=== PATIENT | male | born 1950 | race Caucasian/White ===

== ENCOUNTER 2018-01-19 22:07 | Emergency (ER) | payer MEDICARE, OTHER ==
[~2018-01-19] VITALS: Ht 185.4 cm; Wt 106.6 kg
[~2018-01-19 22:07] MED LIST: ADULT LOW DOSE81 MG PO; AMARYL4 MG PO; COQ-10100 MG PO; CREATINE 50005000 MG PO; D-RIBOSE1 GM MC; DEPO-TESTO200 MG/1 M IM; EPIPEN1 EA INJ; FISH OIL 1,2001 EAC1 PO; GLYBURIDE5 MG PO; LISINOPRIL5 MG; METFORMIN HCL1000 M1 PO; NORCO 5-325 TA1 EACH PO; NORCO 7.5-3251 EACH PO; SUPER B COMPLE150 MG PO; TRADJENTA5 MG PO; ULTRAM50 MG PO
[2018-01-19] MEDS ORDERED: VICTOZA 2-0.6 MG/0.1 SUB-Q (22:21)
[2018-01-19] MEDS ORDERED: JARDIANCE10 MG (22:22)
[2018-01-19] MEDS ORDERED: COZAAR25 MG (22:23)
[2018-01-19] MEDS ORDERED: TESTOSTERO200 MG/1 M (22:24)
[2018-01-19] MEDS ORDERED: MAGNESIUM250 MG (22:24)
[2018-01-19] MEDS ORDERED: DHEA50 M1 (22:25)
[2018-01-19] MEDS ORDERED: SILDENAFIL CIT100 MG (22:27)
[2018-01-19] MEDS ORDERED: BACTRIM DS TAB1 EACH PO (22:50)
== END 2018-01-19 23:02 | disposition home or self-care (01) ==
LOC: ED 22:07
PROC: 0X943ZZ Drainage of Right Axilla, Percutaneous Approach (ICD-10-PCS; principal; 2018-01-19)
DX: L02.411 Cutaneous abscess of right axilla (principal); E11.42 Type 2 diabetes mellitus with diabetic polyneuropathy; E78.5 Hyperlipidemia, unspecified; Z91.030 Bee allergy status; Z88.8 Allergy status to other drugs, medicaments and biological substances; Z79.899 Other long term (current) drug therapy; Z79.82 Long term (current) use of aspirin; Z79.84 Long term (current) use of oral hypoglycemic drugs
CPT/HCPCS: 10060; 87070; 87205; 99283

== ENCOUNTER 2019-06-24 19:40 | Emergency (ER) | payer MEDICARE, OTHER ==
[~2019-06-24] VITALS: Ht 185.4 cm; Wt 85.3 kg
--- OUTSIDE RECORDS SUMMARY | ~2019-06-24 | XMS | Encounter Summary ---
Demographics + + + | Address | [address] | | | [place] [address] | + + + | Home Phone | | + + + | Preferred Language | Unknown | + + + | Marital Status | | + + + | Congregation Affiliation | Unknown | + + + | Race | White | + + + | Ethnic Group | Other Race | + + + Author + + + | Author | [facility] | + + + | Organization | [facility] | + + + | Address | Unknown | + + + | Phone | Unavailable | + + + Support + + + + + | Name | Relationship | Address | Phone | + + + + + | Esthela Kumar | ECON | [address] | | | | | [place] | | | | | [address] | | + + + + + Care Team Providers + +------+ + | Care Bale Coverer Name | Role | Phone | + +------+ + | Alan Sainz MD | PCP | | + +------+ + Reason for Visit Diagnostic Testing (Routine) +--------+--------+ + + + + | Status | Reason | Specialty | Diagnoses / | Referred By | Referred To | | | | | Procedures | Contact | Contact | +--------+--------+ + + + + | Closed | | Clinical | Diagnoses | Julissa Lazcano [facility] | | | | Neurophysiolo | Peripheral | MD Sherlyn | [address] | | | | gy | neuropathy | [address] | | | | | Procedures | Ave | Mailcode: | | | | | EMG/NERVE | [place], [place] | [facility] | | | | | CONDUCTION | [address] | for Health | | | | | STUDIES,ADUL | Phone: | and Healing, | | | | | T - | [phone] | Building 1, | | | | | NEUROLOGY | Fax: | 8th Floor | | | | | | [phone] | [place], [place] | | | | | | | [address] | | | | | | | Phone: | | | | | | | [phone] | | | | | | | Fax: | | | | | | | [phone] | +--------+--------+ + + + + Encounter Details +--------+ + + + + | Date | Type | Department | Care Team | Description | +--------+ + + + + | 08/08/ | Hospital | Neurophysiology | Sherlyn Lazcano MD | | | 2011 | Encounter | EMG at [facility] 8th Floor | [address] | | | | | [address] | [place] [address] | | | | | Mailcode: 8E | [phone] | | | | | [facility] | | | | | | and Healing, | Argenis Krishna | | | | | [facility] | [address] | | | | | Floor [place], [place] | Candice Gonzalez [place], | | | | | [address] | [place] [address] | | | | | [phone] | KatherineYin lynch | | | | | | [place], [place] | | | | | | [address] | | | | | | [phone] | | +--------+ + + + + Social History + +-------+ +--------+------+ | Tobacco Use | Types | Packs/Day | Years | Date | | | | | Used | | + +-------+ +--------+------+ | Never Smoker | | | | | + +-------+ +--------+------+ + + +---------+ + | Alcohol Use | Drinks/Week | oz/Week | Comments | + + +---------+ + | No | | | | + + +---------+ + + + + | Sex Assigned at | Date Recorded | | | | + + + | Not on file | | + + + + + + + | Job Start Date | Occupation | Industry | + + + + | Not on file | Not on file | Not on file | + + + + + + + + | Travel History | Travel Start | Travel End | + + + + + + | No recent travel history available. | + + documented as of this encounter Medications at Time of Discharge + + + +---------+--------+ + | Medication | Sig | Dispensed | Refills | Start | End Date | | | | | | Date | | + + + +---------+--------+ + | ASPIRIN (ASPIR-81 | Take 81 mg by mouth | | 0 | | | | ORAL) | once daily. | | | | | + + + +---------+--------+ + | COQ10 SG 100 100 | 400mg daily | | 0 | | | | MG-100 UNIT CAP | | | | | | + + + +---------+--------+ + | CREATINE | 5g daily | | 0 | | | | MONOHYDRATE ORAL | | | | | | | POWDER | | | | | | + + + +---------+--------+ + | FISH OIL 1,000 mg | 1200 MG -- 2 CAPS | | 0 | | | | Oral Capsule | DAILY | | | | | + + + +---------+--------+ + | metFORMIN 1,000 mg | Take 1,000 mg by | | 0 | | | | Oral tablet | mouth two times | | | | | | | daily. | | | | | + + + +---------+--------+ + | RIBOSE, BULK, MISC | 5 g four times daily | | 0 | | | | | as needed. | | | | | + + + +---------+--------+ + | VITAMIN B COMPLEX | 1 tab daily | | 0 | | | | [place] | | | | | | + + + +---------+--------+ + documented as of this encounter Plan of Treatment Not on filedocumented as of this encounter Procedures + +--------+ + + + | Procedure Name | Priori | Date/Time | Associated Diagnosis | Comments | | | ty | | | | + +--------+ + + + | EMG/NERVE CONDUCTION | | 08/08/2012 | | Results for this | | STUDIES,ADULT - | | 12:00 AM | | procedure are in the | | NEUROLOGY | | PST | | results section. | + +--------+ + + + documented in this encounter Results EMG/NERVE CONDUCTION STUDIES,ADULT - NEUROLOGY (08/08/2012 12:00 AM PST) + + + | Narrative | Performed At | + + + | | | | | | + + + + + | Procedure Note | + + | Joseu Giles - 08/13/2012 2:01 PM PST | + + documented in this encounter Visit Diagnoses Not on filedocumented in this encounter"
--- OUTSIDE RECORDS SUMMARY | ~2019-06-24 | XMS | Encounter Summary ---
Demographics + + + | Address | [address] | | | [place] [address] | + + + | Home Phone | | + + + | Preferred Language | Unknown | + + + | Marital Status | | + + + | Jain Affiliation | Unknown | + + + | Race | White | + + + | Ethnic Group | Other Race | + + + Author + + + | Author | [facility] | + + + | Organization | [facility] | + + + | Address | Unknown | + + + | Phone | Unavailable | + + + Support + + + + + | Name | Relationship | Address | Phone | + + + + + | Esthela Kumar | ECON | [address] | | | | | [place] | | | | | [address] | | + + + + + Care Team Providers + +------+ + | Care Regional Intermodal Truck Driver Name | Role | Phone | + +------+ + | Alan Sainz MD | PCP | | + +------+ + Encounter Details +--------+ + + + + | Date | Type | Department | Care Team | Description | +--------+ + + + + | 06/22/ | Abstract | Neurology at | Brian, | | | 2017 | | [facility] & | Sussy Manuel MD [address] | | | | [address] | | | | | [address] Mailcode: | [place], [place] | | | | | [facility] | [address] | | | | | Health and Healing, | [phone] | | | | | | | | | | | Floor [place], [place] | | | | | | [address] | | | | | | [phone] | | | +--------+ + + + + [...] + + documented as of this encounter Plan of Treatment Not on filedocumented as of this encounter Visit Diagnoses Not on filedocumented in this encounter"
--- OUTSIDE RECORDS SUMMARY | ~2019-06-24 | XMS | Encounter Summary ---
Demographics + + + | Address | [address] | | | [place] [address] | + + + | Home Phone | | + + + | Preferred Language | Unknown | + + + | Marital Status | | + + + | Shinto Affiliation | Unknown | + + + | Race | White | + + + | Ethnic Group | Other Race | + + + Author + + + | Author | [facility] | + + + | Organization | [facility] | + + + | Address | Unknown | + + + | Phone | Unavailable | + + + Support + + + + + | Name | Relationship | Address | Phone | + + + + + | Esthela Kumar | ECON | [address] | | | | | [place] | | | | | [address] | | + + + + + Care Team Providers + +------+ + | Care Access Database Developer Name | Role | Phone | + +------+ + | Alan Sainz MD | PCP | | + +------+ + Encounter Details +--------+------+ + + + | Date | Type | Department | Care Team | Description | +--------+------+ + + + | 07/03/ | Lab | Laboratory at [facility] | | Peripheral | | 2011 | | [address] | | neuropathy | | | | [place], [place] | | | | | | [address] | | | | | | [phone] | | | +--------+------+ + + + Social History + +-------+ [...] | + +--------+ + + + | CBC AND AUTO DIFF | Routin | 07/03/2012 | Peripheral | Results for this | | | e | 5:21 PM | neuropathy | procedure are in the | | | | PST | | results section. | + +--------+ + + + | IMMUNOFIXATION, | Routin | 07/03/2012 | Peripheral | Results for this | | SERUM | e | 5:21 PM | neuropathy | procedure are in the | | | | PST | | results section. | + +--------+ + + + | CBC, WITH | Routin | 07/03/2012 | Peripheral | Results for this | | DIFFERENTIAL | e | 5:21 PM | neuropathy | procedure are in the | | | | PST | | results section. | + +--------+ + + + | COMPLETE METABOLIC | Routin | 07/03/2012 | Peripheral | Results for this | | SET | e | 5:21 PM | neuropathy | procedure are in the | | (NA,K,CL,CO2,BUN,CRE | | PST | | results section. | | AT,GLUC,CA,AST,ALT,B | | | | | | REGINO TOTAL,ALK | | | | | | PHOS,ALB,PROT TOTAL) | | | | | + +--------+ + + + | METHYLMALONIC ACID, | Routin | 07/03/2012 | Peripheral | Results for this | | SERUM | e | 5:21 PM | neuropathy | procedure are in the | | | | PST | | results section. | + +--------+ + + + | SEDIMENTATION RATE | Routin | 07/03/2012 | Peripheral | Results for this | | | e | 5:21 PM | neuropathy | procedure are in the | | | | PST | | results section. | + +--------+ + + + | VITAMIN B-12 | Routin | 07/03/2012 | Peripheral | Results for this | | | e | 5:21 PM | neuropathy | procedure are in the | | | | PST | | results section. | + +--------+ + + + | PROTEIN | Routin | 07/03/2012 | Peripheral | Results for this | | ELECTROPHORESIS, | e | 5:21 PM | neuropathy | procedure are in the | | SERUM, WITH REFLEX | | PST | | results section. | | TO IMMUNOFIXATION | | | | | + +--------+ + + + | COPPER, SERUM | Routin | 07/03/2012 | Peripheral | Results for this | | | e | 5:21 PM | neuropathy | procedure are in the | | | | PST | | results section. | + +--------+ + + + documented in this encounter Results CBC AND AUTO DIFF (07/03/2012 5:21 PM PST) + +-------+ + + + | Component | Value | Ref Range | Performed | Pathologist | | | | | At | Signature | + +-------+ + + + | WHITE CELL | 7.1 | 4.4 - 11.0 K/cu | [facility] | | | COUNT | | mm | LABORATORY | | | | | | SERVICES, | | | | | | CORE | | + +-------+ + + + | RED CELL | 4.75 | 4.50 - 5.90 | [facility] | | | COUNT | | M/cu mm | LABORATORY | | | | | | SERVICES, | | | | | | CORE | | + +-------+ + + + | HEMOGLOBIN | 14.9 | 13.5 - 17.5 | [facility] | | | | | g/dL | LABORATORY | | | | | | SERVICES, | | | | | | CORE | | + +-------+ + + + | HEMATOCRIT | 43.6 | 41.0 - 53.0 % | [facility] | | | | | | LABORATORY | | | | | | SERVICES, | | | | | | CORE | | + +-------+ + + + | MCV | 91.8 | 80.0 - 96.0 fL | [facility] | | | | | | LABORATORY | | | | | | SERVICES, | | | | | | CORE | | + +-------+ + + + | MCHC | 34.1 | 33.4 - 35.5 | [facility] | | | | | g/dL | LABORATORY | | | | | | SERVICES, | | | | | | CORE | | + +-------+ + + + | RDW | 13.4 | 11.5 - 15.0 % | [facility] | | | | | | LABORATORY | | | | | | SERVICES, | | | | | | CORE | | + +-------+ + + + | PLATELET | 222 | 150 - 400 K/cu | [facility] | | | COUNT | | mm | LABORATORY | | | | | | SERVICES, | | | | | | CORE | | + +-------+ + + + | NEUTROPHIL | 53 | 50 - 70 % | [facility] | | | % | | | LABORATORY | | | | | | SERVICES, | | | | | | CORE | | + +-------+ + + + | LYMPHOCYTE | 34 | 18 - 42 % | [facility] | | | % | | | LABORATORY | | | | | | SERVICES, | | | | | | CORE | | + +-------+ + + + | MONOCYTE % | 7 | 2 - 8 % | [facility] | | | | | | LABORATORY | | | | | | SERVICES, | | | | | | CORE | | + +-------+ + + + | EOS % | 5 (H) | 1 - 3 % | [facility] | | | | | | LABORATORY | | | | | | SERVICES, | | | | | | CORE | | + +-------+ + + + | BASO % | 1 | 0 - 2 % | [facility] | | | | | | LABORATORY | | | | | | SERVICES, | | | | | | CORE | | + +-------+ + + + | NEUTROPHIL | 3.7 | 1.8 - 7.7 K/cu | [facility] | | | # | | mm | LABORATORY | | | | | | SERVICES, | | | | | | CORE | | + +-------+ + + + | LYMPHOCYTE | 2.4 | 1.0 - 4.8 K/cu | [facility] | | | # | | mm | LABORATORY | | | | | | SERVICES, | | | | | | CORE | | + +-------+ + + + | MONOCYTE # | 0.5 | 0.0 - 0.8 K/cu | [facility] | | | | | mm | LABORATORY | | | | | | SERVICES, | | | | | | CORE | | + +-------+ + + + | EOS # | 0.4 | 0.0 - 0.5 K/cu | [facility] | | | | | mm | LABORATORY | | | | | | SERVICES, | | | | | | CORE | | + +-------+ + + + | BASO # | 0.0 | 0.0 - 0.1 K/cu | [facility] | | | | | mm | LABORATORY | | | | | | SERVICES, | | | | | | CORE | | + +-------+ + + + + + | Specimen | + + | Blood - Blood | + + + + + + + | Performing | Address | City/State/Zipcode | Phone Number | | Organization | | | | + + + + + | [facility] | [address] | [place] [address] | | | SERVICES, CORE | [address] | | | + + + + + IMMUNOFIXATION, SERUM (NEUROLOGY ONLY) (07/03/2012 5:21 PM PST) + + + + + + | Component | Value | Ref Range | Performed | Pathologist | | | | | At | Signature | + + + + + + | IMMUNOFIXAT | No monoclonal protein | | [facility] - | | | ION, SERUM | detected by | | [facility] - | | | | immunofixation | | [place] | | | | electrophoresis. | | | | + + + + + + + + | Specimen | + + | Blood - Blood | + + + + + + + | Performing | Address | City/State/Zipcode | Phone Number | | Organization | | | | + + + + + | [facility] | [address] | [place] [address] | | | [place] | | | | + + + + + PROTEIN ELECTROPHORESIS, SERUM (07/03/2012 5:21 PM PST) + + + + + + | Component | Value | Ref Range | Performed | Pathologist | | | | | At | Signature | + + + + + + | TOTAL | 6.8 | 6.4 - 8.3 gm/dL | [facility] - | | | PROTEIN, | | | [facility] - | | | SERUM - | | | [place] | | | SPEP | | | | | + + + + + + | GAMMA %, | 10.4 | % | [facility] - | | | SPEP | | | [facility] - | | | | | | [place] | | + + + + + + | GAMMA, | 0.71 | 0.50 - 1.50 | [facility] | | | SERUM - | | gm/dL | [facility] - | | | SPEP | | | [place] | | + + + + + + | BETA % SPEP | 11.8 | % | [facility] | | | | | | [facility] - | | | | | | [place] | | + + + + + + | BETA, SERUM | 0.80 | 0.60 - 1.20 | [facility] | | | - SPEP | | gm/dL | [facility] - | | | | | | [place] | | + + + + + + | ALPHA-2 %, | 9.3 | % | [facility] | | | SPEP | | | [facility] - | | | | | | [place] | | + + + + + + | ALPHA-2, | 0.63 | 0.50 - 0.90 | [facility] | | | SERUM - | | gm/dL | [facility] - | | | SPEP | | | [place] | | + + + + + + | ALPHA-1 %, | 1.8 | % | [facility] | | | SPEP | | | [facility] - | | | | | | [place] | | + + + + + + | ALPHA-1, | 0.12 | 0.10 - 0.40 | [facility] | | | SERUM - | | gm/dL | [facility] - | | | SPEP | | | [place] | | + + + + + + | ALBUMIN %, | 66.7 | % | [facility] | | | SPEP | | | [facility] - | | | | | | [place] | | + + + + + + | ALBUMIN,SER | 4.54 | 3.40 - 5.20 | [facility] | | | UM - SPEP | | gm/dL | [facility] - | | | | | | [place] | | + + + + + + | SPEP | Within usual | | [facility] - | | | COMMENTS | limits.Comment: | | [facility] - | | | | Interpretation By: Dajuan | | ERIC | | | | Brandi AGUILAR MS | | | | + + + + + + + + | Specimen | + + | Blood - Blood | + + + + + + + | Performing | Address | City/State/Zipcode | Phone Number | | Organization | | | | + + + + + | [facility] | [address] | [place] [address] | | | [place] | | | | + + + + + SEDIMENTATION RATE (07/03/2012 5:21 PM PST) + +-------+ + + + | Component | Value | Ref Range | Performed | Pathologist | | | | | At | Signature | + +-------+ + + + | SEDIMENTATI | 13 | 0 - 20 mm/hr | [facility] | | | ON RATE | | | LABORATORY | | | | | | SERVICES, | | | | | | CORE | | + +-------+ + + + + + | Specimen | + + | Blood - Blood | + + + + + + + | Performing | Address | City/State/Zipcode | Phone Number | | Organization | | | | + + + + + | [facility] | [address] | [place] [address] | | | SERVICES, CORE | [address] | | | + + + + + COPPER, SERUM (07/03/2012 5:21 PM PST) + + + + + + | Component | Value | Ref Range | Performed | Pathologist | | | | | At | Signature | + + + + + + | COPPER | 92Comment: REFERENCE | 70 - 140 ug/dL | [facility] | | | SERUM | INTERVAL: Copper, Serum | | REG UNIV | | | | Access complete set of | | PTH - INTFC | | | | age- and/or | | | | | | gender-specificreference | | | | | | intervals for this test | | | | | | in the [facility] | | | | | | LaboratoryTest Directory | | | | | | ([employer]). Serum | | | | | | copper may be elevated | | | | | | with infection, | | | | | | inflammation,stress, and | | | | | | copper supplementation. | | | | | | Serum copper may | | | | | | bereduced by use of | | | | | | corticosteroids and zinc | | | | | | and bymalnutrition or | | | | | | malabsorption.Performed | | | | | | by [address] | | | | | | [facility], [facility] | | | | | | [address] | | | | | | [phone].. | | | | | | [facility], Beverley Lyles, | | | | | | , Lab. Director | | | | + + + + + + + + | Specimen | + + | Blood - Blood | + + + + + + + | Performing | Address | City/State/Zipcode | Phone Number | | Organization | | | | + + + + + | [facility] | [address] | [place], [place] | | | UNIV PTH - INTFC | | [address] | | + + + + + METHYLMALONIC ACID, SERUM (07/03/2012 5:21 PM PST) + + + + + + | Component | Value | Ref Range | Performed | Pathologist | | | | | At | Signature | + + + + + + | METHYLMALON | 0.17Comment: Performed | 0.00 - 0.40 | [facility] | | | IC ACID | by [address] | umol/L | REG UNIV | | | | Ford Fernandez, [facility] | | PTH - INTFC | | | | [address] | | | | | | [phone].[email or web address] | | | | | | com, Beverley Lyles, | | | | | | Christine JIMENEZ. Director | | | | + + + + + + + + | Specimen | + + | Blood - Blood | + + + + + + + | Performing | Address | City/State/Zipcode | Phone Number | | Organization | | | | + + + + + | [facility] | [address] | [place], [place] | | | UNIV PTH - INTFC | | [address] | | + + + + + VITAMIN B-12, SERUM (07/03/2012 5:21 PM PST) + + + + + + | Component | Value | Ref Range | Performed | Pathologist | | | | | At | Signature | + + + + + + | VITAMIN | 280Comment: B12 <200: | 180 - 914 pg/mL | [facility] | | | B12, SERUM | Severe deficiency. If | | [facility] - | | | | supplementation does not | | [place] | | | | correct consider | | | | | | further testing | | | | | | B12 <300: Deficiency | | | | | | likely. If | | | | | | supplementation does not | | | | | | correct, consider | | | | | | further | | | | | | testing B12 <400: | | | | | | Supplementation may be | | | | | | considered if | | | | | | [id number] >400: | | | | | | Deficiency unlikely B12 | | | | | | Deficiency can be | | | | | | confirmed with findings | | | | | | of increased MMA (>320 | | | | | | nmol/L) and increased | | | | | | homocysteine (>15 | | | | | | umol/L). Folate | | | | | | deficiency manifests | | | | | | with normal MMA but | | | | | | increased homocysteine. | | | | + + + + + + + + | Specimen | + + | Blood - Blood | + + + + + + + | Performing | Address | City/State/Zipcode | Phone Number | | Organization | | | | + + + + + | [facility] | [address] | [place] [address] | | | [place] | | | | + + + + + COMPLETE METABOLIC SET (NA,K,CL,CO2,BUN,CREAT,GLUC,CA,AST,ALT,BILI TOTAL,ALK PHOS,ALB,PROT TOTAL) (07/03/2012 5:21 PM PST) + +---------+ + + + | Component | Value | Ref Range | Performed | Pathologist | | | | | At | Signature | + +---------+ + + + | GLUCOSE, | 125 (H) | 60 - 99 mg/dL | [facility] | | | PLASMA | | | LABORATORY | | | (LAB) | | | SERVICES, | | | | | | CORE | | + +---------+ + + + | BUN, PLASMA | 24 (H) | 6 - 20 mg/dL | [facility] | | | (LAB) | | | LABORATORY | | | | | | SERVICES, | | | | | | CORE | | + +---------+ + + + | CREATININE | 1.06 | 0.70 - 1.30 | [facility] | | | PLASMA | | mg/dL | LABORATORY | | | (LAB) | | | SERVICES, | | | | | | CORE | | + +---------+ + + + | EGFR | >60 | mL/min | [facility] | | | - | | | LABORATORY | | | EQUATORIAL GUINEAN | | | SERVICES, | | | | | | CORE | | + +---------+ + + + | EGFR NON | >60 | mL/min | [facility] | | | -SIMONE | | | LABORATORY | | | RICAN | | | SERVICES, | | | | | | CORE | | + +---------+ + + + | SODIUM, | 137 | 136 - 145 | [facility] | | | PLASMA | | mmol/L | LABORATORY | | | (LAB) | | | SERVICES, | | | | | | CORE | | + +---------+ + + + | POTASSIUM, | 4.1 | 3.4 - 5.0 | [facility] | | | PLASMA | | mmol/L | LABORATORY | | | (LAB) | | | SERVICES, | | | | | | CORE | | + +---------+ + + + | CHLORIDE, | 106 | 97 - 108 mmol/L | [facility] | | | PLASMA | | | LABORATORY | | | (LAB) | | | SERVICES, | | | | | | CORE | | + +---------+ + + + | TOTAL CO2, | 21 | 21 - 32 mmol/L | [facility] | | | PLASMA | | | LABORATORY | | | (LAB) | | | SERVICES, | | | | | | CORE | | + +---------+ + + + | CALCIUM, | 8.8 | 8.6 - 10.2 | [facility] | | | PLASMA | | mg/dL | LABORATORY | | | (LAB) | | | SERVICES, | | | | | | CORE | | + +---------+ + + + | BILIRUBIN | 0.8 | 0.3 - 1.2 mg/dL | [facility] | | | TOTAL | | | LABORATORY | | | | | | SERVICES, | | | | | | CORE | | + +---------+ + + + | TOTAL | 7.5 | 6.1 - 7.9 g/dL | [facility] | | | PROTEIN, | | | LABORATORY | | | PLASMA | | | SERVICES, | | | (LAB) | | | CORE | | + +---------+ + + + | ALBUMIN, | 4.1 | 3.5 - 4.7 g/dL | [facility] | | | PLASMA | | | LABORATORY | | | (LAB) | | | SERVICES, | | | | | | CORE | | + +---------+ + + + | ALK PHOS | 58 | 56 - 119 U/L | [facility] | | | | | | LABORATORY | | | | | | SERVICES, | | | | | | CORE | | + +---------+ + + + | AST(SGOT) | 42 (H) | 15 - 41 U/L | [facility] | | | | | | LABORATORY | | | | | | SERVICES, | | | | | | CORE | | + +---------+ + + + | ALT (SGPT) | 60 | 12 - 60 U/L | [facility] | | | | | | LABORATORY | | | | | | SERVICES, | | | | | | CORE | | + +---------+ + + + | ANION | 9 | 4 - 11 mmol/L | [facility] | | | GAP(ALB | | | LABORATORY | | | CORRECTED) | | | SERVICES, | | | | | | CORE | | + +---------+ + + + | POTASSIUM | No Hemo | | [facility] | | | CMNT | | | LABORATORY | | | | | | SERVICES, | | | | | | CORE | | + +---------+ + + + | BILI T CMNT | No Hemo | | [facility] | | | | | | LABORATORY | | | | | | SERVICES, | | | | | | CORE | | + +---------+ + + + | AST CMNT | No Hemo | | [facility] | | | | | | LABORATORY | | | | | | SERVICES, | | | | | | CORE | | + +---------+ + + + | ANION GAP | 10 | 4 - 11 mmol/L | [facility] | | | | | | LABORATORY | | | | | | SERVICES, | | | | | | CORE | | + +---------+ + + + + + | Specimen | + + | Blood - Blood | + + + + + + + | Performing | Address | City/State/Zipcode | Phone Number | | Organization | | | | + + + + + | [facility] | [address] | [place] [address] | | | SERVICES, CORE | [address] | | | + + + + + documented in this encounter Visit Diagnoses + + | Diagnosis | + + | Peripheral neuropathy Unspecified hereditary and idiopathic peripheral neuropathy | + + documented in this encounter"
--- OUTSIDE RECORDS SUMMARY | ~2019-06-24 | XMS | Encounter Summary ---
Demographics + + + | Address | [address] | | | [place] [address] | + + + | Home Phone | | + + + | Preferred Language | Unknown | + + + | Marital Status | | + + + | Adventism Affiliation | Unknown | + + + | Race | White | + + + | Ethnic Group | Other Race | + + + Author + + + | Author | [facility] | + + + | Organization | [facility] | + + + | Address | Unknown | + + + | Phone | Unavailable | + + + Support + + + + + | Name | Relationship | Address | Phone | + + + + + | Esthela Kumar | ECON | [address] | | | | | [place] | | | | | [address] | | + + + + + Care Team Providers + +------+ + | Care Civil Engineering Intern Name | Role | Phone | + +------+ + | Alan Sainz MD | PCP | | + +------+ + Encounter Details +--------+ + + + + | Date | Type | Department | Care Team | Description | +--------+ + + + + | 06/22/ | Results | Neurology at | Maximilian De La Garza, | | | 2005 | Only | [facility] & | | | | | | [address]aling [address] | | | | | | [address] Mailcode: | | | | | | [facility] | | | | | | Health and Healing, | | | | | | Building | | | | | | Floor [place], [place] | | | | | | [address] | | | | | | [phone] | | | +--------+ + + + [...] as of this encounter Plan of Treatment + +---------+--------+ + + | Name | Type | Priori | Associated Diagnoses | Date/Time | | | | ty | | | + +---------+--------+ + + | MRI OUTSIDE FILMS | Imaging | Routin | | 06/22/2006 12:00 AM | | | | e | | PST | + +---------+--------+ + + | GENERAL OUTSIDE | Imaging | Routin | | 07/02/2006 12:00 AM | | FILMS | | e | | PST | + +---------+--------+ + + documented as of this encounter Visit Diagnoses Not on filedocumented in this encounter"
--- OUTSIDE RECORDS SUMMARY | ~2019-06-24 | XMS | Encounter Summary ---
Demographics + + + | Address | [address] | | | [place] [address] | + + + | Home Phone | | + + + | Preferred Language | Unknown | + + + | Marital Status | | + + + | Scientologist Affiliation | Unknown | + + + | Race | White | + + + | Ethnic Group | Other Race | + + + Author + + + | Author | [facility] | + + + | Organization | [facility] | + + + | Address | Unknown | + + + | Phone | Unavailable | + + + Support + + + + + | Name | Relationship | Address | Phone | + + + + + | Esthela Kumar | ECON | [address] | | | | | [place] | | | | | [address] | | + + + + + Care Team Providers + +------+ + | Care Self Rising Flour Mixer Name | Role | Phone | + +------+ + | Alan Sainz MD | PCP | | + +------+ + Encounter Details +--------+ + + + + | Date | Type | Department | Care Team | Description | +--------+ + + + + | 08/02/ | Abstract | Neurology at | Brian, | | | 2017 | | [facility] & | Sussy Manuel MD [address] | | | | | [address] | [address] | | | | | [address] Mailcode: | [place], [place] | | | | | [facility] | [address] | | | | | Health and Healing, | [phone] | | | | | | | | | | | Floor [place], [place] | | | | | | [address] | | | | | | [phone] | | | +--------+ + + + [...]
--- OUTSIDE RECORDS SUMMARY | ~2019-06-24 | XMS | Encounter Summary ---
Demographics + + + | Address | [address] | | | [place] [address] | + + + | Home Phone | | + + + | Preferred Language | Unknown | + + + | Marital Status | | + + + | Sikhism Affiliation | Unknown | + + + [...] + | Esthela Kumar | ECON | [address] | | | | | [place] | | | | | [address] | | + + + + + Care Team Providers + +------+ + | Care Head Of Data Name | Role | Phone | + +------+ + | Alan Sainz MD | PCP | | + +------+ + Encounter Details +--------+------+ + + + | Date | Type | Department | Care Team | Description | +--------+------+ + + + | 08/08/ | Lab | Laboratory at [facility] | | Peripheral | | 2011 | | [address] | | neuropathy | | | | [place], [place] | | | | | | [address] | | | | | | [phone] | | | +--------+------+ + + + [...] | + +--------+ + + + | HEAVY METALS, URINE | Routin | 08/08/2012 | Peripheral | Results for this | | | e | 10:01 AM | neuropathy | procedure are in the | | | | PST | | results section. | + +--------+ + + + | PROTEIN | Routin | 08/08/2012 | Peripheral | Results for this | | ELECTROPHORESIS, | e | 10:01 AM | neuropathy | procedure are in the | | URINE, WITH REFLEX | | PST | | results section. | | TO IMMUNOFIXATION | | | | | + +--------+ + + + documented in this encounter Results HEAVY METALS, URINE (08/08/2012 10:01 AM PST) + + + + + + | Component | Value | Ref Range | Performed | Pathologist | | | | | At | Signature | + + + + + + | CREATININE, | 1913Comment: Performed | 800 - 2100 mg/d | [facility] | | | UR(REFERRAL | by [employer],[address] | | REG UNIV | | | ) | Ford Fernandez, [facility],[place] | | PTH - INTFC | | | | [address] | | | | | | [phone].[employer] | | | | | | suleiman, Beverley Lyles, | | | | | | Christine JIMENEZ. Director | | | | + + + + + + | CREATININE | 106 | mg/dL | [facility] | | | URINE | | | REG UNIV | | | CONCENTRATI | | | PTH - INTFC | | | ON | | | | | + + + + + + | LEAD, URINE | 0.0 | ug/gCR | [facility] | | | UG/G DOCK OPERATOR | | | REG UNIV | | | | | | PTH - INTFC | | + + + + + + | MERCURY, | 0.9 | <=35.0 ug/gCR | [facility] | | | URINE UG/G | | | REG UNIV | | | DOCK OPERATOR | | | PTH - INTFC | | + + + + + + | ARSENIC, | 19.3 | ug/gCR | [facility] | | | URINE UG/G | | | REG UNIV | | | DOCK OPERATOR | | | PTH - INTFC | | + + + + + + | ARSENIC, UR | 37.0 | 0.0 - 50.0 ug/d | [facility] | | | (UG/D) | | | REG UNIV | | | | | | PTH - INTFC | | + + + + + + | MERCURY, UR | 2 | 0 - 15 ug/d | [facility] | | | (UG/D) | | | REG UNIV | | | | | | PTH - INTFC | | + + + + + + | LEAD, UR | 0 | 0 - 31 ug/d | [facility] | | | (UG/D) | | | REG UNIV | | | | | | PTH - INTFC | | + + + + + + | ARSENIC, UR | 20.5Comment: | 0.0 - 35.0 ug/L | [facility] | | | (UG/L) | INTERPRETIVE | | REG UNIV | | | | INFORMATION: Arsenic, | | PTH - INTFC | | | | Urine w/ Reflex | | | | | | toFractionated Specific | | | | | | toxic thresholds for | | | | | | arsenic are not well | | | | | | defined.The [facility] | | | | | | Biological Exposure | | | | | | Index is 35 ug/L for the | | | | | | sumof the inorganic and | | | | | | methylated forms of | | | | | | arsenic. Forspecimens | | | | | | with a total arsenic | | | | | | concentration | | | | | | [id number] ug/L, | | | | | | fractionation is | | | | | | performed to determine | | | | | | theproportion of | | | | | | organic, inorganic and | | | | | | methylated forms. | | | | | | Iflow-level chronic | | | | | | poisoning is suspected, | | | | | | the ug/gCRT ratiomay be | | | | | | more sensitive than the | | | | | | total arsenic | | | | | | concentration.It may be | | | | | | appropriate to | | | | | | fractionate specimens | | | | | | with aug/gCRT ratio | | | | | | greater than 30 ug/gCRT | | | | | | despite a totalarsenic | | | | | | concentration less than | | | | | | 35 ug/L; the | | | | | | [facility] perform | | | | | | this on request. The | | | | | | organic forms of | | | | | | arsenic, most commonly | | | | | | arsenobetaine,are | | | | | | considered nontoxic and | | | | | | arise primarily from | | | | | | food.Inorganic forms of | | | | | | arsenic, As(III) and | | | | | | As(V), are mosttoxic. | | | | | | Methylated forms (MMA | | | | | | and DMA) arise primarily | | | | | | frommetabolism of | | | | | | inorganic forms but may | | | | | | also come fromdietary | | | | | | sources and are of | | | | | | moderate toxic | | | | | | potential. Asthis test | | | | | | does not detect all | | | | | | species of arsenic, it | | | | | | isexpected that the sum | | | | | | of the organic,inorganic | | | | | | andmethylated forms | | | | | | will not equal the total | | | | | | arsenicconcentration. | | | | + + + + + + | LEAD,URINE | 0 | 0 - 23 ug/L | [facility] | | | | | | REG UNIV | | | | | | PTH - INTFC | | + + + + + + | MERCURY | 1Comment: INTERPRETIVE | 0 - 10 ug/L | [facility] | | | URINE | INFORMATION: Mercury, | | REG UNIV | | | | Urine - ug/L Urine | | PTH - INTFC | | | | mercury concentration | | | | | | may correlate better | | | | | | withinorganic mercury | | | | | | exposure than blood | | | | | | concentrations | | | | | | sinceorganic mercury is | | | | | | eliminated primarily in | | | | | | the feces.Urine mercury | | | | | | levels may also be used | | | | | | to monitor | | | | | | chelationtherapy. | | | | + + + + + + | URINE | 24 | hr | [facility] | | | COLLECTION | | | REG UNIV | | | | | | PTH - INT[facility] | | + + + + + + | URINE | 1805 | mL | [facility] | | | VOLUME(REF) | | | REG UNIV | | | | | | PTH - INTFC | | + + + + + + + + | Specimen | + + | Urine - Urine | + + + + + + + | Performing | Address | City/State/Zipcode | Phone Number | | Organization | | | | + + + + + | [facility] | [address] | [place], [place] | | | UNIV PTH - INT[facility] | | [address] | | + + + + + PROTEIN ELECTROPHORESIS, URINE, WITH REFLEX TO IMMUNOFIXATION (08/08/2012 10:01 AM PST) + + + + + + | Component | Value | Ref Range | Performed | Pathologist | | | | | At | Signature | + + + + + + | PROTEIN, | 235 (H) | <=164 mg/24hr | [facility] | | | URINE | | | [facility] | | | | | | [place] | | + + + + + + | URINE | Urine Protein is less | | [facility] | | | ELECTOPHORE | than 30 mg/dL, | | [facility] | | | SIS CM[facility] | electrophoresis not | | [place] | | | | performed.Comment: | | | | | | Interpretation By: | | | | | | [facility] [place], [facility] | | | | | | Pamela | | | | + + + + + + | UR PROT | 13 | <=15 mg/dL | [facility] | | | CONC-UPEP | | | [facility] - | | | | | | [place] | | + + + + + + + + | Specimen | + + | Urine - Urine | + + + + + + + | Performing | Address | City/State/Zipcode | Phone Number | | Organization | | | | + + + + + | [facility] | [address] | [place] [address] | | | [place] | | | | + + + + + documented in this encounter Visit Diagnoses + + | Diagnosis | + + | Peripheral neuropathy Unspecified hereditary and idiopathic peripheral neuropathy | + + documented in this encounter"
--- OUTSIDE RECORDS SUMMARY | ~2019-06-24 | XMS | Clinical Summary ---
Demographics + + + | Address | [address] | | | [place] [address] | + + + | Home Phone | | + + + | Preferred Language | Unknown | + + + | Marital Status | | + + + | Presybeterian Affiliation | Unknown | + + + [...] + | Esthela Kumar | ECON | [address] | | | | | [place] | | | | | [address] | | + + + + + Care Team Providers + +------+ + | Care Asset Protection Manager Name | Role | Phone | + +------+ + | Lázaro Oviedo MD | PCP | | + +------+ + Source Comments FABRICIO is fully live on both [facility] and [facility] Allergies + + + + + [...] | | | | | | | [employer] | | | | | | | [...] [address] | | [address] | 0 | [address] | re | | | MEDICA | | sent | | [place], [place] | | | | RE | | | | [address] | | + +--------+ +--------+ + +--------+ | [employer] | TRANSA | xxxxxxxxx | Effect | [phone] | [address] | POS | | MEDICARE SUPPLEMENT | [place]ICA | | jaye | 2 | [address] | | | | | | for | | [place], [place] | | | | MEDICA | | all | | [id number] | | | | RE | | [...] | | | all | | [place] [address] | | | | | | dates [...] Person | Self | [birth year] | [address] | | | al/Fam | | 1950 | [phone] | [place] | | | anusha | | | 5 (Home) | [address] | + +--------+ +--------+ + + | Andrea Kumar | Specia | Self | [birth year] | | [address] | | | l | | 1950 | [phone] | [place] | | | [place] | | | [address] ([place]) | [address] | | | g | | | | | + +--------+ +--------+ + +"
--- OUTSIDE RECORDS SUMMARY | ~2019-06-24 | XMS | Clinical Summary ---
Demographics + + + | Address | [address] | | | [place] [address] | + + + | Home Phone | | + + + | Preferred Language | Unknown | + + + | Marital Status | | + + + | Yazidi Affiliation | 1073 | + + + | Race | Unknown | + + + | Ethnic Group | Unknown | + + + Author + + + | Author | [facility] | | | and [place] | + + + | Organization | [facility] | | | and [place] | + + + | Address | Unknown | + + + | Phone | Unavailable | + + + Support + + +---------+ + | Name | Relationship | Address | Phone | + + +---------+ + | JUS KUMAR ECON | Unknown | | + + +---------+ + Care Team Providers + +------+ + | Care Television Engineering Teacher Name | Role | Phone | + +------+ + PCP | Unavailable | + +------+ + Allergies + + + + + + | Active Allergy | Reactions | Severity | Noted | Comments | | | | | Date | | + + + + + + | Meperidine | Nausea And Vomiting | Low | 04/18/20 | | | | | | 16 | | + + + + + + | Statins | Other (See Comments) | Medium | 06/21/20 | Cramping | | | | | 17 | throughout body | + + + + + + Medications + + + +---------+------+------+-------+ | Medication | Sig | Dispensed | Refills | Star | End | Statu | | | | | | t | Date | s | | | | | | Date | | | + + + +---------+------+------+-------+ | B COMPLEX-C PO | Take by mouth | | 0 | 08/2 | | Activ | | | daily. | | | 05/10 | | e | | | | | | 16 | | | + + + +---------+------+------+-------+ | Vitamin Mixture | Take 1,000 mg by | | 0 | 08/2 | | Activ | | (SONIA-C PO) | mouth daily. | | | 9/20 | | e | | | | | | 16 | | | + + + +---------+------+------+-------+ | aspirin 81 MG EC | Take 81 mg by mouth | | 0 | 08/2 | | Activ | | tablet | daily with | | | 20 | | e | | | breakfast. | | | 16 | | | + + + +---------+------+------+-------+ | DHEA 50 MG TABS | Take 50 mg by mouth | | 0 | 08/2 | | Activ | | | daily. | | | 9/20 | | e | | | | | | 16 | | | + + + +---------+------+------+-------+ | Coenzyme Q10 | Take 200 mg by mouth | | 0 | 08/2 | | Activ | | (COQ10) 200 MG CAPS | daily. | | | 9/20 | | e | | | | | | 16 | | | + + + +---------+------+------+-------+ | Rogers-3 Fatty | Take 1,200 mg by | | 0 | 08/2 | | Activ | | Acids (FISH OIL) | mouth 2 (two) times | | | 9/20 | | e | | 1200 MG CAPS | daily. | | | 16 | | | + + + +---------+------+------+-------+ | magnesium, as | Take 250 mg by mouth | | 0 | 08/2 | | Activ | | oxide, 250 MG tablet | daily. | | | 20 | | e | | | | | | 16 | | | + + + +---------+------+------+-------+ | metFORMIN | Take 2,000 mg by | | 0 | 08/2 | | Activ | | (GLUCOPHAGE) 1000 MG | mouth daily. | | | 920 | | e | | tablet | | | | 16 | | | + + + +---------+------+------+-------+ | glimepiride | Take 4 mg by mouth 2 | | 0 | 08/2 | | Activ | | (AMARYL) 4 mg tablet | (two) times daily. | | | 920 | | e | | | | | | 16 | | | + + + +---------+------+------+-------+ | liraglutide | Inject 1.8 mg into | | 0 | 08/2 | | Activ | | (VICTOZA) 18 mg/3 mL | the skin daily. | | | 05/10 | | e | | injection | | | | 16 | | | + + + +---------+------+------+-------+ | testosterone | Inject 200 mg into | | 0 | 08/2 | | Activ | | cypionate | the muscle every 28 | | | 05/10 | | e | | (DEPO-TESTOSTERONE) | days. | | | 16 | | | | 200 mg/mL injection | | | | | | | + + + +---------+------+------+-------+ | losartan (COZAAR) | Take 12.5 mg by | | 0 | 09/2 | | Activ | | 25 mg tablet | mouth daily. | | | 05/10 | | e | | | | | | 16 | | | + + + +---------+------+------+-------+ | ascorbic acid | Take 1,000 mg by | | 0 | 11/0 | | Activ | | (VITAMIN C) 1000 MG | mouth daily. | | | 20 | | e | | tablet | | | | 17 | | | + + + +---------+------+------+-------+ | sildenafil | Take 25 mg by mouth | | 0 | 11/0 | | Activ | | (VIAGRA) 25 MG | as needed for | | | /20 | | e | | tablet | Erectile | | | 17 | | | | | Dysfunction. 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 | + + + Family History + + +------+ + | Medical History | Relation | Name | Comments | + + +------+ + | Heart disease | Father | | | + + +------+ + | High cholesterol | Father | | | + + +------+ + | Diabetes, NIDDM | Mother | | | + + +------+ + + +------+ + + | Relation | Name | Status | Comments | + +------+ + + | Father | | | [place],heart disease,hyperllipidemia, smoker | | | | (Age | | | | | 62) | | + +------+ + + | Father | | | | + +------+ + + | Mother | | | hepatitis C, Diabetes Mellitus,thyroid | | | | (Age | disease | | | | 68) | | + +------+ + + | Mother | | | | + +------+ + + Social History + +-------+ +--------+------+ [...] Filed Vital Signs + + + + | Vital Sign | Reading | Time Taken | + + + + | Blood Pressure | 151/89 | 08/31/2017 1017 PST | + + + + | Pulse | 82 | 08/31/2017 1017 PST | + + + + | Temperature | - | - | + + + + | Respiratory Rate | 16 | 06/29/2016 1147 PST | + + + + | Oxygen Saturation | - | - | + + + + | Inhaled Oxygen | - | - | | Concentration | | | + + + + | Weight | 98.4 kg (217 lb) | 08/31/20171016 PST | + + + + | Height | 185.4 cm (6' 1") | 08/31/20171016 PST | + + + + | Body Mass Index | 28.63 | 08/31/20171016 PST | + + + + Plan of Treatment + + + + + | Health Maintenance | Due Date | Last Done | Comments | + + + + + | Hepatitis C | | | | | Screening | 1 | | | + + + + + | Diabetic Eye Exam | | | | | | 9 | | | + + + + + | Diabetic Foot Exam | | | | | | 9 | | | + + + + + | Hemoglobin A1c | | | | | Screening | 9 | | | + + + + + | Vaccine: | | | | | Dtap/Tdap/Td (1 - | 0 | | | | Tdap) | | | | + + + + + | Colorectal Cancer | | | | | Screening | 1 | | | | (Colonoscopy) | | | | + + + + + | Vaccine: Zoster (1 | | | | | of 2) | 1 | | | + + + + + | Vaccine: | | | | | Pneumococcal 65+ | 6 | | | | Low/Medium Risk (1 | | | | | of 2 - PCV13) | | | | + + + + + | Adult Annual | | | | | Wellness Visit | 9 | | | + + + + + | Vaccine: Influenza | | | | | (#1) | 9 | | | + + + + + Results Not on filefrom Last 3 Months
--- OUTSIDE RECORDS SUMMARY | ~2019-06-24 | XMS | Encounter Summary ---
Demographics + + + | Address | [address] | | | [place] [address] | + + + | Home Phone | | + + + | Preferred Language | Unknown | + + + | Marital Status | | + + + | Hindu Affiliation | Unknown | + + + | Race | White | + + + | Ethnic Group | Other Race | + + + Author + + + | Author | [facility] | + + + | Organization | [facility] | + + + | Address | Unknown | + + + | Phone | Unavailable | + + + Support + + + + + | Name | Relationship | Address | Phone | + + + + + | Esthela Kumar | ECON | [address] | | | | | [place] | | | | | [address] | | + + + + + Care Team Providers + +------+ + | Care Imaging System Administrator Name | Role | Phone | + +------+ + | Lázaro Oviedo MD | PCP | | + +------+ + Encounter Details +--------+ + + + + | Date | Type | Department | Care Team | Description | +--------+ + + + + | 12/08/ | Ancillary | Registration [id number] | Maximilian De La Garza, | | | 2005 | Registratio | DUSTIN Costa MD | | | | n | Carlos Mailcode: [id number] | | | | | | [place], [place] | | | | | | [address] | | | | | | [phone] | | | +--------+ + + + [...] + +--------+ + + + | VITAMIN B1, WHOLE | Routin | 12/08/2005 | | Results for this | | BLOOD | e | 1:23 PM | | procedure are in the | | | | PDT | | results section. | + +--------+ + + + | AMINO ACID TOTAL | Routin | 12/08/2005 | | Results for this | | QUANT, PLASMA | e | 1:23 PM | | procedure are in the | | | | PDT | | results section. | + +--------+ + + + | ORGANIC ACIDS, URINE | Routin | 12/08/2005 | | Results for this | | | e | 12:36 PM | | procedure are in the | | | | PDT | | results section. | + +--------+ + + + | ACYLCARNITINE | Routin | 12/08/2005 | | Results for this | | PROFILE, PLASMA | e | 12:31 PM | | procedure are in the | | | | PDT | | results section. | + +--------+ + + + | LEAD, BLOOD | Routin | 12/08/2005 | | Results for this | | | e | 12:31 PM | | procedure are in the | | | | PDT | | results section. | + +--------+ + + + | PYRUVIC ACID, | Routin | 12/08/2005 | | Results for this | | EXTRACT | e | 12:31 PM | | procedure are in the | | | | PDT | | results section. | + +--------+ + + + | CRYOGLOBULIN SCREEN, | Routin | 12/08/2005 | | Results for this | | SERUM | e | 12:31 PM | | procedure are in the | | | | PDT | | results section. | + +--------+ + + + | APT-ROCÍO AB ON HEP 2, | Routin | 12/08/2005 | | Results for this | | SER | e | 12:30 PM | | procedure are in the | | | | PDT | | results section. | + +--------+ + + + | TNH-[id number]-THED,SER | Routin | 12/08/2005 | | Results for this | | UM | e | 12:30 PM | | procedure are in the | | | | PDT | | results section. | + +--------+ + + + | INR | Routin | 12/08/2005 | | Results for this | | | e | 12:30 PM | | procedure are in the | | | | PDT | | results section. | + +--------+ + + + | VITAMIN B6, PLASMA | Routin | 12/08/2005 | | Results for this | | | e | 12:30 PM | | procedure are in the | | | | PDT | | results section. | + +--------+ + + + | VITAMIN E, SERUM | Routin | 12/08/2005 | | Results for this | | | e | 12:30 PM | | procedure are in the | | | | PDT | | results section. | + +--------+ + + + | HOMOCYSTEINE TOTAL, | Routin | 12/08/2005 | | Results for this | | PLASMA | e | 12:30 PM | | procedure are in the | | | | PDT | | results section. | + +--------+ + + + | LYME ABS TOTAL | Routin | 12/08/2005 | | Results for this | | KEY, SERUM | e | 12:30 PM | | procedure are in the | | | | PDT | | results section. | + +--------+ + + + | METHYLMALONIC ACID, | Routin | 12/08/2005 | | Results for this | | SERUM | e | 12:30 PM | | procedure are in the | | | | PDT | | results section. | + +--------+ + + + | ANTI NUCLEAR AB | Routin | 12/08/2005 | | Results for this | | SCREEN, SERUM | e | 12:30 PM | | procedure are in the | | | | PDT | | results section. | + +--------+ + + + | RHEUMATOID FACTOR, | Routin | 12/08/2005 | | Results for this | | SERUM | e | 12:30 PM | | procedure are in the | | | | PDT | | results section. | + +--------+ + + + | SATISH ANTIBODIES | Routin | 12/08/2005 | | Results for this | | IDENTIFICATION, | e | 12:30 PM | | procedure are in the | | SERUM | | PDT | | results section. | + +--------+ + + + | HIV-1,2 AB/HIV-1 P24 | Routin | 12/08/2005 | | Results for this | | AG SCRN | e | 12:30 PM | | procedure are in the | | | | PDT | | results section. | + +--------+ + + + | RPR SERUM | Routin | 12/08/2005 | | Results for this | | | e | 12:30 PM | | procedure are in the | | | | PDT | | results section. | + +--------+ + + + | CBC ONLY | Routin | 12/08/2005 | | Results for this | | | e | 12:30 PM | | procedure are in the | | | | PDT | | results section. | + +--------+ + + + | APTT (ACT. PART. | Routin | 12/08/2005 | | Results for this | | THROMBO TIME) | e | 12:30 PM | | procedure are in the | | | | PDT | | results section. | + +--------+ + + + | TSH | Routin | 12/08/2005 | | Results for this | | | e | 12:30 PM | | procedure are in the | | | | PDT | | results section. | + +--------+ + + + | HEPATITIS C VIRUS | Routin | 12/08/2005 | | Results for this | | W/CONFIRMATION | e | 12:30 PM | | procedure are in the | | | | PDT | | results section. | + +--------+ + + + | PROTEIN | Routin | 12/08/2005 | | Results for this | | ELECTROPHORESIS, | e | 12:30 PM | | procedure are in the | | SERUM, WITH REFLEX | | PDT | | results section. | | TO IMMUNOFIXATION | | | | | + +--------+ + + + | COPPER, SERUM | Routin | 12/08/2005 | | Results for this | | | e | 12:30 PM | | procedure are in the | | | | PDT | | results section. | + +--------+ + + + documented in this encounter Results VITAMIN B1, WHOLE BLOOD (12/08/2005 1:23 PM PDT) + + + + + + | Component | Value | Ref Range | Performed | Pathologist | | | | | At | Signature | + + + + + + | VITAMIN B1, | 7.1 (H)Comment: Testing | 1.6 - 4.0 ug/dL | | | | WHOLE | performed by [facility] | | | | | BLOOD | Laboratory. | | | | + + + + + + + + | Specimen | + + | | + + + + + + + | Performing | Address | City/State/Zipcode | Phone Number | | Organization | | | | + + + + + | [facility] | [address] | [place], [place] | | | [facility] | | [address] | | + + + + + AMINO ACID TOT QT, PL (12/08/2005 1:23 PM PDT) + + + + + + | Component | Value | Ref Range | Performed | Pathologist | | | | | At | Signature | + + + + + + | PHOSPHOSERI | 9 | umol/L | | | | NE, PLASMA | | | | | + + + + + + | TAURINE | 59 | 27 - 282 umol/L | | | | PLASMA | | | | | + + + + + + | THREONINE | 82 | 64 - 236 umol/L | | | | PLASMA | | | | | + + + + + + | SERINE | 111 | 61 - 185 umol/L | | | | PLASMA | | | | | + + + + + + | ASPARAGINE | 56 | 17 - 121 umol/L | | | | PLASMA | | | | | + + + + + + | GLUTAMIC | 91 | 0 - 92 umol/L | | | | ACID, | | | | | | PLASMA | | | | | + + + + + + | GLUTAMINE | 627 (L) | 670 - 990 | | | | PLASMA | | umol/L | | | + + + + + + | PROLINE | 157 | 51 - 390 umol/L | | | | PLASMA | | | | | + + + + + + | GLYCINE | 301 | 72 - 528 umol/L | | | | PLASMA | | | | | + + + + + + | ALANINE | 506 | 191 - 597 | | | | PLASMA | | umol/L | | | + + + + + + | CITRULLINE, | 31 | 15 - 55 umol/L | | | | PLASMA | | | | | + + + + + + | A-AMINOBUTY | 31 | 6 - 46 umol/L | | | | ANDREEA ACID, | | | | | | PLASMA | | | | | + + + + + + | VALINE | 301 | 145 - 326 | | | | PLASMA | | umol/L | | | + + + + + + | CYSTINE | 62 | 14 - 79 umol/L | | | | PLASMA | | | | | + + + + + + | METHIONINE | 24 | 13 - 44 umol/L | | | | PLASMA | | | | | + + + + + + | ISOLEUCINE, | 80 | 36 - 120 umol/L | | | | PLASMA | | | | | + + + + + + | LEUCINE, | 152 | 69 - 214 umol/L | | | | PLASMA | | | | | + + + + + + | TYROSINE | 71 | 32 - 102 umol/L | | | | PLASMA | | | | | + + + + + + | PHENYLALANI | 87 (H) | 40 - 83 umol/L | | | | NE PLASMA | | | | | + + + + + + | ORNITHINE | 99 | 18 - 135 umol/L | | | | PLASMA | | | | | + + + + + + | LYSINE | 205 | 20 - 298 umol/L | | | | PLASMA | | | | | + + + + + + | 1-METHYLHIS | 13 | umol/L | | | | TIDINE | | | | | | PLASMA | | | | | + + + + + + | HISTIDINE | 76 | 36 - 258 umol/L | | | | PLASMA | | | | | + + + + + + | 3-METHYLHIS | 4 (L) | 26 - 120 umol/L | | | | TIDINE | | | | | | PLASMA | | | | | + + + + + + | ARGININE | 43 | 27 - 141 umol/L | | | | PLASMA | | | | | + + + + + + | CYS-HCYS | < 2 | umol/L | | | | DISULFIDE | | | | | | PLASMA | | | | | + + + + + + | INTERPRETAT | No diagnostic findings. | | | | | ION, AMINO | | | | | | ACID PLASMA | | | | | + + + + + + + + | Specimen | + + | | + + + + + + + | Performing | Address | City/State/Zipcode | Phone Number | | Organization | | | | + + + + + | [facility] | [address] | [place] [address] | | | GENETICS LABS | [address] | | | | | [address] | | | + + + + + ORGANIC ACIDS, URINE (12/08/2005 12:36 PM PDT) + + + + + + | Component | Value | Ref Range | Performed | Pathologist | | | | | At | Signature | + + + + + + | ORGANIC | The organic acid profile | | | | | ACIDS,UR | shows no abnormalities. | | | | + + + + + + | INTERPRETAT | No diagnostic findings. | | | | | ION - | However, it should be | | | | | ORGANIC | noted that normal | | | | | ACID UR | resultsdo not | | | | | | necessarily rule out a | | | | | | disorder of fatty acid | | | | | | or organic | | | | | | acidmetabolism, | | | | | | especially if symptoms | | | | | | are intermittent and | | | | | | patient was | | | | | | notsymptomatic when the | | | | | | sample was collected. | | | | + + + + + + + + | Specimen | + + | | + + + + + + + | Performing | Address | City/State/Zipcode | Phone Number | | Organization | | | | + + + + + | [facility] | [facility] | [place] [address] | | | GENETICS LABS | [address] | | | | | [address] | | | + + + + + LEAD, BLOOD (12/08/2005 12:31 PM PDT) + + + + + + | Component | Value | Ref Range | Performed | Pathologist | | | | | At | Signature | + + + + + + | LEAD, BLOOD | 2.1Comment: No | <25.0 ug/dL | | | | | additional action unless | | | | | | exposure sources | | | | | | change.TEST INFORMATION: | | | | | | Lead, Whole Blood | | | | | | VenousBlood lead in | | | | | | children: Refer to CDC | | | | | | Screening YoungChildren | | | | | | for Lead Poisoning | | | | | | program, 1996. Blood | | | | | | leadin adults, | | | | | | occupationally exposed: | | | | | | Refer to OSHA | | | | | | and/orindustrial | | | | | | standards. Test | | | | | | performed by [facility] | | | | | | Laboratories. | | | | + + + + + + + + | Specimen | + + | | + + + + + + + | Performing | Address | City/State/Zipcode | Phone Number | | Organization | | | | + + + + + | [facility] | [address] | [place], [place] | | | [facility] | | [address] | | + + + + + ACYLCARNITINE PROFILE, PLASMA (12/08/2005 12:31 PM PDT) + + + + + + | Component | Value | Ref Range | Performed | Pathologist | | | | | At | Signature | + + + + + + | ACYLCARNITI | See scanned report in | | | | | NE | LCRWeb.Comment: | | | | | PROFILE,DIAMOND | Testing performed at | | | | | S - ACY | [facility] | | | | | | [facility] | | | | + + + + + + | INTERPRETAT | Plasma acylcarnitine | | | | | ION - | profile normal | | | | | REFERRAL | | | | | | TEST | | | | | + + + + + + + + | Specimen | + + | | + + + + + + + | Performing | Address | City/State/Zipcode | Phone Number | | Organization | | | | + + + + + | [facility] | [address] | [place] | | | [place], [place] | | [place] [address] | | + + + + + CRYOGLOBULIN SCREEN (12/08/2005 12:31 PM PDT) + + + + + + | Component | Value | Ref Range | Performed | Pathologist | | | | | At | Signature | + + + + + + | CRYOGLOBULI | Not Detected at 7 | Negative | | | | N SCREEN, | daysComment: Test | | | | | SERUM | performed by [facility] | | | | | | Laboratories. | | | | + + + + + + | CRYOGLOBULI | Not Detected at 72 hours | | | | | N PRELIM | | | | | + + + + + + + + | Specimen | + + | | + + + + + + + | Performing | Address | City/State/Zipcode | Phone Number | | Organization | | | | + + + + + | [facility] | [address] | [place] | | | LABORATORY | | [address] | | + + + + + PYRUVIC ACID, EXTRACT (12/08/2005 12:31 PM PDT) + + + + + + | Component | Value | Ref Range | Performed | Pathologist | | | | | At | Signature | + + + + + + | PYRUVIC | See cmnt | mmol/L | | | | ACID, | | | | | | EXTRACT | | | | | + + + + + + + + | Specimen | + + | | + + + + + | Narrative | Performed At | + + + | Specimen held too long in LCRP, test exceeded shelf life. | | + + + + + + + + | Performing | Address | City/State/Zipcode | Phone Number | | Organization | | | | + + + + + | [facility] | [address] | [place], [place] | | | [facility] | | [address] | | + + + + + APT-ROCÍO AB ON HEP 2, SER (12/08/2005 12:30 PM PDT) + + + + + + | Component | Value | Ref Range | Performed | Pathologist | | | | | At | Signature | + + + + + + | ROCÍO PATTERN | Pattern: | | | | | | homogeneousTiter: | | | | | | 1:80Comment: Test | | | | | | performed by [facility] | | | | | | [facility] | | | | | | Anne. | | | | + + + + + + + + | Specimen | + + | | + + + + + + + | Performing | Address | City/State/Zipcode | Phone Number | | Organization | | | | + + + + + | [facility] | [address] | [place] [address] | | | LABORATORY | | | | + + + + + XIN-XDKRCWH-RFAZ,SERUM (12/08/2005 12:30 PM PDT) + +-------+ + + + | Component | Value | Ref Range | Performed | Pathologist | | | | | At | Signature | + +-------+ + + + | TOTAL | 7.0 | 6.4 - 8.0 g/dL | | | | PROTEIN, | | | | | | SERUM - | | | | | | SPEP | | | | | + +-------+ + + + + + | Specimen | + + | | + + + + + | Narrative | Performed At | + + + | Protein Electrophoresis, Serum Test performed by [place] | | | [facility]. | | + + + + + + + + | Performing | Address | City/State/Zipcode | Phone Number | | Organization | | | | + + + + + | [facility] | [address] | [place] [address] | | | LABORATORY | | | | + + + + + VITAMIN B6, SERUM, REF (12/08/2005 12:30 PM PDT) + + + + + + | Component | Value | Ref Range | Performed | Pathologist | | | | | At | Signature | + + + + + + | VITAMIN B6 | 20.5Comment: Test | 5.0 - 30.0 | | | | (LAB) | performed by [facility] | ng/mL | | | | | Laboratories. | | | | + + + + + + + + | Specimen | + + | | + + + + + + + | Performing | Address | City/State/Zipcode | Phone Number | | Organization | | | | + + + + + | [facility] | [address] | [place], [place] | | | [facility] | | [address] | | + + + + + VITAMIN E, SERUM, REF (12/08/2005 12:30 PM PDT) + + + + + + | Component | Value | Ref Range | Performed | Pathologist | | | | | At | Signature | + + + + + + | VITAMIN E | 32.4 (H)Comment: Test | 5.5 - 18.0 mg/L | | | | (ALPHA | performed by [facility] | | | | | KELSEY), SERUM | Laboratories. | | | | + + + + + + | VITAMIN E | 2.2 | <6.1 mg/L | | | | (ANTHONY KELSEY) | | | | | | SERUM | | | | | + + + + + + + + | Specimen | + + | | + + + + + + + | Performing | Address | City/State/Zipcode | Phone Number | | Organization | | | | + + + + + | [facility] | [address] | [place], [place] | | | [facility] | | [address] | | + + + + + COPPER, SERUM, REF (12/08/2005 12:30 PM PDT) + + + + + + | Component | Value | Ref Range | Performed | Pathologist | | | | | At | Signature | + + + + + + | COPPER | 70Comment: TEST | 70 - 140 ug/dL | | | | SERUM | INFORMATION: Copper, | | | | | | SerumSerum copper may be | | | | | | elevated with | | | | | | infection, | | | | | | inflammation,stress, | | | | | | copper supplementation, | | | | | | oral contraceptives, | | | | | | andpregnancy. | | | | | | Concentrations are 2-3 | | | | | | times normal in thethird | | | | | | trimester of . | | | | | | Copper may be lowered | | | | | | withcorticosteroids, | | | | | | zinc, malnutrition and | | | | | | malabsorption. Test | | | | | | performed be [facility] | | | | | | [facility]roatories. | | | | + + + + + + + + | Specimen | + + | | + + + + + + + | Performing | Address | City/State/Zipcode | Phone Number | | Organization | | | | + + + + + | [facility] | [address] | [place], [place] | | | [facility] | | [address] | | + + + + + PROTHROMBIN TIME (12/08/2005 12:30 PM PDT) + + + + + + | Component | Value | Ref Range | Performed | Pathologist | | | | | At | Signature | + + + + + + | INR | 1.00Comment: | 0.90 - 1.20 INR | [facility] | | | | PT INR Therapeutic | | DEPARTMENT | | | | ranges for full | | OF | | | | anticoagulation: | | PATHOLOGY | | | | INR for | | | | | | Venous Thromboembolism | | | | | | | | | | | | (2.0-3.0)INR | | | | | | INR for most | | | | | | patients with mech. | | | | | | valves (2.5-3.5)INR | | | | + + + + + + + + | Specimen | + + | | + + + + + + + | Performing | Address | City/State/Zipcode | Phone Number | | Organization | | | | + + + + + | [facility] | [address] | [place] [address] | | | PATHOLOGY | [address] | | | + + + + + | [facility] OF | [address] | [place] [address] | | | PATHOLOGY | [address] | | | + + + + + APTT (ACT. PART. THROMBO TIME) (12/08/2005 12:30 PM PDT) + + + + + + | Component | Value | Ref Range | Performed | Pathologist | | | | | At | Signature | + + + + + + | APTT | 31.7Comment: | 26.0 - 36.0 | [facility] | | | | APTT Therapeutic Range | seconds | DEPARTMENT | | | | | | OF | | | | | | PATHOLOGY | | | | (75-120)sec | | | | | | Heparin levels | | | | | | of 0.35-0.7 U/mL | | | | + + + + + + + + | Specimen | + + | | + + + + + + + | Performing | Address | City/State/Zipcode | Phone Number | | Organization | | | | + + + + + | [facility] | [address] [place] [address] | [place] [address] | | | PATHOLOGY | [address] | | | + + + + + | [facility] | [address] [place] [address] | [place] [address] | | | PATHOLOGY | [address] | | | + + + + + CBC ONLY WITH PLATELET (12/08/2005 12:30 PM PDT) + + + + + + | Component | Value | Ref Range | Performed | Pathologist | | | | | At | Signature | + + + + + + | WHITE CELL | 6.7 | 4.4 - 11.0 K/cu | [facility] | | | COUNT | | mm | DEPARTMENT | | | | | | OF | | | | | | PATHOLOGY | | + + + + + + | RED CELL | 4.56 | 4.50 - 5.90 | [facility] | | | COUNT | | M/cu mm | DEPARTMENT | | | | | | OF | | | | | | PATHOLOGY | | + + + + + + | HEMOGLOBIN | 13.7 | 13.5 - 17.5 | [facility] | | | | | g/dL | DEPARTMENT | | | | | | OF | | | | | | PATHOLOGY | | + + + + + + | HEMATOCRIT | 38.8 (L) | 41.0 - 53.0 % | [facility] | | | | | | DEPARTMENT | | | | | | OF | | | | | | PATHOLOGY | | + + + + + + | MCV | 85.2 | 80.0 - 96.0 fL | [facility] | | | | | | DEPARTMENT | | | | | | OF | | | | | | PATHOLOGY | | + + + + + + | MCHC | 35.2 | 33.4 - 35.5 | [facility] | | | | | g/dL | DEPARTMENT | | | | | | OF | | | | | | PATHOLOGY | | + + + + + + | RDW | 12.7 | 11.5 - 15.0 % | [facility] | | | | | | DEPARTMENT | | | | | | OF | | | | | | PATHOLOGY | | + + + + + + | PLATELET | 224 | 150 - 400 K/cu | [facility] | | | COUNT | | mm | DEPARTMENT | | | | | | OF | | | | | | PATHOLOGY | | + + + + + + + + | Specimen | + + | | + + + + + + + | Performing | Address | City/State/Zipcode | Phone Number | | Organization | | | | + + + + + | [facility] | [facility] | [place] [address] | | | PATHOLOGY | [address] | | | + + + + + | [facility] DEPARTMENT OF | [facility] | [place] [address] | | | PATHOLOGY | [address] | | | + + + + + HEPATITIS C AB (12/08/2005 12:30 PM PDT) + + + + + + | Component | Value | Ref Range | Performed | Pathologist | | | | | At | Signature | + + + + + + | HEPATITIS C | NegativeComment: | Negative | | | | AB | Test performed by [facility] | | | | | | [facility] | | | | | | Laboratories. | | | | + + + + + + + + | Specimen | + + | | + + + + + + + | Performing | Address | City/State/Zipcode | Phone Number | | Organization | | | | + + + + + | [facility] | [address] | [place] [address] | | | LABORATORY | | | | + + + + + RPR SERUM (12/08/2005 12:30 PM PDT) + + + + + + | Component | Value | Ref Range | Performed | Pathologist | | | | | At | Signature | + + + + + + | RPR SRM | Non-ReactiveComment: | | | | | QUAL | Test performed by | | | | | | [facility] | | | | | | [facility]. | | | | + + + + + + + + | Specimen | + + | | + + + + + + + | Performing | Address | City/State/Zipcode | Phone Number | | Organization | | | | + + + + + | [facility] | [address] | [place] [address] | | | LABORATORY | | | | + + + + + TSH-THYROID STIM HORMONE (12/08/2005 12:30 PM PDT) + + + + + + | Component | Value | Ref Range | Performed | Pathologist | | | | | At | Signature | + + + + + + | TSH | 1.40Comment: Test | 0.28 - 5.00 | | | | | performed by [facility] | uIU/ml | | | | | [facility] | | | | | | Laboratories. | | | | + + + + + + + + | Specimen | + + | | + + + + + + + | Performing | Address | City/State/Zipcode | Phone Number | | Organization | | | | + + + + + | [facility] | [address] | [place] [address] | | | LABORATORY | | | | + + + + + SERUM PROTEIN ELEC (12/08/2005 12:30 PM PDT) + + + + + + | Component | Value | Ref Range | Performed | Pathologist | | | | | At | Signature | + + + + + + | ALBUMIN,SER | 4.47 | 3.40 - 5.20 | | | | UM - SPEP | | g/dL | | | + + + + + + | ALPHA-1, | 0.13 | 0.10 - 0.40 | | | | SERUM - | | g/dL | | | | SPEP | | | | | + + + + + + | ALPHA-2, | 0.64 | 0.50 - 0.90 | | | | SERUM - | | g/dL | | | | SPEP | | | | | + + + + + + | BETA, SERUM | 0.88 | 0.60 - 1.20 | | | | - SPEP | | g/dL | | | + + + + + + | GAMMA, | 0.88 | 0.50 - 1.50 | | | | SERUM - | | g/dL | | | | SPEP | | | | | + + + + + + | ALBUMIN %, | 63.8 | % | | | | SPEP | | | | | + + + + + + | ALPHA-1 %, | 1.8 | % | | | | SPEP | | | | | + + + + + + | ALPHA-2 %, | 9.2 | % | | | | SPEP | | | | | + + + + + + | BETA % SPEP | 12.6 | % | | | + + + + + + | GAMMA %, | 12.6 | % | | | | SPEP | | | | | + + + + + + | SPEP | Within usual limits. | | | | | COMMENTS | | | | | + + + + + + | SPE | Zhane Garcia | | | | | REVIEWED | | | | | | BY: | | | | | + + + + + + + + | Specimen | + + | | + + + + + | Narrative | Performed At | + + + | Protein Electrophoresis, Serum Test performed by [place] | | | [facility]. | | + + + + + + + + | Performing | Address | City/State/Zipcode | Phone Number | | Organization | | | | + + + + + | [facility] | [address] | [place] [address] | | | LABORATORY | | | | + + + + + HIV AB, SCREEN (12/08/2005 12:30 PM PDT) + + + + + + | Component | Value | Ref Range | Performed | Pathologist | | | | | At | Signature | + + + + + + | HIV-1/HIV2 | Non-ReactiveComment: | Negative | [facility] | | | AB SCREEN | Reference Range: | | DEPARTMENT | | | | Non-reactive | | OF | | | | | | PATHOLOGY | | + + + + + + | FORM SIGNED | [place] | | [facility] | | | BY: | | | DEPARTMENT | | | | | | OF | | | | | | PATHOLOGY | | + + + + + + + + | Specimen | + + | | + + + + + + + | Performing | Address | City/State/Zipcode | Phone Number | | Organization | | | | + + + + + | [facility] | [address] [place] [address] | [place] [address] | | | PATHOLOGY | [address] | | | + + + + + | [facility] | [address] [place] [address] | [place] [address] | | | PATHOLOGY | [address] | | | + + + + + METHYLMALONIC ACID, SERUM (12/08/2005 12:30 PM PDT) + + + + + + | Component | Value | Ref Range | Performed | Pathologist | | | | | At | Signature | + + + + + + | METHYLMALON | < 0.1Comment: Test | umol/L | | | | IC ACID | performed by [facility] | | | | | | [facility]. | | | | + + + + + + + + | Specimen | + + | | + + + + + + + | Performing | Address | City/State/Zipcode | Phone Number | | Organization | | | | + + + + + | [facility] | [address] | [place], [place] | | | [facility] | | [id number] | | + + + + + RHEUMATOID FACTOR (12/08/2005 12:30 PM PDT) + + + + + + | Component | Value | Ref Range | Performed | Pathologist | | | | | At | Signature | + + + + + + | RHEUMATOID | < 20Comment: Test | <20 IU/mL | | | | FACTOR | performed by [facility] | | | | | | [facility] | | | | | | [facility]mi. | | | | + + + + + + + + | Specimen | + + | | + + + + + + + | Performing | Address | City/State/Zipcode | Phone Number | | Organization | | | | + + + + + | [facility] | [address] | [place] [address] | | | LABORATORY | | | | + + + + + ANTI NUCLEAR AB SCREEN (12/08/2005 12:30 PM PDT) + + + + + + | Component | Value | Ref Range | Performed | Pathologist | | | | | At | Signature | + + + + + + | ROCÍO SCREEN | PositiveComment: | Negative | | | | ON HEP | Test performed by [facility] | | | | | 2,SERUM | [facility] | | | | | | Laboratories. | | | | + + + + + + + + | Specimen | + + | | + + + + + + + | Performing | Address | City/State/Zipcode | Phone Number | | Organization | | | | + + + + + | [facility] | [address] | [place] [address] | | | LABORATORY | | | | + + + + + LYME AB DETECTION-EIA, SERUM (12/08/2005 12:30 PM PDT) + + + + + + | Component | Value | Ref Range | Performed | Pathologist | | | | | At | Signature | + + + + + + | LYME AB | 0.34Comment: REFERENCE | <1.21 GEO | | | | KEY, | INTERVAL: Borrelia | | | | | SERUM | Burgdorferi Abs,Total by | | | | | | KEY 0.99 GEO or | | | | | | Less: ...... Negative: | | | | | | Antibody to Borrelia | | | | | | | | | | | | burgdorferi | | | | | | not detected. 1.00 - | | | | | | 1.20 GEO......... | | | | | | Equivocal: Repeat | | | | | | testing in | | | | | | | | | | | | 10-14 days may be | | | | | | helpful. 1.21 GEO or | | | | | | Greater: ... Positive: | | | | | | Probable presence of | | | | | | | | | | | | antibody to | | | | | | Borrelia | | | | | | | | | | | | burgdorferi detected. | | | | | | Test performed by [facility] | | | | | | Laboratories. | | | | + + + + + + + + | Specimen | + + | | + + + + + + + | Performing | Address | City/State/Zipcode | Phone Number | | Organization | | | | + + + + + | [facility] | [address] | [place], [place] | | | [facility] | | [address] | | + + + + + SATISH-ANTIBODIES IDENTIFICATION (12/08/2005 12:30 PM PDT) + + + + + + | Component | Value | Ref Range | Performed | Pathologist | | | | | At | Signature | + + + + + + | FRONT DESK RECEPTIONIST AB | Negative | | [facility] | | | | | | DEPARTMENT | | | | | | OF | | | | | | PATHOLOGY | | + + + + + + | SM AB | Negative | Negative | [facility] | | | | | | DEPARTMENT | | | | | | OF | | | | | | PATHOLOGY | | + + + + + + | SSA AB | Negative | Negative | [facility] | | | | | | DEPARTMENT | | | | | | OF | | | | | | PATHOLOGY | | + + + + + + | SSB AB | Negative | Negative | [facility] | | | | | | DEPARTMENT | | | | | | OF | | | | | | PATHOLOGY | | + + + + + + | SCL-70 AB | Negative | Negative | [facility] | | | | | | DEPARTMENT | | | | | | OF | | | | | | PATHOLOGY | | + + + + + + | CENTROMERE | Negative | Negative | [facility] | | | AB | | | DEPARTMENT | | | | | | OF | | | | | | PATHOLOGY | | + + + + + + | CONSUELO-1 AB | Negative | Negative | [facility] | | | | | | DEPARTMENT | | | | | | OF | | | | | | PATHOLOGY | | + + + + + + + + | Specimen | + + | | + + + + + | Narrative | Performed At | + + + | SATISH Antibody Identification | [facility] | | | DEPARTMENT OF | | | PATHOLOGY | + + + + + + + + | Performing | Address | City/State/Zipcode | Phone Number | | Organization | | | | + + + + + | [facility] | [address] | [place] [address] | | | PATHOLOGY | [address] | | | + + + + + | [facility] | [address] | [place] [address] | | | PATHOLOGY | [address] | | | + + + + + HOMOCYSTEINE, PLASMA, TOTAL (12/08/2005 12:30 PM PDT) + +-------+ + + + | Component | Value | Ref Range | Performed | Pathologist | | | | | At | Signature | + +-------+ + + + | HOMOCYSTEIN | 8.7 | 4.0 - 12.0 | [facility] | | | E,PLASMA,TO | | umol/L | DEPARTMENT | | | ILA | | | OF | | | | | | PATHOLOGY | | + +-------+ + + + + + | Specimen | + + | | + + + + + + + | Performing | Address | City/State/Zipcode | Phone Number | | Organization | | | | + + + + + | [facility] DEPARTMENT OF | [address] | [place], [place] [address] | | | PATHOLOGY | [address] | | | + + + + + | [facility] | [address] | [place] [address] | | | PATHOLOGY | [address] | | | + + + + + documented in this encounter Visit Diagnoses Not on filedocumented in this encounter"
--- OUTSIDE RECORDS SUMMARY | ~2019-06-24 | XMS | Encounter Summary ---
Demographics + + + | Address | [address] | | | [place] [address] | + + + | Home Phone | | + + + | Preferred Language | Unknown | + + + | Marital Status | | + + + | Church Affiliation | Unknown | + + + | Race | White | + + + | Ethnic Group | Other Race | + + + Author + + + | Author | [facility] | + + + | Organization | [facility] | + + + | Address | Unknown | + + + | Phone | Unavailable | + + + Support + + + + + | Name | Relationship | Address | Phone | + + + + + | Esthela Kumar | ECON | [address] | | | | | [place] | | | | | [address] | | + + + + + Care Team Providers + +------+ + | Care Fire Department Battalion Chief Name | Role | Phone | + +------+ + | Alan Sainz MD | PCP | | + +------+ + Reason for Referral Diagnostic Testing (Routine) +--------+--------+ + + + + | Status | Reason | Specialty | Diagnoses / | Referred By | Referred To | | | | | Procedures | Contact | Contact | +--------+--------+ + + + + | Closed | | Clinical | Diagnoses | Brian, | Cnl Emg | | | | Neurophysiolo | Weakness of | Sussy Manuel, | [address] | | | | gy | both lower | MD [address] | | | | | extremities | [address] | Mailcode: | | | | | Procedures | [place], [place] | [address] | | | | | EMG/NERVE | [address] | for Health | | | | | CONDUCTION | Phone: | and Healing, | | | | | STUDIES,ADUL | [phone] | Building [address], | | | | | T - | Fax: | 8th Floor | | | | | NEUROLOGY | [phone] | [place], [place] | | | | | | | [address] | | | | | | | Phone: | | | | | | | [phone] | | | | | | | Fax: | | | | | | | [phone] | +--------+--------+ + + + + Encounter Details +--------+ + + + + | Date | Type | Department | Care Team | Description | +--------+ + + + + | 04/27/ | Telephone | Neurology at | Brian, | | | 2017 | | [facility] & | Sussy Manuel MD [address] | | | | | [address] | [address] | | | | | [address] Mailcode: | [place], [place] | | | | | [address] | [address] | | | | | Health and Healing, | [phone] | | | | | Building , 8th | | | | | | Floor [place], [place] | | | | | | [address] | | | | | | [phone] | | | +--------+ + + + [...] of this encounter Plan of Treatment + + +--------+ + + | Name | Type | Priori | Associated Diagnoses | Order Schedule | | | | ty | | | + + +--------+ + + | EMG/NERVE CONDUCTION | Procedures | Routin | Weakness of both | Ordered: 04/27/2017 | | STUDIES,ADULT - | | e | lower extremities | | | NEUROLOGY | | | | | + + +--------+ + + documented as of this encounter Visit Diagnoses + + | Diagnosis | + + | Weakness of both lower extremities - Primary | + + documented in this encounter"
--- OUTSIDE RECORDS SUMMARY | ~2019-06-24 | XMS | Encounter Summary ---
Demographics + + + | Address | [address] | | | [place] [address] | + + + | Home Phone | | + + + | Preferred Language | Unknown | + + + | Marital Status | | + + + | Restorationism Affiliation | Unknown | + + + | Race | White | + + + | Ethnic Group | Other Race | + + + Author + + + | Author | [facility] | + + + | Organization | [facility] | + + + | Address | Unknown | + + + | Phone | Unavailable | + + + Support + + + + + | Name | Relationship | Address | Phone | + + + + + | Esthela Kumar | ECON | [address] | | | | | [place] | | | | | [address] | | + + + + + Care Team Providers + +------+ + | Care Low Voltage Electrician Name | Role | Phone | + +------+ + | Alan Sainz MD | PCP | | + +------+ + Encounter Details +--------+ + + + + | Date | Type | Department | Care Team | Description | +--------+ + + + + | 03/31/ | Documentati | Neurology at | Brian, | | | 2017 | on | [facility] & | Sussy Manuel MD [address] | | | | | [address] | [address] | | | | | [address] Mailcode: | [place], [place] | | | | | [address] | [address] | | | | | Health and Healing, | [phone] | | | | | [facility] | | | | | | Floor [place], [place] | | | | | | [address] | | | | | | [phone] | | | +--------+ + + + [...]
--- OUTSIDE RECORDS SUMMARY | ~2019-06-24 | XMS | Encounter Summary ---
Demographics + + + | Address | [address] | | | [place] [address] | + + + | Home Phone | | + + + | Preferred Language | Unknown | + + + | Marital Status | | + + + | Episcopalian Affiliation | Unknown | + + + | Race | White | + + + | Ethnic Group | Other Race | + + + Author + + + | Author | [facility] | + + + | Organization | [facility] | + + + | Address | Unknown | + + + | Phone | Unavailable | + + + Support + + + + + | Name | Relationship | Address | Phone | + + + + + | Esthela Kumar | ECON | [address] | | | | | [place] | | | | | [address] | | + + + + + Care Team Providers + +------+ + | Care Pathology Laboratory Director Name | Role | Phone | + +------+ + | Alan Sainz MD | PCP | | + +------+ + Reason for Visit + + + | Reason | Comments | + + + | Medication Education | | + + + Encounter Details +--------+ + + + + | Date | Type | Department | Care Team | Description | +--------+ + + + + | 05/13/ | Telephone | Neurology at | Zonia Plascencia LPN | Medication Education | | 2007 | | [facility] & | [address] | | | | | [address] | [address] | | | | | [address] Mailcode: | [place] [address] | | | | | [facility] | [phone] | | | | | Health and Healing, | | | | | | [facility] | | | | | | [place], [place] | | | | | | [address] | | | | | | [phone] | | | +--------+ + + + [...]
--- OUTSIDE RECORDS SUMMARY | ~2019-06-24 | XMS | Encounter Summary ---
Demographics + + + | Address | [address] | | | [place] [address] | + + + | Home Phone | | + + + | Preferred Language | Unknown | + + + | Marital Status | | + + + | Zoroastrian Affiliation | Unknown | + + + | Race | White | + + + | Ethnic Group | Other Race | + + + Author + + + | Author | [facility] | + + + | Organization | [facility] | + + + | Address | Unknown | + + + | Phone | Unavailable | + + + Support + + + + + | Name | Relationship | Address | Phone | + + + + + | Esthela Kumar | ECON | [address] | | | | | [place] | | | | | [address] | | + + + + + Care Team Providers + +------+ + | Care Bilingual Recruiter Name | Role | Phone | + +------+ + | Alan Sainz MD | PCP | | + +------+ + Encounter Details +--------+ + + + + | Date | Type | Department | Care Team | Description | +--------+ + + + + | 02/06/ | Transcribed | Allergy Clinic at | Dictation, Other | Transcribed | | 1994 | | [facility] [address] | | | | | | [address] | | | | | | Mailcode: [address] | | | | | | [place] | | | | | | [facility] | | | | | | [place] [address] | | | | | | [phone] | | | +--------+ + + + [...] as of this encounter Progress Notes Interface, Fire Sprinkler Designer In - 12/05/2006 5:06 AM PDT [address] [address] [facility] February 06, 1995 OPHELIA CAMPOS LIBRARIAN SPECIAL LIBRARY Silistix/Bloominous [facility] [place] [address] RE:Andrea Kumar MR#:[id number] Dear Mr. Campos: Your employee, Mr. Andrea Kumar, was seen for a follow-up visit on February 06, 1995, at the [facility] at the [facility]. He was seen by Dr. Sondra Barton and myself. 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 We believe Mr. Kumar suffers from an [...] necessitate exposure to the agents Colophony, Glutaraldehyde, MCI/PR, Gold and Neomycin/Bacitracin. He was given a list of possible exposure to these agents and shown how to read the material safety data sheets. Of note, coolants may contain as a preservative Glutaraldehyde or MCI/PR (Kathon 886). Colophony likewise, is found in [...] to the [facility] at [facility]. Please feel free to contact us if there are any further questions or concerns. Sincerely yours, Audelia Rod M.D. Resident, Dermatology Sondra Barton M.D. Professor, Dermatology NETTA /ced 02/08/95 cc: C:02/10/95/ced documented in this encounter Plan of Treatment Not on filedocumented as of this encounter Visit Diagnoses Not on filedocumented in this encounter"
--- OUTSIDE RECORDS SUMMARY | ~2019-06-24 | XMS | Encounter Summary ---
Demographics + + + | Address | [address] | | | [place] [address] | + + + | Home Phone | | + + + | Preferred Language | Unknown | + + + | Marital Status | | + + + | Pentecostal Affiliation | Unknown | + + + | Race | White | + + + | Ethnic Group | Other Race | + + + Author + + + | Author | [facility] | + + + | Organization | [facility] | + + + | Address | Unknown | + + + | Phone | Unavailable | + + + Support + + + + + | Name | Relationship | Address | Phone | + + + + + | Esthela Kumar | ECON | [address] | | | | | [place] | | | | | [address] | | + + + + + Care Team Providers + +------+ + | Care Community Program Assistant Name | Role | Phone | + +------+ + | Alan Sainz MD | PCP | | + +------+ + Reason for Referral +--------+--------+ + + + + | Status | Reason | Specialty | Diagnoses / | Referred By | Referred To | | | | | Procedures | Contact | Contact | +--------+--------+ + + + + | | | | | Neno | | | | | | | MD Sherlyn | | | | | | | [address] | | | | | | | [place] | | | | | | | [place], [place] | | | | | | | [address] | | | | | | | Phone: | | | | | | | [phone] | | | | | | | Fax: | | | | | | | [phone] | | +--------+--------+ + + + + Encounter Details +--------+ + + + + | Date | Type | Department | Care Team | Description | +--------+ + + + + | 08/27/ | Orders Only | Neurology at | Sherlyn Lazcano MD | Peripheral | | 2012 | | [facility] & | [address] | neuropathy (Primary | | | | Healing [address] | [place] [address] | Dx) | | | | [address] Mailcode: | [phone] | | | | | [address] | | | | | | Health and Healing, | | | | | | | | | | | | [place], [place] | | | | | | [address] | | | | | | [phone] | | | +--------+ + + + [...] | | + +---------+--------+ + + | ORTHOTIC REFERRAL | Consult | Routin | Peripheral | Ordered: 08/27/2012 | | | | e | neuropathy | | + +---------+--------+ + + documented as of this encounter Visit Diagnoses + + | Diagnosis | + + | Peripheral neuropathy - Primary Unspecified hereditary and idiopathic peripheral | | neuropathy | + + documented in this encounter"
--- OUTSIDE RECORDS SUMMARY | ~2019-06-24 | XMS | Encounter Summary ---
Demographics + + + | Address | [address] | | | [place] [address] | + + + | Home Phone | | + + + | Preferred Language | Unknown | + + + | Marital Status | | + + + | Episcopal Affiliation | Unknown | + + + | Race | White | + + + | Ethnic Group | Other Race | + + + Author + + + | Author | [facility] | + + + | Organization | [facility] | + + + | Address | Unknown | + + + | Phone | Unavailable | + + + Support + + + + + | Name | Relationship | Address | Phone | + + + + + | Esthela Kumar | ECON | [address] | | | | | [place] | | | | | [address] | | + + + + + Care Team Providers + +------+ + | Care Web Marketing Assistant Name | Role | Phone | [...] [id number] | | | | | | [place], [place] | | | | | | [address] | | | | | | [phone] | | | +--------+ + + + [...]
--- OUTSIDE RECORDS SUMMARY | ~2019-06-24 | XMS | Encounter Summary ---
Demographics + + + | Address | [address] | | | [place] [address] | + + + | Home Phone | | + + + | Preferred Language | Unknown | + + + | Marital Status | | + + + | Congregational Affiliation | Unknown | + + + | Race | White | + + + | Ethnic Group | Other Race | + + + Author + + + | Author | [facility] | + + + | Organization | [facility] | + + + | Address | Unknown | + + + | Phone | Unavailable | + + + Support + + + + + | Name | Relationship | Address | Phone | + + + + + | Esthela Kumar | ECON | [address] | | | | | [place] | | | | | [address] | | + + + + + Care Team Providers + +------+ + | Care Routing Machine Operator Name | Role | Phone | + +------+ + | Alan Sainz MD | PCP | | + +------+ + Encounter Details +--------+ + + + + | Date | Type | Department | Care Team | Description | +--------+ + + + + | 06/08/ | Results | Neurology at | Maximilian De La Garza, | | | 2000 | Only | [facility] & | | | | | | [address] | | | | | | [address] Mailcode: | | | | | | [facility] | | | | | | Health and Healing, | | | | | | Building | | | | | | Floor [place], [place] | | | | | | [address] | | | | | | [phone] | | | +--------+ + + + [...] FILMS | Imaging | Routin | | 06/08/2001 12:00 AM | | | | e | | PDT | + +---------+--------+ + + | MRI OUTSIDE FILMS | Imaging | Routin | | 08/24/2001 12:00 AM | | | | e | | PST | + +---------+--------+ + + documented as of this encounter Visit Diagnoses Not on filedocumented in this encounter"
--- OUTSIDE RECORDS SUMMARY | ~2019-06-24 | XMS | Encounter Summary ---
Demographics + + + | Address | [address] | | | [place] [address] | + + + | Home Phone | | + + + | Preferred Language | Unknown | + + + | Marital Status | | + + + | Holiness Affiliation | Unknown | + + + | Race | White | + + + | Ethnic Group | Other Race | + + + Author + + + | Author | [facility] | + + + | Organization | [facility] | + + + | Address | Unknown | + + + | Phone | Unavailable | + + + Support + + + + + | Name | Relationship | Address | Phone | + + + + + | Esthela Kumar | ECON | [address] | | | | | [place] | | | | | [address] | | + + + + + Care Team Providers + +------+ + | Care [employer] Name | Role | Phone | + +------+ + | Alan Sainz MD | PCP | | + +------+ + Encounter Details +--------+ + + + + | Date | Type | Department | Care Team | Description | +--------+ + + + + | 02/02/ | Abstract | Neurology | Maximilian De La Garza, | | | 2005 | [facility] | [facility] | | | | | [address] | | | | | | [address] | | | | | | Mailcode: CR120 | | | | | | Outpatient Clinic | | | | | | [facility], | | | | | | [place] [address] | | | | | | [phone] | | | +--------+ + + + [...]
--- OUTSIDE RECORDS SUMMARY | ~2019-06-24 | XMS | Encounter Summary ---
Demographics + + + | Address | [address] | | | [place] [address] | + + + | Home Phone | | + + + | Preferred Language | Unknown | + + + | Marital Status | | + + + | Hinduism Affiliation | Unknown | + + + | Race | White | + + + | Ethnic Group | Other Race | + + + Author + + + | Author | [facility] | + + + | Organization | [facility] | + + + | Address | Unknown | + + + | Phone | Unavailable | + + + Support + + + + + | Name | Relationship | Address | Phone | + + + + + | Esthela Kumar | ECON | [address] | | | | | [place] | | | | | [address] | | + + + + + Care Team Providers + +------+ + | Care Envelope Sealer Operator Name | Role | Phone | + +------+ + | Alan Sainz MD | PCP | | + +------+ + Encounter Details +--------+ + + + + | Date | Type | Department | Care Team | Description | +--------+ + + + + | 08/28/ | Documentati | Neurology at | Sherlyn Lazcano MD | | | 2012 | on | [facility] & | [address] | | | | | [address] | [place] [address] | | | | | [address] Mailcode: | [phone] | | | | | [address] | | | | | | Health and Healing, | | | | | | Building | | | | | | Floor [place], [place] | | | | | | [address] | | | | | | [phone] | | | +--------+ + + + [...]
--- OUTSIDE RECORDS SUMMARY | ~2019-06-24 | XMS | Encounter Summary ---
Demographics + + + | Address | [address] | | | [place] [address] | + + + | Home Phone | | + + + | Preferred Language | Unknown | + + + | Marital Status | | + + + | Mormonism Affiliation | Unknown | + + + [...] + | Esthela Kumar | ECON | [address] | | | | | [place] | | | | | [address] | | + + + + + Care Team Providers + +------+ + | Care Mutuel Cashier Name | Role | Phone | + [...] | | | | | Procedures | [place], [place] | [address] | | | | | EMG/NERVE | [address] | for Health | | | | | CONDUCTION | Phone: | and Healing, | | | | | STUDIES,ADUL | [phone] | [address], | | | | | T - | Fax: | 8th Floor | | | | | NEUROLOGY | [phone] | [place], [place] | | | | | | | [address] | | | | | | | Phone: | | | | | | | [phone] | | | | | | | Fax: | | | | | | | [phone] | +--------+--------+ + + + + Encounter Details +--------+ + + + + | Date | Type | Department | Care Team | Description | +--------+ + + + + | 04/27/ | Telephone | Neurology at | Brian, | | | 2017 | | [facility] & | Sussy Manuel MD [address] | | | | | [address] | [address] | | | | | [address] Mailcode: | [place], [place] | | | | | [address] | [address] | | | | | Health and Healing, | [phone] | | | | | Building , 8th | | | | | | Floor [place], [place] | | | | | | [address] | | | | | | [phone] | | | +--------+ + + + [...]
--- OUTSIDE RECORDS SUMMARY | ~2019-06-24 | XMS | Encounter Summary ---
Demographics + + + | Address | [address] | | | [place] [address] | + + + | Home Phone | | + + + | Preferred Language | Unknown | + + + | Marital Status | | + + + | Rastafari Affiliation | Unknown | + + + | Race | White | + + + | Ethnic Group | Other Race | + + + Author + + + | Author | [facility] | + + + | Organization | [facility] | + + + | Address | Unknown | + + + | Phone | Unavailable | + + + Support + + + + + | Name | Relationship | Address | Phone | + + + + + | Esthela Kumar | ECON | [address] | | | | | [place] | | | | | [address] | | + + + + + Care Team Providers + +------+ + | Care Pipe Out Worker Name | Role | Phone | + +------+ + | Alan Sainz MD | PCP | | + +------+ + Encounter Details +--------+---------+ + + + | Date | Type | Department | Care Team | Description | +--------+---------+ + + + | 07/18/ | Office | Neurology at | [facility], | Myoadenylate | | 2006 | Visit | [facility] & | | Deaminase Deficiency | | | | [address] | | Myopathy (HCC) | | | | Denise Reina Mailcode: | | (Primary Dx) | | | | [facility] | | | | | | Health and Healing, | | | | | | Building | | | | | | Floor [place], [place] | | | | | | [address] | | | | | | [phone] | | | +--------+---------+ + + + [...] + + + | Blood Pressure | 123/81 | 07/18/2007 2:21 PM | | | | | PST | | + + + + + | Pulse | 72 | 07/18/2007 2:21 PM | | | | | PST | | + + + + + | Temperature | - | - | | + + + + + | Respiratory Rate | 18 | 07/18/2007 2:21 PM | | | | | PST | | + + + + + | Oxygen Saturation | - | - | | + + + + + | Inhaled Oxygen | - | - | | | Concentration | | | | + + + + + | Weight | 114.3 kg (252 lb) | 07/18/2007 2:21 PM | | | | | PST | | + + + + + | Height | 185.4 cm (6' 1") | 07/18/2007 2:21 PM | | | | | PST | | + + + + + | Body Mass Index | 33.25 | 07/18/2007 2:21 PM | | | | | PST | | + + + + + documented in this encounter Progress Notes Maximilian De La Garza - 07/18/2007 2:51 PM PSTFormatting of this note might be different from t he original. [facility] [address] [place], [place] [address] or [email or web address] REFERRED FROM AND FAXED TO: No referring provider defined for this encounter. PRIMARY CARE PHYSICIAN: Alan Sainz MD [facility] [address] [place] [address] 2 / DEL[place]* [phone] REFERRED TO: [facility] Ne[facility] PATIENT:Andrea Kumar INFORMANT: The patient is accompanied by his . DATE OF VISIT:07/18/2007 REASON FOR VISIT: No chief complaint on file. HISTORY OF PRESENT ILLNESS: Andrea Kumar is a 56 y.o. 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 he was last seen in this clinic 8 months ago. Mr. Kumar is doing well. He is taking D-ribose and doing well. When he is out of d-ribose h e is having more difficulty. When he has it he feel normal. He had a recent CK that was sandra n to 700, He also has lost 25 lbs due to dietary changes. He is also exercising. He is using a treadmill and some weights twice weekly. He has some problem with his ankle when he went hunting. I have read the patient's medical record and updated it in the [employer] system. 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 [employer] Social History Main Topics Tobacco Use: Never Alcohol Use: No Drug Use: No Sexually Active: Yes -- Female partners Other Topics Concern No Blood Transfusions No Caffeine No Occupational Exposure No Hobby Hazard Yes Welding Sleep Concern Yes occasional Stress Concern Yes work related Weight Concern Yes Diet No Back Care Yes Exercise Yes Bike Helmet Yes Seat Belt Yes Self Exams No Social History Narrative No narrative on file General EXAM: VITAL SIGNS: BP 123/81 | Pulse 72 | Resp 18 | Ht 1.854 m (6' 1") | Wt 114.306 kg (252 lbs) GENERAL: The patient is pleasant, in no acute distress. HEENT: Normocephalic and atraumatic Sclerae are clear. Conjunctiva are not injected. Mucou s membranes are moist. Oropharynx is clear. NECK: Supple CARDIOVASCULAR: Regular rate and rhythm without murmurs, clicks or rubs. SKIN: No Rashes LUNGS: Clear to auscultation. EXTREMITIES: Warm without clubbing, cyanosis, or edema; 2+ peripheral pulses. NEUROLOGIC: Mental status, the patient is alert and oriented to person, place and date. R ecent and remote memory appear intact. Concentration appears intact. Language is fluent an d speech is articulate PSYCHOLOGICAL: Mood is good Cranial nerve examination I - Smell (Not tested) II -PERRLA, Fundi: discs sharp, no papilledema III,IV, - EOMI, no nystagmus, or diplopia V - Intact to sensation in all 3 divisions, masseter strength is normal VII - There is no facial asymmetry or ptosis, muscle strength is normal VIII - Hearing is grossly intact, bilaterally IX,X - Uvula is midline, palette elevates symmetrically XI - Sternocleidomastoid and trapezius is normal XII - Tongue is midline, there are no fasciculations or atrophy. Motor Exam: Musc Supra Delt Bicep BR Tri Wrist Flex Wrist Ext Finger Ext Finger Flex Intr Hand Move Left 5 5 4+ 5 5 5 5 5- 5 5 Right 5 5 5 5 5 5 5 5 5 5 Musc Ilio Glut Quad Hams TibAnt Charis EHL Per Long Left 5 5 5 5 4 5 4 4 Right 5 5 5 5 5- 5 4 5- Neck extensor Neck flexor 5 5 Reflexes: Right side Left side Brachioradialis 0 0 Biceps tendon 0 0 Triceps 1 1 Patellar 0 0 Achilles 0 0 Babinski: absent absent Jaw Jerk Normal Serrano's Absent SENSORY EXAMINATION: Upper Extremity Light Touch: Intact and symmetric Pin Prick: Intact and symmetric Temperature: Intact and symmetric Vibration: Intact and symmetric Lower Extremity Light Touch: decreased distally Pin Prick: decreased distally Temperature:decreased distally Vibration: absent in the toes TONE: normal CEREBELLAR FUNCTION: Dysdiadochokinesia: Absent Scanning Speech: Absent Djjpoz-bi-Dfyred: Intact Olse-px-Nlxy: Intact Tremor: absent GAIT: Casual: Intact IMPRESSION: Andrea Kumar is a 56 y.o. male here for follow-up. He does well when he is taking D-ribo se. He has lost weight and I encourage him to lose another 10 lbs. I also encouraged him to increase the frequency and duration of his exercise. I also suggested that he work with Dr Fabiola martini to control blood sugar to a better degree. We discussed issues surrounding myoadenylate deaminase deficiency. I gave Mr. Kumar the opportunity to ask questions and answered to the best of my ability. I spent 40 minutes with Mr. Kumar, half of which were in counseling and coordination of care. 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
--- OUTSIDE RECORDS SUMMARY | ~2019-06-24 | XMS | Encounter Summary ---
Demographics + + + | Address | [address] | | | [place] [address] | + + + | Home Phone | | + + + | Preferred Language | Unknown | + + + | Marital Status | | + + + | Methodist Affiliation | Unknown | + + + [...] + | Esthela Kumar | ECON | [address] | | | | | [place] | | | | | [address] | | + + + + + Care Team Providers + +------+ + | Care Trimmer Meat Name | Role | Phone | + +------+ + | Alan Sainz MD | PCP | | + +------+ + Encounter Details +--------+ + + + + | Date | Type | Department | Care Team | Description | +--------+ + + + + | 03/24/ | Results | Neurology at | [facility], | | | 2002 | Only | [facility] & | | | | | | [address] | | | | | | [address]ie [address] Mailcode: | | | | | | [facility] | | | | | | Health and Healing, | | | | | | Building | | | | | | Floor [place], [place] | | | | | | [address] | | | | | | [phone] | | | +--------+ + + + [...] FILMS | Imaging | Routin | | 03/24/2003 12:00 AM | | | | e | | PDT | + +---------+--------+ + + documented as of this encounter Visit Diagnoses Not on filedocumented in this encounter"
--- OUTSIDE RECORDS SUMMARY | ~2019-06-24 | XMS | Clinical Summary ---
Demographics + + + | Address | [address] | | | [place] [address] | + + + | Home Phone | | + + + | Preferred Language | Unknown | + + + | Marital Status | | + + + | Catholic Affiliation | 1073 | + + + | Race | Unknown | + + + | Ethnic Group | Unknown | + + + Author + + + | Author | [facility] | | | and Faheemana | + + + | Organization | [facility] | | | and Faheemana [...] Team Providers + +------+ + | Care Front End Developer Javascript Html Css Name | Role | Phone | + [...] | | + + + +---------+------+------+-------+ | [place]-3 Fatty | Take 1,200 mg by | [...] + + | Father | | | MS,heart disease,hyperllipidemia, smoker | | | | (Age [...]
--- OUTSIDE RECORDS SUMMARY | ~2019-06-24 | XMS | Encounter Summary ---
Demographics + + + | Address | [address] | | | [place] [address] | + + + | Home Phone | | + + + | Preferred Language | Unknown | + + + | Marital Status | | + + + | Buddhist Affiliation | Unknown | + + + | Race | White | + + + | Ethnic Group | Other Race | + + + Author + + + | Author | [facility] | + + + | Organization | [facility] | + + + | Address | Unknown | + + + | Phone | Unavailable | + + + Support + + + + + | Name | Relationship | Address | Phone | + + + + + | Esthela Kumar | ECON | [address] | | | | | [place] | | | | | [address] | | + + + + + Care Team Providers + +------+ + | Care Linen Manager Name | Role | Phone | + +------+ + | Lázaro Oviedo MD | PCP | | + +------+ + Encounter Details +--------+ + + + + | Date | Type | Department | Care Team | Description | +--------+ + + + + | 01/17/ | Documentati | UNKNOWN DEPARTMENT | Unknown . | | | 2018 | on | [address] | | | | | | [address] | | | | | | [place], [place] | | | | | | [address] | | | +--------+ + + + [...]
--- OUTSIDE RECORDS SUMMARY | ~2019-06-24 | XMS | Encounter Summary ---
Demographics + + + | Address | [address] | | | [place] [address] | + + + | Home Phone | | + + + | Preferred Language | Unknown | + + + | Marital Status | | + + + | Yarsanism Affiliation | Unknown | + + + | Race | White | + + + | Ethnic Group | Other Race | + + + Author + + + | Author | [facility] | + + + | Organization | [facility] | + + + | Address | Unknown | + + + | Phone | Unavailable | + + + Support + + + + + | Name | Relationship | Address | Phone | + + + + + | Esthela Kumar | ECON | [address] | | | | | [place] | | | | | [address] | | + + + + + Care Team Providers + +------+ + | Care Compress Machine Operator Name | Role | Phone | + +------+ + | Alan Sainz MD | PCP | | + +------+ + Reason for Referral Consultation (Routine) +--------+--------+ + + + + | Status | Reason | Specialty | Diagnoses / | Referred By | Referred To | | | | | Procedures | Contact | Contact | +--------+--------+ + + + + | Closed | | | Diagnoses | rBian, | | | | | | Spinal | Sussy Manuel, | | | | | | stenosis of | [address] | | | | | | lumbar | [address] | | | | | | region | [place], [place] | | | | | | without | [address] | | | | | | neurogenic | Phone: | | | | | | claudication | [phone] | | | | | | Procedures | Fax: | | | | | | CONSULT TO | [phone] | | | | | | | | | | | | | NEUROSURGERY | | | +--------+--------+ + + + + Reason for Visit + + + | Reason | Comments | + + + | Referral To | External to [facility] | | Neurosurgery | | + + + Encounter Details +--------+ + + + + | Date | Type | Department | Care Team | Description | +--------+ + + + + | 07/19/ | Telephone | Neurology at | [place] | Referral To | | 2016 | | [facility] & | Sussy Manuel MD [address] | Neurosurgery | | | | [address] | [address] | (External to [facility]) | | | | Howie Huang Mailcode: | [place], [place] | | | | | [address] | [address] | | | | | Health and Healing, | [phone] | | | | | [facility] | | | | | | Floor [place], [place] | | | | | | [address] | | | | | | [phone] | | | +--------+ + + + [...] + | Diagnosis | + + | Spinal stenosis of lumbar region without neurogenic claudication - Primary Spinal | | stenosis, lumbar region, without neurogenic claudication | + + documented in this encounter"
--- OUTSIDE RECORDS SUMMARY | ~2019-06-24 | XMS | Encounter Summary ---
Demographics + + + | Address | [address] | | | [place] [address] | + + + | Home Phone | | + + + | Preferred Language | Unknown | + + + | Marital Status | | + + + | Anglican Affiliation | Unknown | + + + [...] + | Esthela Kumar | ECON | [address] | | | | | [place] | | | | | [address] | | + + + + + Care Team Providers + +------+ + | Care Clinical Program Consultant Name | Role | Phone | [...] both lower | MD [address] | [address] | | | | | extremities | [address] | Mailcode: | | | | | Procedures | [place], [place] | [address] [place] [address] | | | | | EMG/NERVE | [address] | for Health | | | | | CONDUCTION | Phone: | and Healing, | | | | | STUDIES,ADUL | [phone] | [address], | | | | | T - | Fax: | 8th Floor | | | | | NEUROLOGY | [phone] | [place], [place] | | | | | ME NEEDLE | | [address] | | | | | ELECTROMYOGR | | Phone: | | | | | APHY, EA | | [phone] | | | | | EXTREM, LTD | | Fax: | | | | | ME NEEDLE | | [phone] | | | | | ELECTROMYOGR | | | | | | | APHY, EA | | | | | | | EXTREM, | | | | | | | COMPLETE ME | | | | | | | MOTOR&/SENS | | | | | | | 1-2 NRV | | | | | | | CNDJ TST ME | | | | | | | MOTOR&/SENS | | | | | | | 3-4 NRV | | | | | | | CNDJ TST ME | | | | | | | MOTOR&/SENS | | | | | | | 5-6 NRV | | | | | | | CNDJ TST ME | | | | | | | MOTOR&/SENS | | | | | | | 7-8 NRV | | | | | | | CNDJ TST | | | +--------+--------+ + + + + Encounter Details +--------+ + + + + | Date | Type | Department | Care Team | Description | +--------+ + + + + | 05/24/ | Telephone | Neurology at | Brian, | | | 2017 | | Health & | Sussy Manuel MD [address] | | | | | [address] | [address] | | | | | [address] Mailcode: | [place], [place] | | | | | [address] | [address] | | | | | Health and Healing, | [phone] | | | | | [facility] | | | | | | [place], [place] | | | | | | [address] | | | | | | [phone] | | | +--------+ + + + [...] Kumar Date of : 1950 Medical | [facility], | | Record Number: [id number] Date of Test: 06/27/2017 Place of | POINT OF CARE | | Service: [facility] (25) - [id number] Department: [id number] [facility] Nerve | TESTS | | Conduction Studies/Electromyography [...] | | Suggested Modifier: None Suggested CPT: 84801 9-10 Nerve Conduction | | | studies 68915 EMG -Each Extremity, Limited (<4 Muscles) w/NCS, qty 2, | | | modifier: XS 92141 EMG -Each Extremity, Completed (>5 Muscles) | [...] | + + + + + | [facility] | [address] | [place] [address] | | | OF CARE TESTS | | | | + + + + + documented in this encounter Visit Diagnoses + + | Diagnosis | + + | Weakness of both lower extremities - Primary | + + documented in this encounter"
--- OUTSIDE RECORDS SUMMARY | ~2019-06-24 | XMS | Encounter Summary ---
Demographics + + + | Address | [address] | | | [place] [address] | + + + | Home Phone | | + + + | Preferred Language | Unknown | + + + | Marital Status | | + + + | Moravian Affiliation | Unknown | + + + [...] + | Esthela Kumar | ECON | [address] | | | | | [place] | | | | | [address] | | + + + + + Care Team Providers + +------+ + | Care Latin Dance Instructor Name | Role | Phone | + +------+ + PCP | Unavailable | + +------+ + Encounter Details +--------+ + + + + | Date | Type | Department | Care Team | Description | +--------+ + + + + | 02/20/ | Results | | Other, Faculty | | | 2001 | Only | | [phone] | | +--------+ + + + + [...] | + +--------+ + + + | SURGICAL PATHOLOGY | Routin | 02/20/2002 | | Results for this | | | e | | | procedure are in the | | | | | | results section. | + +--------+ + + + documented in this encounter Results SURGICAL PATHOLOGY (02/20/2002) + + + + + + | Component | Value | Ref Range | Performed | Pathologist | | | | | At | Signature | + + + + + + | SURGICAL | THIS IS AN AMENDED | | [facility] | | | PATHOLOGY | REPORT SOURCE OF | | DEPARTMENT | | | | SPECIMEN:A Muscle, | | OF | | | | Biopsy for Neuropath | | PATHOLOGY | | | | Final Pathologic | | | | | | Diagnosis:This case is | | | | | | amended to report the | | | | | | electron microscopy | | | | | | results. Thediagnosis is | | | | | | amended as follows: | | | | | | Skeletal muscle, | | | | | | quadriceps, | | | | | | biopsy:Ultrastructural | | | | | | analysis (EM# [id number]): | | | | | | - No specific | | | | | | ultrastructural | | | | | | abnormalities (see | | | | | | comment)Histologic | | | | | | analysis: - | | | | | | Skeletal muscle with | | | | | | peripherally dispersed | | | | | | mitochondria | | | | | | (seecomment) Comment: | | | | | | The vast majority of | | | | | | mitochondria appear | | | | | | swollen consistent | | | | | | withthe artifactual | | | | | | changes identified by | | | | | | light microscopy. No | | | | | | diagnosticultrastructura | | | | | | l abnormalities are | | | | | | identified. Case | | | | | | reviewed by:Bernabe Marcial | | | | | | Sergio, Ph.D., | | | | | | M.D./NeuropathologistT:0 | | | | | | 02/26/02:re / Revised | | | | | | 04/01/02/ I have | | | | | | reviewed all diagnostic | | | | | | slides and have edited | | | | | | the gross | | | | | | and/ormicroscopic | | | | | | portion of this report | | | | | | as part of my pathologic | | | | | | assessment andfinal | | | | | | diagnosis. Clinical | | | | | | History:The patient is a | | | | | | 51 year old male with | | | | | | elevated CPK's (greater | | | | | | than 2,000),cramping and | | | | | | fatigue, but no | | | | | | weakness . These are | | | | | | principally localized | | | | | | tothe lower extremities. 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 | | | | | | Gross | | | | | | Description:Received is | | | | | | a 1.5 x 1.0 x 0.4 cm | | | | | | fragment of beefy-red | | | | | | tissue on moistgauze. | | | | | | Microscopic | | | | | | Description:Frozen | | | | | | sections are stained | | | | | | with hematoxylin and | | | | | | eosin, a | | | | | | modifiedtrichrome | | | | | | method, and for | | | | | | cytochrome oxidase, | | | | | | NADH, SDH, | | | | | | succinicdehydrogenase | | | | | | and ATPase (pH 4.5 and | | | | | | 9.4), PAS with and | | | | | | without | | | | | | diastase,nonspecific | | | | | | esterase, and alkaline | | | | | | phosphatase. The | | | | | | hematoxylin and eosin | | | | | | stained sections show | | | | | | ample sized fragments | | | | | | ofskeletal muscle with | | | | | | mild to moderate | | | | | | disruption and | | | | | | separation artifact.A | | | | | | solitary degenerating | | | | | | fiber is identified; it | | | | | | does not have | | | | | | associatedinflammatory | | | | | | cells. A separate small | | | | | | collection of endomysial | | | | | | lymphocytesis | | | | | | identified, however, it | | | | | | is not associated with | | | | | | any degenerative | | | | | | changesin the adjacent | | | | | | tissue. No | | | | | | abnormalities of the | | | | | | vasculature are | | | | | | noted.There is no | | | | | | fibrosis seen. There is | | | | | | a slight increase in | | | | | | central nuclei.Muscle | | | | | | fibers appear to be of | | | | | | roughly normal (60-100 | | | | | | microns). No evidenceof | | | | | | grouped atrophy or | | | | | | perivesicular atrophy is | | | | | | identified. | | | | | | Nosubsarcolemmal nuclear | | | | | | collections are | | | | | | present. The trichrome | | | | | | stain showssimilar | | | | | | findings, in addition, a | | | | | | significant number of | | | | | | fibers show | | | | | | slightlyenhanced | | | | | | subsarcolemmal rimming | | | | | | and one fiber shows | | | | | | features suggestive ofa | | | | | | ragged red fiber. The | | | | | | latter is somewhat | | | | | | questionable due to | | | | | | thedisrupted state of | | | | | | the biopsy. No rimmed | | | | | | vacuoles or nemaline | | | | | | rods areidentified. The | | | | | | SDH stain shows features | | | | | | similar to the | | | | | | trichrome,specifically, | | | | | | there are an increased | | | | | | number of fibers with | | | | | | increasedsubsarcolemmal | | | | | | staining and the | | | | | | solitary ragged red type | | | | | | fiber is | | | | | | againidentified. The | | | | | | NADH stain shows | | | | | | features similar to the | | | | | | SDH, as well asthe | | | | | | presence of fibers with | | | | | | moth-eaten disruption of | | | | | | the myofibrillarmatrix | | | | | | and core formation; no | | | | | | targets are identified. | | | | | | The cytochromeoxidase | | | | | | stain does not reveal | | | | | | increased numbers of | | | | | | deficient fibers. | | | | | | TheATPase stain show a | | | | | | type 1 to type 2 fiber | | | | | | ratio of approximately | | | | | | 1:2without evidence of | | | | | | neurogenic | | | | | | rearrangement. The | | | | | | nonspecific | | | | | | esterasestain shows | | | | | | scattered non-atrophic | | | | | | fibers with increased | | | | | | staining, Isuspect these | | | | | | represent artifact. The | | | | | | alkaline phosphatase | | | | | | shows noabnormal | | | | | | staining. PAS stains | | | | | | with and without | | | | | | diastase digestion fail | | | | | | toreveal abnormal | | | | | | collections of glycogen. | | | | | | An immunoperoxidase | | | | | | stain for CD3 is | | | | | | performed on frozen | | | | | | sections. Thisfails to | | | | | | identify evidence of an | | | | | | inflammatory process. | | | | | | Note that thesolitary | | | | | | degenerating fiber is | | | | | | identified and does not | | | | | | show T celllymphocytic | | | | | | infiltration. (Analyte | | | | | | specific reagents are | | | | | | used in many laboratory | | | | | | tests necessary | | | | | | [facility] | | | | | | and generally do not | | | | | | require FDA approval. | | | | | | This testwas developed | | | | | | and its performance | | | | | | characteristics | | | | | | determined by | | | | | | [facility]. It | | | | | | has not been cleared or | | | | | | approved by the U.S. | | | | | | Food andDrug | | | | | | Administration). | | | | | | Electron Microscopy (EM | | | | | | # [id number]):Evaluation of | | | | | | Thick Sections: | | | | | | Toluidine blue stained | | | | | | plastic | | | | | | embeddedsections are | | | | | | examined. These show | | | | | | portions of disrupted | | | | | | and mildlydegenerating | | | | | | skeletal muscle. In | | | | | | regions mitochondria | | | | | | appear somewhatenlarged, | | | | | | although clearly | | | | | | abnormal accumulations | | | | | | are not | | | | | | appreciated.Subsarcolemm | | | | | | al clearings are also | | | | | | present, however, these | | | | | | appear torepresent | | | | | | artifact. Portions with | | | | | | the questionable | | | | | | mitochondria areselected | | | | | | for ultrastructural | | | | | | analysis. Evaluation of | | | | | | Thin Sections: | | | | | | Ultrastructural | | | | | | analysis shows | | | | | | thatessentially all the | | | | | | mitochondria appear | | | | | | enlarged with a watery | | | | | | internalcomponent. | | | | | | This feature is not | | | | | | diagnostic of a specific | | | | | | etiology and ismost | | | | | | commonly associated with | | | | | | artifact. Some | | | | | | accumulations of the | | | | | | swollenmitochondria are | | | | | | present, both within the | | | | | | central portions of the | | | | | | fiber andin a | | | | | | subsarcolemmal | | | | | | distribution. Again, | | | | | | this is of unclear | | | | | | significancedue to the | | | | | | disrupted state of the | | | | | | specimen. No | | | | | | abnormalities of | | | | | | themyofibrils are | | | | | | identified. Also, I | | | | | | fail to see clear | | | | | | increases in | | | | | | eitherintracytoplasmic | | | | | | glycogen or lipid. No | | | | | | abnormalities of the | | | | | | basal laminaare | | | | | | appreciated. | | | | | | Pre-Amendment Final | | | | | | Pathologic | | | | | | Diagnosis:Skeletal | | | | | | muscle, quadriceps, | | | | | | biopsy: - Skeletal | | | | | | muscle with | | | | | | peripherally dispersed | | | | | | mitochondria | | | | | | (seecomment) Comment: | | | | | | Peripheral dispersion | | | | | | of mitochondria is not | | | | | | in and of | | | | | | itselfsufficient for | | | | | | diagnosis as a | | | | | | mitochondrial cytopathy. | | | | | | Nonetheless | | | | | | anelectron microscopy | | | | | | will be performed and an | | | | | | amended report will | | | | | | follow. Case reviewed | | | | | | by:Bernabe Hill, | | | | | | Ph.D., | | | | | | M.D./NeuropathologistT:0 | | | | | | 02/26/02:reOriginal date | | | | | | signed out on 02/26/02 | | | | | | by Bernabe Hill, | | | | | | M.D./NeuropathologistRen | | | | | | dering Diagnostician: | | | | | | Bernabe Hill | | | | | | M.D.,Ph.D.PathologistEle | | | | | | ctronically Signed | | | | | | 04/03/2002Comment: | | | | | | SOURCE OF SPECIMEN: | | | | | | Muscle, Biopsy for | | | | | | Neuropath | | | | + + + + + + + + | Specimen | + + | | + + + + + | Narrative | Performed At | + + + | Ordered by Blaire Mendenhall MD | [facility] | | | DEPARTMENT OF | | | PATHOLOGY | + + + + + + + + | Performing | Address | City/State/Zipcode | Phone Number | | Organization | | | | + + + + + | [facility] DE[facility]MENT [facility] | [address] | [place] [address] | | | PATHOLOGY | [address] | | | + + + + + | [facility] | [address] | [place] [address] | | | PATHOLOGY | [address] | | | + + + + + documented in this encounter Visit Diagnoses Not on filedocumented in this encounter"
--- OUTSIDE RECORDS SUMMARY | ~2019-06-24 | XMS | Encounter Summary ---
Demographics + + + | Address | [address] | | | [place] [address] | + + + | Home Phone | | + + + | Preferred Language | Unknown | + + + | Marital Status | | + + + | Hoahaoism Affiliation | Unknown | + + + | Race | White | + + + | Ethnic Group | Other Race | + + + Author + + + | Author | [facility] | + + + | Organization | [facility] | + + + | Address | Unknown | + + + | Phone | Unavailable | + + + Support + + + + + | Name | Relationship | Address | Phone | + + + + + | Esthela Kumar | ECON | [address] | | | | | [place] | | | | | [address] | | + + + + + Care Team Providers + +------+ + | Care Disbursing Agent Name | Role | Phone | + +------+ + | Alan Sainz MD | PCP | | + +------+ + Encounter Details +--------+---------+ + + + | Date | Type | Department | Care Team | Description | +--------+---------+ + + + | 07/18/ | Office | Neurology at | [facility], | 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 [facility] Neu[facility] [address] [place], [place] [address] or [email or web address] REFERRED FROM AND FAXED TO: No referring provider defined for this encounter. PRIMARY CARE PHYSICIAN: Alan Sainz MD [facility] [address] [place] [address] 2 / [place]* [phone] REFERRED TO: [facility] Neuropathy Clinic PATIENT:Andrea Kumar INFORMANT: The [...] medical record and updated it in the [employer] system. 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
--- OUTSIDE RECORDS SUMMARY | ~2019-06-24 | XMS | Encounter Summary ---
Demographics + + + | Address | [address] | | | [place] [address] | + + + | Home Phone | | + + + | Preferred Language | Unknown | + + + | Marital Status | | + + + | Yazidi Affiliation | Unknown | + + + [...] + | Esthela Kumar | ECON | [address] | | | | | [place] | | | | | [address] | | + + + + + Care Team Providers + +------+ + | Care Business Development Analyst Name | Role | Phone | + [...] [id number] | | | | | | [place], [place] | | | | | | [address] | | | | | | [phone] | | | +--------+ + + + [...]
--- OUTSIDE RECORDS SUMMARY | ~2019-06-24 | XMS | Encounter Summary ---
Demographics + + + | Address | [address] | | | [place] [address] | + + + | Home Phone [...] Author | [facility] | + + + | Organization | [facility] | + + + | Address | Unknown | + + + | Phone | Unavailable | + + + Support + + + + + | Name | Relationship | Address | Phone | + + + + + | Esthela Kumar | ECON | [address] | | | | | [place] | | | | | [address] | | + + + + + Care Team Providers + +------+ + | Care Video Specialist Name | Role | Phone | + +------+ + | Jovanny Sainz MD | PCP | | + +------+ + Reason for Visit + + + | Reason | Comments | + + + | Follow-up visit | | + + + Encounter Details +--------+---------+ + + + | Date | Type | Department | Care Team | Description | +--------+---------+ + + + | 03/14/ | Office | Neurology | [facility], | Muscle Weakness; | | 2005 | Visit | [facility] | | Abnormality of Gait | | | | [address] | | | | | | Alex [place]ice [place] | | | | | | Mailcode: [address] | | | | | | Outpatient Clinic | | | | | | [facility], | | | | | | [place] [address] | | | | | | [phone] | | | +--------+---------+ + + + [...] + + + | Blood Pressure | 122/70 | 03/14/2006 1:08 PM | | | | | PDT | | + + + + + | Pulse | 76 | 03/14/2006 1:08 PM | | | | | PDT [...] + + + + | Weight | 123.4 kg (272 lb) | 03/14/2006 1:08 PM | | | | | PDT | | + + + + + | Height | - | - | | + + + + + | Body Mass Index | - | - | | + + + + + documented in this encounter Patient Instructions Patient Instructions 03/14/2006 1:00 PM PDT 1. Repeat 24 hour urine for heavy metals 2. If positive for arsenic treat 3. Creatine monohydrate 5 grams daily dissolved in a clear juice (if powder) 4. Coenzyme Q10 300 mg daily 5. General multivitamin 1 daily Avoid excessive alcohol use. Avoid medications known to be toxic to muscles if possible. A void exposures to chemicals and heavy metals like lead, arsenic, aluminum and mercury. documented in this encounter Progress Notes [facility] Gar[facility] Heber - 03/14/2006 1:31 PM PDTFormatting of this note might be different from t oscar powell. [facility] Neuromuscular Diseases Center [address] [place] [address] or [email or web address] REFERRED FROM AND FAXED TO: JOVANNY SAINZ MD [facility] [address] [address] PRIMARY CARE PHYSICIAN: JOVANNY SAINZ MD, MD [facility] [address] [place] [address] / [place]* [phone] REFERRED TO: [facility] Myopathy Clinic PATIENT:Andrea Kumar INFORMANT: The patient is accompanied by his . DATE OF VISIT:03/14/2006 REASON FOR VISIT: Follow-up visit HISTORY OF PRESENT ILLNESS: Andrea Kumar is a 55 y.o. Right handed male here for follow-up of 5-year history of we akness which began in the distal lower extremities and now seems to be progressing to also i nvolve the left upper extremity and is worse. He was seen in this clinic 2 months ago. Mr. Kumar does seem to be weaker proximally rather than distally. He has no element of exe rtional fatigue. He has no trouble with chewing, swallowing or speaking. He has no eye move ments and double vision. He has not experienced bowel or bladder incontinence or retention. He has muscle cramps. He has weakness in the upper extremities. He has weakness in the lower extremities. He has not noticed changes in muscle mass. He has trouble walking. He has not fallen since the visit. Mr. Kumar has numbness and tingling. Additionally since the last visit More cautious at work. Worried about falling at work. Has a high risk occupation. I have read the patient's medical record and updated it in the [facility] system. PAST MEDICAL HISTORY: CONDITIONS: Past Medical History: FEMUR FRACTURE BACK PAIN HYPERCHOLESTEROLEMIA SURGERIES/ HOSPITALIZATIONS: Past Surgical History: HX LUMBAR LAMINECTOMY 1985, 2000 carpal tunnel left 2005 orif femur 1972 left knee surgery MEDICATIONS: Current outpatient prescriptions: ZETIA 10 MG TAB, take 1 tablet [...] , Rfl: ALLERGIES: Allergies: Demerol (meperidine* Nausea/Vomiting IMMUNIZATIONS: Immunization status: up to date FAMILY HISTORY: Past Medical History: FEMUR FRACTURE BACK PAIN HYPERCHOLESTEROLEMIA SOCIAL HISTORY: Social History Marital Status: Spouse Name: Esthela Years of Education: 14 Number of Children: 3 Occupational History [employer] Social History Main Topics Tobacco Use: Never Alcohol Use: No Drug Use: No Sexually Active: Not on file Other Topics Concern No BLOOD TRANSFUSIONS No [...] results were normal with the following exception: leg weakness, loss of muscle mass, in termittent muscle pain, glucose intolerance. EXAM: VITAL SIGNS: BP 122/70 | Pulse 76 | Wt 272 lbs (123.4kg) GENERAL: The patient is pleasant, in no [...] is fluent and articulate PSYCHOLOGICAL: Mood is happy go dwayne Cranial Nerve Examination I - Smell (Not tested) II -PERRL, visual broderick intact to confrontation. Fundi: normal, discs sharp, no papilledem a and no hemorrhages or exudates III,IV, - [...] Flex Intr Hand Move Left 5 5 4 5 5 5 5 5 5 5 Right 5 5 5 5 5 5 5 5 5 5 Musc Ilio Glut Quad Hams TibAnt Charis EHL Per Long Left 4+ 5 5 5 5 5 4 4+ Right $+ 5 5 5 5 5 4 4+ Neck extensor Neck flexor 5 5 Reflexes: Right side Left side Brachioradialis 0 0 Biceps tendon 0 0 Triceps 0 0 Patellar 0 0 Achilles 0 0 Babinski: absent absent Jaw Jerk Normal Serrano's Absent SENSORY EXAMINATION: Upper extremities Light touch: Intact and symmetric Pin prick: Intact and symmetric Temperature: Intact and symmetric Vibration: Intact and symmetric Lower extremities Light touch: distal sensory loss Pin prick: distal sensory loss Temperature: distal sensory loss Vibration: distal sensory loss TONE: normal CEREBELLAR FUNCTION: Dysdiadochokinesia: Absent Scanning Speech: Absent Tytchy-ct-Knbuln: Intact GAIT: Casual: Intact BALANCE: Romberg: negative Investigations Preformed over the last 6 months include: Labs: Appointment on 02/03/2006 SURGICAL PATHOLOGY Value: Date: 02/13/2006 Value: THIS IS AN AMENDED REPORT SOURCE OF SPECIMEN:A Muscle Biopsy, Myopathy Final Pathologic Diagnosis: This amendment is to report the results of additional histochemical studies. The diagnosis remains unchanged. Muscle, left biceps, biopsy: -Skeletal muscle with no pathologic changes Case reviewed by: Cindi Avina M.D./Neuropathologist :sadaf I have reviewed all diagnostic slides and [...] is negative on individual mu scle fibers. (Analyte specific reagents are used in many laboratory tests necessa ry for standard medical care and generally do not require FDA approval. Thi s test was developed and its performance characteristics determined by [facility]. It has not been cleared or approved by the U.S. Food a nd Drug Administration.) Electron Microscopy: Examination of the plastic-embedded sections wi light microscopy reveals no inflammation, subsarcolemmal deposits, inclusions, vacuoles or myofibrillary changes. Thin sectioning is no t pursued. Rendering Diagnostician: Cindi Avina M.D. Pathologist PYRUVIC ACID, EXTRACT Value: See cmnt(mmol/L) Date: 12/09/2005 CRYOGLOBULIN SCREEN Date: 12/19/2005 Value: Not Detected at 7 days CRYOGLOBULIN PRELIM Date: 12/19/2005 Value: Not Detected at 72 hours HOMOCYSTEINE,PLASMA,TOTAL Value: 8.7(umol/L) Date: 12/13/2005 NAIL KEGGER AB Value: Negative Date: 12/09/2005 SM AB [...] 12/16/2005 Value: Non-Reactive FORM SIGNED BY: Value: Shelialer Date: 12/16/2005 ALBUMIN,SERUM Value: 4.47(g/dL) Date: 12/09/2005 [...] usual limits. SPE REVIEWED BY: Value: Zhane HanleySBrielle Date: 12/09/2005 TSH Value: 1.40(uIU/ml) Date: 12/08/2005 [...] However, it should be noted that normal results do not necessarily rule out a disorder of fatty acid or orga jorge acid metabolism, especially if symptoms are intermittent and patient was not symptomatic when the sample was collected. ACYLCARNITINE PROFILE,PL* [...] 55 y.o. Right handed male here for follow-up. I review the results of the muscle biopsy with him and the 24 hour urine that showed slightly elevated arsenic leve ls. Also I review the Human performance lab evaluation that was abnormal as well. I explaine d that we have not yet determined the etiology of his symptoms and would do additional work on the muscle biopsy if he agreed. he did. Also we would repeat the 24 hour urine for guy ic and treat him if it was indeed elevated. Also I suggested that he use some supplements to try to stabilizes his strength at this time. I gave him and his the opportunity to ask questions and answered to the best of my ability. I spent 45 minutes with Mr. Kumar, half of which were in counseling. RECOMMENDATIONS: 1. Repeat 24 hour urine for arsenic 2. If positive for arsenic treat 3. Creatine monohydrate 5 grams daily dissolved in a clear juice (if powder) 4. Coenzyme Q10 300 mg daily 5. General multivitamin 1 daily 6. Dystrophin panel on the muscle biopsy. 7. If panel negative then consider send out muscle for enzymatic analysis. Avoid excessive alcohol use. Avoid medications known to be toxic to muscles if possible. Av oid exposures to chemicals and heavy metals like lead, arsenic, aluminum and mercury. documented in this encou nter Plan of Treatment Not on filedocumented as of this encounter Visit Diagnoses + + | Diagnosis | + + | Muscle weakness Muscle weakness (generalized) | + + | Abnormality of gait | + + documented in this encounter
--- OUTSIDE RECORDS SUMMARY | ~2019-06-24 | XMS | Encounter Summary ---
Demographics + + + | Address | [address] | | | [place] [address] | + + + | Home Phone [...] + | Esthela Kumar | ECON | [address] | | | | | [place] | | | | | [address] | | + + + + + Care Team Providers + +------+ + | Care Office Bookkeeper Name | Role | Phone | + +------+ + | Alan Sainz MD | PCP | | + +------+ + Encounter Details +--------+ + + + + | Date | Type | Department | Care Team | Description | +--------+ + + + + | 06/08/ | Abstract | Neurology at | Brian, | | | 2017 | | [facility] & | Sussy Manuel MD [address] | | | | | Healing [address] | [address] | | | | | Howie Huang Mailcode: | [place], [place] | | | | | [facility] [facility] | [address] | | | | | Health and Healing, | [phone] | | | | | | | | | | | Floor [place], [place] | | | | | | [address] | | | | | | [phone] | | | +--------+ + + + [...]
--- OUTSIDE RECORDS SUMMARY | ~2019-06-24 | XMS | Encounter Summary ---
Demographics + + + | Address | [address] | | | [place] [address] | + + + | Home Phone | | + + + | Preferred Language | Unknown | + + + | Marital Status | | + + + | Mandaeism Affiliation | Unknown | + + + [...] + | Esthela Kumar | ECON | [address] | | | | | [place] | | | | | [address] | | + + + + + Care Team Providers + +------+ + | Care Yard Hostler Name | Role | Phone | + +------+ + | Alan Sainz MD | PCP | | + +------+ + Encounter Details +--------+ + + + + | Date | Type | Department | Care Team | Description | +--------+ + + + + | 06/08/ | Abstract | Neurology at | Brian, | | | 2017 | | [facility] & | Sussy Manuel MD [address] | | | | | Healing [address] | [address] | | | | | Howie Huang Mailcode: | [place], [place] | | | | | [facility] | [address] | | | | | Health and Healing, | [phone] | | | | | | | | | | | Floor [place], [place] | | | | | | [address] | | | | | | [phone] | | | +--------+ + + + [...]
--- OUTSIDE RECORDS SUMMARY | ~2019-06-24 | XMS | Encounter Summary ---
Demographics + + + | Address | [address] | | | [place] [address] | + + + | Home Phone [...] + + + | Author | [facility] | + + + | Organization | [facility] | + + + | Address | Unknown | + + + | Phone | Unavailable | + + + Support + + + + + | Name | Relationship | Address | Phone | + + + + + | Esthela Kumar | ECON | [address] | | | | | [place] | | | | | [address] | | + + + + + Care Team Providers + +------+ + | Care Magnetic Resonance Technologist Name | Role | Phone | [...] | | neuropathy | | | | [place], [place] | | | | | | [address] | | | | | | [phone] | | | +--------+------+ + + + [...] | + + + + + | [facility] | [address] | [place] [address] | | | SERVICES, CORE | PARK [...] | + + + + + | [facility] - | [address] | [place] [address] | | | [place] | | | [...] + | [facility] - | [address] | [place] [address] | | | [place] | | | | + + + [...] | + + + + + | [facility] | [address] | [place] [address] | | | SERVICES, CORE | DUONG [...] | | | | | in the [facility] | | | | | | LaboratoryTest Directory | | | | | | ([employer] Software). Serum | | | | | | [...] | | | | | | by F[address]ah,[address] | | | | | | [facility], [facility],[place] | | | | | | [address] | | | | | | [phone].[employer]. | | | | | | [facility], Beverley Lyles, | | | | | [...] [facility] | [address] | [place], [place] | | | UNIV PTH - INTFC | | [address] | | + + + + + [...] | | | IC ACID | by Fiestah,[address] | umol/L | REG UNIV | | | | oFrd Fernandez, [facility],[place] | | PTH - INTFC | | | | [address] | | | | | | [phone].[employer]. | | | | | | com, [...] [facility] | [address] | [place], [place] | | | UNIV PTH - INTFC | | [address] | | + + + + + [...] if | | | | | | [id number] >400: | | | | | | [...] + | [facility] - | [address] | [place] [address] | | | [place] | | | | + + + [...] | | | LABORATORY | | | AUSTRIAN | | | SERVICES, | | | [...] [facility] | [address] | [place] [address] | | | SERVICES, CORE | [address] | | | + + + + + documented in this encounter Visit Diagnoses + + | Diagnosis | + + | Peripheral neuropathy Unspecified hereditary and idiopathic peripheral neuropathy | + + documented in this encounter"
--- OUTSIDE RECORDS SUMMARY | ~2019-06-24 | XMS | Encounter Summary ---
Demographics + + + | Address | [address] | | | [place] [address] | + + + | Home Phone | | + + + | Preferred Language | Unknown | + + + | Marital Status | | + + + | Mandaen Affiliation | Unknown | + + + | Race | White | + + + | Ethnic Group | Other Race | + + + Author + + + | Author | [facility] | + + + | Organization | [facility] | + + + | Address | Unknown | + + + | Phone | Unavailable | + + + Support + + + + + | Name | Relationship | Address | Phone | + + + + + | Esthela Kumar | ECON | [address] | | | | | [place] | | | | | [address] | | + + + + + Care Team Providers + +------+ + | Care Shade Hanger Name | Role | Phone | + [...] | | | | | [place], | | | | | | [place] [address] | | | +--------+ + + + [...]
--- OUTSIDE RECORDS SUMMARY | ~2019-06-24 | XMS | Encounter Summary ---
Demographics + + + | Address | [address] | | | [place] [address] | + + + | Home Phone | | + + + | Preferred Language | Unknown | + + + | Marital Status | | + + + | Alevism Affiliation | Unknown | + + + [...] + | Esthela Kumar | ECON | [address] | | | | | [place] | | | | | [address] | | + + + + + Care Team Providers + +------+ + | Care Strategy Intern Name | Role | Phone | + +------+ + | Lázaro Oviedo MD | PCP | | + +------+ + Encounter Details +--------+ + + + + | Date | Type | Department | Care Team | Description | +--------+ + + + + | 12/08/ | Ancillary | Registration [address] | Lianne Bosch MD | | | 2005 | Registratio | [address] | [address] | | | | n | Carlos Mailcode: [id number] | [place], | | | | | [place], [place] | [place] [address] | | | | | [address] | [phone] | | | | | [phone] | | | +--------+ + + + [...] | + +--------+ + + + | LACTATE | Routin | 12/08/2005 | | Results for this | | | e | 10:00 AM | | procedure are in the | | | | PDT | | results section. | + +--------+ + + + | AMMONIA, PLASMA | Routin | 12/08/2005 | | Results for this | | | e | 10:00 AM | | procedure are in the | | | | PDT | | results section. | + +--------+ + + + | CK, PLASMA | Routin | 12/08/2005 | | Results for this | | | e | 10:00 AM | | procedure are in the | | | | PDT | | results section. | + +--------+ + + + | LACTATE | Routin | 12/08/2005 | | Results for this | | | e | 9:40 AM | | procedure are in the | | | | PDT | | results section. | + +--------+ + + + | AMMONIA, PLASMA | Routin | 12/08/2005 | | Results for this | | | e | 9:40 AM | | procedure are in the | | | | PDT | | results section. | + +--------+ + + + | CK, PLASMA | Routin | 12/08/2005 | | Results for this | | | e | 9:40 AM | | procedure are in the | | | | PDT | | results section. | + +--------+ + + + documented in this encounter Results AMMONIA (12/08/2005 10:00 AM PDT) + +-------+ + + + | Component | Value | Ref Range | Performed | Pathologist | | | | | At | Signature | + +-------+ + + + | AMMONIA | 31 | 11 - 35 umol/L | [facility] | | | (LAB) | | | DEPARTMENT | | | | | | OF | | | | | | PATHOLOGY | | + +-------+ + + + + + | Specimen | + + | | + + + + + | Narrative | Performed At | + + + | Post-filter | [facility] | | | DEPARTMENT OF | | | PATHOLOGY | + + + + + + + + | Performing | Address | City/State/Zipcode | Phone Number | | Organization | | | | + + + + + | [facility] DEPARTMENT OF | [address] | [place] [address] | | | PATHOLOGY | [address] | | | + + + + + | [facility] DEPARTMENT | [address] | [place] [address] | | | PATHOLOGY | [address] | | | + + + + + LACTIC ACID, PLASMA (12/08/2005 10:00 AM PDT) + + + + + + | Component | Value | Ref Range | Performed | Pathologist | | | | | At | Signature | + + + + + + | LACTIC ACID | 7.2Comment: Reference | mmol/L | [facility] | | | | Ranges: Venous blood: | | DEPARTMENT | | | | 0.5-2.2 mmol/L Arterial | | OF | | | | blood: 0.5-1.6 mmol/L | | PATHOLOGY | | | | Arterial blood: 0.5-1.6 mmol/L | | | | + + + + + + + + | Specimen | + + | | + + + + + | Narrative | Performed At | + + + | Post-filter | [facility] | | | DEPARTMENT OF | | | PATHOLOGY | + + + + + + + + | Performing | Address | City/State/Zipcode | Phone Number | | Organization | | | | + + + + + | [facility] DEPARTMENT OF | [address] | [place] [address] | | | PATHOLOGY | [address] | | | + + + + + | [facility] DEPARTMENT OF | [address] | [place] [address] | | | PATHOLOGY | [address] | | | + + + + + CK (12/08/2005 10:00 AM PDT) + + + + + + | Component | Value | Ref Range | Performed | Pathologist | | | | | At | Signature | + + + + + + | CK | 1067 (H) | 49 - 397 U/L | [facility] | | | | | | DEPARTMENT | | | | | | OF | | | | | | PATHOLOGY | | + + + + + + + + | Specimen | + + | | + + + + + | Narrative | Performed At | + + + | POST EXERCISE | [facility] | | | DEPARTMENT OF | | | PATHOLOGY | + + + + + + + + | Performing | Address | City/State/Zipcode | Phone Number | | Organization | | | | + + + + + | [facility]MENT [facility] | [address] | [place] [address] | | | PATHOLOGY | [address] | | | + + + + + | [facility] DEPARTMENT OF | [address] | [place] [address] | | | PATHOLOGY | [address] | | | + + + + + LACTIC ACID, PLASMA (12/08/2005 9:40 AM PDT) + + + + + + | Component | Value | Ref Range | Performed | Pathologist | | | | | At | Signature | + + + + + + | LACTIC ACID | 4.1Comment: Reference | mmol/L | [facility] | | | | Ranges: Venous blood: | | DEPARTMENT | | | | 0.5-2.2 mmol/L Arterial | | OF | | | | blood: 0.5-1.6 mmol/L | | PATHOLOGY | | | | Arterial blood: 0.5-1.6 mmol/L | | | | + + + + + + + + | Specimen | + + | | + + + + + | Narrative | Performed At | + + + | Pre-filter | [facility] | | | DEPARTMENT OF | | | PATHOLOGY | + + + + + + + + | Performing | Address | City/State/Zipcode | Phone Number | | Organization | | | | + + + + + | [facility] DEPARTMENT OF | [address] | [place] [address] | | | PATHOLOGY | [address] | | | + + + + + | [facility]MENT OF | [facility] | [place] [address] | | | PATHOLOGY | [address] | | | + + + + + AMMONIA (12/08/2005 9:40 AM PDT) + +-------+ + + + | Component | Value | Ref Range | Performed | Pathologist | | | | | At | Signature | + +-------+ + + + | AMMONIA | 32 | 11 - 35 umol/L | [facility] | | | (LAB) | | | DEPARTMENT | | | | | | OF | | | | | | PATHOLOGY | | + +-------+ + + + + + | Specimen | + + | | + + + + + | Narrative | Performed At | + + + | Pre-filter | [facility] | | | DEPARTMENT OF | | | PATHOLOGY | + + + + + + + + | Performing | Address | City/State/Zipcode | Phone Number | | Organization | | | | + + + + + | [facility] | [address] | [place] [address] | | | PATHOLOGY | [address] | | | + + + + + | [facility] | [address] | [place] [address] | | | PATHOLOGY | [address] | | | + + + + + CK (12/08/2005 9:40 AM PDT) + + + + + + | Component | Value | Ref Range | Performed | Pathologist | | | | | At | Signature | + + + + + + | CK | 1025 (H) | 49 - 397 U/L | [facility] | | | | | | DEPARTMENT | | | | | | OF | | | | | | PATHOLOGY | | + + + + + + + + | Specimen | + + | | + + + + + | Narrative | Performed At | + + + | PRE EXERCISE | [facility] | | | DEPARTMENT OF | | | PATHOLOGY | + + + + + + + + | Performing | Address | City/State/Zipcode | Phone Number | | Organization | | | | + + + + + | [facility] DEPARTMENT OF | [address] | [place] [address] | | | PATHOLOGY | [address] | | | + + + + + | [facility] | [address] | [place] [address] | | | PATHOLOGY | [address] | | | + + + + + documented in this encounter Visit Diagnoses Not on filedocumented in this encounter"
--- OUTSIDE RECORDS SUMMARY | ~2019-06-24 | XMS | Encounter Summary ---
Demographics + + + | Address | [address] | | | [place] [address] | + + + | Home Phone [...] + | Esthela Kumar | ECON | [address] | | | | | [place] | | | | | [address] | | + + + + + Care Team Providers + +------+ + | Care Propulsion Generator Repairer Name | Role | Phone | + +------+ + | Alan Sainz MD | PCP | | + +------+ + Reason for Visit + + + | Reason | Comments | + + + | Letter Encounter | | + + + Encounter Details +--------+ + + + + | Date | Type | Department | Care Team | Description | +--------+ + + + + | 09/11/ | Documentati | Neurology at | Sherlyn Lazcano MD | Letter Encounter | | 2012 | on | [facility] & | [address] | | | | | Healing [address] | [place] [address] | | | | | Howie Huang Mailcode: | [phone] | | | | | [facility] | | | | | | Health and Healing, | | | | | | [facility] | | | | | | [place], [place] | | | | | | [address] | | | | | | [phone] | | | +--------+ + + + [...]
--- OUTSIDE RECORDS SUMMARY | ~2019-06-24 | XMS | Encounter Summary ---
Demographics + + + | Address | [address] | | | [place] [address] | + + + | Home Phone | | + + + | Preferred Language | Unknown | + + + | Marital Status | | + + + | Bahai Affiliation | Unknown | + + + | Race | White | + + + | Ethnic Group | Other Race | + + + Author + + + | Author | [facility] | + + + | Organization | [facility] | + + + | Address | Unknown | + + + | Phone | Unavailable | + + + Support + + + + + | Name | Relationship | Address | Phone | + + + + + | Esthela Kumar | ECON | [address] | | | | | [place] | | | | | [address] | | + + + + + Care Team Providers + +------+ + | Care Carbon Plant Grinder Name | Role | Phone | + +------+ + | Alan Sainz MD | PCP | | + +------+ + Encounter Details +--------+ + + + + | Date | Type | Department | Care Team | Description | +--------+ + + + + | 12/27/ | Hospital | Dermatopathology | | | | 2017 | Encounter | [address] | | | | | | Mailcode: [id number] | | | | | | [facility] | | | | | | and Healing, | | | | | | Building , | | | | | | Floor [place], [place] | | | | | | [address] | | | | | | [phone] | | | +--------+ + + + [...] tip; | | | | | | [id number]. GROSS | | | | | | DESCRIPTION:Received in | | | | | | formalin is a specimen | | | | | | labeled Andrea Kumar:A: | | | | | | Specimen consists of an | | | | | | ellipse of barraza-castano | | | | | | skin, [id number]. The | | | | | | [...] + + + + | [facility] | [address] | [place] [address] | | | DERMATOPATHOLOGY | [address] [...]
--- OUTSIDE RECORDS SUMMARY | ~2019-06-24 | XMS | Encounter Summary ---
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[address] | | | | | | lumbar | [address] | | | | | | region | [place], [place] | | | | | | without | [address] | | | | | | neurogenic | Phone: | | | | | | claudication | [phone] | | | | | | Procedures | Fax: | | | | | | CONSULT TO | [phone] | | | | | | | | | | | | | NEUROSURGERY | | | +--------+--------+ + + + + Reason for Visit + + + | Reason | Comments | + + + | Referral To | External to [facility] | | Neurosurgery | | + + + Encounter Details +--------+ + + + + | Date | Type | Department | Care Team | Description | +--------+ + + + + | 07/19/ | Telephone | Neurology at | [place], | Referral To | | 2016 | | [facility] & | Sussy Manuel MD [address] | Neurosurgery | | | | [address] | [address] | (External to [facility]) | | | | [address] Mailcode: | [place], [place] | | | | | [address] | [address] | | | | | Health and Healing, | [phone] | | | | | [facility] | | | | | | Floor [place], [place] | | | | | | [address] | | | | | | [phone] | | | +--------+ + + + [...]
--- OUTSIDE RECORDS SUMMARY | ~2019-06-24 | XMS | Encounter Summary ---
Demographics + + + | Address | [address] | | | [place] [address] | + + + | Home Phone | | + + + | Preferred Language | Unknown | + + + | Marital Status | | + + + | Bahai Affiliation | Unknown | + + + | Race | White | + + + | Ethnic Group | Other Race | + + + Author + + + | Author | [facility] | + + + | Organization | [facility] | + + + | Address | Unknown | + + + | Phone | Unavailable | + + + Support + + + + + | Name | Relationship | Address | Phone | + + + + + | Esthela Kumar | ECON | [address] | | | | | [place] | | | | | [address] | | + + + + + Care Team Providers + +------+ + | Care Bus Driver Name | Role | Phone | [...] Clinic | | | | | | [facility], | | | | | | [place] [address] | | | | | | [phone] | | | +--------+---------+ + + + [...] might be different from t oscar powell. [facility] [address] [place] [address] or [email or web address] REFERRED FROM AND FAXED TO: JOVANNY SAINZ MD [facility] [address] [address] PRIMARY CARE PHYSICIAN: JOVANNY SAINZ MD, MD [facility] [address] [place] [address] / [place]* [phone] REFERRED TO: [facility] Myopathy [...] medical record and updated it in the [employer] system. 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 It has not been cleared or approved [...] 72 hours HOMOCYSTEINE,PLASMA,TOTAL Value: 8.7(umol/L) Date: 12/13/2005 DRAPERY AND UPHOLSTERY MEASURER AB Value: Negative Date: 12/09/2005 SM AB [...]
--- OUTSIDE RECORDS SUMMARY | ~2019-06-24 | XMS | Encounter Summary ---
Demographics + + + | Address | [address] | | | [place] [address] | + + + | Home Phone [...] + | Esthela Kumar | ECON | [address] | | | | | [place] | | | | | [address] | | + + + + + Care Team Providers + +------+ + | Care Bone Char Operator Name | Role | Phone | [...] | | | | | Procedures | [place], [place] | [address] [place] [address] | | | | | EMG/NERVE | [address] | for Health | | | | | CONDUCTION | Phone: | and Healing, | | | | | STUDIES,ADUL | [phone] | [address], | | | | | T - | Fax: | 8th Floor | | | | | NEUROLOGY | [phone] | [place], [place] | | | | | CT NEEDLE | | [address] | | | | | ELECTROMYOGR | | Phone: | | | | | APHY, EA | | [phone] | | | | | EXTREM, LTD | | Fax: | | | | | CT NEEDLE | | [phone] | | | | | ELECTROMYOGR | | | | | | | APHY, EA | | | | | | | EXTREM, | | | | | | | COMPLETE CT | | | | | | | MOTOR&/SENS | | | | | | | 1-2 NRV | | | | | | | CNDJ TST CT | | | | | | | MOTOR&/SENS | | | | | | | 3-4 NRV | | | | | | | CNDJ TST CT | | | | | | | MOTOR&/SENS | | | | | | | 5-6 NRV | | | | | | | CNDJ TST CT | | | | | | | [...] | 2017 | Encounter | EMG at [facility] 8th Floor | [address] | | | | | [address] | [place], [place] | | | | | Mailcode: [facility] | [address] | | | | | [facility] | [phone] | | | | | and Ko, | | | | | | Building [address]th | [address] | | | | | Floor [place], [place] | [place], [place] | | | | | [address] | [address] | | | | | [phone] | [phone] Aubrey, | | | | | | Jana [address] | | | | | | [address] | | | | | | [place], [place] | | | | | | [address] | | +--------+ + + + + [...] | | | | | | | memory lane syndications [employer] | | | | | | | [...] Kumar Date of : 1950 Medical | [facility], | | Record Number: [id number] Date of Test: 06/27/2017 Place of | POINT OF CARE | | Service: [facility] (98) - [address] Department: [id number] EMG [facility] Nerve | TESTS | | Conduction [...] | | Suggested Modifier: None Suggested CPT: 50317 9-10 Nerve Conduction | | | studies 74314 EMG -Each Extremity, Limited (<4 Muscles) w/NCS, qty 2, | | | modifier: XS 46198 EMG -Each Extremity, Completed (>5 Muscles) | [...] + + + | [facility] | [address] [facility] | [place] [address] | | | OF CARE TESTS | [...]
--- OUTSIDE RECORDS SUMMARY | ~2019-06-24 | XMS | Encounter Summary ---
Demographics + + + | Address | [address] | | | [place] [address] | + + + | Home Phone | | + + + | Preferred Language | Unknown | + + + | Marital Status | | + + + | Presybeterian Affiliation | Unknown | + + + | Race | White | + + + | Ethnic Group | Other Race | + + + Author + + + | Author | [facility] | + + + | Organization | [facility] | + + + | Address | Unknown | + + + | Phone | Unavailable | + + + Support + + + + + | Name | Relationship | Address | Phone | + + + + + | Esthela Kumar | ECON | [address] | | | | | [place] | | | | | [address] | | + + + + + Care Team Providers + +------+ + | Care Vegetable Preparer Name | Role | Phone | + [...] + + + | Closed | | Radiology | Diagnoses | Neno | [facility] | | | | | Peripheral | MD Nino | [address] | | | | | neuropathy | [address] | [place] | | | | | Procedures | Ave | Rd | | | | | MRI SPINE | [place], [place] | Mailcode: | | | | | LUMBAR WO | [address] | [address] | | | | | [place] [address] | Phone: | Gill | | | | | | [phone] | Research | | | | | | Fax: | Center | | | | | | [phone] | [place], [place] | | | | | | | [address] | | | | | | | Phone: | | | | | | | [phone] | | | | | | | Fax: | | | | | | | [phone] | +--------+--------+ + + + + Reason for Visit Diagnostic Testing (Routine) +--------+--------+ + + + + | Status | Reason | Specialty | Diagnoses / | Referred By | Referred To | | | | | Procedures | Contact | Contact | +--------+--------+ + + + + | Closed | | Radiology | Diagnoses | Neno, | [facility] | | | | | Peripheral | MD Nino | [address] | | | | | neuropathy | [address] | [facility] [place] | | | | | Procedures | Ave | Rd | | | | | MRI SPINE | [place], [place] | Mailcode: | | | | | LUMBAR WO | [address] | [address] | | | | | [place] [address] | Phone: | Gill | | | | | | [phone] | Research | | | | | | Fax: | Center | | | | | | [phone] | [place], [place] | | | | | | | [address] | | | | | | | Phone: | | | | | | | [phone] | | | | | | | Fax: | | | | | | | [phone] | +--------+--------+ + + + + Encounter Details +--------+ + + + + | Date | Type | Department | Care Team | Description | +--------+ + + + + | 08/08/ | Hospital | Radiology/Imaging | | | | 2011 | Encounter | Lab at [facility] [address] | | | | | [address] Mailcode: | | | | | | [facility] | | | | | | [facility], | | | | | | [place] [address], [facility] | | | | | | [place], [place] | | | | | | [address] | | | | | | [phone] | | | +--------+ + + + [...] + +--------+ + + + | MRI SPINE LUMBAR WO | Routin | 08/08/2012 | Peripheral | Results for this | | CONT | e | 1:55 PM | neuropathy | procedure are in the | | | | PST | | results section. | + +--------+ + + + documented in this encounter Results MRI SPINE LUMBAR WO CONT (08/08/2012 1:55 PM PST) + + + + + + | Component | Value | Ref Range | Performed | Pathologist | | | | | At | Signature | + + + + + + | MR LUMBAR | Med Rec No: | | | | | SPINE WO | [id number] Name: | | | | | CONT | KIERSTEN KUMAR | | | | | | Birthdate: 1950 | | | | | | Sex: M Alias: | | | | | | Patient Location: | | | | | | [id number]: Outpatient | | | | | | Active Ordering | | | | | | Physician: NENO, | | | | | | MD NINOOrdering | | | | | | Physician 2: MSPL- MRI | | | | | | L-SPINE WO CONTRAST | | | | | | completed on 08/08/2012 | | | | | | 13:55Accession # | | | | | | [id number] EXAM: MRI | | | | | | lumbar spine without | | | | | | contrast. TECHNIQUE: | | | | | | Multiplanar, | | | | | | multi-sequence MRI of | | | | | | the lumbar spine | | | | | | wasobtained without | | | | | | contrast. COMPARISON: | | | | | | Outside MRI 03/24/03. | | | | | | Findings: Soft tissues: | | | | | | No masses. Bones: There | | | | | | is an unchanged T12 | | | | | | anterior compression | | | | | | fracture with20% | | | | | | anterior vertebral body | | | | | | height loss. There is | | | | | | L4-L5 and L5-M9hlhlldoe | | | | | | fatty marrow changes, | | | | | | consistent with | | | | | | degenerative diseasewith | | | | | | new moderate loss of | | | | | | height of disc space at | | | | | | these levels. | | | | | | Newlaminectomy defects | | | | | | are seen at L3-L5. | | | | | | Alignment: There is new | | | | | | grade 1 anterolisthesis | | | | | | of L3 on L4 andstable 4 | | | | | | mm retrolisthesis of L5 | | | | | | on S1. T11-12: There is | | | | | | a diffusely bulging | | | | | | annulus which partially | | | | | | effacesthe ventral | | | | | | thecal sac. T12-L1: | | | | | | Normal L1-2: The neural | | | | | | foramina and central | | | | | | canal are normal. L2-3: | | | | | | There is diffuse disk | | | | | | bulge, facet | | | | | | hypertrophy, and | | | | | | ligamentumflavum | | | | | | thickening causing mild | | | | | | canal stenosis. The | | | | | | canal measures upto 9 mm | | | | | | in AP diameter. There | | | | | | is minimal right neural | | | | | | foraminanarrowing. | | | | | | L3-4: There is a diffuse | | | | | | disk bulge and facet | | | | | | arthropathy. Mildright | | | | | | and moderate to severe | | | | | | left neural foraminal | | | | | | narrowing isobserved. | | | | | | The central canal is | | | | | | normal. L4-5: Facet | | | | | | hypertrophy and | | | | | | disk-osteophyte complex | | | | | | is present.Moderate to | | | | | | severe right and mild to | | | | | | moderate left neural | | | | | | foraminalnarrowing is | | | | | | seen. No central canal | | | | | | stenosis. L5-S1: There | | | | | | is facet arthropathy and | | | | | | disk osteophyte | | | | | | complex.Right | | | | | | paracentral disk | | | | | | protrusion causing right | | | | | | lateral | | | | | | recessnarrowing. | | | | | | Moderate right and | | | | | | moderate to severe left | | | | | | neuralforaminal | | | | | | narrowing is present. | | | | | | The central canal is | | | | | | unremarkable. Spinal | | | | | | cord: The conus | | | | | | terminates at the L1-2 | | | | | | intervertebral | | | | | | diskspace. | | | | | | IMPRESSION:Since the | | | | | | prior exam from 8/ | | | | | | 4/03:Moderate to severe | | | | | | multilevel degenerative | | | | | | disk disease with | | | | | | moderateprogression at | | | | | | the L3-4 and L4-5 | | | | | | levels. See above for | | | | | | details.Status post | | | | | | laminectomy at L3 | | | | | | through L5.Degenerative | | | | | | grade 1 antral listhesis | | | | | | of L3 and L4 is new. | | | | | | Attending Radiologists: | | | | | | Neris Valera, | | | | | | M.D.Author: NAEEM TAYLOR, | | | | | | MD I have personally | | | | | | viewed this | | | | | | procedure/exam, reviewed | | | | | | this report,and made | | | | | | changes to it where | | | | | | appropriate. | | | | | | Pending final approval | | | | | | / Nerisnargis Valera | | | | | | Pending final approval | | | | | | / Neris UBrielle Valera | | | | | | Pending final | | | | | | approval / NAEEM TAYLOR | | | | | | 08/08/2012 18:01 PM | | | | | | Attending Radiologists: | | | | | | Neris Valera, | | | | | | M.D.Author: NAEEM TAYLOR, | | | | | | MD I have personally | | | | | | viewed this | | | | | | procedure/exam, reviewed | | | | | | this report,and made | | | | | | changes to it where | | | | | | appropriate. | | | | | | Final/Electronically | | | | | | signed / Neris U. | | | | | | Jenners 08/10/2012 | | | | | | 14:41PM | | | | | | Final/Electronically | | | | | | signed / Neris U. | | | | | | Jenners 08/09/2012 | | | | | | 11:21AM Result | | | | | | modified / Neris | | | | | | U. Jenners 08/09/2012 | | | | | | 11:21 AM Pending final | | | | | | approval / NAEEM TAYLOR | | | | | | 08/09/2012 11:21 AM | | | | | | Result modified / | | | | | | NAEEM TAYLOR 08/09/2012 | | | | | | 11:21 AM Pending final | | | | | | approval / Neris | | | | | | U. Jenners 08/08/2012 | | | | | | 22:23 PM Result | | | | | | modified / Neris | | | | | | U. Jenners 08/08/2012 | | | | | | 22:23 PM Pending final | | | | | | approval / Neris | | | | | | U. Jenners 08/08/2012 | | | | | | 19:38 PM Result | | | | | | modified / Neris | | | | | | U. Jenners 08/08/2012 | | | | | | 19:38 PM Pending final | | | | | | approval / NAEEM TAYLOR | | | | | | 08/08/2012 18:01 PM | | | | | | Preliminary / NAEEM | | | | | | BRANDON 08/08/2012 15:51 PM | | | | | | | | | | + + + + + + + + | Specimen | + + | | + + + +---------+ + + | Performing | Address | City/State/Zipcode | Phone Number | | Organization | | | | + +---------+ + + | [facility] DEPARTMENT OF | | | | | RADIOLOGY | | | | + +---------+ + + documented in this encounter Visit Diagnoses + + | Diagnosis | + + | Peripheral neuropathy Unspecified hereditary and idiopathic peripheral neuropathy | + + documented in this encounter"
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
--- OUTSIDE RECORDS SUMMARY | ~2019-06-24 | XMS | Encounter Summary ---
Demographics + + + | Address | [address] | | | [place] [address] | + + + | Home Phone [...] + | Esthela Kumar | ECON | [address] [address] [address] | | | | | [place] | | | | | [address] | | + + + + + Care Team Providers + +------+ + | Care Drag Down Name | Role | Phone | + +------+ + | Alan Sainz MD | PCP | | + +------+ + Encounter Details +--------+ + + + + | Date | Type | Department | Care Team | Description | +--------+ + + + + | 05/24/ | Office | | Rehab Therapist, P | | | 2005 | Visit - | | T | | | | Rehab | | | | +--------+ + + [...] | + +--------+ + + + | PHYSICAL THERAPY | Routin | 05/24/2006 | | Results for this | | EVAL | e | 4:50 PM | | procedure are in the | | | | PDT | | results section. | + +--------+ + + + documented in this encounter Results PHYSICAL THERAPY EVAL (05/24/2006 4:50 PM PDT) + + + + + + | Component | Value | Ref Range | Performed | Pathologist | | | | | At | Signature | + + + + + + | PHYSICAL | [facility] | | [facility] | | | THERAPY | EVALUATION KIERSTEN Cabrera | | [facility]HAB[facility]AT | | | EVAL | KUMAR MR# [id number] | | [facility] | | | | Start of Care: | | | | | | 05/24/2006 | | | | | | Referring/Attending | | | | | | Practitioner: Dr Christopher | | | | | | Primary | | | | | | Diagnosis/ICD-9: 729.1 | | | | | | Referral | | | | | | Diagnosis/ICD-9: 729.1 | | | | | | Date of onset: | | | | | | 05/24/2006 Insurance: | | | | | | Commercial. Number | | | | | | visits used/authorized: | | | | | | eval and treat | | | | | | Precautions: | | | | | | n/a PMH: | | | | | | Fx femur, carple tunnel | | | | | | surgery, back pain, | | | | | | lumbar laminectomy x 2, | | | | | | spinal stenosis, | | | | | | hypercholestrolemia | | | | | | Medications: | | | | | | alieve, aspirin, | | | | | | multiple vitamin, | | | | | | Vitamin E, B | | | | | | complex,fish oil, | | | | | | creatine monohydrate, | | | | | | zetia COQ10 | | | | | | SUBJECTIVE: This is a | | | | | | 55 year old M who | | | | | | presents with the | | | | | | following complaints: | | | | | | poorbalance, falls, | | | | | | cramps in legs . | | | | | | Pain located: legs, | | | | | | . Pain, on a scale | | | | | | of 0-10 is: 5 Pain | | | | | | limits: Pt doesn't | | | | | | let the cramps stop him | | | | | | Does pain ever wake | | | | | | patient at night ? | | | | | | yes, Total number of | | | | | | hours of sleep a night: | | | | | | 6 Pt wakes rested | | | | | | ? yes, Activities | | | | | | limited by fatigue or | | | | | | stamina: lifting | | | | | | Other significant | | | | | | History: Pt started | | | | | | having problems with | | | | | | weakness in his legs | | | | | | about 5 years ago. He | | | | | | has problems with his | | | | | | balance andoccasionally | | | | | | falls. His last fall | | | | | | was 1 week ago while | | | | | | hunting. He turnshis | | | | | | ankles easily. Pt gets | | | | | | muscle cramps in his | | | | | | legs about twice a day | | | | | | andthey can last from a | | | | | | minute to 4 minutes. | | | | | | Pt has torn ligaments | | | | | | in hisright knee and he | | | | | | wears a brace sometimes. 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 | | | | | | Patient works: full | | | | | | time, Patient lives: | | | | | | with spouse/partner, | | | | | | Patient's home has: | | | | | | no stairs, Current | | | | | | exercise program: | | | | | | remodeling his kitchen | | | | | | and working on his | | | | | | [address] of land | | | | | | Patient goals: learn | | | | | | self care concepts, | | | | | | decrease pain, | | | | | | OBJECTIVE: ROM: Trunk | | | | | | flex 50%, ext 40%, | | | | | | Cervical spine 70% all | | | | | | planes, extremities WFL | | | | | | with tight hamstrings | | | | | | and gastrocs MMT: 5/5 | | | | | | except ankles- 4/5 | | | | | | Balance/Coordination: | | | | | | 360 turn continuous, | | | | | | unilateral balance | | | | | | right(seconds) 5 | | | | | | unilateral balance | | | | | | left (seconds) 3 | | | | | | Patient able to walk | | | | | | on toes/heels: no | | | | | | Muscle tone: WNL | | | | | | Other | | | | | | balance/coordination | | | | | | test results: + rhomberg | | | | | | eyes closed Gait: pt | | | | | | demonstrates mild foot | | | | | | drop on the left during | | | | | | gait, pt will alsotend | | | | | | to drift to the left | | | | | | Other tests: Increased | | | | | | sympathetic outflow | | | | | | T1-L2 bilat, + squat | | | | | | Charges for today: | | | | | | Eval, therapuetic | | | | | | exercise 25 minutes | | | | | | instructed pt on Deep | | | | | | Meditation into | | | | | | Thoughtlessness: written | | | | | | instructions given | | | | | | Instructed pt on | | | | | | stretching program: | | | | | | gastrocs, soleius, | | | | | | hamstrings andchilds | | | | | | pose: pictures with | | | | | | written instructions | | | | | | given ASSESSMENT: | | | | | | Patient needs the | | | | | | following adaptive | | | | | | equipment: AFO, | | | | | | Patient would benefit | | | | | | from physical therapy | | | | | | for the following | | | | | | reasons:therapeutic | | | | | | exercises, 1. | | | | | | Pt demonstrated ex | | | | | | with good form 2. Pt | | | | | | would benefit from an | | | | | | AFO for his left ankle | | | | | | to provide stabilityand | | | | | | foot clearance during | | | | | | gait. Rehabilitation | | | | | | potential: good | | | | | | SHORT-TERM GOALS, | | | | | | 1 weeks to | | | | | | completion and discussed | | | | | | withpatient: | | | | | | Instruct in home Ex | | | | | | program and stress | | | | | | management LONG-TERM | | | | | | GOALS, 1 | | | | | | weeks to completion | | | | | | and discussed | | | | | | withpatient: same as | | | | | | short term goals | | | | | | PLAN: Pt to see | | | | | | administrator of home health in [place] | | | | | | Frequency/Duration: | | | | | | once Treatment | | | | | | began: 1:45 pm | | | | | | Treatment ended: 2:45 | | | | | | pm Email: Dr Christopher | | | | | | This note is to serve as | | | | | | the discharge summary | | | | | | if the patient fails | | | | | | toattend further | | | | | | Physical Therapy | | | | | | appointments or contact | | | | | | the therapistregarding | | | | | | any change in their | | | | | | status. The below | | | | | | signatures are only for | | | | | | completing Medicare | | | | | | charting. Non-Medicare | | | | | | patients do not need | | | | | | this section completed. | | | | | | Therapist Initials: | | | | | | | | | | | | I agree | | | | | | with the above proposed | | | | | | treatment plan. MD | | | | | | signature: | | | | | | | | | | | | | | | | | | Date: | | | | | | Print MD name: | | | | | | | | | | | | | | | | | | Yin Leger, | | | | | | LIZZETTE, P.T. | | | | | | License Number [id number] | | | | + + + + + + + + | Specimen | + + | | + + + + + + + | Performing | Address | City/State/Zipcode | Phone Number | | Organization | | | | + + + + + | [facility] | [address] | [place], [place] | | | REHABILITATION | [address] | [address] | | | THERAPY | | | | + + + + + | [facility] | [address] | [place], [place] | | | REHABILITATION | [address] | [address] | | | THERAPY | | | | + + + + + documented in this encounter Visit Diagnoses Not on filedocumented in this encounter"
--- OUTSIDE RECORDS SUMMARY | ~2019-06-24 | XMS | Encounter Summary ---
Demographics + + + | Address | [address] | | | [place] [address] | + + + | Home Phone | | + + + | Preferred Language | Unknown | + + + | Marital Status | | + + + | Yarsani Affiliation | Unknown | + + + [...] + | Esthela Kumar | ECON | [address] | | | | | [place] | | | | | [address] | | + + + + + Care Team Providers + +------+ + | Care Mud Logger Name | Role | Phone | + +------+ + | Lázaro Oviedo MD | PCP | | + +------+ + Encounter Details +--------+ + + + + | Date | Type | Department | Care Team | Description | +--------+ + + + + | 03/20/ | Abstract | Neurology at | Natan Herrera | | | 2017 | | Center [facility] Health & | MD Heber [address] | | | | | Healing [address] | [place], [place] | | | | | [address]ie [place] Mailcode: | [address] | | | | | [facility] | [phone] | | | | | Health and Healing, | | | | | | | | | | | | Floor [place], [place] | | | | | | [address] | | | | | | [phone] | | | +--------+ + + + [...]
--- OUTSIDE RECORDS SUMMARY | ~2019-06-24 | XMS | Encounter Summary ---
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 [address] [place] [address] or December 10, 2005 Clayton Diaz M.D. [address] [facility] [address] [place] [address] RE: KIERSTEN KUMAR MR #: [id number] Dear Dr. Diaz: I had the pleasure [...] well as the muscle pathology reports from [facility]. Per Mr. Kumar, he has had longstanding [...] neurogenic changes. A muscle biopsy performed at [facility] in January [address] Stone with [facility] Pathology showed mitochondrial changes. Specifically, on the [...] consultations have included an evaluation by a pay agent, Dr. 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 He is very active. He has a [...] were also decreased. Romberg was negative. Coordination: Zyokao-ee-wtvo testing did not reveal any dysmetria. Rapid [...] have him see our physical therapist and staffing rn. Recommendations: 1. Obtain prior muscle biopsy slides. 2. Possible repeat muscle biopsy of the tibialis anterior or left biceps. 3. Myopathy and neuropathy laboratory studies as mentioned above. 4. Add physical therapy and staffing rn evaluations to next visit. 5. Mr. Kumar [...] M.D. Maximilian De La Garza M.D. / [id number] / [id number] / [id number] / [id number] / [id number] / [id number] / A: 12/11/2005 [facility] C: 12/22/2005 cc: Alan Sainz M.D. [address] [place] [address] documented i n this encounter Plan of Treatment Not on filedocumented as of this encounter Visit Diagnoses Not on filedocumented in this encounter"
--- OUTSIDE RECORDS SUMMARY | ~2019-06-24 | XMS | Encounter Summary ---
Demographics + + + | Address | [address] | | | [place] [address] | + + + | Home Phone [...] + | Esthela Kumar | ECON | [address] | | | | | [place] | | | | | [address] | | + + + + + Care Team Providers + +------+ + | Care Child And Adolescent Psychologist Name | Role | Phone | + [...] Hospital Health & | Sussy Manuel MD [address] | | | | | Healing [address] | [address] | | | | | Howie Huang Mailcode: | [place], [place] | | | | | [facility] | [address] | | | | | Health and Healing, | [phone] | | | | | | | | | | | Floor [place], [place] | | | | | | [address] | | | | | | [phone] | | | +--------+ + + + [...]
--- OUTSIDE RECORDS SUMMARY | ~2019-06-24 | XMS | Encounter Summary ---
Demographics + + + | Address | [address] | | | [place] [address] | + + + | Home Phone [...] + + | Author | [facility] | + + + | Organization | [facility] | + + + | Address | Unknown | + + + | Phone | Unavailable | + + + Support + + + + + | Name | Relationship | Address | Phone | + + + + + | Esthela Kumar | ECON | [address] | | | | | [place] | | | | | [address] | | + + + + + Care Team Providers + +------+ + | Care Brand Ambassador Promotional Model Name | Role | Phone | + +------+ + | Alan Sainz MD | PCP | | + +------+ + Encounter Details +--------+ + + + + | Date | Type | Department | Care Team | Description | +--------+ + + + + | 08/02/ | Abstract | Neurology at | Brian, | | | 2017 | | [facility] & | Sussy Manuel MD [address] | | | | | Healing [address] | [address] | | | | | [place] Mailcode: | [place], [place] | | | | | [facility] | [address] | | | | | Health and Healing, | [phone] | | | | | | | | | | | Floor [place], [place] | | | | | | [address] | | | | | | [phone] | | | +--------+ + + + [...]
--- OUTSIDE RECORDS SUMMARY | ~2019-06-24 | XMS | Encounter Summary ---
Demographics + + + | Address | [address] | | | [place] [address] | + + + | Home Phone [...] + | Esthela Kumar | ECON | [address] | | | | | [place] | | | | | [address] | | + + + + + Care Team Providers + +------+ + | Care Prep Manager Name | Role | Phone | [...] [address] | | | | | | [place], [place] | | | | | | [address] | | | +--------+ + + + [...]
--- OUTSIDE RECORDS SUMMARY | ~2019-06-24 | XMS | Encounter Summary ---
Demographics + + + | Address | [address] | | | [place] [address] | + + + | Home Phone [...] + | Esthela Kumar | ECON | [address] | | | | | [place] | | | | | [address] | | + + + + + Care Team Providers + +------+ + | Care Lead Security Officer Name | Role | Phone | + +------+ + | Alan Sainz MD | PCP | | + +------+ + Encounter Details +--------+ + + + + | Date | Type | Department | Care Team | Description | +--------+ + + + + | 08/28/ | Documentati | Neurology at | Sherlyn Lazcano MD | | | 2012 | on | [facility] & | [address] | | | | | Healing [address] | [place] [address] | | | | | [place]ie [place] Mailcode: | [phone] | | | | | [address] | | | | | | Health and Healing, | | | | | | Building | | | | | | Floor [place], [place] | | | | | | [address] | | | | | | [phone] | | | +--------+ + + + [...]
--- OUTSIDE RECORDS SUMMARY | ~2019-06-24 | XMS | Clinical Summary ---
Demographics + + + | Address | [address] | | | [place] [address] | + + + | Home Phone [...] + | Esthela Kumar | ECON | [address] | | | | | [place] | | | | | [address] | | + + + + + Care Team Providers + +------+ + | Care Acupressure Therapist Name | Role | Phone | + +------+ + | Lázaro Oviedo MD | PCP | | + +------+ + Source Comments FABRICIO is fully live on both [facility] and [facility] Allergies + + + + + [...] | | | | | | | A Green Night's Sleep [employer] | | | | | | | [...] [address] | | [address] | 0 | [address] | re | | | MEDICA | | sent | | [place], [place] | | | | RE | | | | [address] | | + +--------+ +--------+ + +--------+ | [employer] | TRANSA | xxxxxxxxx | Effect | [phone] | [address] | POS | | MEDICARE SUPPLEMENT | MERICA | | jaye | 2 | [address] | | | | | | for | | [place], [place] | | | | MEDICA | | all | | [id number] | | | | RE | | [...] | | | all | | [place] [address] | | | | | | dates [...] Person | Self | [birth year] | [address] | | | al/Fam | | 1950 | [id number] | [place] | | | anusha | | | 5 (Home) | [address] | + +--------+ +--------+ + + | Andrea Kumar | Specia | Self | [birth year] | | [address] [employer] | | | l | | 1950 | [phone] | [place] | | | [address] | | | 5 ([place]) | [address] | | | g | | | | | + +--------+ +--------+ + +"
--- OUTSIDE RECORDS SUMMARY | ~2019-06-24 | XMS | Encounter Summary ---
Demographics + + + | Address | [address] | | | [place] [address] | + + + | Home Phone [...] + + + | Author | [facility] | + + + | Organization | [facility] | + + + | Address | Unknown | + + + | Phone | Unavailable | + + + Support + + + + + | Name | Relationship | Address | Phone | + + + + + | Esthela Kumar | ECON | [address] | | | | | [place] | | | | | [address] | | + + + + + Care Team Providers + +------+ + | Care Hydraulic And Plumbing Installer Name | Role | Phone | + +------+ + | Alan Sainz MD | PCP | | + +------+ + Encounter Details +--------+ + + + + | Date | Type | Department | Care Team | Description | +--------+ + + + + | 03/01/ | Abstract | Neurology at | Clinic, Neurology | | | 2017 | | [facility] & | | | | | | Healing [address] | | | | | | [address] Mailcode: | | | | | | [facility] | | | | | | Health and Healing, | | | | | | Building | | | | | | Floor [place], [place] | | | | | | [address] | | | | | | [phone] | | | +--------+ + + + [...]
--- OUTSIDE RECORDS SUMMARY | ~2019-06-24 | XMS | Encounter Summary ---
Demographics + + + | Address | [address] | | | [place] [address] | + + + | Home Phone [...] + + + | Author | [facility] | + + + | Organization | [facility] | + + + | Address | Unknown | + + + | Phone | Unavailable | + + + Support + + + + + | Name | Relationship | Address | Phone | + + + + + | Esthela Kumar | ECON | [address] | | | | | [place] | | | | | [address] | | + + + + + Care Team Providers + +------+ + | Care Veneer Taper Name | Role | Phone | + +------+ + | Alan Sainz MD | PCP | | + +------+ + Encounter Details +--------+ + + + + | Date | Type | Department | Care Team | Description | +--------+ + + + + | 06/22/ | Results | Neurology at | Maximilian De La Garza, | | | 2005 | Only | [facility] & | | | | | | [address] | | | | | | [address] Mailcode: | | | | | | [facility] | | | | | | Health and Healing, | | | | | | Building | | | | | | Floor [place], [place] | | | | | | [address] | | | | | | [phone] | | | +--------+ + + + [...]
--- OUTSIDE RECORDS SUMMARY | ~2019-06-24 | XMS | Encounter Summary ---
Demographics + + + | Address | [address] | | | [place] [address] | + + + | Home Phone [...] + | Esthela Kumar | ECON | [address] | | | | | [place] | | | | | [address] | | + + + + + Care Team Providers + +------+ + | Care Spinner Hand Name | Role | Phone | + +------+ + | Alan Sainz MD | PCP | | + +------+ + Encounter Details +--------+ + + + + | Date | Type | Department | Care Team | Description | +--------+ + + + + | 02/06/ | Transcribed | Allergy Clinic at | Dictation, Other | Transcribed | | 1994 | | [facility] [address] | | | | | | [address] | | | | | | Mailcode: [address] | | | | | | [place] | | | | | | [place] | | | | | | [place] [address] | | | | | | [phone] | | | +--------+ + + + [...] as of this encounter Progress Notes Interface, Projector Booth Operator In - 12/05/2006 5:06 AM PDT [address] [address] [facility] February 06, 1995 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 Campos: Your employee, Mr. Andrea Kumar, was seen for a follow-up visit on February 06, 1995, at the [facility] at the [facility]. He was seen by Dr. Sondra Barton and myself. Mr. 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 We believe Mr. Kumar suffers from an [...] necessitate exposure to the agents Colophony, Glutaraldehyde, MCI/AR, Gold and Neomycin/Bacitracin. He was given a list of possible exposure to these agents and shown how to read the material safety data sheets. Of note, coolants may contain as a preservative Glutaraldehyde or MCI/AR (Kathon 886). Colophony likewise, is found in [...] to the [facility] at the [facility]. Please feel free to contact us if there are any further questions or concerns. Sincerely yours, Audelia Rod M.D. Resident, Dermatology Sondra Barton M.D. Professor, Dermatology NETTA /ced 02/08/95 cc: C:02/10/95/ced documented in this encounter Plan of Treatment Not on filedocumented as of this encounter Visit Diagnoses Not on filedocumented in this encounter"
--- OUTSIDE RECORDS SUMMARY | ~2019-06-24 | XMS | Encounter Summary ---
Demographics + + + | Address | [address] | | | [place] [address] | + + + | Home Phone | | + + + | Preferred Language | Unknown | + + + | Marital Status | | + + + | Gnosticism Affiliation | Unknown | + + + [...] + | Esthela Kumar | ECON | [address] | | | | | [place] | | | | | [address] | | + + + + + Care Team Providers + +------+ + | Care Sonographer Name | Role | Phone | + [...] [id number] | | | | | | [place], [place] | | | | | | [address] | | | | | | [phone] | | | +--------+ + + + [...]
--- OUTSIDE RECORDS SUMMARY | ~2019-06-24 | XMS | Encounter Summary ---
Demographics + + + | Address | [address] | | | [place] [address] | + + + | Home Phone [...] + | Esthela Kumar | ECON | [address] | | | | | [place] | | | | | [address] | | + + + + + Care Team Providers + +------+ + | Care Model And Mold Maker Plaster Name | Role | Phone | + [...] [id number] | | | | | | [place], [place] | | | | | | [address] | | | | | | [phone] | | | +--------+ + + + [...]
--- OUTSIDE RECORDS SUMMARY | ~2019-06-24 | XMS | Encounter Summary ---
Demographics + + + | Address | [address] | | | [place] [address] | + + + | Home Phone | | + + + | Preferred Language | Unknown | + + + | Marital Status | | + + + | Sikh Affiliation | Unknown | + + + | Race | White | + + + | Ethnic Group | Other Race | + + + Author + + + | Author | [facility] | + + + | Organization | [facility] | + + + | Address | Unknown | + + + | Phone | Unavailable | + + + Support + + + + + | Name | Relationship | Address | Phone | + + + + + | Esthela Kumar | ECON | [address] | | | | | [place] | | | | | [address] | | + + + + + Care Team Providers + +------+ + | Care Pharmacy Sales Assistant Name | Role | Phone | [...] [id number] | | | | | | [place], [place] | | | | | | [address] | | | | | | [phone] | | | +--------+ + + + [...]
--- OUTSIDE RECORDS SUMMARY | ~2019-06-24 | XMS | Encounter Summary ---
Demographics + + + | Address | [address] | | | [place] [address] | + + + | Home Phone [...] + | Esthela Kumar | ECON | [address] | | | | | [place] | | | | | [address] | | + + + + + Care Team Providers + +------+ + | Care Food Cashier Name | Role | Phone | [...] Closed | | Radiology | Diagnoses | Brian, | | | | | | | Sussy Manuel, | | | | | | Polyneuropat | [address] | | | | | | hy due to | [address] | | | | | | secondary | [place], [place] | | | | | | diabetes | [address] | | | | | | ([facility]) | Phone: | | | | | | Imbalance | [phone] | | | | | | Foot drop, | Fax: | | | | | | bilateral | [phone] | | | | | | Procedures | | | | | | | MRI SPINE | | | | | | | LUMBAR WO | | | | | | | CONTRAST TN | | | | | | | MRI, LUMBAR | | | | | | | SPINE | | | +--------+--------+ + + + + Physical Therapy (Routine) +--------+--------+ + + + + | Status | Reason | Specialty | Diagnoses / | Referred By | Referred To | | | | | Procedures | Contact | Contact | +--------+--------+ + + + + | Closed | | Physical | Diagnoses | Brian, | | | | | Therapy | | Sussy Manuel, | | | | | | Polyneuropat | MD [address] | | | | | | hy due to | [address] | | | | | | secondary | [place], [place] | | | | | | diabetes | [address] | | | | | | ([facility]) | Phone: | | | | | | Imbalance | [phone] | | | | | | Procedures | Fax: | | | | | | PHYSICAL | [phone] | | | | | | THERAPY | | | | | | | REFERRAL | | | +--------+--------+ + + + + Reason for Visit + + + | Reason | Comments | + + + | New patient | | | consultation | | + + + Intake Referral (Routine) +--------+--------+ + + + + | Status | Reason | Specialty | Diagnoses / | Referred By | Referred To | | | | | Procedures | Contact | Contact | +--------+--------+ + + + + | Closed | | Neurology | Diagnoses | Sitz, | [facility] | | | | | Worsening | Alan | [facility] [address] | | | | | myopathy | MD Darrick | [address] | | | | | peripheral | SUSHMA | Mailcode: | | | | | neuropathy | INTERNAL | [facility] | | | | | | MEDICINE | for [facility] | | | | | | [address] | [facility] Healing, | | | | | | [address] | [address], | | | | | | [address] | [address]th Floor | | | | | | [place], | [place], [place] | | | | | | [place] [address] | [address] | | | | | | Phone: | Phone: | | | | | | [phone] | [phone] | | | | | | Fax: | Fax: | | | | | | [phone] | [phone] | +--------+--------+ + + + + Encounter Details +--------+---------+ + + + | Date | Type | Department | Care Team | Description | +--------+---------+ + + + | 03/16/ | Office | Neurology at | [place], | Myoadenylate | | 2017 | Visit | [facility] & | Sussy Manuel MD [address] | deaminase deficiency | | | | Healing [address] | myopathy (HCC) | | | | [address] Mailcode: | [place], [place] | (Primary Dx); | | | | [address] | [address] | Polyneuropathy due | | | | Health and Healing, | [phone] | to secondary | | | | [address] | | diabetes (HCC); | | | | Floor [place], [place] | | Imbalance; Foot | | | | [address] | | drop, bilateral | | | | [phone] | | | +--------+---------+ + + + [...] + + + | Blood Pressure | 100/62 | 03/16/2017 11:59 AM | | | | | PDT | | + + + + + | Pulse | 86 | 03/16/2017 11:59 AM | | | [...] + + + + | Weight | 103.9 kg (229 lb) | 03/16/2017 11:59 AM | | | | | PDT | | + + + + + | Height | 182.9 cm (6') | 03/16/2017 11:59 AM | | | | | PDT | | + + + + + | Body Mass Index | 31.06 | 03/16/2017 11:59 AM | | | | | PDT | | + + + + + documented in this encounter Patient Instructions Patient Instructions Sussy Torres MD - 03/16/2017 1:00 PM PDTThese papers kathleen oglesby an order to go see a physical therapist in your area. I'd also like their opinion about wh at ankle braces would be best. They can tell me what to order for you. The problem causing the imbalance and weakness is the diabetic peripheral neuropathy. The m yopathy isn't causing the weakness or balance problems. I recommend that you avoid statin medications because of your history with these medication s. I'd like to get an MRI of your lumbar spine to check in and make sure that doesn't look wor se. Please call me if you haven't heard from me within 1-2 weeks of getting the MRI because cristian t may mean they haven't sent me the results. Plan to follow up in 2 years. Call [phone] to schedule a follow up appointment with Dr Brielle Torres (or Dr. Dominique Munson) in the comprehensive neurology clinicElectronical ly signed by Sussy Torres MD at 03/16/2017 1:40 PM PDT documented in this encounter Progress Notes Sussy Torres MD - 03/16/2017 1:00 PM PDTFormatting of this note might be differe nt from the original. Neurology New Consult Note Author: Sussy Torres MD Consult Date/Time: 03/16/2017 12:48 PM Requesting Attending: Alan Sainz MD Reason for Consultation: worsening balance HPI: Andrea Kumar is a 66 y.o. male with a history of Myoadenylate Deaminase Deficiency M yopathy, diabetic peripheral neuropathy, chronic left L5 radiculopathy, prior L3-L5 laminect echo and decompression, chronic left foot drop, left median neuropathy s/p surgical release kenrick harp is referred to [facility] comprehensive neurology clinic for worsening balance. He and his noticed last year while camping that his balance seemed worse. He was able to stand up and shoot without wobbling and bending his knees to try to balance. This is getting worse over t he last year. He has to lean up against the kitchen counter to support himself. He previousl y had problems with balance and saw Dr. Lazcano (see below). AFOs were immensely helpful at t hat point. They have also noticed that his arms and legs seem smaller. He also needs need AF O braces. He thinks the numbness is stable over the past few years. Hasn't had any functiona l problems with hands. He says he also has a pinched nerve in the lower right side of his back. He will be in a re cliner, then get a shot of pain down into the buttocks on the left side. He had a steroid in jection in the past. It has been years since he's seen a spine doctor. He has been previously seen at [facility] in the neuromuscular clinic. Most recent was with Dr. Keron manzanares 07/03/2012 when he was complaining of foot drop. She got an EMG which showed sensory m otor axonal polyneuropathy as well as a chronic L5 radiculopathy on the left. She felt that the majority of his lower extremity symptoms were related to his diabetic polyneuropathy. Siddharth lynch also repeated an MRI of his lumbar spine and did not see any indication for surgery. He has a history of severe myalgias and rhabdomyolysis on statins, which lead to the lindy al diagnosis of his myopathy. He is on ribose and creatine, as recommended by Dr. Jitendra De La Garza who diagnosed his myopathy. Neurologic ROS: 14 point ROS was negative except for the following: as described above -no headaches -no diplopia -no dysarthria/ dysphagia -No bowel or bladder incontinence -no spasticity +occasional low back pain -no cognitive impairment -no depression or anxiety -no fatigue PMH: No date: Back pain No date: Femur fracture (HCC) No date: Hypercholesterolemia No date: Myoadenylate deaminase deficiency myopathy (HC* No date: Type II or unspecified type diabetes mellitus * Home Meds: Current Medication List Name Sig VITAMIN C ORAL Take by mouth. ASPIR-81 ORAL Take by mouth. COQ10 SG 100 100 MG-100 UNIT CAPSULE 400mg daily CREATINE MONOHYDRATE ORAL POWDER 5g daily FISH OIL 1,000 MG CAPSULE 2 caps once daily GLIMEPIRIDE 4 MG TABLET Take 4 mg by mouth two times daily. LIRAGLUTIDE 0.6 MG/0.1 ML (18 MG/3 ML) SUBCUTANEOUS PEN INJECTOR Inject 1.8 mg under the sk in (SUBC). LOSARTAN 25 MG TABLET Take by mouth. MAGNESIUM ORAL Take by mouth. METFORMIN 1,000 MG TABLET Take 1,000 mg by mouth two times daily. THERAPEUTIC ORAL Take by mouth. DiRibose powder DHEA ORAL Take by mouth. RIBOSE (BULK) MISC 5 g four times daily as needed. TESTOSTERONE CYPIONATE 200 MG/ML INTRAMUSCULAR OIL Inject into the muscle (IM). 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 [employer] Social History Main Topics Smoking status: Never Smoker Smokeless tobacco: Not on file Alcohol use No Drug use: No Sexual activity: Yes Partners: Female Other Topics Concern Service No Blood Transfusions No Caffeine Concern No Occupational Exposure No Hobby Hazards Yes Welding Sleep Concern Yes occassional Stress Concern Yes work related Weight Concern Yes Cant lose weight Special Diet No Back Care Yes Exercise Yes Bike Helmet Yes Seat Belt Yes Self-Exams No Social History Narrative Family History: Family History Problem Relation Diabetes Paternal Aunt Other Mother liver failure Heart Failure Father Arthritis Sister Review of Systems: A complete system review was done with patient, reviewed by me, and documented in the accom panying scanned clinic intake notes. This was negative with the exception of: none PE: BP 100/62 | Pulse 86 | Ht 1.829 m (6') | Wt 103.9 kg (229 lb) | BMI 31.06 kg/(m^2) Constitutional: WD/WN, NAD Admission Weight: Weight: 103.9 kg (229 lb) (03/16/17 1159) Neurologic: Mental status: awake and alert, answers questions appropriately, no aphasia or neglect, jorge e sense of humor Cranial Nerves: Gaze is conjugate. Pupils equal round and reactive to light. Extraocular mo vements are intact. Visual broderick full by confrontation. Facial strength and sensation is no rmal. Palate elevation is symmetric. Tongue strength is normal with no atrophy or fasciculat ions noted. Sternocleidomastoid and trapezius muscle strength is normal . Motor Examination: Muscle Tone: N ormal Muscle Bulk: Distal atrophy in the lower extremities, left greater than right Motor Strength Testing: MUSCLE RIGHT / LEFT Upper Extremities: Shoulder external rotatio n 5 / 5 Shoulder internal rotatio n 5 / 5 Deltoid 5 / 5 Triceps 5 / 5 Biceps 5 / 5 Wrist Extension 5 / 5 Wrist Flexion 5 / 5 Finger Extension 5 / 5 Finger Flexion 5 / 5 Interosseoi 5 / 5- Abductor pollicis brevis 5- / 5- Lower Extremities: Hip Flexion 5 / 5 Hip Extension 5 / 5 Hip Abduction 5 / 5 Hip Adduction 5 / 5 Knee Extension 5 / 5 Knee Flexion 5 / 5 Ankle eversion 3 / 3 Ankle inversion 3 / 3 Ankle Dorsiflexion 2 / 2 Ankle Plantarflexion 2 / 4- Toe Extension 2 / 0 Toe Flexion 2 / 2 Sensory Examination: Temperature: Intact and symmetric in the bilateral upper & lower extremities. Superficial pain (pinprick): reduced to the level of the knee bilaterally. Kary in the niki ateral upper extremities. Vibration: absent at the big toe bilaterally. Absent at the left ankle, present in the left knee and present but reduced in the right ankle. Normal in the bilateral upper extremities. Proprioception: Intact and symmetric in the bilateral upper & lower extremities. Reflexes: Biceps Triceps Brachioradialis Knee Ankle Left 1 1 2 0 0 Right 1 1 2 0 0 Plantar response is non-reactive bilaterally. Coordination: Finger to nose and heel to velasquez was normal bilaterally. No rest, postural or intention trem or was seen. Gait: bilateral steppage gait (more prominent on the left compared to right), mildly unstea dy despite AFOs for foot drop, Unable to stand on toes and heels. Unable to walk in tandem. Head: NCAT Eyes: No scleral icterus, conjunctiva pink. Mouth: Moist mucus membranes Cardiovascular: Warm and well perfused Respiratory: Breathing comfortably Skin: No rashes or significant breakdown Studies: EMG 08/08/2012 sensorimotor axonal polyneuropathy. Chronic left L5 radiculopathy. Left me jamar neuropathy at the wrist IMAGING: Images and reports personally reviewed. MRI lumbar spine 08/08/2012 - There is an unchanged T12 anterior compression fracture with 20% anterior vertebral body height loss. There is L4-L5 and L5-S1 endplate fatty marrow changes, consistent with degenerative disease with new moderate loss of height of disc space at these levels. New laminectomy defects are seen at L3-L5. Alignment: There is new grade 1 anterolisthesis of L3 on L4 and stable 4 mm retrolisthesis of L5 on S1. T11-12: There is a diffusely bulging annulus which partially effaces the ventral thecal sac. T12-L1: Normal L1-2: The neural foramina and central canal are normal. L2-3: There is diffuse disk bulge, facet hypertrophy, and ligamentum flavum thickening causing mild canal stenosis. The canal measures up to 9 mm in AP diameter. There is minimal right neural foramina narrowing. L3-4: There is a diffuse disk bulge and facet arthropathy. Mild right and moderate to severe left neural foraminal narrowing is observed. The central canal is normal. L4-5: Facet hypertrophy and disk-osteophyte complex is present. Moderate to severe right and mild to moderate left neural foraminal narrowing is seen. No central canal stenosis. L5-S1: There is facet arthropathy and disk osteophyte complex. Right paracentral disk protrusion causing right lateral recess narrowing. Moderate right and moderate to severe left neural foraminal narrowing is present. The central canal is unremarkable. Spinal cord: The conus terminates at the L1-2 intervertebral disk space. IMPRESSION: Since the prior exam from 03/24/03: Moderate to severe multilevel degenerative disk disease with moderate progression at the L3-4 and L4-5 levels. See above for details. Status post laminectomy at L3 through L5. Degenerative grade 1 antral listhesis of L3 and L4 is new. Diagnosis: # Diabetic polyneuropathy # Myoadenylate Deaminase Deficiency Myopathy # Imbalance secondary to diabetic polyneuropathy # bilateral foot drop Assessment: Andrea Kumar is a 66 y.o. male with a history of Myoadenylate Deaminase Defic iency Myopathy, diabetic peripheral neuropathy, chronic left L5 radiculopathy, chronic left foot drop who is referred to [facility] comprehensive neurology clinic for worsening balance. I ag ree with Dr. Lazcano, who last saw him in [facility], that his imbalance and distal weakness is sec ondary to his polyneuropathy. There is also likely contribution from his prior chronic L5 le ft radiculopathy. He does have significantly more distal weakness today than he did back in 2012. He also has atrophy distally in his legs, left leg more the right leg. I do think it i s appropriate to repeat the MRI of his lumbar spine because if he has worsening stenosis cristian t might be contributing to this weakness and atrophy. We will send this order to [facility] in [place] to be done locally. Unfortunately for the diabetic polyneuropathy, which is the cause of his imbalance and weak ness, the crux of treatment is tight glucose control and lifestyle changes, which he is alre shante doing. There is nothing additional to help prevent progression. He is overdue for new AF O braces. I will send him to physical therapy locally to help with the balance and determine the best AFO. I've asked them to let me know what to order to make sure he gets the correct AFO braces. Regarding management of his Myoadenylate Deaminase Deficiency Myopathy, unfortunately ther e is still no directed therapy for this. I do not think this is the primary cause of his dif ficulties with balance and weakness, again his disability is secondary to his diabetic polyn europathy. Statins are contraindicated in him because of his history of severe myalgias and rhabdomyol ysis when he took these in the past. Recommendations: - MRI lumbar spine without (order will be sent to [facility] in [place]) - referral to physical therapy - will prescribe bilateral AFO braces, pending PT eval - Tight glucose control, continue lifestyle modifications - Return to clinic in 2 years, or sooner if needed (I will call them with the results of MRI) I spent >45 minutes [id number] with the patient, > 50% of the time was spent on counselin g/education related to the issues addressed in the assessment/plan. This note was dictated with [employer] voice recognition software and may contain inadvertent g rammatical and spelling errors. Every attempt is made to ensure the dictation is correct. If there are questions or major concerns, please contact our office. Sussy Torres MD Weaving Teacher Department of Neurology Division of Neuroimmunology Pager [phone] documented in t his encounter Plan of Treatment + +---------+--------+ + + | Name | Type | Priori | Associated Diagnoses | Order Schedule | | | | ty | | | + +---------+--------+ + + | MRI SPINE LUMBAR WO | Imaging | Routin | Polyneuropathy due | Expected: | | CONTRAST | | e | to secondary | 03/16/2017, Expires: | | | | | diabetes (HCC) | 04/16/2018 | | | | | Imbalance Foot | | | | | | drop, bilateral | | + +---------+--------+ + + documented as of this encounter Visit Diagnoses + + | Diagnosis | + + | Myoadenylate deaminase deficiency myopathy (HCC) - Primary Other disorders of purine | | and pyrimidine metabolism | + + | 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
--- OUTSIDE RECORDS SUMMARY | ~2019-06-24 | XMS | Encounter Summary ---
Demographics + + + | Address | [address] | | | [place] [address] | + + + | Home Phone [...] + | Esthela Kumar | ECON | [address] [facility] | | | | | [place] | | | | | [address] | | + + + + + Care Team Providers + +------+ + | Care Senior Technical Business Analyst Name | Role | Phone | [...] as of this encounter Progress Notes Interface, Statistical Reporting Analyst In - 03/02/2006 2:03 AM PDT [id number] MAGNUS Cabrera [id number] Clinic Date: 02/03/2006 Clinic: Procedure Note Procedure: Left biceps brachii muscle biopsy. Preoperative Diagnosis: Myopathy. Postoperative Diagnosis: Myopathy. Surgeon: Dr. Maximilian De La Garza. Embroidery Worker : None. Anesthesia: Lidocaine 1% without epinephrine [...] appointment scheduled. Maximilian De La Garza M.D. [facility] / [id number] / [id number] / [id number] / [id number] Electronically signed by Maximilian De La Garza 03-01-2006 10:28:09 AM documented i n this encounter Plan of Treatment Not on filedocumented as of this encounter Visit Diagnoses Not on filedocumented in this encounter"
--- OUTSIDE RECORDS SUMMARY | ~2019-06-24 | XMS | Encounter Summary ---
Demographics + + + | Address | [address] | | | [place] [address] | + + + | Home Phone [...] + | Esthela Kumar | ECON | [address] | | | | | [place] | | | | | [address] | | + + + + + Care Team Providers + +------+ + | Care Milieu Manager Name | Role | Phone | [...] [id number] | | | | | | [place], [place] | | | | | | [address] | | | | | | [phone] | | | +--------+ + + + [...] | + +--------+ + + + | XJA-[id number]-DSPT,SER | Routin | 12/08/2005 | | Results [...] [facility] | [address] | [place], [place] | | | UNIV PTH - INTFC | | [address] | | + + + + + [...] + + + + | [facility] | [address] | [place] [address] | | | GENETICS LABS | [address] | | | | | AVE. [...] + + + + | [facility] | [facility] | [place] [address] | | | GENETICS LABS | [address] | | | | | AVE. [...] | | | | | performed by [facility] | | | | | [...] [facility] | [address] | [place], [place] | | | UN[facility] P[facility] INT[facility] | | [address] | | + + + + + [...] | | | S - ACY | [facility] | | | | | | [facility] | | | | + + + [...] | TEENA, PH.D | | [place]TER[place] [address] | | + + + + + [...] + + + | SPECIALTY | [address] [facility] | [place] | | | LABORATORY | | [address] | | + + + + + [...] [facility] | [address] | [place], [place] | | | UN[facility] P[facility] INT[facility] | | [address] | | + + + + + [...] + + + | [facility] | [address] | [place] [address] | | | LABORATORY | | | | + + + + + WPR-[id number]-DXUQ,SERUM (12/08/2005 12:30 PM PDT) + +-------+ + [...] | Protein Electrophoresis, Serum Test performed by [place] | | | [facility]. | | + + + + + + + + | Performing | Address | City/State/Zipcode | Phone Number | | Organization | | | | + + + + + | [facility] | [address] | [place] [address] | | | LABORATORY | | | [...] [facility] | [address] | [place], [place] | | | UN[facility] P[facility] INT[facility] | | [address] | | + + + + + [...] [facility] | [address] | [place], [place] | | | UN[facility] P[facility] INT[facility] | | [address] | | + + + + + [...] [facility] | [address] | [place], [place] | | | UN[facility] PTH - INTFC | | [address] | | + + + + + [...] | + + + + + | [facility] | [address] | [place] [address] | | | PATHOLOGY | [address] | | | + + + + + | [facility] DEPARTMENT OF | [address] | [place] [address] | | | PATHOLOGY | [address] [...] | 31.7Comment: | 26.0 - 36.0 | [facility] | | | | APTT Therapeutic Range [...] | + + + + + | [facility] | [address] [place] [address] | [place] [address] | | | PATHOLOGY | [address] | | | + + + + + | [facility] | [address] [place] [address] | [place] [address] | | | PATHOLOGY | [address] [...] | + + + + + | [facility] | [facility] | [place] [address] | | | PATHOLOGY | [address] | | | + + + + + | [facility] DEPARTMENT OF | [facility] | [place] [address] | | | PATHOLOGY | [address] [...] | + + + + + | [facility] | [address] | [place] [address] | | | LABORATORY | | | [...] by | | | | | | [facility] | | | | | | [facility]. | | | | + + + + + + + + | Specimen | + + | | + + + + + + + | Performing | Address | City/State/Zipcode | Phone Number | | Organization | | | | + + + + + | [facility] | [address] | [place] [address] | | | LABORATORY | | | [...] | uIU/ml | | | | | [facility] | | | | | | Laboratories. | | | | + + + + + + + + | Specimen | + + | | + + + + + + + | Performing | Address | City/State/Zipcode | Phone Number | | Organization | | | | + + + + + | [facility] | [address] | [place] [address] | | | LABORATORY | | | [...] | Protein Electrophoresis, Serum Test performed by [place] | | | [facility]. | | + + + + + + + + | Performing | Address | City/State/Zipcode | Phone Number | | Organization | | | | + + + + + | [facility] | [address] | [place] [address] | | | LABORATORY | | | [...] | + + + + + | [facility] | [address] [place] [address] | [place] [address] | | | PATHOLOGY | [address] | | | + + + + + | [facility] DEPART[facility] | [address] [place] [address] | [place] [address] | | | PATHOLOGY | [address] [...] [facility] | [address] | [place], [place] | | | UN[facility] | | [address] | | + + + + + [...] Teddy | | | | | | [facility] | | | | | | [employer]. | | | | + + + + + + + + | Specimen | + + | | + + + + + + + | Performing | Address | City/State/Zipcode | Phone Number | | Organization | | | | + + + + + | [facility] | [address] | [place] [address] | | | LABORATORY | | | [...] | | | | | 2,SERUM | [facility] | | | | | | Laboratories. | | | | + + + + + + + + | Specimen | + + | | + + + + + + + | Performing | Address | City/State/Zipcode | Phone Number | | Organization | | | | + + + + + | [facility] | [address] | [place] [address] | | | LABORATORY | | | [...] [facility] | [address] | [place], [place] | | | UN[facility] INT[facility] | | [address] | | + + + + + SATISH-ANTIBODIES IDENTIFICATION (12/08/2005 12:30 PM PDT) + + + + + + | Component | Value | Ref Range | Performed | Pathologist | | | | | At | Signature | + + + + + + | SALES SPECIAL AGENT AB | Negative | | [facility] | [...] | + + + + + | [facility] DEPARTMENT OF | [address] | [place] [address] | | | PATHOLOGY | [address] | | | + + + + + | [facility] | [address] | [place] [address] | | | PATHOLOGY | [address] [...] DEPARTMENT OF | [address] | [place] [address] | | | PATHOLOGY | [address] | | | + + + + + | [facility] | [address] | [place] [address] | | | PATHOLOGY | [address] | | | + + + + + documented in this encounter Visit Diagnoses Not on filedocumented in this encounter"
--- OUTSIDE RECORDS SUMMARY | ~2019-06-24 | XMS | Encounter Summary ---
Demographics + + + | Address | [address] | | | [place] [address] | + + + | Home Phone [...] + | Esthela Kumar | ECON | [address] | | | | | [place] | | | | | [address] | | + + + + + Care Team Providers + +------+ + | Care Cleaning Laborer Name | Role | Phone | + [...] Description | +--------+---------+ + + + | 07/14/ | Office | Neurology at | Maximilian De La Garza, | Myoadenylate | | 2007 | Visit | [facility] & | MD | Deaminase Deficiency | | | | Healing [address] | | ([facility]) (Primary Dx) | | | | [address] Mailcode: | | | | | | [facility] | | | | | | Health and Healing, | | | | | | Building | | | | | | Floor [place], [place] | | | | | | [address] | | | | | | [phone] | | | +--------+---------+ + + + [...] + + + | Blood Pressure | 135/86 | 07/14/2008 12:49 PM | | | | | PST | | + + + + + | Pulse | 80 | 07/14/2008 12:49 PM | | | [...] + + + + | Weight | 121.6 kg (268 lb) | 07/14/2008 12:49 PM | | | | | PST | | + + + + + | Height | 185.4 cm (6' 1") | 07/14/2008 12:49 PM | | | | | PST | | + + + + + | Body Mass Index | 35.36 | 07/14/2008 12:49 PM | | | | | PST | | + + + + + documented in this encounter Progress Notes Maximilian De La Garza - 07/17/2008 12:39 PM PSTFormatting of this note might be different from t oscar original. 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 He was last seen in the clinic on July 18, 2007. Since that time, Mr. Kumar states that he has done well. His muscle symptoms are stable on his current regimen of D-ribose, Coenzyme Q-10, and creatine. However, when he misses the ribose, he will develop muscle weakness. He also notices that if he has to do physical exertion, he will take an extra dosage of the ribose, and that will help him through this. He is able to maintain employment and is able to do all of the physical aspects of his job. Recent CK was 477 and a hemoglobin A1c is 6.8%. Mr. Kumar also recently underwent a left rotator cuff repair in March 2008 and is doing well. Past Medical History Diagnosis Date Femur Fracture Back Pain Myoadenylate Deaminase Deficiency Myopathy DM w/o Complication Type II Hypercholesterolemia Past Surgical History Procedure Date Hx lumbar laminectomy 1985, 2000 Pr deep muscle biopsy Hx rotator cuff repair l Carpal tunnel left 2004 Orif femur 1972 Left knee surgery Hx rotator cuff repair Current outpatient prescriptions : aspirin 325 mg Oral Tablet, 1 tab daily, Disp: , Rfl: COQ10 SG 100 100 MG-100 UNIT CAP, 300mg daily, Disp: , Rfl: CREATINE MONOHYDRATE ORAL POWDER, 5g daily, Disp: , Rfl: FISH OIL 1,000 mg Oral Capsule, 2 caps once daily, Disp: , Rfl: metformin SR 500 mg Oral Tablet Sustained Release 24 hr, 1 tab twice daily, Disp: , Rfl: VITAMIN B COMPLEX OR, 1 tab daily, Disp: , Rfl: VOLTAREN 75 mg Oral Tablet, Delayed Release (E.C.), take 1 tablet (75 mg) by oral route 2 t imes per day, Disp: , Rfl: WELCHOL 625 mg Oral Tablet, 2 tabs twice daily, Disp: , Rfl: Allergies Allergen Reactions Demerol (Meperidine (Pf)) Nausea/Vomiting Family History Problem Relation Diabetes Paternal Aunt Other Mother liver failure Heart Failure Father Arthritis Sister History Social History Marital Status: Spouse Name: Esthela Number of Children: 3 Years of Education: 14 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 Kumar is a pleasant, well-developed, and well-nourished white male in no apparent distress. Mental Status: Mr. Kumar is alert and oriented. His speech is articulate. His language is fluent. His mood is good. Cranial nerve examination: Cranial nerves 2 through 12 are intact. Motor Examination: Deltoid 5; biceps left 4+, right 5; triceps 5; wrist extensors 5; finger extensors, left 4+, right 5; finger flexors 5; iliopsoas 5; hamstrings 5; quadriceps 5; tibialis anterior, left 4+, right 5-; and gastrocnemius 5. Deep tendon reflexes are as follows: Biceps 1, triceps 1, brachioradialis 0, patella trace, and Achilles 0. Sensory examination reveals decreased pin prick in the left toes and decreased vibration sense in the left toes. Cerebellar examination: Slznvv-kmly-vlsdvb is intact. Gait: There is a slight foot drop on the left. Impression: Mr. 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 He is doing well on his current regimen. I suggested that he continue this therapy. Also, I recommended that for his cholesterol issue, that a trial of Niaspan be considered by doctors since Niaspan tends to not have side effects of muscle weakness. I gave Mr. Kumar and his the opportunity to ask questions and answered to the best of my ability. I spent 30 minutes with Mr. Kumar, about half of this time was in counseling, education, and coordination of care. Maximilian De La Garza M.D. [facility] / [id number] / [id number] / [id number] / [id number] documented in this encou nter Plan of Treatment Not on filedocumented as of this encounter Procedures + +--------+ + + + | Procedure Name | Priori | Date/Time | Associated Diagnosis | Comments | | | ty | | | | + +--------+ + + + | LAB REPORTS | | 08/29/2008 | | Results for this | | | | 3:03 PM | | procedure are in the | | | | PST | | results section. | + +--------+ + + + documented in this encounter Results LAB REPORTS (08/29/2008 3:03 PM PST) + + + | Narrative | Performed At | + + + | | | + + + + + | Procedure Note | + + | Josue Giles - 08/29/2008 3:03 PM PST | + + documented in this encounter Visit Diagnoses + + | Diagnosis | + + | Myoadenylate deaminase deficiency (HCC) - Primary Other disorders of purine and | | pyrimidine metabolism | + + documented in this encounter
--- OUTSIDE RECORDS SUMMARY | ~2019-06-24 | XMS | Encounter Summary ---
Demographics + + + | Address | [address] | | | [place] [address] | + + + | Home Phone [...] + + | Author | [facility] | + + + | Organization | [facility] | + + + | Address | Unknown | + + + | Phone | Unavailable | + + + Support + + + + + | Name | Relationship | Address | Phone | + + + + + | Esthela Kumar | ECON | [address] | | | | | [place] | | | | | [address] | | + + + + + Care Team Providers + +------+ + | Care Tassel Maker Name | Role | Phone | + +------+ + | Alan Sainz MD | PCP | | + +------+ + Encounter Details +--------+ + + + + | Date | Type | Department | Care Team | Description | +--------+ + + + + | 07/20/ | Abstract | Neurology at | Brian, | | | 2017 | | [facility] Health & | Sussy Manuel MD [address] | | | | | [address] | [address] | | | | | [address] Mailcode: | [place], [place] | | | | | [facility] | [address] | | | | | Health and Healing, | [phone] | | | | | | | | | | | Floor [place], [place] | | | | | | [address] | | | | | | [phone] | | | +--------+ + + + [...]
--- OUTSIDE RECORDS SUMMARY | ~2019-06-24 | XMS | Encounter Summary ---
Demographics + + + | Address | [address] | | | [place] [address] | + + + | Home Phone [...] + | Esthela Kumar | ECON | [address] | | | | | [place] | | | | | [address] | | + + + + + Care Team Providers + +------+ + | Care Bale Piler Name | Role | Phone | + +------+ + | Alan Sainz MD | PCP | | + +------+ + Encounter Details +--------+ + + + + | Date | Type | Department | Care Team | Description | +--------+ + + + + | 04/19/ | Abstract | Neurology at | Brian, | | | 2017 | | [facility] Health & | Sussy Manuel MD [address] | | | | | [address] | [address] | | | | | [address] Mailcode: | [place], [place] | | | | | [facility] | [address] | | | | | Health and Healing, | [phone] | | | | | | | | | | | Floor [place], [place] | | | | | | [address] | | | | | | [phone] | | | +--------+ + + + [...] + + documented as of this encounter Real Montaño MA - 04/19/2017 10:13 AM PDTPt's called for results of MRI done at [facility]. Called to request records which have been uploaded to media tab and images have been pushed to [employer]. Please advise. Electronically signed by Real Reza MA at 017 5:30 AM PDTdocumented in this encounter Plan of Treatment Not on filedocumented as of this encounter Visit Diagnoses Not on filedocumented in this encounter"
--- OUTSIDE RECORDS SUMMARY | ~2019-06-24 | XMS | Encounter Summary ---
Demographics + + + | Address | [address] | | | [place] [address] | + + + | Home Phone [...] + | Esthela Kumar | ECON | [address] | | | | | [place] | | | | | [address] | | + + + + + Care Team Providers + +------+ + | Care Farm Implement Engine Mechanic Name | Role | Phone | + +------+ + | Lázaro Oviedo MD | PCP | | + +------+ + Encounter Details +--------+ + + + + | Date | Type | Department | Care Team | Description | +--------+ + + + + | 05/24/ | Ancillary | Registration [id number] | Maximilian De La Garza, | | | 2005 | Registratio | [address] Costa MD | | | | n | Carlos Mailcode: [id number] | | | | | | [place], [place] | | | | | | [address] | | | | | | [phone] | | | +--------+ + + + [...]
--- OUTSIDE RECORDS SUMMARY | ~2019-06-24 | XMS | Encounter Summary ---
Demographics + + + | Address | [address] | | | [place] [address] | + + + | Home Phone | | + + + | Preferred Language | Unknown | + + + | Marital Status | | + + + | Religion Affiliation | Unknown | + + + | Race | White | + + + | Ethnic Group | Other Race | + + + Author + + + | Author | [facility] | + + + | Organization | [facility] | + + + | Address | Unknown | + + + | Phone | Unavailable | + + + Support + + + + + | Name | Relationship | Address | Phone | + + + + + | Esthela Kumar | ECON | [address] | | | | | [place] | | | | | [address] | | + + + + + Care Team Providers + +------+ + | Care Content Production Specialist Name | Role | Phone | + +------+ + | Alan Sainz MD | PCP | | + +------+ + Encounter Details +--------+ + + + + | Date | Type | Department | Care Team | Description | +--------+ + + + + | 07/10/ | Telephone | Neurology at | Brian, | | | 2017 | | [facility] Health & | Sussy Manuel MD [address] | | | | | [address] | [address] | | | | | [address]ie [address] Mailcode: | [place], [place] | | | | | [facility] | [address] | | | | | Health and Healing, | [phone] | | | | | | | | | | | Floor [place], [place] | | | | | | [address] | | | | | | [phone] | | | +--------+ + + + [...]
--- OUTSIDE RECORDS SUMMARY | ~2019-06-24 | XMS | Encounter Summary ---
Demographics + + + | Address | [address] | | | [place] [address] | + + + | Home Phone [...] + | Esthela Kumar | ECON | [address] | | | | | [place] | | | | | [address] | | + + + + + Care Team Providers + +------+ + | Care Imposer Name | Role | Phone | + [...] [id number] | | | | | | [place], [place] | | | | | | [address] | | | | | | [phone] | | | +--------+ + + + [...]
--- OUTSIDE RECORDS SUMMARY | ~2019-06-24 | XMS | Encounter Summary ---
Demographics + + + | Address | [address] | | | [place] [address] | + + + | Home Phone [...] + | Esthela Kumar | ECON | [address] | | | | | [place] | | | | | [address] | | + + + + + Care Team Providers + +------+ + | Care Computerized Table Cutter Name | Role | Phone | + [...] | | | | | Candice Gonzalez [place], | | | | | | [place] [address] | | | +--------+ + + + [...]
--- OUTSIDE RECORDS SUMMARY | ~2019-06-24 | XMS | Encounter Summary ---
Demographics + + + | Address | [address] | | | [place] [address] | + + + | Home Phone | | + + + | Preferred Language | Unknown | + + + | Marital Status | | + + + | Orthodox Affiliation | Unknown | + + + | Race | White | + + + | Ethnic Group | Other Race | + + + Author + + + | Author | [facility] | + + + | Organization | [facility] | + + + | Address | Unknown | + + + | Phone | Unavailable | + + + Support + + + + + | Name | Relationship | Address | Phone | + + + + + | Esthela Kumar | ECON | [address] | | | | | [place] | | | | | [address] | | + + + + + Care Team Providers + +------+ + | Care Floor Service Worker [place] Name | Role | Phone | + [...] [id number] | | | | | | [place], [place] | | | | | | [address] | | | | | | [phone] | | | +--------+ + + + [...]
--- OUTSIDE RECORDS SUMMARY | ~2019-06-24 | XMS | Encounter Summary ---
Demographics + + + | Address | [address] | | | [place] [address] | + + + | Home Phone [...] + | Esthela Kumar | ECON | [address] | | | | | [place] | | | | | [address] | | + + + + + Care Team Providers + +------+ + | Care Circuit Breaker Assembler Name | Role | Phone | + [...] MRI Results | | 2017 | | [facility] Health & | Sussy Manuel MD [address] | (External Results) | | | | [address] | [address] | | | | | [address] Mailcode: | [place], [place] | | | | | [facility] | [address] | | | | | Health and Healing, | [phone] | | | | | [facility] | | | | | | Floor [place], [place] | | | | | | [address] | | | | | | [phone] | | | +--------+ + + + [...]
--- OUTSIDE RECORDS SUMMARY | ~2019-06-24 | XMS | Encounter Summary ---
Demographics + + + | Address | [address] | | | [place] [address] | + + + | Home Phone | | + + + | Preferred Language | Unknown | + + + | Marital Status | | + + + | Faith Affiliation | Unknown | + + + | Race | White | + + + | Ethnic Group | Other Race | + + + Author + + + | Author | [facility] | + + + | Organization | [facility] | + + + | Address | Unknown | + + + | Phone | Unavailable | + + + Support + + + + + | Name | Relationship | Address | Phone | + + + + + | Esthela Kumar | ECON | [address] | | | | | [place] | | | | | [address] | | + + + + + Care Team Providers + +------+ + | Care Front End Developer Name | Role | Phone | [...] [id number] | | | | | | [place], [place] | | | | | | [address] | | | | | | [phone] | | | +--------+ + + + [...]
--- OUTSIDE RECORDS SUMMARY | ~2019-06-24 | XMS | Encounter Summary ---
Demographics + + + | Address | [address] | | | [place] [address] | + + + | Home Phone | | + + + | Preferred Language | Unknown | + + + | Marital Status | | + + + | Temple Affiliation | Unknown | + + + | Race | White | + + + | Ethnic Group | Other Race | + + + Author + + + | Author | [facility] | + + + | Organization | [facility] | + + + | Address | Unknown | + + + | Phone | Unavailable | + + + Support + + + + + | Name | Relationship | Address | Phone | + + + + + | Esthela Kumar | ECON | [address] | | | | | [place] | | | | | [address] | | + + + + + Care Team Providers + +------+ + | Care Music Copyist Name | Role | Phone | + [...] | Deaminase Deficiency | | | | [facility] | [address] | Myopathy (HCC); | | | | [address] | [place] [address] | Abnormality of Gait | | | | Mailcode: CH3P | [phone] | | | | | [facility] | | | | | | and Healing, | | | | | | [address] | | | | | | Floor [place], [place] | | | | | | [address] | | | | | | [phone] | | | +--------+---------+ + + + [...] - 07/18/2007 2:56 PM PSTPHYSICAL THERAPY EVAL: [facility] PHYSICAL THERAPY EVALUATION KIERSTEN KUMAR MR# [id number] Start of Care: 07/18/2007 Referring/Attending Practitioner: Maximilian [...] 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 He did not pursue ankle b race after last visit. May be interested now and willing to talk with animal trainer. Pt has torn ligaments in his right knee and he wears a brace sometimes - expecting TKR eventually.. 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 Patient willing to meet with animal trainer to discuss. Manager Internship contacted and will make arr angements to [...] short term goals PLAN: Pt to see animal trainer in [place] or [place] Frequency/Duration: once Treatment began: 1:00 pm Treatment [...]
--- OUTSIDE RECORDS SUMMARY | ~2019-06-24 | XMS | Clinical Summary ---
Demographics + + + | Address | [address] | | | [place] [address] | + + + | Home Phone | | + + + | Preferred Language | Unknown | + + + | Marital Status | | + + + | Mormon Affiliation | Unknown | + + + | Race | Unknown | + + + | Ethnic Group | Unknown | + + + Author + + + | Author | [facility] (Historical as of | | | 04-06-19) | + + + | Organization | [facility] (Historical as of | | | 04-06-19) | + + + | Address | Unknown | + + + | Phone | Unavailable | + + + Support + + +---------+ + | Name | Relationship | Address | Phone | + + +---------+ + | Esthela Kumar | ECON | Unknown | | + + +---------+ + Care Team Providers + +------+ + | Care Principal Embedded Software Engineer Name | Role | Phone | + +------+ + | Alan Sainz MD | PP | | + +------+ + Allergies + + + + + + | Active Allergy | Reactions | Severity | Noted | Comments | | | | | Date | | + + + + + + | Meperidine | Nausea and Vomiting | Low | 04/18/20 | | | | | | 16 | | + + + + + + | Statins | Other (See Comments) | Medium | 06/21/20 | Cramping | | | | | 17 | throughout body | + + + + + + Current Medications + + +-------+---------+------+------+-------+ | Prescription | Sig. | Disp. | Refills | Star | End | Statu | | | | | | t | Date | s | | | | | | Date | | | + + +-------+---------+------+------+-------+ | aspirin 81 MG EC | Take 81 mg by mouth | | | | | Activ | | tablet | daily with | | | | | e | | | breakfast. | | | | | | + + +-------+---------+------+------+-------+ | B Complex-C (SUPER | Take by mouth | | | | | Activ | | B COMPLEX PO) | daily. | | | | | e | + + +-------+---------+------+------+-------+ | DHEA 50 MG TABS | Take 50 mg by mouth | | | | | Activ | | | daily. | | | | | e | + + +-------+---------+------+------+-------+ | Coenzyme Q10 | Take 200 mg by mouth | | | | | Activ | | (COQ10) 200 MG CAPS | daily. | | | | | e | + + +-------+---------+------+------+-------+ | Vitamin Mixture | Take 1,000 mg by | | | | | Activ | | (SONIA-C PO) | mouth daily. | | | | | e | + + +-------+---------+------+------+-------+ | [place]-3 Fatty | Take 1,200 mg by | | | | | Activ | | Acids (FISH OIL) | mouth 2 (two) times | | | | | e | | 1200 MG CAPS | daily. | | | | | | + + +-------+---------+------+------+-------+ | Magnesium 250 MG | Take 250 mg by mouth | | | | | Activ | | TABS tablet | daily. | | | | | e | + + +-------+---------+------+------+-------+ | metFORMIN | Take 2,000 mg by | | | | | Activ | | (GLUCOPHAGE) 1000 MG | mouth daily. | | | | | e | | tabletIndications: | | | | | | | | Type 2 Diabetes | | | | | | | | Mellitus | | | | | | | + + +-------+---------+------+------+-------+ | glimepiride | Take 4 mg by mouth 2 | | | | | Activ | | (AMARYL) 4 MG tablet | (two) times daily. | | | | | e | + + +-------+---------+------+------+-------+ | liraglutide | Inject 1.8 mg into | | | | | Activ | | (VICTOZA) 18 MG/3ML | the skin daily. | | | | | e | | injection | | | | | | | + + +-------+---------+------+------+-------+ | UNABLE TO FIND | Creatinine | | | | | Activ | | | Monohydate daily | | | | | e | + + +-------+---------+------+------+-------+ | UNABLE TO FIND | Ribose 100% powder | | | | | Activ | | | QID | | | | | e | + + +-------+---------+------+------+-------+ | testosterone | Inject 200 mg into | | | | | Activ | | cypionate | the muscle every 28 | | | | | e | | (DEPOTESTOTERONE | days. | | | | | | | CYPIONATE) 200 MG/ML | | | | | | | | injection | | | | | | | + + +-------+---------+------+------+-------+ | losartan (COZAAR) | Take 12.5 mg by | | | | | Activ | | 25 MG tablet | mouth daily. | | | | | e | + + +-------+---------+------+------+-------+ | ascorbic acid | Take 1,000 mg by | | | | | Activ | | (VITAMIN C) 1000 MG | mouth daily. | | | | | e | | tablet | | | | | | | + + +-------+---------+------+------+-------+ | sildenafil | Take 25 mg by mouth | | | | | Activ | | (VIAGRA) 25 MG | as needed for | | | | | e | | tablet | Erectile | | | | | | | | Dysfunction. | | | | | | + + +-------+---------+------+------+-------+ Active Problems + + + | Problem | Noted Date | + + + | Hyperlipidemia | 04/18/2016 | + + + + + | Last Assessment & Plan: Hyperlipidemia. 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 He has long-standing diabetes, peripheral | | neuropathy and some form of primary muscle disorder, he wears | | leg braces, but remains fairly active. Because of his myopathy, | | he has elevated CPK, and apparently there is a potential | | interaction with cardiac muscle, and 2001 he underwent coronary | | angiography and was told he had clean coronaries. Recent nuclear | | perfusion study, negative for ischemia, ejection fraction well | | preserved. Recent lipid panel reviewed. Tolerating medications. | | No changes in therapy. Will follow clinically.Last Cath: | | 10/10/2001 ([facility]): apparently, NML coronaries.Last Echo: | | naLast Stress Test, 06/02/2016: 7:32min Joseph, no chest pain, no | | arrhythmias, ECG equivocal for ischemia, Rivas Treadmill Score 5, | | images suggest diaphragmatic attenuation, no ischemia, LVEF | | 72%.ECG, 04/18/2016: NSR, 84bpm.Labs, 03/09/2016: T Chol: 258, | | LDL-Chol: na, HDL-Chol: 32, Tri | | CPK: 272, Liver enzymes NML, K: 4.8, BUN/Cr: 23/1.2 (GFR 63), | | glu: 231 HgbA1c: 8.0, WBC: 7.1, H/H: | | 14.4/42.8, plt: 264Labs, 05/23/2016: T Chol: 226, LDL-Chol: 127, | | HDL-Chol: 32, Tri | + + + + + | Diabetes mellitus, type 2 | 04/18/2016 | + + + + + | Last Assessment & Plan: DM2, with neuropathy, managed by | | CARMELLA Ibarra. 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 | + + Family History + + +------+ + | Medical History | Relation | Name | Comments | + + +------+ + | Heart disease | Father | | | + + +------+ + | High cholesterol | Father | | | + + +------+ + | Diabetes type II | Mother | | | + + +------+ + + +------+ + + | Relation | Name | Status | Comments | + +------+ + + | Father | | | [place],heart disease,hyperllipidemia, smoker | | | | (Age | | | | | 62) | | + +------+ + + | Mother | | | hepatitis C, Diabetes Mellitus,thyroid | | | | (Age | disease | | | | 68) | | + +------+ + + Social [...] + +---------+ + | Alcohol Use | Drinks/We | oz/Week | Comments | | | ek | | | + + +---------+ + | Yes | 1 Shots | 0.6 | rarely drink | | | of | | | | | liquor | | | + + +---------+ + + + + | Sex Assigned at | Date Recorded | | | | + + + | Not on file | | + + + Last Filed Vital Signs + + + + | Vital Sign | Reading | Time Taken | + + + + | Blood Pressure | 151/89 | 08/31/2017 10:12 AM PST | + + + + | Pulse | 82 | 08/31/2017 10:12 AM PST | + + + + | Temperature | - | - | + + + + | Respiratory Rate | 16 | 06/29/2016 11:47 AM PST | + + + + | Oxygen Saturation | 96% | 08/09/2017 8:54 AM PST | + + + + | Inhaled Oxygen | - | - | | Concentration | | | + + + + | Weight | 98.4 kg (217 lb) | 08/31/2017 10:12 AM PST | + + + + | Height | 185.4 cm (6' 1") | 08/31/2017 10:12 AM PST | + + + + | Body Mass Index | 28.63 | 08/31/2017 10:12 AM PST | + + + + Plan of Treatment + + + + + | Health Maintenance | Due Date | Last Done | Comments | + + + + + | Diabetic Eye Exam | | | | | | 1 | | | + + + + + | Diabetic Foot Exam | | | | | | 1 | | | + + + + + | Hemoglobin A1c | | | | | | 1 | | | + + + + + | Microalbumin | | | | | Screening | 1 | | | + + + + + | Vaccine: | | | | | Dtap/Tdap/Td (1 - | 0 | | | | Tdap) | | | | + + + + + | Colon Cancer | | | | | Screening | 1 | | | | (Colonoscopy) | | | | + + + + + | Vaccine: Zoster (1 | | | | | of 2) | 1 | | | + + + + + | Vaccine: | | 05/14/2017 | | | Pneumococcal 65+ | 8 | | | | Low/Medium Risk (2 | | | | | of 2 - PPSV23) | | | | + + + + + | Vaccine: Influenza | | | | | (#1) | 9 | | | + + + + + Results Not on filefrom Last 3 Months Insurance + +--------+ +------+-------+ + | Payer | Benefi | Subscriber | Type | Phone | Address | | | t Plan | ID | | | | | | / | | | | | | | Group | | | | | + +--------+ +------+-------+ + | MEDICARE | MEDICA | [id number] | | | [id number] | | | RE | | | | [place] [id number] | | | ANEESH | | | | | | | AD | | | | | + +--------+ +------+-------+ + | COMMERCIAL OTHER | TRANSA | [id number] | | | | | | [place] | | | | | | | LIFE | | | | | + +--------+ +------+-------+ + + +--------+ +--------+ + + | Guarantor Name | Accoun | Relation to | Date | Phone | Billing Address | | | t Type | Patient | of | | | | | | | | | | + +--------+ +--------+ + + | KIERSTEN KUMAR | Person | Self [birth year] Home: | [id number] | | | al/Fam | | [phone] [place] | | | [place] | | [phone] | + +--------+ +--------+ + +
--- OUTSIDE RECORDS SUMMARY | ~2019-06-24 | XMS | Encounter Summary ---
Demographics + + + | Address | [address] | | | [place] [address] | + + + | Home Phone [...] + | Esthela Kumar | ECON | [address] | | | | | [place] | | | | | [address] | | + + + + + Care Team Providers + +------+ + | Care Trash Collector Truck Driver Name | Role | Phone [...] [address] | | | | | | [place], [place] | | | | | | [address] | | | +--------+ + + + [...]
--- OUTSIDE RECORDS SUMMARY | ~2019-06-24 | XMS | Encounter Summary ---
Demographics + + + | Address | [address] | | | [place] [address] | + + + | Home Phone [...] + | Esthela Kumar | ECON | [address] | | | | | [place] | | | | | [address] | | + + + + + Care Team Providers + +------+ + | Care Home Health Specialist Name | Role | Phone | [...] | | | | | | MD Nino | | | | | | | [address] | | | | | | | [place] | | | | | | | [place], [place] | | | | | | | [address] | | | | | | | Phone: | | | | | | | [phone] | | | | | | | Fax: | | | | | | | [phone] | | +--------+--------+ + + + + Diagnostic Testing (Routine) +--------+--------+ + + + + | Status | Reason | Specialty | Diagnoses / | Referred By | Referred To | | | | | Procedures | Contact | Contact | +--------+--------+ + + + + | Closed | | Clinical | Diagnoses | Julissa Lazcano Emg | | | | Neurophysiolo | Peripheral | MD Nino | [address] | | | | gy | neuropathy | [address] | [address] | | | | | Procedures | Ave | Mailcode: | | | | | EMG/NERVE | [place], [place] | [address] | | | | | CONDUCTION | [address] | for Health | | | | | STUDIES,ADUL | Phone: | and Healing, | | | | | T - | [phone] | Building 1, | | | | | NEUROLOGY | Fax: | 8th Floor | | | | | | [phone] | [place], [place] | | | | | | | [address] | | | | | | | Phone: | | | | | | | [phone] | | | | | | | Fax: | | | | | | | [phone] | +--------+--------+ + + + + Diagnostic Testing (Routine) +--------+--------+ + + + + | Status | Reason | Specialty | Diagnoses / | Referred By | Referred To | | | | | Procedures | Contact | Contact | +--------+--------+ + + + + | Closed | | Radiology | Diagnoses | Neno, | [facility] | | | | | Peripheral | MD Nino | [address] | | | | | neuropathy | [address] | [address] | | | | | Procedures | Ave | Rd | | | | | MRI SPINE | [facility] [place] | Mailcode: | | | | | LUMBAR WO | [address] | [address] | | | | | CONT [address] | Phone: | Gill | | | | | | [phone] | Research | | | | | | Fax: | Burna | | | | | | [phone] | [place], [place] | | | | | | | [address] | | | | | | | Phone: | | | | | | | [phone] | | | | | | | Fax: | | | | | | | [phone] | +--------+--------+ + + + + Reason for Visit + + + | Reason | Comments | + + + | New patient | | | consultation | | + + + Consultation (Routine) +--------+--------+ + + + + | Status | Reason | Specialty | Diagnoses / | Referred By | Referred To | | | | | Procedures | Contact | Contact | +--------+--------+ + + + + | Closed | | Neurology | Diagnoses | Emeli, | Reynaldo | | | | | Myopathy | Alan | Marilu | | | | | | MD Darrick | [address] | | | | | | [address] | [address] | | | | | | INTERNAL | Mailcode: | | | | | | MEDICINE | [facility] | | | | | | [address] | for Health | | | | | | [address] | and Healing, | | | | | | [address] | [address], | | | | | | [place], | 8th Floor | | | | | | [place] [address] | [place], [place] | | | | | | Phone: | [address] | | | | | | [phone] | Phone: | | | | | | Fax: | [phone] | | | | | | [phone] | Fax: | | | | | | | [phone] | +--------+--------+ + + + + Encounter Details +--------+---------+ + + + | Date | Type | Department | Care Team | Description | +--------+---------+ + + + | 07/03/ | Office | Neurology at | Nino Lazcano MD | Peripheral | | 2011 | Visit | [facility] & | [address] | neuropathy (Primary | | | | Healing [address] | [place] [address] | Dx); Myoadenylate | | | | [address] Mailcode: | [phone] | deaminase deficiency | | | | [address] | | myopathy (HCC); | | | | Health and Healing, | | Lumbar disc disease | | | | | | | | | | Floor [place], [place] | | | | | | [address] | | | | | | [phone] | | | +--------+---------+ + + + [...] + + + | Blood Pressure | 102/68 | 07/03/2012 3:36 PM | | | | | PST | | + + + + + | Pulse | 77 | 07/03/2012 3:36 PM | | | | | PST [...] + + + + | Weight | 112.9 kg (249 lb) | 07/03/2012 3:36 PM | | | | | PST | | + + + + + | Height | - | - | | + + + + + | Body Mass Index | 32.85 | 07/14/2008 12:49 PM | | | | | PST | | + + + + + documented in this encounter Progress Notes Nino Lazcano MD - 07/03/2012 3:51 PM PST NEUROMUSCULAR CLINIC FOLLOW-UP NOTE Author: Nino Lazcano MD Patient Active Problem List: 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 male followed by the Neuromuscular division who returns for new onset foot drop. He carries a diagnosis of myoadenylate deaminase deficiency (since 2005), diagnosed by Dr. Maximilian De La Garza. His myalgias and cramps have responded well to D-Ribose and creatine. He also has been diagnosed with an idiopathic peripheral neuropathy. His last visi t was in 2007. He has noticed more difficulties with walking, primarily with tripping in the left leg in t he last year. He rigged a spring to the top of his shoes to help prevent him from tripping. He has tripped twice in the last 3 days. He has fixed numbness in his legs distal to his knees and has a history of idiopathic perip heral neuropathy and two lumbar spine surgeries (?laminectomy). He also had epidural steroid injections after his lumbar spine surgeries. He denies any sensory loss in his hands. He de nies bowel or bladder incontinence. He has noticed more difficulties with climbing stairs and uses his arms to help him pull hi mself up. He denies any weakness in his arms. His has noticed that he has lost muscle m ass in his arms and legs. He lost about 25 lbs intentionally. He denies dyspnea, palpitations or chest pain, dysphagi a or dysarthria. He denies exertional dyspnea or chest pain. Past Medical History Diagnosis Date Femur fracture Back pain Myoadenylate deaminase deficiency myopathy Type II or unspecified type diabetes mellitus without mention of complication, not stat ed as uncontrolled Hypercholesterolemia Past Surgical History Procedure Date Lumbar laminectomy 2000 Pr deep muscle biopsy Rotator cuff repair l Carpal tunnel release 2004 Orif femur decompression 1971 Knee surgery Tonsillectomy Hand surgery Current Medications: ASPIRIN (ASPIR-81 ORAL), Take by mouth. COQ10 SG 100 100 MG-100 UNIT CAP, 300mg daily CREATINE MONOHYDRATE ORAL POWDER, 5g daily FISH OIL 1,000 mg Oral Capsule, 2 caps once daily metformin SR 500 mg Oral Tablet Sustained Release 24 hr, 1 tab twice daily niacin ER (NIASPAN) 500 mg Oral tablet extended release 24 hr, Take 500 mg by mouth once da anusha at bedtime. 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 Family History Problem Relation Diabetes Paternal Aunt Other Mother liver failure Heart Failure Father Arthritis Sister Review of Systems: A twelve system review was positive for erectile dysfunction, knee and back pain. Other pertinent positive are in the HPI. The remainder was negative. Physical Examination: BP 102/68 | Pulse 77 | Wt 112.946 kg (249 lb) General: This is a well-groomed, alert individual who appears their stated age and who is s eated comfortably on the examination table. Mood is euthymic and affect is appropriate. O riented to person, place and time. Speech and language are normal. CV: Heart is regular rate and rhythm. No murmurs or extra sounds auscultated. Pulmonary: Lungs clear to auscultation bilaterally. Skin: No rashes noted on exposed skin Neurologic: Cranial Nerves: Gaze is conjugate. Pupils equal round and reactive to light. Extraocular movements are intact. Visual broderick full by confrontation. Facial strength and sensation is normal. Palate elevation is symmetric. Tongue strength is normal with no atrophy or fascicul ations noted. Sternocleidomastoid and trapezius muscle strength is normal. Motor Examination: Muscle Tone: Normal Muscle Bulk: Normal Motor Strength Testing: MUSCLE RIGHT / LEFT Neck flexion 5 Neck extension 5 Upper Extremities: Shoulder external rotation 5 / 5 Shoulder internal rotation 5 / 5 Deltoid 5 / 5 Triceps 5 / 5 Biceps 5 / 5 Wrist Extension 5 / 5 Wrist Flexion 5 / 5 Finger Extension 5 / 5 Finger Flexion 5 / 5 Interosseoi 5 / 5 Abductor pollicis brevis 5 / 5 Lower Extremities: Hip Flexion 5 / 5 Hip Extension 5 / 5 Hip Abduction 5 / 5 Hip Adduction 5 / 5 Knee Extension 5 / 5 Knee Flexion 5 / 5 Ankle eversion 4 / 4- Ankle inversion 4+ / 4+ Ankle Dorsiflexion 4 / 4- Ankle Plantarflexion 4 / 5- Toe Extension 3 / 3 Toe Flexion 3 / 3 Sensory Examination: Temperature (warm): Intact and symmetric in the bilateral upper & lower extremities. Superficial pain (pinprick): reduced to the level of the knee bilaterally. Kary in the b ilateral upper extremities. Vibration: absent at the big toe bilaterally. Absent at the left ankle, present in the le ft knee and present but reduced in the right ankle. Normal in the bilateral upper extremitie s. Proprioception: Intact and symmetric in the bilateral upper & lower extremities. Reflexes: Biceps Triceps Brachioradialis Knee Ankle Left 1 1 1 0 0 Right 1 1 1 0 0 Plantar response is non-reactive bilaterally. Coordination: Finger to nose with eyes opened and closed and heel to velasquez was normal bilaterally. No re st, postural or intention tremor was seen. Gait: Mild left foot drop, circumducts left leg and hyperextends the left knee. Unable to stand on toes and heels. Unable to walk in tandem. Assessment: Kiersten Kumar is a 61 y.o. male followed by the Neuromuscular service for idiopathic perip heral neuropathy, myoadenylate deaminase deficiency and new onset left foot drop. Since his last visit in Neurology, he has developed diabetes mellitus and reports that it is well cont rolled on oral agents with his most recent hemoglobin A1c <7. No new recommendations for his muscle disorder. In terms of his foot drop, this may be due to progression of his neuropathy which warrants a repeat evaluation or this could be due to a superimposed lumbosacral radiculopathy. I have requested an EMG and lumbar spine MRI to ev aluate this further. I could not find any of his original neuropathy evaluation and so I hav e requested screening neuropathy labs, including heavy metal screen as [facility] as uses well water at home. In addition, he would benefit from an AFO given his foot drop and the fact that he is on his feet for most of his day at work, a referral was placed for this but he would prefer to do that closer to his home in [place]. I will discuss his test results with him at the time of his EMG and any further recommendat ions at that time. Nino Lazcano MD Professor Of [place] Department of Neurology documented in this enco unter Plan of Treatment + + +--------+ + + | Name | Type | Priori | Associated Diagnoses | Order Schedule | | | | ty | | | + + +--------+ + + | EMG/NERVE CONDUCTION | Procedures | Routin | Peripheral | Ordered: 07/03/2012 | | STUDIES,ADULT - | | e | neuropathy | | | NEUROLOGY | | | | | + + +--------+ + + + +---------+--------+ + + | Name | Type | Priori | Associated Diagnoses | Order Schedule | | | | ty | | | + +---------+--------+ + + | ORTHOTIC REFERRAL | Consult | Routin | Peripheral | Ordered: 07/03/2012 | | | | e | neuropathy | | + +---------+--------+ + + documented as of this encounter Results MRI SPINE LUMBAR WO CONT (08/08/2012 1:55 PM PST) + + + + + + | Component | Value | Ref Range | Performed | Pathologist | | | | | At | Signature | + + + + + + | MR LUMBAR | Med Rec No: | | | | | SPINE WO | [id number] Name: | | | | | CONT | KIERSETN KUMAR | | | | | | Birthdate: 1950 | | | | | | Sex: M Alias: | | | | | | Patient Location: | | | | | | [id number]: Outpatient | | | | | | [...] # | | | | | | [id number] EXAM: MRI | | | | | [...] | | | | | L4-L5 and L5-J6iirzktju | | | | | | fatty [...] | | | | prior exam from / | | | | | | 11/21:Moderate to severe | | | | | [...] U. | | | | | | [facility] 08/10/2012 | | | | | | 14:41PM | | | | | | Final/Electronically | | | | | | signed / Neris U. | | | | | | [facility] 08/09/2012 | | | | | | 11:21AM Result | | | | | | modified / Neris | | | | | | U[facility] 08/09/2012 | | | | | | 11:21 AM Pending final | | | | | | approval / NAEEM TAYLOR | | | | | | 08/09/2012 11:21 AM | | | | | | Result modified / | | | | | | NAE[facility] BRANDON 08/09/2012 | | | | | | 11:21 AM Pending final | | | | | | approval / Neris | | | | | | [facility] 08/08/2012 | | | | | | 22:23 PM Result | | | | | | modified / Neris | | | | | | U[facility] 08/08/2012 | | | | | | 22:23 PM Pending final | | | | | | approval / Neris | | | | | | [facility] 08/08/2012 | | | | | | 19:38 PM Result | | | | | | modified / Neris | | | | | | U[facility] 08/08/2012 | | | | | | [...] | | + +---------+ + + | [facility] DEPARTMENT OF | | | | | RADIOLOGY | | | | + +---------+ + + HEAVY METALS, URINE (08/08/2012 10:01 AM PST) + + + + + + | Component | Value | Ref Range | Performed | Pathologist | | | | | At | Signature | + + + + + + | CREATININE, | 1913Comment: Performed | 800 - 2100 mg/d | [facility] | | | UR(REFERRAL | by [employer],[address] | | REG UNIV | | | ) | [address], [facility] | | PTH - INTFC | | | | [address] | | | | | | [phone].Gen9lab. | | | | | | Beverley bearden, | | | | | | , [...] ug/gCR | [facility] | | | UG/G DIRECTOR CARDIAC | | | REG UNIV | | | | | | PTH - INTFC | | + + + + + + | MERCURY, | 0.9 | <=35.0 ug/gCR | [facility] | | | URINE UG/G | | | REG UNIV | | | DIRECTOR CARDIAC | | | PTH - INTFC | | + + + + + + | ARSENIC, | 19.3 | ug/gCR | [facility] | | | URINE UG/G | | | REG UNIV | | | DIRECTOR CARDIAC | | | PTH - INTFC | [...] concentration | | | | | | [id number] ug/L, | | | | | | [...] the | | | | | | laboratorywill perform | | | | | | [...] [facility] | [address] | [place], [place] | | | UNIV PTH - INTFC | | [address] | | + + + + + [...] Med | | | | | | [place] | | | | + + + [...] + | [facility] - | [address] | [place] [address] | | | [place] | | | [...] + | [facility] | [address] | [place] [address] | | | [facility] | | | | + + + [...] | SPEP | Within usual | | [facility] - | | | COMMENTS | limits.Comment: [...] + | [facility] - | [address] | [place] [address] | | | [place] | | | | + + + [...] | + + + + + | [facility] | [address] | [place] [address] | | | YASIR, FLETCHER | [address] | | | + [...] | | | | | in the [facility] | | | | | | LaboratoryTest Directory | | | | | | (Shopo). Serum | | | | | | [...] | | | | | | by [facility],[address] | | | | | | [address], [facility] [place] | | | | | | [address] | | | | | | [phone].Gen9lab. | | | | | | Beverley bearden, | | | | | | , Lab. Director | | | | + + + + + + + + | Specimen | + + | Blood - Blood | + + + + + + + | Performing | Address | City/State/[facility] | Phone Number | | Organization | | | | + + + + + | [facility] | [address] | [place], [place] | | | UNIV PTH - INTFC | | [address] | | + + + + + [...] | | | IC ACID | [address] | umol/L | REG UNIV | | | | [address], [facility] [place] | | PTH - INT | | | | [address] | | | | | | [phone].Purple Harry. | | | | | | Beverley [...] [facility] | [address] | [place], [place] | | | UNIV PTH - INTFC | | [address] | | + + + + + [...] if | | | | | | [id number] >400: | | | | | | [...] + | [facility] | [address] | [place] [address] | | | [facility] | | | | + + + [...] | | | LABORATORY | | | BERMUDIAN | | | SERVICES, | | | [...] | + + + + + | [facility] | [address] | [place] [address] | | | SERVICES, CORE | [address] | | | + + + + + documented in this encounter Visit Diagnoses + + | Diagnosis | + + | Peripheral neuropathy - Primary Unspecified hereditary and idiopathic peripheral | | neuropathy | + + | Myoadenylate deaminase deficiency myopathy (HCC) Other disorders of purine and | | pyrimidine metabolism | + + | Lumbar disc disease Other and unspecified disc disorder of lumbar region | + + documented in this encounter"
--- OUTSIDE RECORDS SUMMARY | ~2019-06-24 | XMS | Encounter Summary ---
Demographics + + + | Address | [address] | | | [place] [address] | + + + | Home Phone [...] + | Esthela Kumar | ECON | [address] | | | | | [place] | | | | | [address] | | + + + + + Care Team Providers + +------+ + | Care Manufacturing Engineer Supervisor Name | Role | Phone | + +------+ + | Alan Sainz MD | PCP | | + +------+ + Encounter Details +--------+ + + + + | Date | Type | Department | Care Team | Description | +--------+ + + + + | 01/03/ | Transcribed | Allergy Clinic at | Dictation, Other | Transcribed | | 1994 | | [facility] [address] | | | | | | [address] | | | | | | Mailcode: [address] | | | | | | [address] | | | | | | [place], | | | | | | [place] [address] | | | | | | [phone] | | | +--------+ + + + [...] as of this encounter Progress Notes Interface, Sticker On In - 12/07/2006 5:01 AM PDT [address] [address] [facility] January 03, 1995 MR [facility] [place] [address] RE:Andrea Kumar MR#:[id number] Dear Mister Campos: Your employee, Mr. Andrea Kumar, was seen for a follow-up visit on January 02, 1995 at the [facility] at the [facility]. 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 Mr. Kumar changed his [...] Resident, Dermatology Sondra Barton M.D. Professor, Dermatology /[facility] January 05, 1995 E: 01/17/95 [facility] documented in this encounter Plan of Treatment Not on filedocumented as of this encounter Visit Diagnoses Not on filedocumented in this encounter"
--- OUTSIDE RECORDS SUMMARY | ~2019-06-24 | XMS | Encounter Summary ---
Demographics + + + | Address | [address] | | | [place] [address] | + + + | Home Phone [...] + | Esthela Kumar | ECON | [address] | | | | | [place] | | | | | [address] | | + + + + + Care Team Providers + +------+ + | Care Pipe Joints Supervisor Name | Role | Phone | + +------+ + | Alan Sainz MD | PCP | | + +------+ + Encounter Details +--------+ + + + + | Date | Type | Department | Care Team | Description | +--------+ + + + + | 04/19/ | Abstract | Neurology at | Brian, | | | 2017 | | [facility] & | Sussy Manuel MD [address] | | | | | [address] | [address] | | | | | [address] Mailcode: | [place], [place] | | | | | [facility] | [address] | | | | | Health and Healing, | [phone] | | | | | | | | | | | Floor [place], [place] | | | | | | [address] | | | | | | [phone] | | | +--------+ + + + [...] called for results of MRI done at [facility]. Called to request records which have been uploaded to media tab and images have been pushed to [employer]. Please advise. Electronically signed by Real Reza MA at 017 5:30 AM PDTdocumented in this encounter Plan of Treatment Not on filedocumented as of this encounter Visit Diagnoses Not on filedocumented in this encounter"
--- OUTSIDE RECORDS SUMMARY | ~2019-06-24 | XMS | Encounter Summary ---
Demographics + + + | Address | [address] | | | [place] [address] | + + + | Home Phone [...] + | Esthela Kumar | ECON | [address] | | | | | [place] | | | | | [address] | | + + + + + Care Team Providers + +------+ + | Care Cna Hha Name | Role | Phone | + +------+ + | Alan Sainz MD | PCP | | + +------+ + Encounter Details +--------+ + + + + | Date | Type | Department | Care Team | Description | +--------+ + + + + | 08/29/ | Abstract | Neurology at | Brian, | | | 2018 | | [facility] & | Sussy Manuel MD [address] | | | | [address] | [address] | | | | | [address] Mailcode: | [place], [place] | | | | | [facility] | [address] | | | | | Health and Healing, | [phone] | | | | | | | | | | | Floor [place], [place] | | | | | | [address] | | | | | | [phone] | | | +--------+ + + + [...]
--- OUTSIDE RECORDS SUMMARY | ~2019-06-24 | XMS | Encounter Summary ---
Demographics + + + | Address | [address] | | | [place] [address] | + + + | Home Phone [...] + | Esthela Kumar | ECON | [address] | | | | | [place] | | | | | [address] | | + + + + + Care Team Providers + +------+ + | Care Change Release Manager Name | Role | Phone | + +------+ + | Lázaro Oviedo MD | PCP | | + +------+ + Encounter Details +--------+ + + + + | Date | Type | Department | Care Team | Description | +--------+ + + + + | 04/18/ | Document-Sc | Health Information | Other, Faculty | | | 2017 | anned | Services [address] | [phone] | | | | | [address] | | | | | | Mailcode: OP17A | | | | | | [facility] | | | | | | [place], [place] | | | | | | [address] | | | | | | [phone] | | | +--------+ + + + [...]
--- OUTSIDE RECORDS SUMMARY | ~2019-06-24 | XMS | Encounter Summary ---
Demographics + + + | Address | [address] | | | [place] [address] | + + + | Home Phone [...] + | Esthela Kumar | ECON | [address] | | | | | [place] | | | | | [address] | | + + + + + Care Team Providers + +------+ + | Care Doctor Of Naprapathic Medicine Name | Role | Phone | + +------+ + | Alan Sainz MD | PCP | | + +------+ + Encounter Details +--------+ + + + + | Date | Type | Department | Care Team | Description | +--------+ + + + + | 11/23/ | Hospital | Dermatopathology | | | | 2017 | Encounter | [address] | | | | | | Mailcode: [id number] | | | | | | [facility] | | | | | | and Healing, | | | | | | Building , | | | | | | Floor [place], [place] | | | | | | [address] | | | | | | [phone] | | | +--------+ + + + [...] papular | | | | | | iylct-rxpk-dyw-brown | | | | | | skin, [id number]. The | | | | | | [...] skin, | | | | | | [id number]. The surgical | | | | | [...] | | | | | | patchy elhtv-wps-khppa | | | | | | skin, [id number]. The | | | | | | [...] + + + | [facility] | Mailcode CH5D, [address] | [place] [address] | | | DERMATOPATHOLOGY | [address] [...]
--- OUTSIDE RECORDS SUMMARY | ~2019-06-24 | XMS | Encounter Summary ---
Demographics + + + | Address | [address] | | | [place] [address] | + + + | Home Phone [...] + | Esthela Kumar | ECON | [address] | | | | | [place] | | | | | [address] | | + + + + + Care Team Providers + +------+ + | Care Day Care Supervisor Name | Role | Phone | + +------+ + | Lázaro Oviedo MD | PCP | | + +------+ + Encounter Details +--------+ + + + + | Date | Type | Department | Care Team | Description | +--------+ + + + + | 03/20/ | Abstract | Neurology at | Natan Herrera | | | 2017 | | [facility] & | MD Heber [address] | | | | | Healing [address] | [place], [place] | | | | | [address] Mailcode: | [address] | | | | | [facility] | [phone] | | | | | Health and Healing, | | | | | | | | | | | | Floor [place], [place] | | | | | | [address] | | | | | | [phone] | | | +--------+ + + + [...]
--- OUTSIDE RECORDS SUMMARY | ~2019-06-24 | XMS | Encounter Summary ---
Demographics + + + | Address | [address] | | | [place] [address] | + + + | Home Phone [...] + | Esthela Kumar | ECON | [address] | | | | | [place] | | | | | [address] | | + + + + + Care Team Providers + +------+ + | Care Chief Solution Architect Name | Role | Phone | + +------+ + | Alan Sainz MD | PCP | | + +------+ + Encounter Details +--------+ + + + + | Date | Type | Department | Care Team | Description | +--------+ + + + + | 12/27/ | Hospital | Dermatopathology | | | | 2017 | Encounter | [address] | | | | | | Mailcode: CH16D | | | | | | [facility] | | | | | | and Healing, | | | | | | Building , | | | | | | Floor [place], [place] | | | | | | [address] | | | | | | [phone] | | | +--------+ + + + [...] tip; | | | | | | [id number]. GROSS | | | | | | DESCRIPTION:Received in | | | | | | formalin is a specimen | | | | | | labeled Andrea Kumar:A: | | | | | | Specimen consists of an | | | | | | ellipse of barraza-castano | | | | | | skin, [id number]. The | | | | | | [...] [facility] | [address], [address] | [place] [address] | | | DERMATOPATHOLOGY | [address] [...]
--- OUTSIDE RECORDS SUMMARY | ~2019-06-24 | XMS | Encounter Summary ---
Demographics + + + | Address | [address] | | | [place] [address] | + + + | Home Phone [...] + | Esthela Kumar | ECON | [address] | | | | | [place] | | | | | [address] | | + + + + + Care Team Providers + +------+ + | Care Director Pharmaceutical Name | Role | Phone | + [...] Deaminase Deficiency | | | | [facility] | [address] | Myopathy (HCC); | | | | [address] | [place] [address] | Abnormality of Gait | | | | Mailcode: CH3P | [phone] | | | | | [facility] | | | | | | and Healing, | | | | | | [address] | | | | | | Floor [place], [place] | | | | | | [address] | | | | | | [phone] | | | +--------+---------+ + + + [...] - 07/18/2007 2:56 PM PSTPHYSICAL THERAPY EVAL: [facility] PHYSICAL THERAPY EVALUATION KIERSTEN KUMAR MR# [id number] Start of Care: 07/18/2007 Referring/Attending Practitioner: Maximilian [...] 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 He did not pursue ankle b race after last visit. May be interested now and willing to talk with thermodynamicist. Pt has torn ligaments in his right knee and he wears a brace sometimes - expecting TKR eventually.. 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 Patient willing to meet with thermodynamicist to discuss. Tongue Lining Stitcher contacted and will make arr angements to [...] short term goals PLAN: Pt to see thermodynamicist in [place] or [place] Frequency/Duration: once Treatment began: 1:00 pm Treatment [...]
--- OUTSIDE RECORDS SUMMARY | ~2019-06-24 | XMS | Encounter Summary ---
Demographics + + + | Address | [address] | | | [place] [address] | + + + | Home Phone [...] + | Esthela Kumar | ECON | [address] | | | | | [place] | | | | | [address] | | + + + + + Care Team Providers + +------+ + | Care Carpenters Helper Name | Role | Phone | + +------+ + | Alan Sainz MD | PCP | | + +------+ + Encounter Details +--------+ + + + + | Date | Type | Department | Care Team | Description | +--------+ + + + + | 01/03/ | Transcribed | Allergy Clinic at | Dictation, Other | Transcribed | | 1994 | | [facility] [address] | | | | | | [address] | | | | | | Mailcode: [address] | | | | | | [address] | | | | | | [facility], | | | | | | [place] [address] | | | | | | [phone] | | | +--------+ + + + [...] as of this encounter Progress Notes Interface, Digital Marketing Consultant In - 12/07/2006 5:01 AM PDT [address] [address] [facility] January 03, 1995 MR [facility] [address] RE:Andrea Kumar MR#:[id number] Dear Mister Campos: Your employee, Mr. Andrea Kumar, was seen for a follow-up visit on January 02, 1995 at the [facility] at the [facility]. 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 Mr. Kumar changed his [...] Resident, Dermatology Sondra Barton M.D. Professor, Dermat[facility] January 05, 1995 E: 01/17/95 [facility] documented in this encounter Plan of Treatment Not on filedocumented as of this encounter Visit Diagnoses Not on filedocumented in this encounter"
--- OUTSIDE RECORDS SUMMARY | ~2019-06-24 | XMS | Encounter Summary ---
Demographics + + + | Address | [address] | | | [place] [address] | + + + | Home Phone [...] + | Esthela Kumar | ECON | [address] | | | | | [place] | | | | | [address] | | + + + + + Care Team Providers + +------+ + | Care Water And Fire Technician Name | Role | Phone | [...] | | | | | | | [address] | | | | | | | [place] | | | | | | | [place], [place] | | | | | | | [address] | | | | | | | Phone: | | | | | | | [phone] | | | | | | | Fax: | | | | | | | [phone] | | +--------+--------+ + + + + Encounter Details +--------+ + + + + | Date | Type | Department | Care Team | Description | +--------+ + + + + | 08/27/ | Orders Only | Neurology at | Sherlyn Lazcano MD | Peripheral | | 2012 | | [facility] & | [address] | neuropathy (Primary | | | | Healing [address] | [place] [address] | Dx) | | | | [address]ie Huang Mailcode: | [phone] | | | | | [address] | | | | | | Health and Healing, | | | | | | | | | | | | [place], [place] | | | | | | [address] | | | | | | [phone] | | | +--------+ + + + [...]
--- OUTSIDE RECORDS SUMMARY | ~2019-06-24 | XMS | Encounter Summary ---
Demographics + + + | Address | [address] | | | [place] [address] | + + + | Home Phone [...] + | Esthela Kumar | ECON | [address] | | | | | [place] | | | | | [address] | | + + + + + Care Team Providers + +------+ + | Care Coil Tier Name | Role | Phone | + +------+ + | Alan Sainz MD | PCP | | + +------+ + Encounter Details +--------+ + + + + | Date | Type | Department | Care Team | Description | +--------+ + + + + | 03/01/ | Abstract | Neurology at | Clinic, Neurology | | | 2017 | | [facility] & | | | | | | Healing [address] | | | | | | [address] Huang Mailcode: | | | | | | [facility] | | | | | | Health and Healing, | | | | | | Building | | | | | | Floor [place], [place] | | | | | | [address] | | | | | | [phone] | | | +--------+ + + + [...]
--- OUTSIDE RECORDS SUMMARY | ~2019-06-24 | XMS | Encounter Summary ---
Demographics + + + | Address | [address] | | | [place] [address] | + + + | Home Phone [...] + | Esthela Kumar | ECON | [address] | | | | | [place] | | | | | [address] | | + + + + + Care Team Providers + +------+ + | Care Administrative Associate Name | Role | Phone | + [...] Clinic | | | | | | [facility], | | | | | | [place] [address] | | | | | | [phone] | | | +--------+ + + + [...]
--- OUTSIDE RECORDS SUMMARY | ~2019-06-24 | XMS | Encounter Summary ---
Demographics + + + | Address | [address] | | | [place] [address] | + + + | Home Phone [...] + | Esthela Kumar | ECON | [address] | | | | | [place] | | | | | [address] | | + + + + + Care Team Providers + +------+ + | Care Net Software Architect Name | Role | Phone | [...] Encounter | | 2012 | on | [facility] & | [address] | | | | | Healing [address] | [place] [address] | | | | | Howie Huang Mailcode: | [phone] | | | | | [facility] | | | | | | Health and Healing, | | | | | | [facility] | | | | | | [place], [place] | | | | | | [address] | | | | | | [phone] | | | +--------+ + + + [...]
--- OUTSIDE RECORDS SUMMARY | ~2019-06-24 | XMS | Encounter Summary ---
Demographics + + + | Address | [address] | | | [place] [address] | + + + | Home Phone | | + + + | Preferred Language | Unknown | + + + | Marital Status | | + + + | Mosque Affiliation | Unknown | + + + [...] + | Esthela Kumar | ECON | [address] | | | | | [place] | | | | | [address] | | + + + + + Care Team Providers + +------+ + | Care High Pressure Firer Name | Role | Phone | + [...] | | | | | Procedures | [place], [place] | [address] [place] [address] | | | | | EMG/NERVE | [address] | for Health | | | | | CONDUCTION | Phone: | and Healing, | | | | | STUDIES,ADUL | [phone] | Building 1, | | | | | T - | Fax: | 8th Floor | | | | | NEUROLOGY | [phone] | [place], [place] | | | | | [place] NEEDLE | | [address] | | | | | ELECTROMYOGR | | Phone: | | | | | APHY, EA | | [phone] | | | | | EXTREM[employer] LTD | | Fax: | | | | | [place] NEEDLE | | [phone] | | | | | ELECTROMYOGR | | | | | | | APHY, EA | | | | | | | EXTREM, | | | | | | | COMPLETE [place] | | | | | | | MOTOR&/SENS | | | | | | | 1-2 NRV | | | | | | | CNDJ TST [place] | | | | | | | MOTOR&/SENS | | | | | | | 3-4 NRV | | | | | | | CNDJ TST [place] | | | | | | | MOTOR&/SENS | | | | | | | 5-6 NRV | | | | | | | CNDJ TST [place] | | | | | | | [...] | 2017 | Encounter | EMG at [facility] 8th Floor | [address] | | | | | [address] | [place], [place] | | | | | Mailcode: [facility] | [address] | | | | | [facility] | [phone] | | | | | and Ko, | | | | | | Building 1, 8th | Yin Murphy | | | | | Floor [place], [place] | [place], [place] | | | | | [address] | [address] | | | | | [phone] | [phone] Aubrey, | | | | | | Jana [address] | | | | | | [address] | | | | | | [place], [place] | | | | | | [address] | | +--------+ + + + + [...] | | | | | | | [employer] | | | | | | | [...] Kumar Date of : 1950 Medical | [facility], | | Record Number: [id number] Date of Test: 06/27/2017 Place of | POINT OF CARE | | Service: [facility] (03) - [address] Department: [id number] EMG [facility] Nerve | TESTS | | Conduction [...] | | Suggested Modifier: None Suggested CPT: 54719 9-10 Nerve Conduction | | | studies 57013 EMG -Each Extremity, Limited (<4 Muscles) w/NCS, qty 2, | | | modifier: XS 28861 EMG -Each Extremity, Completed (>5 Muscles) | [...] + + | [facility] | [address] [facility] | [place] [address] | | | OF CARE TESTS | [...]
--- OUTSIDE RECORDS SUMMARY | ~2019-06-24 | XMS | Encounter Summary ---
Demographics + + + | Address | [address] | | | [place] [address] | + + + | Home Phone [...] + | Esthela Kumar | ECON | [address] | | | | | [place] | | | | | [address] | | + + + + + Care Team Providers + +------+ + | Care Interpretive Naturalist Name | Role | Phone | + [...] [id number] | | | | | | [place], [place] | | | | | | [address] | | | | | | [phone] | | | +--------+ + + + [...] + + + + + | [facility] | [address] | [place] [address] | | | PATHOLOGY | [address] | | | + + + + + | [facility] | [facility] | [place] [address] | | | PATHOLOGY | [address] | | | + + + + + documented in this encounter Visit Diagnoses Not on filedocumented in this encounter"
--- OUTSIDE RECORDS SUMMARY | ~2019-06-24 | XMS | Encounter Summary ---
Demographics + + + | Address | [address] | | | [place] [address] | + + + | Home Phone [...] + | Esthela Kumar | ECON | [address] | | | | | [place] | | | | | [address] | | + + + + + Care Team Providers + +------+ + | Care Risk Management Professional Name | Role | Phone | + +------+ + | Alan Sainz MD | PCP | | + +------+ + Encounter Details +--------+ + + + + | Date | Type | Department | Care Team | Description | +--------+ + + + + | 06/22/ | Results | Radiology X-Ray | Marco Harrison MD | | | 2005 | Only | [facility] [address] [facility] | | | | | | [address] | | | | | | Mailcode: L340 | | | | | | [place] | | | | | | [place], [place] | | | | | | [address] | | | | | | [phone] | | | +--------+ + + + [...]
--- OUTSIDE RECORDS SUMMARY | ~2019-06-24 | XMS | Encounter Summary ---
Demographics + + + | Address | [address] | | | [place] [address] | + + + | Home Phone [...] + | Esthela Kumar | ECON | [address] [facility] | | | | | [place] | | | | | [address] | | + + + + + Care Team Providers + +------+ + | Care Drug Enforcement Agent Name | Role | Phone | + +------+ + PCP | Unavailable | + +------+ + Encounter Details +--------+ + + + + | Date | Type | Department | Care Team | Description | +--------+ + + + + | 02/20/ | Results | | Other, Faculty | | | 2001 | Only | | [phone] | | +--------+ + + + + [...] | | | | | analysis (EM# [id number]): | | | | | | - [...] necessary | | | | | | [facility] | | | | | | [...] | | | | | | # [id number]):Evaluation of | | | | | | [...] DEPARTMENT OF | [address] | [place] [address] | | | PATHOLOGY | [address] | | | + + + + + | [facility] | [address] | [place] [address] | | | PATHOLOGY | [address] | | | + + + + + documented in this encounter Visit Diagnoses Not on filedocumented in this encounter"
--- OUTSIDE RECORDS SUMMARY | ~2019-06-24 | XMS | Encounter Summary ---
Demographics + + + | Address | [address] | | | [place] [address] | + + + | Home Phone [...] + | Esthela Kumar | ECON | [address] | | | | | [place] | | | | | [address] | | + + + + + Care Team Providers + +------+ + | Care Insole Tack Puller Hand Name | Role | Phone | + +------+ + | Alan Sainz MD | PCP | | + +------+ + Encounter Details +--------+ + + + + | Date | Type | Department | Care Team | Description | +--------+ + + + + | 07/20/ | Abstract | Neurology at | Brian, | | | 2017 | | [facility] Health & | Sussy Manuel MD [address] | | | | | Healing [address] | [address] | | | | | [address] Mailcode: | [place], [place] | | | | | [facility] | [address] | | | | | Health and Healing, | [phone] | | | | | | | | | | | Floor [place], [place] | | | | | | [address] | | | | | | [phone] | | | +--------+ + + + [...]
--- OUTSIDE RECORDS SUMMARY | ~2019-06-24 | XMS | Encounter Summary ---
Demographics + + + | Address | [address] | | | [place] [address] | + + + | Home Phone | | + + + | Preferred Language | Unknown | + + + | Marital Status | | + + + | Anabaptist Affiliation | Unknown | + + + [...] + | Esthela Kumar | ECON | [address] | | | | | [place] | | | | | [address] | | + + + + + Care Team Providers + +------+ + | Care Medical Associate Name | Role | Phone | + +------+ + | Alan Sainz MD | PCP | | + +------+ + Encounter Details +--------+ + + + + | Date | Type | Department | Care Team | Description | +--------+ + + + + | 07/10/ | Telephone | Neurology at | Brian, | | | 2017 | | [facility] Health & | Sussy Manuel MD [address] | | | | | He[address] | [address] | | | | | [address] Mailcode: | [place], [place] | | | | | [facility] | [address] | | | | | Health and Healing, | [phone] | | | | | | | | | | | Floor [place], [place] | | | | | | [address] | | | | | | [phone] | | | +--------+ + + + [...]
--- OUTSIDE RECORDS SUMMARY | ~2019-06-24 | XMS | Encounter Summary ---
Demographics + + + | Address | [address] | | | [place] [address] | + + + | Home Phone | | + + + | Preferred Language | Unknown | + + + | Marital Status | | + + + | Holiness Affiliation | Unknown | + + + | Race | White | + + + | Ethnic Group | Other Race | + + + Author + + + | Author | [facility] | + + + | Organization | [facility] | + + + | Address | Unknown | + + + | Phone | Unavailable | + + + Support + + + + + | Name | Relationship | Address | Phone | + + + + + | Esthela Kumar | ECON | [address] | | | | | [place] | | | | | [address] | | + + + + + Care Team Providers + +------+ + | Care Dental Appliance Fixer Name | Role | Phone | + [...] [id number] | | | | | | [place], [place] | | | | | | [address] | | | | | | [phone] | | | +--------+ + + + [...]
--- OUTSIDE RECORDS SUMMARY | ~2019-06-24 | XMS | Encounter Summary ---
Demographics + + + | Address | [address] | | | [place] [address] | + + + | Home Phone [...] + + + | Author | [facility] | + + + | Organization | [facility] | + + + | Address | Unknown | + + + | Phone | Unavailable | + + + Support + + + + + | Name | Relationship | Address | Phone | + + + + + | Esthela Kumar | ECON | [address] | | | | | [place] | | | | | [address] | | + + + + + Care Team Providers + +------+ + | Care Sewer And Inspector Name | Role | Phone | [...] | Worsening | Alan | [address] | | | | | myopathy | MD Darrick | [address] | | | | | peripheral | S[place]MA | Mailcode: | | | | | neuropathy | INTERNAL | [facility] | | | | | | MEDICINE | for Health | | | | | | [address] | and Healing, | | | | | | [address] | Building 1, | | | | | | [address] | 8th Floor | | | | | | [place], | [place], [place] | | | | | | [place] [address] | [address] | | | | | | Phone: | Phone: | | | | | | [phone] | [phone] | | | | | | Fax: | Fax: | | | | | | [phone] | [phone] | +--------+--------+ + + + + Encounter Details +--------+---------+ + + + | Date | Type | Department | Care Team | Description | +--------+---------+ + + + | 03/16/ | Office | Neurology at | Natan Herrera | 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 Health & | MD Heber [address] | to secondary | | | | Healing [address] | [address] [facility] [place] | diabetes (HCC) | | | | [address] [place] Mailcode: | [address] | (Primary Dx); Foot | | | | [facility] | [phone] | drop, bilateral | | | | Health and Healing, | | | | | | Building | | | | | | Floor [place], [place] | | | | | | [address] | | | | | | [phone] | | | +--------+---------+ + + + [...] into the muscle (IM). Received f rom: [employer] Received Sig: Inject 100 mg into the [...]
--- OUTSIDE RECORDS SUMMARY | ~2019-06-24 | XMS | Encounter Summary ---
Demographics + + + | Address | [address] | | | [place] [address] | + + + | Home Phone | | + + + | Preferred Language | Unknown | + + + | Marital Status | | + + + | Jehovah'S Witness Affiliation | Unknown | + + + [...] + | Esthela Kumar | ECON | [address] | | | | | [place] | | | | | [address] | | + + + + + Care Team Providers + +------+ + | Care Book Canvasser Name | Role | Phone | + [...] [id number] | | | | | | [place], [place] | | | | | | [address] | | | | | | [phone] | | | +--------+ + + + [...]
--- OUTSIDE RECORDS SUMMARY | ~2019-06-24 | XMS | Encounter Summary ---
Demographics + + + | Address | [address] | | | [place] [address] | + + + | Home Phone [...] + + + | Author | [facility] | + + + | Organization | [facility] | + + + | Address | Unknown | + + + | Phone | Unavailable | + + + Support + + + + + | Name | Relationship | Address | Phone | + + + + + | Esthela Kumar | ECON | [address] | | | | | [place] | | | | | [address] | | + + + + + Care Team Providers + +------+ + | Care Business Systems Technician Name | Role | Phone | [...] Myoadenylate | | 2007 | Visit | [facility] & | MD | Deaminase Deficiency | | | | Healing [address] | | ([facility]) (Primary Dx) | | | | [address] Mailcode: | | | | | | [facility] | | | | | | Health and Healing, | | | | | | Building | | | | | | Floor [place], [place] | | | | | | [address] | | | | | | [phone] | | | +--------+---------+ + + + [...] might be different from t oscar original. 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 Cerebellar examination: Glnxqa-jdox-cquzoe is intact. Gait: There is a slight [...] De La Garza M.D. [facility] / [id number] / [id number] / [id number] / [id number] documented in this encou nter Plan of [...]
--- OUTSIDE RECORDS SUMMARY | ~2019-06-24 | XMS | Encounter Summary ---
Demographics + + + | Address | [address] | | | [place] [address] | + + + | Home Phone | | + + + | Preferred Language | Unknown | + + + | Marital Status | | + + + | Cheondoism Affiliation | Unknown | + + + [...] + | Esthela Kumar | ECON | [address] | | | | | [place] | | | | | [address] | | + + + + + Care Team Providers + +------+ + | Care Access Director Name | Role | Phone | [...] | | | 2000 | Only | [facility] & | | | | | | Healing [address] | | | | | | [address] Mailcode: | | | | | | [facility] | | | | | | Health and Healing, | | | | | | Building | | | | | | Floor [place], [place] | | | | | | [address] | | | | | | [phone] | | | +--------+ + + + [...]
--- OUTSIDE RECORDS SUMMARY | ~2019-06-24 | XMS | Encounter Summary ---
Demographics + + + | Address | [address] | | | [place] [address] | + + + | Home Phone [...] + | Esthela Kumar | ECON | [address] | | | | | [place] | | | | | [address] | | + + + + + Care Team Providers + +------+ + | Care Robotic Welder Name | Role | Phone | + [...] | | | | | EMG/NERVE | [place], [place] | [facility] | | | | | CONDUCTION | [address] | for Health | | | | | STUDIES,ADUL | Phone: | and Healing, | | | | | T - | [phone] | Building 1, | | | | | NEUROLOGY | Fax: | 8th Floor | | | | | | [phone] | [place], [place] | | | | | | | [address] | | | | | | | Phone: | | | | | | | [phone] | | | | | | | Fax: | | | | | | | [phone] | +--------+--------+ + + + + Encounter Details +--------+ + + + + | Date | Type | Department | Care Team | Description | +--------+ + + + + | 08/08/ | Hospital | Neurophysiology | Sherlyn Lazcano MD | | | 2011 | Encounter | EMG at [facility] 8th Floor | [address] | | | | | [address] | [place] [address] | | | | | Mailcode: [address] | [phone] | | | | | [facility] | | | | | | and Healing, | [address] | | | | | [facility] | [address] | | | | | Floor [place], [place] | Candice Gonzalez [place], | | | | | [address] | [place] [address] | | | | | [phone] | [address] | | | | | | [place], [place] | | | | | | [address] | | | | | | [phone] | | +--------+ + + + + [...]
--- OUTSIDE RECORDS SUMMARY | ~2019-06-24 | XMS | Encounter Summary ---
Demographics + + + | Address | [address] | | | [place] [address] | + + + | Home Phone [...] + | Esthela Kumar | ECON | [address] | | | | | [place] | | | | | [address] | | + + + + + Care Team Providers + +------+ + | Care Rod Greaser Name | Role | Phone | + [...] Medication Education | | 2007 | | [facility] & | [address] | | | | | [address] | | | | | Howie Huang Mailcode: | [place] [address] | | | | | [facility] | [phone] | | | | | Health and Healing, | | | | | | [facility] | | | | | | [place], [place] | | | | | | [address] | | | | | | [phone] | | | +--------+ + + + [...]
--- OUTSIDE RECORDS SUMMARY | ~2019-06-24 | XMS | Encounter Summary ---
Demographics + + + | Address | [address] | | | [place] [address] | + + + | Home Phone [...] + | Esthela Kumar | ECON | [address] | | | | | [place] | | | | | [address] | | + + + + + Care Team Providers + +------+ + | Care Account Planner Name | Role | Phone | + +------+ + | Alan Sainz MD | PCP | | + +------+ + Encounter Details +--------+ + + + + | Date | Type | Department | Care Team | Description | +--------+ + + + + | 03/31/ | Documentati | Neurology at | Brian, | | | 2017 | on | [facility] & | Sussy Manuel MD [address] | | | | | [address] | [address] | | | | | [address] Mailcode: | [place], [place] | | | | | [address] | [address] | | | | | Health and Healing, | [phone] | | | | | [facility] | | | | | | Floor [place], [place] | | | | | | [address] | | | | | | [phone] | | | +--------+ + + + [...]
--- OUTSIDE RECORDS SUMMARY | ~2019-06-24 | XMS | Encounter Summary ---
Demographics + + + | Address | [address] | | | [place] [address] | + + + | Home Phone [...] + | Esthela Kumar | ECON | [address] | | | | | [place] | | | | | [address] | | + + + + + Care Team Providers + +------+ + | Care Block Splitter Operator Name | Role | Phone | [...] 2017 | | [facility] & | Sussy Manuel MD [address] | | | | | [address] | [address] | | | | | Howie Huang Mailcode: | [place], [place] | | | | | [facility] | [address] | | | | | Health and Healing, | [phone] | | | | | | | | | | | Floor [place], [place] | | | | | | [address] | | | | | | [phone] | | | +--------+ + + + [...] of this encounter Real Montaño MA - 06/07/2017 12:52 PM PDTFaxed signed Plan of Care to [facility] at [phone]. do cumented in this encounter Plan of Treatment Not on filedocumented as of this encounter Visit Diagnoses Not on filedocumented in this encounter"
--- OUTSIDE RECORDS SUMMARY | ~2019-06-24 | XMS | Encounter Summary ---
Demographics + + + | Address | [address] | | | [place] [address] | + + + | Home Phone | | + + + | Preferred Language | Unknown | + + + | Marital Status | | + + + | Islam Affiliation | Unknown | + + + [...] + | Esthela Kumar | ECON | [address] | | | | | [place] | | | | | [address] | | + + + + + Care Team Providers + +------+ + | Care Epoxy Fabrication Supervisor Name | Role | Phone | [...] | | | | | [place], | [place], [place] | | | | | | [place] [address] | [address] | | | | | | Phone: | Phone: | | | | | | [phone] | [phone] | | | | | | Fax: | Fax: | | | | | | [phone] | [phone] | +--------+--------+ + + + + Encounter Details +--------+---------+ + + + | Date | Type | Department | Care Team | Description | +--------+---------+ + + + | 03/16/ | Office | Neurology at | Natan Herrera | 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 & | MD Heber [address] | to secondary | | | | [address] | [address] [facility] [place] | diabetes (HCC) | | | | [address] Re[address] Mailcode: | [address] | (Primary Dx); Foot | | | | [facility] | [phone] | drop, bilateral | | | | Health and Healing, | | | | | | Building | | | | | | Floor [place], [place] | | | | | | [address] | | | | | | [phone] | | | +--------+---------+ + + + [...] into the muscle (IM). Received f rom: PetSitnStay Received Sig: Inject 100 mg into the [...]
--- OUTSIDE RECORDS SUMMARY | ~2019-06-24 | XMS | Encounter Summary ---
Demographics + + + | Address | [address] | | | [place] [address] | + + + | Home Phone [...] + + + | Author | [facility] | + + + | Organization | [facility] | + + + | Address | Unknown | + + + | Phone | Unavailable | + + + Support + + + + + | Name | Relationship | Address | Phone | + + + + + | Esthela Kumar | ECON | [address] | | | | | [place] | | | | | [address] | | + + + + + Care Team Providers + +------+ + | Care Metal Sash Setter Name | Role | Phone | [...] [id number] | | | | | | [place], [place] | | | | | | [address] | | | | | | [phone] | | | +--------+ + + + [...]
--- OUTSIDE RECORDS SUMMARY | ~2019-06-24 | XMS | Encounter Summary ---
Demographics + + + | Address | [address] | | | [place] [address] | + + + | Home Phone [...] + | Esthela Kumar | ECON | [address] | | | | | [place] | | | | | [address] | | + + + + + Care Team Providers + +------+ + | Care Weight Tester Name | Role | Phone | + +------+ + | Alan Sainz MD | PCP | | + +------+ + Encounter Details +--------+ + + + + | Date | Type | Department | Care Team | Description | +--------+ + + + + | 06/07/ | Abstract | Neurology at | Brian, | | | 2017 | | [facility] & | Sussy Manuel MD [address] | | | | | [address] | [address] | | | | | [address] Mailcode: | [place], [place] | | | | | [facility] | [address] | | | | | Health and Healing, | [phone] | | | | | | | | | | | Floor [place], [place] | | | | | | [address] | | | | | | [phone] | | | +--------+ + + + [...] Care to [facility] at [phone]. do cumented in this encounter Plan of Treatment Not on filedocumented as of this encounter Visit Diagnoses Not on filedocumented in this encounter"
--- OUTSIDE RECORDS SUMMARY | ~2019-06-24 | XMS | Encounter Summary ---
Demographics + + + | Address | [address] | | | [place] [address] | + + + | Home Phone | | + + + | Preferred Language | Unknown | + + + | Marital Status | | + + + | Restoration Affiliation | Unknown | + + + [...] + | Esthela Kumar | ECON | [address] | | | | | [place] | | | | | [address] | | + + + + + Care Team Providers + +------+ + | Care Analyst Business Analysis Name | Role | Phone | + [...] Rd | | | | | | [place], [place] | | | | | | [address] | | | +--------+ + + + [...]
--- OUTSIDE RECORDS SUMMARY | ~2019-06-24 | XMS | Encounter Summary ---
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
--- OUTSIDE RECORDS SUMMARY | ~2019-06-24 | XMS | Encounter Summary ---
Demographics + + + | Address | [address] | | | [place] [address] | + + + | Home Phone | | + + + | Preferred Language | Unknown | + + + | Marital Status | | + + + | Adventism Affiliation | Unknown | + + + | Race | White | + + + | Ethnic Group | Other Race | + + + Author + + + | Author | [facility] | + + + | Organization | [facility] | + + + | Address | Unknown | + + + | Phone | Unavailable | + + + Support + + + + + | Name | Relationship | Address | Phone | + + + + + | Esthela Kumar | ECON | [address] | | | | | [place] | | | | | [address] | | + + + + + Care Team Providers + +------+ + | Care Sweetbread Trimmer Name | Role | Phone | + [...] [id number] | | | | | | [place], [place] | | | | | | [address] | | | | | | [phone] | | | +--------+ + + + [...] | + + + + + | [facility] | [address] | [place] [address] | | | PATHOLOGY | [address] | | | + + + + + | [facility] | [facility] | [place] [address] | | | PATHOLOGY | [address] | | | + + + + + documented in this encounter Visit Diagnoses Not on filedocumented in this encounter"
--- OUTSIDE RECORDS SUMMARY | ~2019-06-24 | XMS | Encounter Summary ---
Demographics + + + | Address | [address] | | | [place] [address] | + + + | Home Phone [...] + | Esthela Kumar | ECON | [address] | | | | | [place] | | | | | [address] | | + + + + + Care Team Providers + +------+ + | Care Parts Sales Associate Name | Role | Phone | + +------+ + | Alan Sainz MD | PCP | | + +------+ + Encounter Details +--------+ + + + + | Date | Type | Department | Care Team | Description | +--------+ + + + + | 09/19/ | Document-Sc | UNKNOWN DEPARTMENT | Unknown . | | | 2012 | anned | [address] | | | | | | [address] | | | | | | [place], [place] | | | | | | [address] | | | +--------+ + + + [...]
--- OUTSIDE RECORDS SUMMARY | ~2019-06-24 | XMS | Encounter Summary ---
Demographics + + + | Address | [address] | | | [place] [address] | + + + | Home Phone [...] + | Esthela Kumar | ECON | [address] | | | | | [place] | | | | | [address] | | + + + + + Care Team Providers + +------+ + | Care Oil Rig Driller Name | Role | Phone | + [...] | | neuropathy | | | | [place], [place] | | | | | | [address] | | | | | | [phone] | | | +--------+------+ + + + [...] [facility] | | | UR(REFERRAL | by [address] | | REG UNIV | | | ) | [place], [place] [facility],[place] | | PTH - INTFC | | | | [address] | | | | | | [phone].Amlogicuplab. | | | | | | suleiman, [...] ug/gCR | [facility] | | | UG/G HELP AID | | | REG UNIV | | | | | | PTH - INTFC | | + + + + + + | MERCURY, | 0.9 | <=35.0 ug/gCR | [facility] | | | URINE UG/G | | | REG UNIV | | | HELP AID | | | PTH - INTFC | | + + + + + + | ARSENIC, | 19.3 | ug/gCR | [facility] | | | URINE UG/G | | | REG UNIV | | | HELP AID | | | PTH - INTFC | [...] | | | | | | defined.[facility] | | | | | | Biological [...] concentration | | | | | | [id number] ug/L, | | | | | | [...] the | | | | | | [facility] perform | | | | [...] [facility] REG | [address] | [place], [place] | | | UNIV PTH - INTFC | | [address] | | + + + + + [...] + | [facility] - | [address] | [place] [address] | | | [place] | | | | + + + + + documented in this encounter Visit Diagnoses + + | Diagnosis | + + | Peripheral neuropathy Unspecified hereditary and idiopathic peripheral neuropathy | + + documented in this encounter"
--- OUTSIDE RECORDS SUMMARY | ~2019-06-24 | XMS | Encounter Summary ---
Demographics + + + | Address | [address] | | | [place] [address] | + + + | Home Phone [...] + | Esthela Kumar | ECON | [address] | | | | | [place] | | | | | [address] | | + + + + + Care Team Providers + +------+ + | Care Building Maintenance Worker Name | Role | Phone | + +------+ + | Lázaro Oviedo MD | PCP | | + +------+ + Encounter Details +--------+ + + + + | Date | Type | Department | Care Team | Description | +--------+ + + + + | 04/18/ | Document-Sc | Health Information | Other, Faculty | | | 2017 | anned | Services [address] | [phone] | | | | | [address] | | | | | | Mailcode: OP17A | | | | | | [facility] | | | | | | [place], [place] | | | | | | [address] | | | | | | [phone] | | | +--------+ + + + [...]
--- OUTSIDE RECORDS SUMMARY | ~2019-06-24 | XMS | Encounter Summary ---
Demographics + + + | Address | [address] | | | [place] [address] | + + + | Home Phone [...] + | Esthela Kumar | ECON | [address] | | | | | [place] | | | | | [address] | | + + + + + Care Team Providers + +------+ + | Care Blueprint Duplicator Name | Role | Phone | + [...] [id number] | | | | | | [place], [place] | | | | | | [address] | | | | | | [phone] | | | +--------+ + + + [...]
--- OUTSIDE RECORDS SUMMARY | ~2019-06-24 | XMS | Encounter Summary ---
Demographics + + + | Address | [address] | | | [place] [address] | + + + | Home Phone [...] + | Esthela Kumar | ECON | [address] | | | | | [place] | | | | | [address] | | + + + + + Care Team Providers + +------+ + | Care Pawn Shop Keeper Name | Role | Phone | + [...] | | | | | Polyneuropat | [address] | | | | | | hy due to | [address] | | | | | | secondary | [place], [place] | | | | | | diabetes | [address] | | | | | | ([facility]) | Phone: | | | | | | Imbalance | [phone] | | | | | | Foot drop, | Fax: | | | | | | bilateral | [phone] | | | | | | Procedures | | | | | | | MRI SPINE | | | | | | | LUMBAR WO | | | | | | | CONTRAST ID | | | | | | | [...] | | | | Polyneuropat | MD [address] | | | | | | hy due to | [address] | | | | | | secondary | [place], [place] | | | | | | diabetes | [address] | | | | | | ([facility]) | Phone: | | | | | | Imbalance | [phone] | | | | | | Procedures | Fax: | | | | | | PHYSICAL | [phone] | | | | | | THERAPY [...] | | | Worsening | Alan | [facility] [address] | | | | | myopathy [...] | | | | | [place], | [place], [place] | | | | | | [place] [address] | [address] | | | | | | Phone: | Phone: | | | | | | [phone] | [phone] | | | | | | Fax: | Fax: | | | | | | [phone] | [phone] | +--------+--------+ + + + + Encounter Details +--------+---------+ + + + | Date | Type | Department | Care Team | Description | +--------+---------+ + + + | 03/16/ | Office | Neurology at | [place], | 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 Call [phone] to schedule a follow up appointment with [...] surgical release kenrick harp is referred to [facility] comprehensive neurology clinic for worsening balance. [...] doctor. He has been previously seen at [facility] in the neuromuscular clinic. 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 I ag ree with Dr. Lazcano, who last saw him in [facility], that his imbalance and distal weakness [...] this order to [facility] in [place] to be done locally. Unfortunately for the [...] will be sent to [facility] in [place]) - referral to physical therapy - will prescribe bilateral AFO braces, pending PT eval - Tight glucose control, continue lifestyle modifications - Return to clinic in 2 years, or sooner if needed (I will call them with the results of MRI) I spent >45 minutes xalw-md-kytg with the patient, > 50% of the time was spent on counselin g/education related to the issues addressed in the assessment/plan. This note was dictated with Iron[employer] voice recognition software and may contain inadvertent g rammatical and spelling errors. Every attempt is made to ensure the dictation is correct. If there are questions or major concerns, please contact our office. Sussy Torres MD Parish Worker Department of Neurology Division of Neuroimmunology Pager [phone] documented in t his encounter Plan of [...]
--- OUTSIDE RECORDS SUMMARY | ~2019-06-24 | XMS | Encounter Summary ---
Demographics + + + | Address | [address] | | | [place] [address] | + + + | Home Phone [...] + | Esthela Kumar | ECON | [address] | | | | | [place] | | | | | [address] | | + + + + + Care Team Providers + +------+ + | Care Warp Knitting Machine Operator Name | Role | Phone [...] + | 11/16/ | Office | Neurology at | Maximilian De La Garza, | Myoadenylate | | 2006 | Visit | [facility] & | MD | Deaminase Deficiency | | | | Healing [address] | | Myopathy (HCC) | | | | [address] Mailcode: | | (Primary Dx) | | | | [facility] | | | | | | Health and Healing, | | | | | | Building | | | | | | Floor [place], [place] | | | | | | [address] | | | | | | [phone] | | | +--------+---------+ + + + [...] note might be different from bj powell. [facility] [address] [place] [address] or [email or web address] REFERRED FROM AND FAXED TO: ALAN SAINZ MD [facility] [address] [place] [address] PRIMARY CARE PHYSICIAN: ALAN SAINZ MD [facility] [address] [place] [address] / [place]* [phone] REFERRED TO: [facility] Myopathy Clinic PATIENT:Kiersten Kumar INFORMANT: The [...] medical record and updated it in the [employer]bird system. 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 [employer] Social History Main Topics Tobacco Use: [...] TONE: normal CEREBELLAR FUNCTION: Scanning Speech: Absent Pmwytu-ec-Qffzzl: Intact Tremor: Absent GAIT: Casual: mild steppage gait Investigations Preformed over the last 6 months include: Labs: Ancillary Registration on 06/23/2006 Component Date Value [facility] REF TEST NAME 07/17/2006 Myoadenylate Deaminase, Muscle Biopsy Collected 02/03/06 [facility] REF TEST RESULT 07/17/2006 Value: Myoadenylate deaminase 0.3 EU/mg Protein Low Interpretation: A reproducible deficiency was found in myoadenylate deaminase activity, confirming histochemical findings. 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
--- OUTSIDE RECORDS SUMMARY | ~2019-06-24 | XMS | Encounter Summary ---
Demographics + + + | Address | [address] | | | [place] [address] | + + + | Home Phone | | + + + | Preferred Language | Unknown | + + + | Marital Status | | + + + | Worship Affiliation | Unknown | + + + [...] + | Esthela Kumar | ECON | [address] | | | | | [place] | | | | | [address] | | + + + + + Care Team Providers + +------+ + | Care Obstetrics Nurse Practitioner Name | Role | Phone | + [...] | | | | | | | [address] | | | | | | | Reina | | | | | | | [place], [place] | | | | | | | [address] | | | | | | | Phone: | | | | | | | [phone] | | | | | | | Fax: | | | | | | | [phone] | | +--------+--------+ + + + + [...] | | | | | EMG/NERVE | [place], [place] | [address] | | | | | CONDUCTION | [address] | for Health | | | | | STUDIES,ADUL | Phone: | and Healing, | | | | | T - | [phone] | Building 1, | | | | | NEUROLOGY | Fax: | 8th Floor | | | | | | [phone] | [place], [place] | | | | | | | [address] | | | | | | | Phone: | | | | | | | [phone] | | | | | | | Fax: | | | | | | | [phone] | +--------+--------+ + + + + Diagnostic [...] | | | | | neuropathy | [address] | [place] | | | | | Procedures | Ave | Rd | | | | | MRI SPINE | [facility] [place] | Mailcode: | | | | | LUMBAR WO | [address] | [address] | | | | | CONT [address] | Phone: | Gill | | | | | | [phone] | Research | | | | | | Fax: | [place] | | | | | | [phone] | [place], [place] | | | | | | | [address] | | | | | | | Phone: | | | | | | | [phone] | | | | | | | Fax: | | | | | | | [phone] | +--------+--------+ + + + + Reason [...] | | | MD Darrick | [address] | | | | | | [place] | [address] | | | | | | INTERNAL | Mailcode: | | | | | | MEDICINE | [facility] | | | | | | [address] | for Health | | | | | | [place] | and Healing, | | | | | | [address] | Building 1, | | | | | | [place], | 8th Floor | | | | | | [place] [address] | [place], [place] | | | | | | Phone: | [address] | | | | | | [phone] | Phone: | | | | | | Fax: | [phone] | | | | | | [phone] | Fax: | | | | | | | [phone] | +--------+--------+ + + + + Encounter Details +--------+---------+ + + + | Date | Type | Department | Care Team | Description | +--------+---------+ + + + | 07/03/ | Office | Neurology at | Nino Lazcano MD | Peripheral | | 2011 | Visit | [facility] & | [address] | neuropathy (Primary | | | | Healing [address] | [place] [address] | Dx); Myoadenylate | | | | [address] Mailcode: | [phone] | deaminase deficiency | | | | [address] | | myopathy (HCC); | | | | Health and Healing, | | Lumbar disc disease | | | | | | | | | | Floor [place], [place] | | | | | | [address] | | | | | | [phone] | | | +--------+---------+ + + + [...] 3 Years of Education: 14 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 Family History Problem Relation Diabetes Paternal [...] metal screen as he lives in the [facility] as uses well water at home. In addition, he would benefit from an AFO given his foot drop and the fact that he is on his feet for most of his day at work, a referral was placed for this but he would prefer to do that closer to his home in [place]. I will discuss his test results with him at the time of his EMG and any further recommendat ions at that time. Nino Lazcano MD Pay Clerk Department of Neurology documented in this enco [...] | | | | SPINE WO | [id number] Name: | | | | | CONT | KIERSTEN KUMAR | | | | | | Birthdate: 1950 | | | | | | Sex: M Alias: | | | | | | Patient Location: | | | | | | [id number]: Outpatient | | | | | | [...] # | | | | | | [id number] EXAM: MRI | | | | | [...] | | | | | L4-L5 and L5-Y9iynphbqk | | | | | | fatty [...] U. | | | | | | Fults 08/10/2012 | | | | | | 14:41PM | | | | | | Final/Electronically | | | | | | signed / Neris U. | | | | | | Fults 08/09/2012 | | | | | | 11:21AM Result | | | | | | modified / Neris | | | | | | U. Fults 08/09/2012 | | | | | | [...] | | | | | | U. Fults 08/08/2012 | | | | | | 22:23 PM Result | | | | | | modified / Neris | | | | | | U. Fults 08/08/2012 | | | | | | 22:23 PM Pending final | | | | | | approval / Neris | | | | | | U. Fults 08/08/2012 | | | | | | 19:38 PM Result | | | | | | modified / Neris | | | | | | U. Fults 08/08/2012 | | | | | | [...] | | + +---------+ + + | [facility] DEPARTMENT OF | | | | [...] [facility] | | | UR(REFERRAL | [address] | | REG UNIV | | | ) | Ford Fernandez, [facility],[place] | | PTH - INTFC | | | | [phone] | | | | | | [phone].[employer]. | | | | | | Beverley [...] ug/gCR | [facility] | | | UG/G CHIEF BANK EXAMINER | | | REG UNIV | | | | | | PTH - INTFC | | + + + + + + | MERCURY, | 0.9 | <=35.0 ug/gCR | [facility] | | | URINE UG/G | | | REG UNIV | | | CHIEF BANK EXAMINER | | | PTH - INTFC | | + + + + + + | ARSENIC, | 19.3 | ug/gCR | [facility] | | | URINE UG/G | | | REG UNIV | | | CHIEF BANK EXAMINER | | | PTH - INTFC | [...] concentration | | | | | | -6625 ug/L, | | | | | | [...] [facility] | [address] | [place], [place] | | | UNIV PTH - INTFC | | [address] | | + + + + + [...] + | [facility] - | [address] | [place] [address] | | | [place] | | | [...] + | [facility] - | [address] | [place] [address] | | | [facility] | | | | + + + [...] + | [facility] - | [address] | [place] [address] | | | [place] | | | [...] | + + + + + | [facility] | [address] | [place] [address] | | | YASIR, FLETCHER | DUONG [...] Directory | | | | | | (Fan[employer]). Serum | | | | | | [...] | | | | | | by [facility],[address] | | | | | | Ford Fernandez, [facility],[place] | | | | | | [address] | | | | | | [phone].[employer]. | | | | | | Beverley bearden, | | | | | | , Lab. Director | | | | + + + + + + + + | Specimen | + + | Blood - Blood | + + + + + + + | Performing | Address | City/State/[facility] Cent[facility]ode | Phone Number | | Organization | | | | + + + + + | [facility] | [address] | [place], [place] | | | UNIV PTH - INTFC | | [address] | | + + + + + [...] | | | IC ACID | [address] | umol/L | REG UNIV | | | | Ford Fernandez, [facility],[place] | | PTH - INT | | | | [address] | | | | | | [phone].[employer]. | | | | | | Beverley [...] [facility] | [address] | [place], [place] | | | UNIV PTH - INTFC | | [address] | | + + + + + [...] if | | | | | | [id number] >400: | | | | | | [...] + | [facility] - | [address] | [place] [address] | | | [facility] | | | | + + + [...] | | | LABORATORY | | | ARMENIAN | | | SERVICES, | | | [...] | + + + + + | [facility] | [address] | [place] [address] | | | SERVICES, CORE | PARK [...]
--- OUTSIDE RECORDS SUMMARY | ~2019-06-24 | XMS | Encounter Summary ---
Demographics + + + | Address | [address] | | | [place] [address] | + + + | Home Phone [...] + | Esthela Kumar | ECON | [address] | | | | | [place] | | | | | [address] | | + + + + + Care Team Providers + +------+ + | Care Mounter Flutes And Piccolos Name | Role | Phone | + +------+ + | Alan Sainz MD | PCP | | + +------+ + Encounter Details +--------+ + + + + | Date | Type | Department | Care Team | Description | +--------+ + + + + | 08/29/ | Abstract | Neurology at | Brian, | | | 2018 | | [facility] & | Sussy Manuel MD [address] | | | | | Healing [address] | [address] | | | | | [address] Mailcode: | [place], [place] | | | | | [facility] | [address] | | | | | Health and Healing, | [phone] | | | | | | | | | | | Floor [place], [place] | | | | | | [address] | | | | | | [phone] | | | +--------+ + + + [...]
--- OUTSIDE RECORDS SUMMARY | ~2019-06-24 | XMS | Clinical Summary ---
Demographics + + + | Address | [address] | | | [place] [address] | + + + | Home Phone | | + + + | Preferred Language | Unknown | + + + | Marital Status | | + + + | Mormonism Affiliation | Unknown | + + + | Race | Unknown | + + + | Ethnic Group | Unknown | + + + Author + + + | Author | [facility] [employer] (Historical as of | | | 04-06-19) | + + + | Organization | [facility] [employer] (Historical as of | | | 04-06-19) [...] Providers + +------+ + | Care Band Aid Machine Operator Name | Role | Phone [...] | e | + + +-------+---------+------+------+-------+ | [place]-3 Fatty | Take 1,200 mg by | [...] + + | Father | | | [place],heart disease,hyperllipidemia, smoker | | | | (Age [...] +------+-------+ + | MEDICARE | MEDICA | [id number] | | | [address] | | | RE | | | | [place] [address] | | | ANEESH | | | | | | | AD | | | | | + +--------+ +------+-------+ + | COMMERCIAL OTHER | TRANSA | [id number] | | | | | | GLORIA [...] | Self | [birth year] | Home: | [address] | | | al/Fam | | 1 [phone] | [place] | | | anusha | | | [phone] | [phone] | + +--------+ +--------+ + +
--- OUTSIDE RECORDS SUMMARY | ~2019-06-24 | XMS | Encounter Summary ---
Demographics + + + | Address | [address] | | | [place] [address] | + + + | Home Phone | | + + + | Preferred Language | Unknown | + + + | Marital Status | | + + + | Rastafari Affiliation | Unknown | + + + | Race | White | + + + | Ethnic Group | Other Race | + + + Author + + + | Author | [facility] | + + + | Organization | [facility] | + + + | Address | Unknown | + + + | Phone | Unavailable | + + + Support + + + + + | Name | Relationship | Address | Phone | + + + + + | Esthela Kumar | ECON | [address] | | | | | [place] | | | | | [address] | | + + + + + Care Team Providers + +------+ + | Care Youth Officer Name | Role | Phone | + +------+ + | Alan Sainz MD | PCP | | + +------+ + Encounter Details +--------+ + + + + | Date | Type | Department | Care Team | Description | +--------+ + + + + | 11/23/ | Hospital | Dermatopathology | | | | 2017 | Encounter | [address] | | | | | | Mailcode: CH16D | | | | | | [facility] | | | | | | and Healing, | | | | | | Building , | | | | | | Floor [place], [place] | | | | | | [address] | | | | | | [phone] | | | +--------+ + + + [...] papular | | | | | | dnxtz-ungl-zga-brown | | | | | | skin, [id number]. The | | | | | | [...] skin, | | | | | | [id number]. The surgical | | | | | [...] | | | | | | patchy tzssw-jdx-fyrsg | | | | | | skin, [id number]. The | | | | | | [...] [facility] | Mailcode CH5D, [address] | [place] [address] | | | DERMATOPATHOLOGY | [address] [...]
--- OUTSIDE RECORDS SUMMARY | ~2019-06-24 | XMS | Encounter Summary ---
Demographics + + + | Address | [address] | | | [place] [address] | + + + | Home Phone [...] + | Esthela Kumar | ECON | [address] | | | | | [place] | | | | | [address] | | + + + + + Care Team Providers + +------+ + | Care Body Man Name | Role | Phone | [...] Rd | | | | | | [place], [place] | | | | | | [address] | | | +--------+ + + + [...]
--- OUTSIDE RECORDS SUMMARY | ~2019-06-24 | XMS | Encounter Summary ---
Demographics + + + | Address | [address] | | | [place] [address] | + + + | Home Phone [...] + | Esthela Kumar | ECON | [address] | | | | | [place] | | | | | [address] | | + + + + + Care Team Providers + +------+ + | Care Infrastructure Analyst Name | Role | Phone | [...] MRI Results | | 2017 | | [facility] & | Sussy Manuel MD [address] | (External Results) | | | | Healing [address] | [address] | | | | | [address] Mailcode: | [place], [place] | | | | | [facility] | [address] | | | | | Health and Healing, | [phone] | | | | | [facility] | | | | | | Floor [place], [place] | | | | | | [address] | | | | | | [phone] | | | +--------+ + + + [...]
--- OUTSIDE RECORDS SUMMARY | ~2019-06-24 | XMS | Encounter Summary ---
Demographics + + + | Address | [address] | | | [place] [address] | + + + | Home Phone [...] + | Esthela Kumar | ECON | [address] | | | | | [place] | | | | | [address] | | + + + + + Care Team Providers + +------+ + | Care Woolen Suiting Shrinker Name | Role | Phone | + +------+ + | Alan Sainz MD | PCP | | + +------+ + Encounter Details +--------+ + + + + | Date | Type | Department | Care Team | Description | +--------+ + + + + | 03/24/ | Results | Neurology at | Maximilian De La Garza, | | | 2002 | Only | [facility] & | | | | | | Healing [address] | | | | | | [address] Mailcode: | | | | | | [facility] | | | | | | Health and Healing, | | | | | | Building | | | | | | Floor [place], [place] | | | | | | [address] | | | | | | [phone] | | | +--------+ + + + [...]
--- OUTSIDE RECORDS SUMMARY | ~2019-06-24 | XMS | Encounter Summary ---
Demographics + + + | Address | [address] | | | [place] [address] | + + + | Home Phone | | + + + | Preferred Language | Unknown | + + + | Marital Status | | + + + | Gnosticism Affiliation | Unknown | + + + | Race | White | + + + | Ethnic Group | Other Race | + + + Author + + + | Author | [facility] | + + + | Organization | [facility] | + + + | Address | Unknown | + + + | Phone | Unavailable | + + + Support + + + + + | Name | Relationship | Address | Phone | + + + + + | Esthela Kumar | ECON | [address] | | | | | [place] | | | | | [address] | | + + + + + Care Team Providers + +------+ + | Care Anode Rebuilder Name | Role | Phone | + [...] [id number] | | | | | | [place], [place] | | | | | | [address] | | | | | | [phone] | | | +--------+ + + + [...]
--- OUTSIDE RECORDS SUMMARY | ~2019-06-24 | XMS | Encounter Summary ---
Demographics + + + | Address | [address] | | | [place] [address] | + + + | Home Phone [...] + | Esthela Kumar | ECON | [address] | | | | | [place] | | | | | [address] | | + + + + + Care Team Providers + +------+ + | Care Doll Wig Maker Name | Role | Phone | [...] as of this encounter Progress Notes Interface, Health Education Director In - 03/02/2006 2:03 AM PDT [id number] MAGNUS Cabrera [id number] Clinic Date: 02/03/2006 Clinic: Procedure Note Procedure: Left biceps brachii muscle biopsy. Preoperative Diagnosis: Myopathy. Postoperative Diagnosis: Myopathy. Surgeon: Dr. Maximilian De La Garza. Lead Python Developer : None. Anesthesia: Lidocaine 1% without epinephrine [...] appointment scheduled. [facility] / [id number] / [id number] / [id number] / [id number] Electronically signed by Maximilian De La Garza 03-01-2006 10:28:09 AM documented i n this encounter Plan of Treatment Not on filedocumented as of this encounter Visit Diagnoses Not on filedocumented in this encounter"
--- OUTSIDE RECORDS SUMMARY | ~2019-06-24 | XMS | Encounter Summary ---
Demographics + + + | Address | [address] | | | [place] [address] | + + + | Home Phone [...] + | Esthela Kumar | ECON | [address] | | | | | [place] | | | | | [address] | | + + + + + Care Team Providers + +------+ + | Care Cable Spooler Name | Role | Phone | + [...] Myoadenylate | | 2006 | Visit | [facility] & | MD | Deaminase Deficiency | | | | Healing [address] | | Myopathy (HCC) | | | | [address] Mailcode: | | (Primary Dx) | | | | [facility] | | | | | | Health and Healing, | | | | | | Building | | | | | | Floor [place], [place] | | | | | | [address] | | | | | | [phone] | | | +--------+---------+ + + + [...] note might be different from bj powell. [facility] [address] [place] [address] or [email or web address] REFERRED FROM AND FAXED TO: ALAN SAINZ MD [facility] [address] [place] [address] PRIMARY CARE PHYSICIAN: ALAN SAINZ MD [facility] [address] [place] [address] / [place]* [phone] REFERRED TO: [facility] Myopathy Clinic PATIENT:Kiersten Kumar INFORMANT: The [...] medical record and updated it in the ROBLOX system. 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[employer] Social History Main Topics Tobacco Use: [...] TONE: normal CEREBELLAR FUNCTION: Scanning Speech: Absent Htqnmx-hy-Xozata: Intact Tremor: Absent GAIT: Casual: mild steppage gait Investigations Preformed over the last 6 months include: Labs: Ancillary Registration on 06/23/2006 Component Date Value [facility] [place] NAME 07/17/2006 Myoadenylate Deaminase, Muscle Biopsy Collected 02/03/06 [facility] [place] RESULT 07/17/2006 Value: Myoadenylate deaminase 0.3 EU/mg Protein Low Interpretation: A reproducible deficiency was found in myoadenylate deaminase activity, confirming histochemical findings. 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
--- OUTSIDE RECORDS SUMMARY | ~2019-06-24 | XMS | Encounter Summary ---
Demographics + + + | Address | [address] | | | [place] [address] | + + + | Home Phone [...] + | Esthela Kumar | ECON | [address] | | | | | [place] | | | | | [address] | | + + + + + Care Team Providers + +------+ + | Care Public Health Advisor Name | Role | Phone | [...] | | 2005 | Only | [facility] [address] [facility] | | | | | | [address] | | | | | | Mailcode: L340 | | | | | | [place] | | | | | | [place], [place] | | | | | | [address] | | | | | | [phone] | | | +--------+ + + + [...]
--- OUTSIDE RECORDS SUMMARY | ~2019-06-24 | XMS | Encounter Summary ---
Demographics + + + | Address | [address] | | | [place] [address] | + + + | Home Phone | | + + + | Preferred Language | Unknown | + + + | Marital Status | | + + + | Oriental Orthodox Affiliation | Unknown | + + [...] + | Esthela Kumar | ECON | [address] | | | | | [place] | | | | | [address] | | + + + + + Care Team Providers + +------+ + | Care Marketing Designer Name | Role | Phone | + [...] | | | | | Procedures | [place], [place] | [address] [place] [address] | | | | | EMG/NERVE | [address] | for Health | | | | | CONDUCTION | Phone: | and Healing, | | | | | STUDIES,ADUL | [phone] | Building 1, | | | | | T - | Fax: | 8th Floor | | | | | NEUROLOGY | [phone] | [place], [place] | | | | | MD NEEDLE | | [address] | | | | | ELECTROMYOGR | | Phone: | | | | | APHY, EA | | [phone] | | | | | EXTREM, LTD | | Fax: | | | | | MD NEEDLE | | [phone] | | | | | ELECTROMYOGR | | | | | | | APHY, EA | | | | | | | EXTREM, | | | | | | | COMPLETE MD | | | | | | | MOTOR&/SENS | | | | | | | 1-2 NRV | | | | | | | CNDJ TST MD | | | | | | | MOTOR&/SENS | | | | | | | 3-4 NRV | | | | | | | CNDJ TST MD | | | | | | | MOTOR&/SENS | | | | | | | 5-6 NRV | | | | | | | CNDJ TST MD | | | | | | | [...] | | | 2017 | | [facility] & | Sussy Manuel MD [address] | | | | | Healing [address] | [address] | | | | | [address] Mailcode: | [place], [place] | | | | | [address] | [address] | | | | | Health and Healing, | [phone] | | | | | [facility] | | | | | | [place], [place] | | | | | | [address] | | | | | | [phone] | | | +--------+ + + + [...] Kumar Date of : 1950 Medical | [facility], | | Record Number: [id number] Date of Test: 06/27/2017 Place of | POINT OF CARE | | Service: [facility] (49) - [address] Department: [id number] [facility] Nerve | TESTS | | Conduction [...] | | Suggested Modifier: None Suggested CPT: 09257 9-10 Nerve Conduction | | | studies 63944 EMG -Each Extremity, Limited (<4 Muscles) w/NCS, qty 2, | | | modifier: XS 39866 EMG -Each Extremity, Completed (>5 Muscles) | [...] + + + | [facility] | [address] | [place] [address] | | | OF CARE TESTS | | | | + + + + + documented in this encounter Visit Diagnoses + + | Diagnosis | + + | Weakness of both lower extremities - Primary | + + documented in this encounter"
--- OUTSIDE RECORDS SUMMARY | ~2019-06-24 | XMS | Encounter Summary ---
Demographics + + + | Address | [address] | | | [place] [address] | + + + | Home Phone [...] + | Esthela Kumar | ECON | [address] | | | | | [place] | | | | | [address] | | + + + + + Care Team Providers + +------+ + | Care Dial Printer Name | Role | Phone | + [...] | Deaminase Deficiency | | | | [address] [facility] | | Myopathy ([facility]); | | | | [address] | | Discoordination | | | | Mailcode: CR120 | | | | | | Outpatient Clinic | | | | | | Building [place], | | | | | | [place] [address] | | | | | | [phone] | | | +--------+---------+ + + + [...] 4 times d aily if tolerated. 4. Temple with [facility]. 5. Follow up in about 4-6 months documented in this encounter Progress Notes Maximilian De La Garza - 05/24/2006 1:18 PM PDTFormatting of this note might be different from t oscar powell. [facility] [address] [place] [address] or [email or web address] REFERRED FROM AND FAXED TO: JOVANNY SAINZ MD [facility] [address] [place] [address] PRIMARY CARE PHYSICIAN: JOVANNY SAINZ MD, MD [facility] [address] [place] [address] / [place]* [phone] REFERRED TO: [facility] Myopathy Clinic PATIENT:Andrea Kumar INFORMANT: The [...] medical record and updated it in the [employer] system. PAST MEDICAL HISTORY: CONDITIONS: Past Medical History: FEMUR FRACTURE BACK PAIN HYPERCHOLESTEROLEMIA SURGERIES/ HOSPITALIZATIONS: Past Surgical History: HX LUMBAR LAMINECTOMY 1985, 2000 carpal tunnel left 2005 orif femur 1972 left knee surgery [place] DEEP MUSCLE BIOPSY MEDICATIONS: Current outpatient prescriptions: [...] 14 Number of Children: 3 Occupational History [employer] Social History Main Topics Tobacco Use: [...] TONE: normal CEREBELLAR FUNCTION: Scanning Speech: Absent Emnktc-rx-Iwgwhn: Intact Tremor: Absent GAIT: Casual: Intact Heel: [...] :sadaf / Revised 03/27/06/f / Revised 05/09/06: [facility] I have reviewed all diagnostic slides and [...] developed and its performance characteristics determined by [employer]. It has not been cleared or approved [...] 72 hours HOMOCYSTEINE,PLASMA,TOTAL Value: 8.7(umol/L) Date: 12/13/2005 ICT HEL[employer] DESK [employer]IC[employer] AB Value: Negative Date: 12/09/2005 SM AB [...] 4 times da anusha if tolerated. 4. Temple with [facility]. 5. Follow up in about [...]
--- OUTSIDE RECORDS SUMMARY | ~2019-06-24 | XMS | Encounter Summary ---
Demographics + + + | Address | [address] | | | [place] [address] | + + + | Home Phone [...] + | Esthela Kumar | ECON | [address] | | | | | [place] | | | | | [address] | | + + + + + Care Team Providers + +------+ + | Care Engine Specialist Name | Role | Phone [...] | | Peripheral | MD Nino | [address] | | | | | neuropathy | [address] | [place] | | | | | Procedures | Ave | Rd | | | | | MRI SPINE | [place], [place] | Mailcode: | | | | | LUMBAR WO | [address] | [address] | | | | | CONT [address] | Phone: | Gill | | | | | | [phone] | Research | | | | | | Fax: | Center | | | | | | [phone] | [place], [place] | | | | | | | [address] | | | | | | | Phone: | | | | | | | [phone] | | | | | | | Fax: | | | | | | | [phone] | +--------+--------+ + + + + Reason [...] | | | | | neuropathy | [address] | [place] | | | | | Procedures | Ave | Rd | | | | | MRI SPINE | [place], [place] | Mailcode: | | | | | LUMBAR WO | [address] | [address] | | | | | CONT [address] | Phone: | Gill | | | | | | [phone] | Research | | | | | | Fax: | Center | | | | | | [phone] | [place], [place] | | | | | | | [address] | | | | | | | Phone: | | | | | | | [phone] | | | | | | | Fax: | | | | | | | [phone] | +--------+--------+ + + + + Encounter Details +--------+ + + + + | Date | Type | Department | Care Team | Description | +--------+ + + + + | 08/08/ | Hospital | Radiology/Imaging | | | | 2011 | Encounter | Lab at [facility] [address] | | | | | | [address] Mailcode: | | | | | | [facility] | | | | | | Health and Healing, | | | | | | [place] [address], [facility] | | | | | | [place], [place] | | | | | | [address] | | | | | | [phone] | | | +--------+ + + + [...] | | | | SPINE WO | [id number] Name: | | | | | CONT | KIERSTEN KUMAR | | | | | | Birthdate: 1950 | | | | | | Sex: M Alias: | | | | | | Patient Location: | | | | | | [id number]: Outpatient | | | | | | [...] # | | | | | | [id number] EXAM: MRI | | | | | [...] | | | | | L4-L5 and L5-O5serddjke | | | | | | fatty [...] U. | | | | | | Pollock 08/10/2012 | | | | | | 14:41PM | | | | | | Final/Electronically | | | | | | signed / Neris U. | | | | | | Pollock 08/09/2012 | | | | | | 11:21AM Result | | | | | | modified / Neris | | | | | | U. Pollock 08/09/2012 | | | | | | [...] | | | | | | U. Pollock 08/08/2012 | | | | | | 22:23 PM Result | | | | | | modified / Neris | | | | | | U. Pollock 08/08/2012 | | | | | | 22:23 PM Pending final | | | | | | approval / Neris | | | | | | U. Pollock 08/08/2012 | | | | | | 19:38 PM Result | | | | | | modified / Neris | | | | | | U. Pollock 08/08/2012 | | | | | | [...] | | + +---------+ + + | [facility] DEPARTMENT OF | | | | | RADIOLOGY | | | | + +---------+ + + documented in this encounter Visit Diagnoses + + | Diagnosis | + + | Peripheral neuropathy Unspecified hereditary and idiopathic peripheral neuropathy | + + documented in this encounter"
--- OUTSIDE RECORDS SUMMARY | ~2019-06-24 | XMS | Encounter Summary ---
Demographics + + + | Address | [address] | | | [place] [address] | + + + | Home Phone [...] + | Esthela Kumar | ECON | [address] | | | | | [place] | | | | | [address] | | + + + + + Care Team Providers + +------+ + | Care Director Epidemiology Name | Role | Phone | + [...] | Carlos Mailcode: [id number] | [address] [place], | | | | | [place], [place] | [place] [address] | | | | | [address] | [phone] | | | | | [phone] | | | +--------+ + + + [...] DEPARTMENT OF | [address] | [place] [address] | | | PATHOLOGY | [address] | | | + + + + + | [facility] DEPARTMENT | [address] | [place] [address] | | | PATHOLOGY | [address] [...] DEPARTMENT OF | [address] | [place] [address] | | | PATHOLOGY | [address] | | | + + + + + | [facility] DEPARTMENT OF | [address] | [place] [address] | | | PATHOLOGY | [address] | | | + + + + + CK (12/08/2005 10:00 AM PDT) + + + + + + | Component | Value | Ref Range | Performed | Pathologist | | | | | At | Signature | + + + + + + | CK | 1067 (H) | 49 - 397 U/L | [facility] | | | | | | [...] OF | [address] | [place] [address] | | | PATHOLOGY | [address] | | | + + + + + | [facility] DEPARTMENT OF | [address] | [place] [address] | | | PATHOLOGY | [address] [...] | + + + + + | [facility] DEPARTMENT OF | [address] [facility] | [place] [address] | | | PATHOLOGY | [address] | | | + + + + + | [facility] DEPARTMENT OF | [facility] | [place] [address] | | | PATHOLOGY | [address] [...] | + + + + + | [facility] | [address] [facility] | [place] [address] | | | PATHOLOGY | [address] | | | + + + + + | [facility] | [address] [facility] | [place] [address] | | | PATHOLOGY | [address] [...] DEPARTMENT OF | [address] | [place] [address] | | | PATHOLOGY | [address] | | | + + + + + | [facility] | [address] | [place] [address] | | | PATHOLOGY | [address] | | | + + + + + documented in this encounter Visit Diagnoses Not on filedocumented in this encounter"
--- OUTSIDE RECORDS SUMMARY | ~2019-06-24 | XMS | Encounter Summary ---
Demographics + + + | Address | [address] | | | [place] [address] | + + + | Home Phone [...] + | Esthela Kumar | ECON | [address] | | | | | [place] | | | | | [address] | | + + + + + Care Team Providers + +------+ + | Care Petroleum Inspector Supervisor Name | Role | Phone | [...] Deaminase Deficiency | | | | [address] [facility] | | Myopathy ([facility]); | | | | [place] | | Discoordination | | | | Mailcode: CR120 | | | | | | Outpatient Clinic | | | | | | Building [place], | | | | | | [place] [address] | | | | | | [phone] | | | +--------+---------+ + + + [...] 4 times d aily if tolerated. 4. [place] with [facility]. 5. Follow up in about 4-6 months documented in this encounter Progress Notes Maximilian De La Garza - 05/24/2006 1:18 PM PDTFormatting of this note might be different from t oscar powell. [facility] [address] [place] [phone] or [email or web address] REFERRED FROM AND FAXED TO: JOVANNY SAINZ MD [facility] [address] [place] [id number] PRIMARY CARE PHYSICIAN: JOVANNY SAINZ MD, MD [facility] [address] [place] [address] / PENDLETO* [phone] REFERRED TO: [facility] Myopathy Clinic PATIENT:Andrea Kumar INFORMANT: The [...] medical record and updated it in the [facility]. 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 It has not been cleared or approved [...] 72 hours HOMOCYSTEINE,PLASMA,TOTAL Value: 8.7(umol/L) Date: 12/13/2005 HEALTHCARE ADMINISTRATIVE ASSISTANT AB Value: Negative Date: 12/09/2005 SM AB [...] 4 times da anusha if tolerated. 4. [place] with [facility]. 5. Follow up in about [...]
[~2019-06-24 19:40] MED LIST changes: +BACTRIM DS TAB1 EACH PO; +COZAAR25 MG; +DHEA50 M1; +JARDIANCE10 MG; +MAGNESIUM250 MG; +SILDENAFIL CIT100 MG; +TESTOSTERO200 MG/1 M; +VICTOZA 2-0.6 MG/0.1 SUB-Q
--- OUTSIDE RECORDS SUMMARY | 2019-06-24 19:44 | XMS ---
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 E.D. VISIT COUNT (12 MO.) 1 [facility] [place] TOTAL 1 NOTE: Visits indicate total known visits. ED/UCC VISIT TRACKING (12 MO.) 06/24/2019 19:41 TRACEY Diaz [place] TYPE: Emergency COMPLAINT: - ABD PAIN INPATIENT VISIT TRACKING (12 MO.) No inpatient visits to display in this time frame [email or web address]
[2019-06-25] MEDS ORDERED: PERCOCET 5-3251 EACH PO (00:06)
[2019-06-25] MEDS ORDERED: FLOMAX0.4 MG PO (00:06)
== END 2019-06-25 00:30 | disposition home or self-care (01) ==
LOC: ED 19:40
DX: N13.2 Hydronephrosis with renal and ureteral calculous obstruction (principal); E11.42 Type 2 diabetes mellitus with diabetic polyneuropathy; E78.5 Hyperlipidemia, unspecified; Z91.030 Bee allergy status; Z88.8 Allergy status to other drugs, medicaments and biological substances; Z79.899 Other long term (current) drug therapy; Z79.82 Long term (current) use of aspirin; Z79.84 Long term (current) use of oral hypoglycemic drugs
CPT/HCPCS: 74177; 80053; 81001; 83690; 85025; 96361; 99284-25; J1170; J1885; J2405; J7030; Q9967

== ENCOUNTER 2020-03-15 14:58 | Emergency (ER) | payer MEDICARE, OTHER ==
[~2020-03-15] VITALS: Ht 185.4 cm; Wt 85.3 kg
--- OUTSIDE RECORDS SUMMARY | ~2020-03-15 | XMS | Encounter Summary ---
Demographics + + + | Address | [address] | | | [place] [address] | + + + | Home Phone | | + + + | Preferred Language | Unknown | + + + | Marital Status | | + + + | Yazidism Affiliation | Unknown | + + + | Race | White | + + + | Ethnic Group | Other Race | + + + Author + + + | Author | [facility] | + + + | Organization | [facility] | + + + | Address | Unknown | + + + | Phone | Unavailable | + + + Support + + + + + | Name | Relationship | Address | Phone | + + + + + | Esthela Kumar | ECON | [address] | | | | | [place] | | | | | [address] | | + + + + + Care Team Providers + +------+ + | Care Taper Printed Circuit Layout Name | Role | Phone | + +------+ + | Alan Sainz MD | PCP | | + +------+ + Encounter Details +--------+ + + + + | Date | Type | Department | Care Team | Description | +--------+ + + + + | 09/19/ | Document-Sc | UNKNOWN DEPARTMENT | Unknown . | | | 2012 | anned | [address] | | | | | | [address] | | | | | | [place], [place] | | | | | | [address] | | | +--------+ + + + [...]
--- OUTSIDE RECORDS SUMMARY | ~2020-03-15 | XMS | Encounter Summary ---
Demographics + + + | Address | [address] | | | [place] [address] | + + + | Home Phone | | + + + | Preferred Language | Unknown | + + + | Marital Status | | + + + | Gnosticist Affiliation | Unknown | + + + | Race | White | + + + | Ethnic Group | Other Race | + + + Author + + + | Author | [facility] | + + + | Organization | [facility] | + + + | Address | Unknown | + + + | Phone | Unavailable | + + + Support + + + + + | Name | Relationship | Address | Phone | + + + + + | Esthela Kumar | ECON | [address] | | | | | [place] | | | | | [address] | | + + + + + Care Team Providers + +------+ + | Care Second Cook And Baker Name | Role | Phone | + +------+ + | Alan Sainz MD | PCP | | + +------+ + Encounter Details +--------+ + + + + | Date | Type | Department | Care Team | Description | +--------+ + + + + | 02/06/ | Transcribed | Allergy Clinic at | Dictation, Other | Transcribed | | 1994 | | [facility] [address] | | | | | | [address] | | | | | | [address] | | | | | | [facility], [address] [place] [address] | | | | | | [place], [place] | | | | | | [address] | | | | | | [phone] | | | +--------+ + + + + Social History + +-------+ +--------+------+ | Tobacco Use | Types | Packs/Day | Years | Date | | | | | Used | | + +-------+ +--------+------+ | Never Assessed | | | | | + +-------+ +--------+------+ + + + | Sex Assigned at [...] + + documented as of this encounter Progress Notes Interface, Radio Reporter In - 12/05/2006 5:06 AM PDT [address] [address] [facility] February 06, 1995 OPHELIA CAMPOS BRANCH ASSOCIATE [employer]ocket [employer] [facility] [address] RE:Andrea Kumar MR#:[id number] Dear Mr. Campos: Your employee, Mr. Andrea Kumar, was seen for a follow-up visit on February 06, 1995, at the [facility]. He was seen by Dr. Sondra Barton and myself. 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 His hand dermatitis has persisted over the past year despite avoiding these specific allergens in his workplace. He continues to have pruritic vesicles and papules over the volar wrists and dorsal lateral distal phalanges with peeling and fissuring present. He did not use waterless hand cleansers or have exposure to coolants at his employment. He used Triamcinolone ointment b.i.d. and Vaseline without improvement. 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 On follow-up visit today his physical examination was remarkable for complete clearing of his wrists, hands and fingers. There were no lesions present and photographs were obtained today. Mr. 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 We believe Mr. 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 We did not find an agent which explains the allergy in his workplace. The only known allergen Mr. Kumar was exposed to at work was the Glutaraldehyde in his waterless hand cleansers. Despite avoiding the Glutaraldehyde over the previous year, he did not improve until he was removed from his work-site. Therefore, we believe that he has an allergy to an exposure in his work-site which has not yet been identified. 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 A position should be chosen that does not necessitate exposure to the agents Colophony, Glutaraldehyde, MCI/CA, Gold and Neomycin/Bacitracin. He was given a list of possible exposure to these agents and shown how to read the material safety data sheets. Of note, coolants may contain as a preservative Glutaraldehyde or MCI/CA (Kathon 886). Colophony likewise, is found in the flux of single core solder and in a number of gloves. In summary, we believe Mr. Kumar has an allergic contact dermatitis which is fully work-related. We feel that he should be retrained in a position which would decrease exposure to his known allergens. Thank you for referring your employee to the [facility]. Please feel free to contact us if there are any further questions or concerns. Sincerely yours, Audelia Rod M.D. Resident, Dermatology Sondra Barton M.D. Professor, Dermatology NETTA /ced 02/08/95 cc: C:02/10/95/ced documented in this encounter Plan of Treatment Not on filedocumented as of this encounter Visit Diagnoses Not on filedocumented in this encounter"
--- OUTSIDE RECORDS SUMMARY | ~2020-03-15 | XMS | Encounter Summary ---
Demographics + + + | Address | [address] | | | [place] [address] | + + + | Home Phone | | + + + | Preferred Language | Unknown | + + + | Marital Status | | + + + | Zoroastrian Affiliation | Unknown | + + + | Race | White | + + + | Ethnic Group | Other Race | + + + Author + + + | Author | [facility] | + + + | Organization | [facility] | + + + | Address | Unknown | + + + | Phone | Unavailable | + + + Support + + + + + | Name | Relationship | Address | Phone | + + + + + | Esthela Kumar | ECON | [address] | | | | | [place] | | | | | [address] | | + + + + + Care Team Providers + +------+ + | Care Entry Level Software Engineer Name | Role | Phone | + +------+ + | Lázaro Oviedo MD | PCP | | + +------+ + Encounter Details +--------+ + + + + | Date | Type | Department | Care Team | Description | +--------+ + + + + | 03/16/ | Ancillary | Registration [id number] | Maximilian De La Garza, | | | 2005 | Registratio | [address] MD | | | | n | Carlos Mailcode: [id number] | | | | | | [place], [place] | | | | | | [address] | | | | | | [phone] | | | +--------+ + + + [...]
--- OUTSIDE RECORDS SUMMARY | ~2020-03-15 | XMS | Clinical Summary ---
Demographics + + + | Address | [address] | | | [place] [address] | + + + | Home Phone | | + + + | Preferred Language | Unknown | + + + | Marital Status | | + + + | Samaritan Affiliation | Unknown | + + + | Race | White | + + + | Ethnic Group | Other Race | + + + Author + + + | Author | [facility] | + + + | Organization | [facility] | + + + | Address | Unknown | + + + | Phone | Unavailable | + + + Support + + + + + | Name | Relationship | Address | Phone | + + + + + | Esthela Kumar | ECON | [address] | | | | | [place] | | | | | [address] | | + + + + + Care Team Providers + +------+ + | Care Commissary Superintendent Name | Role | Phone | + +------+ + | Lázaro Oviedo MD | PCP | | + +------+ + Source Comments FABRICIO is fully live on both [facility] Ambulatory and [facility] InPatient.[facility] Allergies + + + + + + | Active Allergy | Reactions | Severity | Noted | Comments | | | | | Date | | + + + + + + | Meperidine (Pf) | Nausea/Vomiting | | 02/03/20 | | | | | | 06 | | + + + + + + Medications + + + +---------+------+------+-------+ | Medication | Sig | Dispensed | Refills | Star | End | Statu | | | | | | t | Date | s | | | | | | Date | | | + + + +---------+------+------+-------+ | VITAMIN B COMPLEX | 1 tab daily | | 0 | | | Activ | | OR | | | | | | e | + + + +---------+------+------+-------+ | COQ10 SG 100 100 | 400mg daily | | 0 | | | Activ | | MG-100 UNIT CAP | | | | | | e | + + + +---------+------+------+-------+ | CREATINE | 5g daily | | 0 | | | Activ | | MONOHYDRATE ORAL | | | | | | e | | POWDER | | | | | | | + + + +---------+------+------+-------+ | FISH OIL 1,000 mg | 1200 MG -- 2 CAPS | | 0 | | | Activ | | Oral Capsule | DAILY | | | | | e | + + + +---------+------+------+-------+ | ASPIRIN (ASPIR-81 | Take 81 mg by mouth | | 0 | | | Activ | | ORAL) | once daily. | | | | | e | + + + +---------+------+------+-------+ | metFORMIN 1,000 mg | Take 1,000 mg by | | 0 | | | Activ | | Oral tablet | mouth two times | | | | | e | | | daily. | | | | | | + + + +---------+------+------+-------+ | RIBOSE, BULK, MISC | 5 g four times daily | | 0 | | | Activ | | | as needed. | | | | | e | + + + +---------+------+------+-------+ | glimepiride 2 mg | Take 2 mg by mouth | | 0 | | | Activ | | oral tablet | once daily in the | | | | | e | | | evening. | | | | | | + + + +---------+------+------+-------+ | liraglutide | Inject 1.8 mg under | | 0 | | | Activ | | (VICTOZA 2-VANESSA) 0.6 | the skin (SUBC) once | | | | | e | | mg/0.1 mL (18 mg/3 | daily in the | | | | | | | mL) subcutaneous pen | evening. | | | | | | | injector | | | | | | | + + + +---------+------+------+-------+ | losartan potassium | Take 12.5 mg by | | 0 | | | Activ | | (LOSARTAN ORAL) | mouth once daily. | | | | | e | + + + +---------+------+------+-------+ | testosterone | Inject into the | | 0 | | | Activ | | cypionate 200 mg/mL | muscle (IM). | | | | | e | | intramuscular oil | Received from: | | | | | | | | [employer] | | | | | | | | Systems Received | | | | | | | | Sig: Inject 100 mg | | | | | | | | into the muscle | | | | | | | | every 28 days | | | | | | + + + +---------+------+------+-------+ | PRASTERONE (DHEA) | Take 50 mg by mouth | | 0 | | | Activ | | (DHEA ORAL) | once daily. | | | | | e | + + + +---------+------+------+-------+ | ASCORBIC ACID | Take 1,000 mg by | | 0 | | | Activ | | (VITAMIN C ORAL) | mouth once daily. | | | | | e | + + + +---------+------+------+-------+ | Magnesium 250 mg | Take 250 mg by mouth | | 0 | | | Activ | | oral tablet | once daily. | | | | | e | + + + +---------+------+------+-------+ | JARDIANCE 25 mg | TK 1 T PO D UTD | | 3 | 01/20 | | Activ | | oral tablet | | | | 02/07 | | e | | | | | | 18 | | | + + + +---------+------+------+-------+ | sildenafil 25 mg | Take 20 mg by mouth. | | 0 | | | Activ | | oral tablet | Sig: Take 25 mg by | | | | | e | | | mouth as needed for | | | | | | | | Erectile | | | | | | | | Dysfunction. 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 | + + + | Discoordination | 05/25/2006 | + + + | Abnormality of gait | 03/15/2006 | + + + | Lumbar disc disease | 02/02/2006 | + + + | Carpal tunnel syndrome | 02/02/2006 | + + + | High cholesterol | 02/02/2006 | + + + Family History + + +------+ + | Medical History | Relation | Name | Comments | + + +------+ + | Heart Failure | Father | | | + + +------+ + | Other | Mother | | liver failure | + + +------+ + | Diabetes | Paternal | | | | | Aunt | | | + + +------+ + | Arthritis | Sister | | | + + +------+ + + +------+--------+ + | Relation | Name | Status | Comments | + +------+--------+ + | Father | | | | + +------+--------+ + | Mother | | | | + +------+--------+ + | Paternal Aunt | | | | + +------+--------+ + | Sister | | | | + +------+--------+ + Social History + +-------+ +--------+------+ | Tobacco Use | Types | Packs/Day | Years | Date | | | | | Used | | + +-------+ +--------+------+ | Never Smoker | | | | | + +-------+ +--------+------+ + +---+---+---+ | Smokeless Tobacco: | | | | | Never Used | | | | + +---+---+---+ + + +---------+ + | Alcohol Use [...] recent travel history available. | + + Last Filed Vital Signs + + + + + | Vital Sign | Reading | Time Taken | Comments | + + + + + | Blood Pressure | 110/68 | 03/16/2018 1:43 PM | | | | | PDT | | + + + + + | Pulse | 79 | 03/16/2018 1:43 PM | | | | | PDT | | + + + + + | Temperature | 36.7 C (98.1 F) | 11/16/2006 11:09 AM | | | | | PDT | | + + + + + | Respiratory Rate | 18 | 07/14/2008 12:49 PM | | | | | PST | | + + + + + | Oxygen Saturation | - | - | | + + + + + | Inhaled Oxygen | - | - | | | Concentration | | | | + + + + + | Weight | 100.2 kg (221 lb) | 03/16/2018 1:43 PM | | | | | PDT | | + + + + + | Height | 182.9 cm (6') | 03/16/2017 11:59 AM | | | | | PDT | | + + + + + | Body Mass Index | 29.97 | 03/16/2017 11:59 AM | | | | | PDT | | + + + + + Plan of Treatment + + + + + | Health Maintenance | Due Date | Last Done | Comments | + + + + + | Pneumococcal | | 11/21/2016, 11/21/2016 | | | vaccination (2 of 2 | 8 | | | | - PCV13) | | | | + + + + + | Influenza (Flu) | | 06/28/2016, 07/10/2009 | | | vaccination (#1) | 9 | | | + + + + + Results Not on filefrom Last 3 Months Insurance + +--------+ +--------+ + +--------+ | Payer | Benefi | Subscriber | Effect | Phone | Address | Type | | | t Plan | ID | jaye | | | | | | / | | Dates | | | | | | Group | | | | | | + +--------+ +--------+ + +--------+ | [address] MED[address] | RAIL | xxxxxxxxxxx | 08/21/19 | [phone] | [address] | [address] | | | [address] | | [address] | 0 | [address] | re | | | MEDICA | | sent | | [place], [place] | | | | RE | | | | [address] | | + +--------+ +--------+ + +--------+ | [employer] | TRANSA | xxxxxxxxx | Effect | [phone] | [address] | POS | | MEDICARE SUPPLEMENT | MERICA | | jaye | [address] | [address] | | | | | | for | | [place], [place] | | | | MEDICA | | all | | [id number] | | | | RE | | dates | | | | | | SUPPLE | | | | | | | | MENT | | | | | | + +--------+ +--------+ + +--------+ | [facility] | MDA | xxxxxxxxx | Effect | [phone] | Mail Code | Agency | | | CLINIC | | jaye | 6 | [id number] | | | | | | for | | [place], | | | | | | all | | [place] [address] | | | | | | dates | | | | + +--------+ +--------+ + +--------+ + +--------+ +--------+ + + | Guarantor Name | Accoun | Relation to | Date | Phone | Billing Address | | | t Type | Patient | of | | | | | | | | | | + +--------+ +--------+ + + | Andrea Kumar | Person | Self | [birth year] | [address] | | | al/Fam | | 1950 | [phone] | [place] | | | [address]usha | | | 5 (Home) | [address] | + +--------+ +--------+ + + | Andrea Kumar | Specia | Self | [birth year] | | [address] | | | l | | 1950 | [phone] | [place] | | | [address] | | | 5 (H[place]re) | [address] | | | g | | | | | + +--------+ +--------+ + +"
--- OUTSIDE RECORDS SUMMARY | ~2020-03-15 | XMS | Encounter Summary ---
Demographics + + + | Address | [address] | | | [place] [address] | + + + | Home Phone | | + + + | Preferred Language | Unknown | + + + | Marital Status | | + + + | Jewish Affiliation | Unknown | + + + | Race | White | + + + | Ethnic Group | Other Race | + + + Author + + + | Author | [facility] | + + + | Organization | [facility] | + + + | Address | Unknown | + + + | Phone | Unavailable | + + + Support + + + + + | Name | Relationship | Address | Phone | + + + + + | Esthela Kumar | ECON | [address] | | | | | [place] | | | | | [address] | | + + + + + Care Team Providers + +------+ + | Care Academy Education Director Name | Role | Phone | + +------+ + | Alan Sainz MD | PCP | | + +------+ + Encounter Details +--------+ + + + + | Date | Type | Department | Care Team | Description | +--------+ + + + + | 07/25/ | Hospital | Registration HOV | | | | 2016 | Encounter | [address] | | | | | | [place], | | | | | | [place] [address] | | | +--------+ + + + [...]
--- OUTSIDE RECORDS SUMMARY | ~2020-03-15 | XMS | Encounter Summary ---
Demographics + + + | Address | [address] | | | [place] [address] | + + + | Home Phone | | + + + | Preferred Language | Unknown | + + + | Marital Status | | + + + | Evangelical Affiliation | Unknown | + + + | Race | White | + + + | Ethnic Group | Other Race | + + + Author + + + | Author | [facility] | + + + | Organization | [facility] | + + + | Address | Unknown | + + + | Phone | Unavailable | + + + Support + + + + + | Name | Relationship | Address | Phone | + + + + + | Esthela Kumar | ECON | [address] | | | | | [place] | | | | | [address] | | + + + + + Care Team Providers + +------+ + | Care Lockstitch Topstitcher Name | Role | Phone | + +------+ + | Lázaro Oviedo MD | PCP | | + +------+ + Encounter Details +--------+ + + + + | Date | Type | Department | Care Team | Description | +--------+ + + + + | 06/23/ | Ancillary | Registration [address] | [facility], | | | 2005 | Registratio | DUSTIN Costa MD | | | | n | [place] Mailcode: [id number] | | | | | | [place], [place] | | | | | | [address] | | | | | | [phone] | | | +--------+ + + + [...]
--- OUTSIDE RECORDS SUMMARY | ~2020-03-15 | XMS | Encounter Summary ---
Demographics + + + | Address | [address] | | | [place] [address] | + + + | Home Phone | | + + + | Preferred Language | Unknown | + + + | Marital Status | | + + + | Buddhism Affiliation | Unknown | + + + | Race | White | + + + | Ethnic Group | Other Race | + + + Author + + + | Author | [facility] | + + + | Organization | [facility] | + + + | Address | Unknown | + + + | Phone | Unavailable | + + + Support + + + + + | Name | Relationship | Address | Phone | + + + + + | Esthela Kumar | ECON | [address] | | | | | [place] | | | | | [address] | | + + + + + Care Team Providers + +------+ + | Care Automatic Hemmer Name | Role | Phone | + +------+ + | Lázaro Oviedo MD | PCP | | + +------+ + Encounter Details +--------+ + + + + | Date | Type | Department | Care Team | Description | +--------+ + + + + | 11/03/ | Ancillary | Registration [address] | Maximilian De La Garza, | | | 2005 | Registratio | DUSTIN Costa MD | | | | n | [address] Mailcode: [id number] | | | | | | [place], [place] | | | | | | [address] | | | | | | [phone] | | | +--------+ + + + [...]
--- OUTSIDE RECORDS SUMMARY | ~2020-03-15 | XMS | Encounter Summary ---
Demographics + + + | Address | [address] | | | [place] [address] | + + + | Home Phone | | + + + | Preferred Language | Unknown | + + + | Marital Status | | + + + | Taoism Affiliation | 1073 | + + + | Race | Unknown | + + + | Ethnic Group | Unknown | + + + Author + + + | Author | [facility] | | | and [place] | + + + | Organization | [facility] | | | and [place] | + + + | Address | Unknown | + + + | Phone | Unavailable | + + + Support + + +---------+ + | Name | Relationship | Address | Phone | + + +---------+ + | Esthela Kumar | ECON | Unknown | | + + +---------+ + Care Team Providers + +------+ + | Care Head Inspector And Center Marker Name | Role | Phone | + +------+ + PCP | Unavailable | + +------+ + Encounter Details +--------+ + + + + | Date | Type | Department | Care Team | Description | +--------+ + + + + | 05/02/ | Hospital | [facility] | | | | 2004 | Encounter | [facility] | | | | | | [address] | | | | | | [place] | | | | | | [address] | | | | | | [phone] | | | +--------+ + + + [...] on file | | + + + documented as of this encounter Plan of Treatment Not on filedocumented as of this encounter Visit Diagnoses Not on filedocumented in this encounter"
--- OUTSIDE RECORDS SUMMARY | ~2020-03-15 | XMS | Encounter Summary ---
Demographics + + + | Address | [address] | | | [place] [address] | + + + | Home Phone | | + + + | Preferred Language | Unknown | + + + | Marital Status | | + + + | Orthodoxy Affiliation | Unknown | + + + | Race | White | + + + | Ethnic Group | Other Race | + + + Author + + + | Author | [facility] | + + + | Organization | [facility] | + + + | Address | Unknown | + + + | Phone | Unavailable | + + + Support + + + + + | Name | Relationship | Address | Phone | + + + + + | Esthela Kumar | ECON | [address] | | | | | [place] | | | | | [address] | | + + + + + Care Team Providers + +------+ + | Care Marketing Data Specialist Name | Role | Phone | + +------+ + | Alan Sainz MD | PCP | | + +------+ + Encounter Details +--------+ + + + + | Date | Type | Department | Care Team | Description | +--------+ + + + + | 03/31/ | Documentati | Neurology at | [place], | | | 2017 | on | [facility] & | Sussy Manuel MD [address] | | | | | Healing [address] | [address] | | | | | [place] for | [place], [place] | | | | | Health and Healing, | [address] | | | | | | [phone] | | | | | Floor [place], [place] | | | | | | [address] | | | | | | [phone] | | | +--------+ + + + [...]
--- OUTSIDE RECORDS SUMMARY | ~2020-03-15 | XMS | Encounter Summary ---
Demographics + + + | Address | [address] | | | [place] [address] | + + + | Home Phone | | + + + | Preferred Language | Unknown | + + + | Marital Status | | + + + | Adventist Affiliation | Unknown | + + + [...] + | Esthela Kumar | ECON | [address] | | | | | [place] | | | | | [address] | | + + + + + Care Team Providers + +------+ + | Care Microwave Supervisor Name | Role | Phone | + +------+ + | Alan Sainz MD | PCP | | + +------+ + Encounter Details +--------+ + + + + | Date | Type | Department | Care Team | Description | +--------+ + + + + | 12/27/ | Hospital | Dermatopathology | | | | 2017 | Encounter | [address] | | | | | | Mailcode: [id number] | | | | | | [facility] | | | | | | and Healing, | | | | | | Building | | | | | | Floor [place], [place] | | | | | | [address] | | | | | | [phone] | | | +--------+ + + + [...] | + +--------+ + + + | DERM PATHOLOGY | Routin | 12/27/2016 | Other benign | Results for this | | | e | | neoplasm of skin of | procedure are in the | | | | | scalp and neck Scar | results section. | | | | | conditions and | | | | | | fibrosis of skin | | + +--------+ + + + documented in this encounter Results DERM PATHOLOGY (12/27/2016) + + + + + + | Component | Value | Ref Range | Performed | Pathologist | | | | | At | Signature | + + + + + + | DERMATOPATH | SOURCE OF SPECIMEN:A Lt. 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 GROSS | | | | | | DESCRIPTION:Received in | | | | | | formalin is a specimen | | | | | | labeled Andrea Kumar:A: | | | | | | Specimen consists of an | | | | | | ellipse of barraza-castano | | | | | | skin, [id number]. The | | | | | | specimenis oriented by a | | | | | | suture at one apex, | | | | | | which is designated as | | | | | | anterior tip.With the | | | | | | suture in the 12:00 | | | | | | position, the specimen | | | | | | is inked blue | | | | | | from12:00-3:00-6:00 and | | | | | | black from | | | | | | 6:00-9:00-12:00. The | | | | | | tissue is | | | | | | seriallysectioned from | | | | | | 12:00 to 6:00 and | | | | | | submitted respectively | | | | | | in cassettes A1 | | | | | | | | | | | | A2. MICROSCOPIC | | | | | | DESCRIPTION:In the left | | | | | | lateral neck excision | | | | | | specimen, there is a | | | | | | scar. Within thescar, | | | | | | there is a subtle | | | | | | residual adnexal | | | | | | neoplasm composed of an | | | | | | aggregateof epithelial | | | | | | cells with uniform | | | | | | nuclei and occasional | | | | | | ductal structures. 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 NOTE: | | | | | | The residual adnexal | | | | | | neoplasm is completely | | | | | | excised in | | | | | | thesesections. | | | | | | VBK:mm/07/07 My | | | | | | electronic signature | | | | | | indicates that I have | | | | | | personally reviewed | | | | | | alldiagnostic slides, | | | | | | the gross and/or | | | | | | microscopic portion of | | | | | | thisreport and | | | | | | formulated the final | | | | | | diagnosis. | | | | | | Rendering Diagnostician: | | | | | | Sam Christianson | | | | | | BrandonPathologistTui | | | | | | abiodun Signed 12/30/2016 | | | | | | 2:23PM | | | | + + + + + + + + | Specimen | + + | | + + + + + | Narrative | Performed At | + + + | | | + + + + + + + + | Performing | Address | City/State/Zipcode | Phone Number | | Organization | | | | + + + + + | [facility] | [id number] | [place] [address] | | | DERMATOPATHOLOGY | [address] | | | + + + + + documented in this encounter Visit Diagnoses + + | Diagnosis | + + | Other benign neoplasm of skin of scalp and neck | + + | Scar conditions and fibrosis of skin Scar condition and fibrosis of skin | + + documented in this encounter"
--- OUTSIDE RECORDS SUMMARY | ~2020-03-15 | XMS | Encounter Summary ---
Demographics + + + | Address | [address] | | | [place] [address] | + + + | Home Phone | | + + + | Preferred Language | Unknown | + + + | Marital Status | | + + + | Taoism Affiliation | Unknown | + + + | Race | White | + + + | Ethnic Group | Other Race | + + + Author + + + | Author | [facility] | + + + | Organization | [facility] | + + + | Address | Unknown | + + + | Phone | Unavailable | + + + Support + + + + + | Name | Relationship | Address | Phone | + + + + + | Esthela Kumar | ECON | [address] | | | | | [place] | | | | | [address] | | + + + + + Care Team Providers + +------+ + | Care Rn Urology Name | Role | Phone | + +------+ + | Alan Sainz MD | PCP | | + +------+ + Reason for Visit + + + | Reason | Comments | + + + | Return Patient | | + + + | Muscle weakness | | + + + Encounter Details +--------+---------+ + + + | Date | Type | Department | Care Team | Description | +--------+---------+ + + + | 11/16/ | Office | Neurology | Maximilian De La Garza, | Myoadenylate | | 2006 | Visit | [facility] | MD | Deaminase Deficiency | | | | at [facility] | | Myopathy (HCC) | | | | [facility] & Healing | | (Primary Dx) | | | | [address] | | | | | | [facility] | | | | | | and Healing, | | | | | | Building | | | | | | Floor [place], [place] | | | | | | [address] | | | | | | [phone] | | | +--------+---------+ + + + Social History + +-------+ [...] + + documented as of this encounter Last Filed Vital Signs + + + + + | Vital Sign | Reading | Time Taken | Comments | + + + + + | Blood Pressure | 121/85 | 11/16/2006 11:09 AM | | | | | PDT | | + + + + + | Pulse | 77 | 11/16/2006 11:09 AM | | | | | PDT | | + + + + + | Temperature | 36.7 C (98.1 F) | 11/16/2006 11:09 AM | | | | | PDT | | + + + + + | Respiratory Rate | 16 | 11/16/2006 11:09 AM | | | | | PDT | | + + + + + | Oxygen Saturation | - | - | | + + + + + | Inhaled Oxygen | - | - | | | Concentration | | | | + + + + + | Weight | 125.6 kg (277 lb) | 11/16/2006 11:09 AM | | | | | PDT | | + + + + + | Height | 185.4 cm (6' 1") | 11/16/2006 11:09 AM | | | | | PDT | | + + + + + | Body Mass Index | 36.55 | 11/16/2006 11:09 AM | | | | | PDT | | + + + + + documented in this encounter Patient Instructions Patient Instructions Maximilian De La Garza - 11/16/2006 12:32 PM PDT1. Weight reduction diet 2. Increase activity 3. Continue D-ribose 5 grams four times daily 4. Monitor blood sugars. 5. Continue Creatine monohydrate 5 grams daily dissolved in a clear juice (if powder) 6. General multivitamin 1 daily Avoid excessive alcohol use. Avoid medications known to be toxic to muscles if possible. Av oid exposures to chemicals and heavy metals like lead, arsenic, aluminum and mercury. documented in this encounter Progress Notes Maximilian De La Garza - 11/16/2006 11:59 AM PDTFormatting of this note might be different from bj powell. [facility] [address] [place] [id number] or [email or web address] REFERRED FROM AND FAXED TO: ALAN SAINZ MD [facility] [address] [address] PRIMARY CARE PHYSICIAN: ALAN SAINZ MD [facility] [address] [place] [address] / [place]* [phone] REFERRED TO: [facility] Myopathy Clinic PATIENT:Kiersten Kumar INFORMANT: The patient is accompanied by his . DATE OF VISIT:11/16/2006 REASON FOR VISIT: Return Patient and Muscle weakness HISTORY OF PRESENT ILLNESS: Kiersten Kumar is a 56 y.o. 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 he was seen in this cl inic 6 months ago. Mr. Kumar seems to be weak both proxim ally and distally. He has no element of exertional fatigue. He has no trouble with chewing, swallowing or speaking. He has no trouble with eye movements and double vision. He has not experienced bowel or bladder incontinence or reten tion. He has muscle cramps. He has weakness in the upper extremities. He has weakness in the lower extremities. He has noticed changes in muscle mass. He has mild trouble walking. He has not fallen since the last visit. Mr. Kumar has pain, numbness or tingling. Mr. Kumar does not cardiac involvement. His last Echocardiogram was done recently and wa s Normal. Mr. Kumar does not respiratory involvement. He does not use BiPAP or other ventilatory assistance. Additionally since the last visit he has began D-ribose. He is using 5 grams 3-4 times per day. When he takes this he feels much stronger. He is able to run up stairs at work and able to exercise better. He does not trip as much as he used too. He is having some I have read the patient's medical record and updated it in the [employer] [facility] system. PAST MEDICAL HISTORY: CONDITIONS: Past Medical History Diagnosis Date FEMUR FRACTURE BACK PAIN HYPERCHOLESTEROLEMIA MYOADENYLATE DEAMINASE DEFICIENCY MYOPATHY SURGERIES/ HOSPITALIZATIONS: Past Surgical History Procedure Date Hx lumbar laminectomy 1985, 2000 Carpal tunnel left 2004 Orif femur 1972 Left knee surgery Pr deep muscle biopsy MEDICATIONS: Current outpatient prescriptions : COQ10 SG 100 100 MG-100 UNIT CAP, 300mg daily, Disp: , Rfl: CREATINE MONOHYDRATE ORAL POWDER, 5g daily, Disp: , Rfl: CENTRUM SILVER OR, 1 a day, Disp: , Rfl: ZETIA 10 MG TAB, take 1 tablet (10mg) by oral route once daily, Disp: , Rfl: FISH OIL CAP, 1 cap once daily, Disp: , Rfl: ASPIRIN 81 MG TAB, 1 tab daily, Disp: , Rfl: VITAMIN E 400 UNIT TAB, 1 tab daily, Disp: , Rfl: VITAMIN B COMPLEX OR, 1 tab daily, Disp: , Rfl: ALEVE OR, prn, Disp: , Rfl: ALLERGIES: Allergies Allergen Reactions Demerol (meperidine (pf)) Nausea/Vomiting FAMILY HISTORY: Family History Problem Relation Diabetes Paternal Aunt Other Mother liver failure Heart Failure Father Arthritis Sister SOCIAL HISTORY: History Social History Marital Status: Spouse Name: Esthela Number of Children: 3 Years of Education: 14 Occupational History [employer] Social History Main Topics Tobacco Use: Never Alcohol Use: No Drug Use: No Sexually Active: Yes -- Female partners Other Topics Concern No Blood Transfusions No Caffeine No 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 854 m (6' 1") | Wt 125.646 kg (277 lbs) GENERAL: The patient is pleasant, in no acute distress. HEENT: Normocephalic and atraumatic Sclerae are clear. Conjunctiva are not injected. Mucou s membranes are moist. Oropharynx is clear. NECK: Supple CARDIOVASCULAR: Regular rate and rhythm without murmurs, clicks or rubs. Carotids: No bruits detected. SKIN: No rash or obvious lesions LUNGS: Clear to auscultation. EXTREMITIES: Warm without clubbing, cyanosis, or edema; 2+ peripheral pulses. NEUROLOGIC EXAMINATION: Mental status, the patient is alert and oriented to person, place and date. Recent and rem ote memory appear intact. Concentration appears intact. Speech is fluent and articulate PSYCHOLOGICAL: Mood is good Cranial Nerve Examination I - Smell (Not tested) II -PERRL, Fundi: normal, discs sharp, no papilledema and no hemorrhages or exudates III,IV, - EOMI, no nystagmus, or diplopia V - Intact to sensation in all 3 divisions, masseter strength is normal VII - There is no facial asymmetry, muscle strength is normal VIII - Hearing is grossly intact, bilaterally IX,X - Uvula is midline, palette elevates symmetrically XI - Sternocleidomastoid and trapezius is normal XII - Tongue is midline, there is no fasciculation or atrophy. Motor Exam: Musc Supra Delt Bicep BR Tri Wrist Flex Wrist Ext Finger Ext Finger Flex Intr Hand Move Left 5 5 4+ 5 5 5 5 5 5 5 Right 5 5 5 5 5 5 5 5 5 5 Musc Ilio Glut Quad Hams TibAnt Charis EHL Left 5 5 5 5 4- 5 4 Right 5 5 5 5 4+ 5 4 Neck extensor Neck flexor 5 5 Reflexes: Right side Left side Brachioradialis 0 0 Biceps tendon 0 0 Triceps 1 1 Patellar 0 0 Achilles 0 0 Babinski: absent absent Jaw Jerk Normal Serrano's Absent SENSORY EXAMINATION: Upper extremities Light touch: Intact and symmetric Pin prick: Intact and symmetric Temperature: Intact and symmetric Vibration: Intact and symmetric Lower extremities Light touch: markedly decreased in the toes Pin prick:markedly decreased in the toes Temperature: markedly decreased in the toes Vibration: markedly decreased in the toes TONE: normal CEREBELLAR FUNCTION: Scanning Speech: Absent Mxgohc-yz-Fuknwm: Intact Tremor: Absent GAIT: Casual: mild steppage gait Investigations Preformed over the last 6 months include: Labs: Ancillary Registration on 06/23/2006 Component Date Value [facility] [place] TEST NAME 07/17/2006 Myoadenylate Deaminase, Muscle Biopsy Collected 02/03/06 [facility] [place] TEST RESULT 07/17/2006 Value: Myoadenylate deaminase 0.3 EU/mg Protein Low Interpretation: A reproducible deficiency was found in myoadenylate deaminase activity, confirming histochemical findings. NORMAL RANGE 07/17/2006 (0.11 - 0.87) REFERRAL LAB NAME 07/17/2006 [facility] [place] [place] [facility] - Rehab on 05/24/2006 Component Date Value PHYSICAL THERAPY EVAL 05/24/2006 Value: [facility] PHYSICAL THERAPY EVALUATION KIERSTEN KUMAR MR# [id number] Start of Care: 05/24/2006 Referring/Attending Practitioner: Dr Christopher Primary Diagnosis/ICD-9: 729.1 Referral Diagnosis/ICD-9: 729.1 Date of onset: 05/24/2006 Insurance: Commercial. Number visits used/authorized: eval and treat Precautions: n/a PMH: Fx femur, carple tunnel surgery, back pain, lumbar amauri ctomy x 2, spinal stenosis, hypercholestrolemia Medications: alieve, aspirin, multiple vitamin, Vitamin E, B com plex, fish oil, creatine monohydrate, zetia COQ10 SUBJECTIVE: This is a 55 year old M who presents with the following complaints: poor balance, falls, cramps in legs . Pain located: legs, . Pain, on a scale of 0-10 is: 5 Pain limits: Pt doesn't let the cramps stop him Does pain ever wake patient at night ? yes, Total number of hours of sleep a night: 6 Pt wakes rested ? yes, Activities limited by fatigue or stamina: lifting Other significant History: Pt started having problems with weakness in his legs about 5 years ago. He has problems with his balance and occasionally falls. His last fall was 1 week ago while hunting. He turns his ankles easily. Pt gets muscle cramps in his legs about twice a day and they can last from a minute to 4 minutes. Pt has torn ligaments in his right knee and he wears a brace sometimes. 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 ha, Patient lives: with spouse/partner, Patient's home has: no stairs, Current exercise program: remodeling his kitchen and working on [place] [address] Patient goals: learn self care concepts, decrease pain, OBJECTIVE: ROM: Trunk flex 50%, ext 40%, Cervical spine 70% all planes, extremities WFL with tight hamstrings and gastrocs MMT: 5/5 except ankles- 4/5 Balance/Coordination: 360 turn continuous, unilateral balance righ t (seconds) 5 unilateral balance left (seconds) 3 Patient able to walk on toes/heels: no Muscle tone: WNL Other balance/coordination test results: + rhomberg eyes closed Gait: pt demonstrates mild foot drop on the left during gait, pt angel l also tend to drift to the left Other tests: Increased sympathetic outflow T1-L2 bilat, + squat Charges for today: Eval, therapuetic exercise 25 minutes instructed pt on Deep Meditation into Thoughtlessness: written instructions given Instructed pt on stretching program: gastrocs, soleius, hamstrings a nd valeria pose: pictures with written instructions given ASSESSMENT: Patient needs the following adaptive equipment: AFO, Patient would benefit from physical therapy for the following reason s: therapeutic exercises, 1. Pt demonstrated ex with good form 2. Pt would benefit from an AFO for his left ankle to provide stabi lity and foot clearance during gait. Rehabilitation potential: good SHORT-TERM GOALS, 1 weeks to completion and discussed with patient: Instruct in home Ex program and stress management LONG-TERM GOALS, 1 weeks to completion and discussed with patient: same as short term goals PLAN: Pt to see cloth roll winder in [place] Frequency/Duration: once Treatment began: 1:45 pm Treatment ended: 2:45 pm Email: Dr Christopher This note is to serve as the discharge summary if the patient fails to attend further Physical Therapy appointments or contact the therapis t regarding any change in their status. The below signatures are only for completing Medicare charting. Non-Medicare patients do not need this section completed. Therapist Initials: I agree with the above proposed treatment plan. signature: Date: Print name: Yin Leger M.ED., P.T. License Number [id number] IMPRESSION: Kiersten Kumar is a 56 y.o. White male here for follow-up of mild Myoadenylate deaminase deficiency. He is doing well since he has started d-ribose therapy. He also has a neuropathy . This may be secondary to early diabetes. I suggested that Mr Kumar monitor his blood sugar s with Dr Sainz and also to actively lose weight. He should increase his activity level and d ecrease caloric intake. I explained that D-ribose would not be a major source of calories. W e discussed other ways to manage symptoms. I reviewed the MRI of the brain and echocardiogram. I gave Mr. Kumar the opportunity to ask questions and answered to the best of my ability. I spent 40 minutes with Mr. Kumar, half of which were in counseling and coordination of care. RECOMMENDATIONS: 1. Weight reduction diet 2. Increase activity 3. Continue D-ribose 5 grams four times daily 4. Monitor blood sugars. 5. 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
--- OUTSIDE RECORDS SUMMARY | ~2020-03-15 | XMS | Encounter Summary ---
Demographics + + + | Address | [address] | | | [place] [address] | + + + | Home Phone | | + + + | Preferred Language | Unknown | + + + | Marital Status | | + + + | Nondenominational Affiliation | Unknown | + + + [...] + | Esthela Kumar | ECON | [address] | | | | | [place] | | | | | [address] | | + + + + + Care Team Providers + +------+ + | Care Clinical Laboratory Aides Teacher Name | Role | Phone | [...] Closed | | Clinical | Diagnoses | Brian | Cnl Emg | | | | Neurophysiolo | Weakness of | Sussy Manuel, | [facility] [address] | | | | gy | both lower | MD [address] | | | | | extremities | [address] | Center for | | | | | Procedures | [place], [place] | Health and | | | | | EMG/NERVE | [address] | Healing, | | | | | CONDUCTION | Phone: | [address], | | | | | STUDIES,ADUL | [phone] | 8th Floor | | | | | T - | Fax: | [place], [place] | | | | | NEUROLOGY | [phone] | [address] | | | | | [place] NEEDLE | | Phone: | | | | | ELECTROMYOGR | | [phone] | | | | | APHY, EA | | Fax: | | | | | EXTREM, LTD | | [phone] | | | | | [place] NEEDLE | | | | | | | ELECTROMYOGR | | | | | | | APHY, EA | | | | | | | EXTREM, | | | | | | | COMPLETE [place] | | | | | | | MOTOR&/SENS | | | | | | | 1-2 NRV | | | | | | | CNDJ TST [place] | | | | | | | MOTOR&/SENS | | | | | | | 3-4 NRV | | | | | | | CNDJ TST [place] | | | | | | | MOTOR&/SENS | | | | | | | 5-6 NRV | | | | | | | CNDJ TST [place] | | | | | | | MOTOR&/SENS | | | | | | | 7-8 NRV | | | | | | | CNDJ TST | | | +--------+--------+ + + + + Encounter Details +--------+ + + + + | Date | Type | Department | Care Team | Description | +--------+ + + + + | 06/27/ | Hospital | Neurophysiology | Bailey Gerard MD | | | 2017 | Encounter | EMG at [facility] [address] | [address] | | | | | [facility] [address] | | | | | Health and Healing, | [place] [address] | | | | | [facility] | [phone] | | | | | Floor [facility] [place] | | | | | | [address] | Yin Murphy | | | | | [phone] | [facility] [place] | | | | | | [address] | | | | | | [phone] [place], | | | | | | [address] | | | | [address] | | | | | | [place], [place] | | | | | | [address] | | +--------+ + + + + [...] | + + + +---------+--------+ + | ASCORBIC ACID | Take 1,000 mg by | | 0 | | | | (VITAMIN C ORAL) | mouth [...] | + + + +---------+--------+ + | glimepiride 2 mg | Take 2 mg by mouth | | 0 | | | | oral tablet | once daily in the | | | | | | | evening. | | | | | + + + +---------+--------+ + | liraglutide | Inject 1.8 mg under | | 0 | | | | (VICTOZA 2-VANESSA) 0.6 | the skin (SUBC) once | | | | | | mg/0.1 mL (18 mg/3 | daily in the | | | | | | mL) subcutaneous pen | evening. | | | | | | injector | | | | | | + + + +---------+--------+ + | losartan potassium | Take 12.5 mg by | | 0 | | | | (LOSARTAN ORAL) | mouth once daily. | | | | | + + + +---------+--------+ + | Magnesium 250 mg | Take 250 mg by mouth | | 0 | | | | oral tablet | once daily. | | | | | + + + +---------+--------+ + | metFORMIN 1,000 mg | Take 1,000 mg by | | 0 | | | | Oral tablet | mouth two times | | | | | | | daily. | | | | | + + + +---------+--------+ + | PRASTERONE (DHEA) | Take 50 mg by mouth | | 0 | | | | (DHEA ORAL) | once daily. | | | | | + + + +---------+--------+ + | RIBOSE, BULK, MISC | 5 g four times daily | | 0 | | | | | as needed. | | | | | + + + +---------+--------+ + | testosterone | Inject into the | | 0 | | | | cypionate 200 mg/mL | muscle (IM). | | | | | | intramuscular oil | Received from: | | | | | | | [employer] | | | | | | | Systems Received | | | | | | | Sig: Inject 100 mg | | | | | | | into the muscle | | | | | | | every 28 days | | | | | + + [...] + + + | EMG/NERVE CONDUCTION | Routin | 06/27/2017 | Weakness of both | Results for this | | STUDIES,ADULT - | e | 12:00 AM | lower extremities | procedure are in the | | NEUROLOGY | | PST | | results section. | + +--------+ + + + documented in this encounter Results EMG/NERVE CONDUCTION STUDIES,ADULT - NEUROLOGY (06/27/2017 12:00 AM PST) + + + | Impressions | Performed At | + + + | Patient Name: Andrea Kumar Date of : 1950 Medical | [facility], | | Record Number: [id number] Date of Test: 06/27/2017 Place of | POINT OF CARE | | Service: [facility] ([phone] Department: [id number] [facility] Nerve | TESTS | | Conduction Studies/Electromyography Patient History 66 year | | | old man with a past medical history of myoadenylate deaminase | | | deficiency, diabetic peripheral neuropathy, L3-5 decompressive | | | laminectomy with chronic L5 radiculopathy, and left carpal tunnel | | | syndrome status post release who presents regarding worsening of his | | | distal lower limb weakness and muscle atrophy. EMG to re-evaluate his | | | peripheral neuropathy and assess for lumbosacral radiculopathy. | | | Summary Nerve conduction studies showed: 1. Right median-APB CMAP | | | had normal amplitude, prolonged distal latency and mild slowing of the | | | conduction velocity. 2. Right ulnar-ADM CMAP had normal amplitude, | | | distal latency and conduction velocity. 3. Right peroneal-EDB CMAP | | | was absent. 4. Right tibial-AH CMAP was absent. 5. Right | | | peroneal-TA CMAP had low amplitude, normal distal latency, and normal | | | conduction velocity. 6. Right median-DII SNAP had low amplitude and | | | prolonged peak latency. 7. Right ulnar-DV SNAP had low amplitude and | | | normal peak latency. 8. Right sural SNAP was absent. 9. Right | | | radial-snuff box SNAP had low amplitude and normal peak latency. | | | Needle EMG: Needle examination of selected muscles in the right lower | | | limb, left lower limb, and right upper limb was performed. Abnormal | | | spontaneous activity in the form of fibrillation potentials and | | | positive sharp waves were seen in distal right lower limb muscles. | | | There was reduced recruitment of large amplitude, long duration | | | motor unit potentials in distal right lower limb muscles as well as | | | bilateral L5-S1 innervated muscles. Conclusion This is an | | | abnormal study. There is electrophysiological evidence of: 1) a | | | severe, length-dependent, sensorimotor, predominantly axonal | | | peripheral neuropathy, 2) moderate, chronic, bilateral L5-S1 | | | radiculopathies, and 3) moderate right median neuropathy at the wrist | | | (carpal tunnel syndrome). Compared to his previous study performed on | | | 08/08/2012, his peripheral neuropathy and chronic left L5 | | | radiculopathy have mildly worsened. There has been interval | | | development of chronic left S1 and right L5-S1 radiculopathies. | | | Clinical correlation is recommended. Bailey Porter MD | | | Suggested Modifier: None Suggested CPT: 06139 9-10 Nerve Conduction | | | studies 26712 EMG -Each Extremity, Limited (<4 Muscles) w/NCS, qty 2, | | | modifier: XS 04434 EMG -Each Extremity, Completed (>5 Muscles) | | | w/NCS, qty 1 Suggested Dx: G56.01 Carpal Tunnel Syndrome of Right | | | Wrist E13.42/G62.9 Diabetic Peripheral Neuropathy M54.16 Lumbar | | | Region Radiculopathy | | + + + + + + | Narrative | Performed At | + + + | | | + + + + + + + + | Performing | Address | City/State/Zipcode | Phone Number | | Organization | | | | + + + + + | [facility] | [address] | [place] [address] | | | OF CARE TESTS | | | | + + + + + documented in this encounter Visit Diagnoses + + | Diagnosis | + + | 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
--- OUTSIDE RECORDS SUMMARY | ~2020-03-15 | XMS | Encounter Summary ---
Demographics + + + | Address | [address] | | | [place] [address] | + + + | Home Phone | | + + + | Preferred Language | Unknown | + + + | Marital Status | | + + + | Hoahaoism Affiliation | [id number] | + + + | Race | Unknown | + + + | Ethnic Group | Unknown | + + + Author + + + | Author | [facility] | | | and [place] | + + + | Organization | [facility] | | | and [place] [...] Team Providers + +------+ + | Care High School Sports Coach Name | Role | Phone | + +------+ + PCP | Unavailable | + +------+ + Encounter Details +--------+ + + + + | Date | Type | Department | Care Team | Description | +--------+ + + + + | 09/08/ | Hospital | [facility] | Nathaniel Winn | | | 2009 | Encounter | MED CTR XRAY [address] | | | | | [place] | [place] | | | | | [place] [address] | [address] | | | | | [phone] | | | +--------+ + + + [...]
--- OUTSIDE RECORDS SUMMARY | ~2020-03-15 | XMS | Encounter Summary ---
Demographics + + + | Address | [address] | | | [place] [address] | + + + | Home Phone | | + + + | Preferred Language | Unknown | + + + | Marital Status | | + + + | Druze Affiliation | Unknown | + + + | Race | White | + + + | Ethnic Group | Other Race | + + + Author + + + | Author | [facility] | + + + | Organization | [facility] | + + + | Address | Unknown | + + + | Phone | Unavailable | + + + Support + + + + + | Name | Relationship | Address | Phone | + + + + + | Esthela Kumar | ECON | [address] | | | | | [place] | | | | | [address] | | + + + + + Care Team Providers + +------+ + | Care Dock Coordinator Name | Role | Phone | + [...] | | | | | Procedures | [place], [place] | Health and | | | | | EMG/NERVE | [address] | Healing, | | | | | CONDUCTION | Phone: | Building [address], | | | | | ,ADUL | [phone] | 8th Floor | | | | | T - | Fax: | [place], [place] | | | | | NEUROLOGY | [phone] | [address] | | | | | | | Phone: | | | | | | | [phone] | | | | | | | Fax: | | | | | | | [phone] | +--------+--------+ + + + + Encounter Details +--------+ + + + + | Date | Type | Department | Care Team | Description | +--------+ + + + + | 04/27/ | Telephone | Neurology at | Brian, | | | 2016 | | [facility] & | Sussy Manuel MD [address] | | | | | Healing [address] | [address] | | | | | [facility] for | [facility] [place] | | | | | Health and Healing, | [address] | | | | | Building , | [phone] | | | | | Floor [place], [place] | | | | | | [address] | | | | | | [phone] | | | +--------+ + + + [...]
--- OUTSIDE RECORDS SUMMARY | ~2020-03-15 | XMS | Encounter Summary ---
Demographics + + + | Address | [address] | | | [place] [address] | + + + | Home Phone | | + + + | Preferred Language | Unknown | + + + | Marital Status | | + + + | Yazdanism Affiliation | Unknown | + + + | Race | White | + + + | Ethnic Group | Other Race | + + + Author + + + | Author | [facility] | + + + | Organization | [facility] | + + + | Address | Unknown | + + + | Phone | Unavailable | + + + Support + + + + + | Name | Relationship | Address | Phone | + + + + + | Esthela Kumar | ECON | [address] | | | | | [place] | | | | | [address] | | + + + + + Care Team Providers + +------+ + | Care Blood Bank Technologist Name | Role | Phone | + +------+ + | Lázaro Oviedo MD | PCP | | + +------+ + Encounter Details +--------+ + + + + | Date | Type | Department | Care Team | Description | +--------+ + + + + | 06/06/ | Ancillary | Registration [address] | | | | 2005 | Registratio | [address] | | | | | n | [address] Mailcode: [id number] | | | | | | [place], [place] | | | | | | [address] | | | | | | [phone] | | | +--------+ + + + [...]
--- OUTSIDE RECORDS SUMMARY | ~2020-03-15 | XMS | Encounter Summary ---
Demographics + + + | Address | [address] | | | [place] [address] | + + + | Home Phone | | + + + | Preferred Language | Unknown | + + + | Marital Status | | + + + | Voodoo Affiliation | Unknown | + + + | Race | White | + + + | Ethnic Group | Other Race | + + + Author + + + | Author | [facility] | + + + | Organization | [facility] | + + + | Address | Unknown | + + + | Phone | Unavailable | + + + Support + + + + + | Name | Relationship | Address | Phone | + + + + + | Esthela Kumar | ECON | [address] | | | | | [place] | | | | | [address] | | + + + + + Care Team Providers + +------+ + | Care Calculus Tutor Name | Role | Phone | + +------+ + | Alan Sainz MD | PCP | | + +------+ + Encounter Details +--------+ + + + + | Date | Type | Department | Care Team | Description | +--------+ + + + + | 04/19/ | Abstract | Neurology at | Brian, | | | 2017 | | [place] [facility] & | Sussy Manuel MD [address] | | | | | Healing [address] | [address] Huang | | | | | [facility] [place] for | [place], [place] | | | | | Health and Healing, | [address] | | | | | | [phone] | | | | | Floor [place], [place] | | | | | | [address] | | | | | | [phone] | | | +--------+ + + + [...] + documented as of this encounter Progress Real Márquez MA - 04/19/2017 10:13 AM PDTPt's called for results of MRI done at [facility]. Called to request records which have been uploaded to media tab and images have been pushed to [employer]. Please advise. Electronically signed by Real Reza MA at 017 5:30 AM PDTdocumented in this encounter Plan of Treatment Not on filedocumented as of this encounter Visit Diagnoses Not on filedocumented in this encounter"
--- OUTSIDE RECORDS SUMMARY | ~2020-03-15 | XMS | Encounter Summary ---
Demographics + + + | Address | [address] | | | [place] [address] | + + + | Home Phone [...] + + + | Author | [facility] | + + + | Organization | [facility] | + + + | Address | Unknown | + + + | Phone | Unavailable | + + + Support + + + + + | Name | Relationship | Address | Phone | + + + + + | Esthela Kumar | ECON | [address] | | | | | [place] | | | | | [address] | | + + + + + Care Team Providers + +------+ + | Care Inspector Line Name | Role | Phone | + +------+ + | Alan Sainz MD | PCP | | + +------+ + Encounter Details +--------+ + + + + | Date | Type | Department | Care Team | Description | +--------+ + + + + | 11/23/ | Hospital | Dermatopathology | | | | 2017 | Encounter | [address] | | | | | | Mailcode: [id number] | | | | | | [facility] | | | | | | and Healing, | | | | | | Building | | | | | | Floor [place], [place] | | | | | | [address] | | | | | | [phone] | | | +--------+ + + + [...] + | DERM PATHOLOGY | Routin | 11/23/2016 | Basal cell | Results for this | | | e | | carcinoma of skin of | procedure are in the | | | | | other parts of face | results section. | | | | | Other benign | | | | | | neoplasm of skin of | | | | | | scalp and neck | | | | | | Melanocytic nevi of | | | | | | trunk | | + +--------+ + + + documented in this encounter Results DERM PATHOLOGY (11/23/2016) + + + + + + | Component | Value | Ref Range | Performed | Pathologist | | | | | At | Signature | + + + + + + | DERMATOPATH | SOURCE OF SPECIMEN:A Lt. | | [facility] | | | OLOGY(WET | lateral cheek, shave | | DERMATOPATH | | | MNT) | biopsySOURCE OF | | OLOGY | | | | SPECIMEN:B Lt. lateral | | | | | | neck, shave biopsySOURCE | | | | | | OF SPECIMEN:C Lt. lower | | | | | | lateral back, shave | | | | | | biopsy CLINICAL | | | | | | DESCRIPTION:A: 1.25 x | | | | | | 1.1 cm eryth | | | | | | semi-translucent | | | | | | centrally ulcerated | | | | | | papule; r/o SCCvs. | | | | | | BCC.B: 5 x 5 mm | | | | | | erythematous semi-firm | | | | | | papule; r/o bcc.C: 4 x | | | | | | 3.5 mm dark brown | | | | | | asymmetrical macule; r/o | | | | | | atypical nevus. | | | | | | GROSS | | | | | | DESCRIPTION:Received in | | | | | | formalin are three | | | | | | specimens labeled Kumar, | | | | | | Andrea:A: Specimen is | | | | | | labeled "A | | | | | | | | | | | | L lateral cheek" and | | | | | | consists of an | | | | | | irregularshave of scaly | | | | | | papular | | | | | | ficgo-ktnr-vpg-brown | | | | | | skin, [id number]. The | | | | | | surgicalmargin is inked | | | | | | black; the tissue is | | | | | | quadrisected, and | | | | | | entirely submittedin | | | | | | cassette A1.B: Specimen | | | | | | is labeled "B | | | | | | | | | | | | L lateral neck" and | | | | | | consists of an | | | | | | irregularshave of | | | | | | castano-brown skin, | | | | | | [id number]. The surgical | | | | | | margin is inked black; | | | | | | thetissue is bisected, | | | | | | and entirely submitted | | | | | | in cassette B1.C: | | | | | | Specimen is labeled "C | | | | | | | | | | | | | | | | | | L lower lateral back" | | | | | | and consists of | | | | | | anirregular shave of | | | | | | patchy bnqyu-ljv-wvfwz | | | | | | skin, [id number]. The | | | | | | surgicalmargin is inked | | | | | | black; the tissue is | | | | | | bisected, and entirely | | | | | | submitted incassette C1. | | | | | | MICROSCOPIC | | | | | | DESCRIPTION:A: There are | | | | | | aggregates of basaloid | | | | | | cells attached to the | | | | | | base of theepidermis and | | | | | | in the dermis, with | | | | | | areas of peripheral | | | | | | nuclear | | | | | | palisading,retraction | | | | | | artifact and fibromyxoid | | | | | | stroma. Some of the | | | | | | aggregates are inlinear | | | | | | arrangement between | | | | | | thickened collagen | | | | | | bundles.B: There is the | | | | | | upper portion of an | | | | | | apparent nodular | | | | | | aggregate ofepithelial | | | | | | cells with uniform round | | | | | | to oval nuclei, scant | | | | | | eosinophiliccytoplasm, | | | | | | and focal ductal | | | | | | structures. Lesional | | | | | | cells are positive | | | | | | forp63.C: There is a | | | | | | small, symmetrical and | | | | | | well circumscribed | | | | | | melanocyticneoplasm | | | | | | characterized by small | | | | | | nests and single | | | | | | melanocytes along | | | | | | thebasal layer of | | | | | | hyperplastic and | | | | | | hyperpigmented rete | | | | | | ridges and in themildly | | | | | | thickened and slightly | | | | | | inflamed papillary | | | | | | dermis. The | | | | | | melanocytesare | | | | | | highlighted with | | | | | | Melan-A. | | | | | | DIAGNOSIS:A: BASAL CELL | | | | | | CARCINOMA, NODULAR AND | | | | | | FIBROSING / MORPHEIC | | | | | | PATTERN.(LEFT LATERAL | | | | | | CHEEK) NOTE: Basal | | | | | | cell carcinoma is | | | | | | present at the deep | | | | | | biopsy margin. 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 | | | | | | C: | | | | | | MELANOCYTIC NEVUS, | | | | | | COMPOUND TYPE.(LEFT | | | | | | LOWER LATERAL BACK) | | | | | | NOTE: The | | | | | | lentiginous-pattern | | | | | | nevus appears narrowly | | | | | | excised in | | | | | | thesesections. My | | | | | | [...] Diagnostician: | | | | | | Marilyn Echavarria | | | | | | Fawn | | | | | | MDPathologistElectronica | | | | | | lly Signed 11/29/2016 | | | | | | 12:36PM | | | | + + + [...] + + + + | [facility] | [address] | [place] [address] | | | DERMATOPATHOLOGY | [address] | | | + + + + + documented in this encounter Visit Diagnoses + + | Diagnosis | + + | Basal cell carcinoma of skin of other parts of face | + + | Other benign neoplasm of skin of scalp and neck | + + | Melanocytic nevi of trunk Benign neoplasm of skin of trunk, except scrotum | + + documented in this encounter
--- OUTSIDE RECORDS SUMMARY | ~2020-03-15 | XMS | Encounter Summary ---
Demographics + + + | Address | [address] | | | [place] [address] | + + + | Home Phone | | + + + | Preferred Language | Unknown | + + + | Marital Status | | + + + | Latter Day Affiliation | 1073 | + + + | Race | Unknown | + + + | Ethnic Group | Unknown | + + + Author + + + | Author | [facility] | | | and [place] | + + + | Organization | [facility] | | | and [place] | [...] Team Providers + +------+ + | Care Cosmetics Counter Manager Name | Role | Phone | + +------+ + PCP | Unavailable | + +------+ + Encounter Details +--------+ + + + + | Date | Type | Department | Care Team | Description | +--------+ + + + + | 07/21/ | Hospital | [facility] GENERIC IP | Conversion | Pain | | 2017 | Encounter | CONVERSION DEP [address] | Transaction, | | | | | [address] | Provider Unknown | | | | | [place] | | | | | | [address] | (Fax) | | | | | [phone] | | | +--------+ + + + [...] at Time of Discharge + + + +---------+ + + | Medication | Sig | Dispensed | Refills | Start | End Date | | | | | | Date | | + + + +---------+ + + | ascorbic acid | Take 1,000 mg by | | 0 | 06/21/20 | | | (VITAMIN C) 1000 MG | mouth daily. | | | 17 | | | tablet | | | | | | + + + +---------+ + + | B COMPLEX-C PO | Take by mouth | | 0 | 04/18/20 | | | | daily. | | | 16 | | + + + +---------+ + + | Coenzyme Q10 | Take 200 mg by mouth | | 0 | 04/18/20 | | | (COQ10) 200 MG CAPS | daily. | | | 16 | | + + + +---------+ + + | DHEA 50 MG TABS | Take 50 mg by mouth | | 0 | 04/18/20 | | | | daily. | | | 16 | | + + + +---------+ + + | liraglutide | Inject 1.8 mg into | | 0 | 04/18/20 | | | (VICTOZA) 18 mg/3 mL | the skin daily. | | | 16 | | | injection | | | | | | + + + +---------+ + + | magnesium, as | Take 250 mg by mouth | | 0 | 04/18/20 | | | oxide, 250 MG tablet | daily. | | | 16 | | + + + +---------+ + + | MANUAL SELECTION | Creatinine | | 0 | 04/18/20 | | | NEEDED - UNABLE TO | Monohydate daily | | | 16 | | | FIND | | | | | | + + + +---------+ + + | MANUAL SELECTION | Ribose 100% powder | | 0 | 04/18/20 | | | NEEDED - UNABLE TO | QID | | | 16 | | | FIND | | | | | | + + + +---------+ + + | metFORMIN | Take 2,000 mg by | | 0 | 04/18/20 | | | (GLUCOPHAGE) 1000 MG | mouth daily. | | | 16 | | | tablet | | | | | | + + + +---------+ + + | sildenafil | Take 25 mg by mouth | | 0 | 06/21/20 | | | (VIAGRA) 25 MG | as needed for | | | 17 | | | tablet | Erectile | | | | | | | Dysfunction. | | | | | + + + +---------+ + + | testosterone | Inject 200 mg into | | 0 | 04/18/20 | | | cypionate | the muscle every 28 | | | 16 | | | (DEPO-TESTOSTERONE) | days. | | | | | | 200 mg/mL injection | | | | | | + + + +---------+ + + | aspirin 81 MG EC | Take 81 mg by mouth | | 0 | 04/18/20 | | | tablet | daily with | | | 16 | 9 | | | breakfast. | | | | | + + + +---------+ + + | glimepiride | Take 4 mg by mouth 2 | | 0 | 04/18/20 | | | (AMARYL) 4 mg tablet | (two) times daily. | | | 16 | 9 | + + + +---------+ + + | losartan (COZAAR) | Take 12.5 mg by | | 0 | 05/19/20 | | | 25 mg tablet | mouth daily. | | | 16 | 9 | + + + +---------+ + + | [place]-3 Fatty | Take 1,200 mg by | | 0 | 04/18/20 | | | Acids (FISH OIL) | mouth 2 (two) times | | | 16 | 9 | | 1200 MG CAPS | daily. | | | | | + + + +---------+ + + | Vitamin Mixture | Take 1,000 mg by | | 0 | 04/18/20 | | | (SONIA-C PO) | mouth daily. | | | 16 | 9 | + + + +---------+ + + documented as of this encounter Plan of Treatment Not on filedocumented as of this encounter Procedures + +--------+ + + + | Procedure Name | Priori | Date/Time | Associated Diagnosis | Comments | | | ty | | | | + +--------+ + + + | MRI LUMBAR SPINE WO | Routin | 04/04/2017 | | Results for this | | CONTRAST | e | 2:45 AM | | procedure are in the | | | | PDT | | results section. | + +--------+ + + + documented in this encounter Results MRI Lumbar Spine wo Contrast (04/04/2017 2:45 AM PDT) + + | Specimen | + + | | + + + + + | Narrative | Performed At | + + + | This is a non-reportable procedure without a radiologist report and | | | is used for image storage only | | + + + + + | Procedure Note | + + | Sonny Phillips Marshall - 04/04/2019 4:26 AM PDT This is a non-reportable procedure | | without a radiologist report and isused for image storage only | + + documented in this encounter Visit Diagnoses + + | Diagnosis | + + | Pain Generalized pain | + + documented in this encounter"
--- OUTSIDE RECORDS SUMMARY | ~2020-03-15 | XMS | Encounter Summary ---
Demographics + + + | Address | [address] | | | [place] [address] | + + + | Home Phone [...] + + + | Author | [facility] | + + + | Organization | [facility] | + + + | Address | Unknown | + + + | Phone | Unavailable | + + + Support + + + + + | Name | Relationship | Address | Phone | + + + + + | Esthela Kumar | ECON | [address] | | | | | [place] | | | | | [address] | | + + + + + Care Team Providers + +------+ + | Care Records Management Director Name | Role | Phone | [...] Peripheral | MD Sherlyn | [facility] [address] | | | | gy | neuropathy | [address] | [address] | | | | | Procedures | Ave | Center for | | | | | EMG/NERVE | [place], [place] | Health and | | | | | CONDUCTION | [address] | Healing, | | | | | STUDIES,ADUL | Phone: | Building 1, | | | | | T - | [phone] | 8th Floor | | | | | NEUROLOGY | Fax: | [place], [place] | | | | | | [phone] | [address] | | | | | | | Phone: | | | | | | | [phone] | | | | | | | Fax: | | | | | | | [phone] | +--------+--------+ + + + + Encounter Details +--------+ + + + + | Date | Type | Department | Care Team | Description | +--------+ + + + + | 08/08/ | Hospital | Neurophysiology | Sherlyn Lazcano MD | | | 2011 | Encounter | EMG at [facility] [address] | [address] | | | | | [address] [facility] for | [place] [address] | | | | | Health and Healing, | [phone] | | | | | Building | | | | | | Floor [place], [place] | [address]genis Krishna | | | | | [address] | [address] | | | | | [phone] | [address] [place], | | | | | | [place] [address] | | | | | | [address] | | | | | | [place], [place] | | | | | | [address] | | | | | | [phone] | | +--------+ + + + + [...] | Procedure Note | + + | Josue Giles - 08/13/2012 2:01 PM PST | + + documented in this encounter Visit Diagnoses Not on filedocumented in this encounter"
--- OUTSIDE RECORDS SUMMARY | ~2020-03-15 | XMS | Encounter Summary ---
Demographics + + + | Address | [address] | | | [place] [address] | + + + | Home Phone | | + + + | Preferred Language | Unknown | + + + | Marital Status | | + + + | Denominational Affiliation | Unknown | + + + | Race | White | + + + | Ethnic Group | Other Race | + + + Author + + + | Organization | Unknown | + + + | Address | Unknown | + + + | Phone | Unavailable | + + + Support + + + + + | Name | Relationship | Address | Phone | + + + + + | Esthela Kumar | ECON | [address] | | | | | [place] | | | | | [address] | | + + + + + Care Team Providers + +------+ + | Care Web Press Operator Assistant Name | Role | Phone | + +------+ + | Alan Sainz MD | PCP | | + +------+ + Encounter Details +--------+ + + + + | Date | Type | Department | Care Team | Description | +--------+ + + + + | 02/03/ | Office | | Note, Outpatient | Progress Note | | 2006 | Visit-Trans | | Clinic | | | | cribed | | | | +--------+ + + + [...] as of this encounter Progress Notes Interface, Medicare Contact Specialist In - 03/02/2006 2:03 AM PDT [id number] JOSÉ Cabrera [id number] Clinic Date: 02/03/2006 Clinic: Procedure Note Procedure: Left biceps brachii muscle biopsy. Preoperative Diagnosis: Myopathy. Postoperative Diagnosis: Myopathy. Surgeon: Dr. Maximilian De La Garza. Diesel Engine Mechanic : None. Anesthesia: Lidocaine 1% without epinephrine 4 cc subcutaneously. Estimated Blood Loss: Nil. Complications: None. Description of Procedure: After obtaining informed consent, the patient was prepared in the usual sterile manner, 4 cc of lidocaine 1% was injected into the skin over the belly of the left biceps brachii muscle, a 4-cm incision was made with a 15-blade scalpel. A blunt dissection was performed, and the muscle fascia was identified. The muscle fascia was sectioned and the muscle tissue was identified. Five biopsy specimens were taken and sent to the Department of Pathology for analysis. The fascia was closed with 3-0 Polysorb. A subcutaneous suture was placed also with 3-0 Polysorb, Steri-Strips, and a sterile dressing were applied. The patient tolerated the procedure well and there were no complications. A take-home care sheet was given and a followup appointment scheduled. Maximilian De La Garza M.D. [facility] / [id number] / [id number] / [id number] / [id number] Electronically signed by Maximilian De La Garza 03-01-2006 10:28:09 AM documented i n this encounter Plan of Treatment Not on filedocumented as of this encounter Visit Diagnoses Not on filedocumented in this encounter"
--- OUTSIDE RECORDS SUMMARY | ~2020-03-15 | XMS | Encounter Summary ---
Demographics + + + | Address | [address] | | | [place] [address] | + + + | Home Phone | | + + + | Preferred Language | Unknown | + + + | Marital Status | | + + + | Taoist Affiliation | Unknown | + + + [...] + | Esthela Kumar | ECON | [address] | | | | | [place] | | | | | [address] | | + + + + + Care Team Providers + +------+ + | Care Technician Preventative Medicine Name | Role | Phone | + +------+ + | Alan Sainz MD | PCP | | + +------+ + Encounter Details +--------+ + + + + | Date | Type | Department | Care Team | Description | +--------+ + + + + | 07/10/ | Telephone | Neurology at | Brian, | | | 2017 | | [facility] & | Sussy Manuel MD [address] | | | | Healing [address] | [address] | | | | | [place] for | [place], [place] | | | | | Health and Healing, | [address] | | | | | | [phone] | | | | | Floor [place], [place] | | | | | | [address] | | | | | | [phone] | | | +--------+ + + + [...]
--- OUTSIDE RECORDS SUMMARY | ~2020-03-15 | XMS | Encounter Summary ---
Demographics + + + | Address | [address] | | | [place] [address] | + + + | Home Phone | | + + + | Preferred Language | Unknown | + + + | Marital Status | | + + + | Catholic Affiliation | Unknown | + + + | Race | White | + + + | Ethnic Group | Other Race | + + + Author + + + | Author | [facility] | + + + | Organization | [facility] | + + + | Address | Unknown | + + + | Phone | Unavailable | + + + Support + + + + + | Name | Relationship | Address | Phone | + + + + + | Esthela Kumar | ECON | [address] | | | | | [place] | | | | | [address] | | + + + + + Care Team Providers + +------+ + | Care Angle Bender Name | Role | Phone | + +------+ + | Lázaro Oviedo MD | PCP | | + +------+ + Encounter Details +--------+ + + + + | Date | Type | Department | Care Team | Description | +--------+ + + + + | 03/20/ | Abstract | Neurology at | Natan Herrera | | | 2018 | | [facility] | MD Heber [address] | | | | | Healing [address] | e [place], [place] | | | | | [facility] | [address] | | | | | Health and Healing, | [phone] | | | | | | | | | | | [place], [place] | | | | | | [address] | | | | | | [phone] | | | +--------+ + + + [...]
--- OUTSIDE RECORDS SUMMARY | ~2020-03-15 | XMS | Encounter Summary ---
Demographics + + + | Address | [address] | | | [place] [address] | + + + | Home Phone [...] + | Esthela Kumar | ECON | [address] | | | | | [place] | | | | | [address] | | + + + + + Care Team Providers + +------+ + | Care Travel Consultant Name | Role | Phone | + [...] Deaminase Deficiency | | | | at [facility] | | Myopathy (HCC) | | | | Health & Healing | | (Primary Dx) | | | | [address] | | | | | | [facility] | | | | | | and Healing, | | | | | | Building | | | | | | Floor [place], [place] | | | | | | [address] | | | | | | [phone] | | | +--------+---------+ + + + [...] note might be different from bj powell. [facility] [address] [place] [id number] or [email or web address] REFERRED FROM AND FAXED TO: ALAN SAINZ MD [facility] [address] [address] PRIMARY CARE PHYSICIAN: ALAN SAINZ MD [facility] [address] [place] [address] / [place]* [phone] REFERRED TO: [facility] Myopathy [facility] PATIENT:Kiersten Kumar INFORMANT: The patient [...] medical record and updated it in the [employer] system. PAST MEDICAL HISTORY: CONDITIONS: Past Medical [...] 3 Years of Education: 14 Occupational History [employer] Social History Main Topics Tobacco Use: Never [...] TONE: normal CEREBELLAR FUNCTION: Scanning Speech: Absent Qyibha-xn-Nuzrlf: Intact Tremor: Absent GAIT: Casual: mild steppage gait Investigations Preformed over the last 6 months include: Labs: Ancillary Registration on 06/23/2006 Component Date Value [facility] REF TEST NAME 07/17/2006 Myoadenylate Deaminase, Muscle Biopsy Collected 02/03/06 [facility] REF TEST RESULT 07/17/2006 Value: Myoadenylate deaminase 0.3 EU/mg Protein Low Interpretation: A reproducible deficiency was found in myoadenylate deaminase activity, confirming histochemical findings. 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
--- OUTSIDE RECORDS SUMMARY | ~2020-03-15 | XMS | Encounter Summary ---
Demographics + + + | Address | [address] | | | [place] [address] | + + + | Home Phone | | + + + | Preferred Language | Unknown | + + + | Marital Status | | + + + | Lutheran Affiliation | 1073 | + + + | Race | Unknown | + + + | Ethnic Group | Unknown | + + + Author + + + | Author | [facility] | | | and Faheemana | + + + | Organization | [facility] | | | and Faheemana | [...] Team Providers + +------+ + | Care Magazine Journalist Name | Role | Phone | + +------+ + | Lázaro Oviedo MD | PCP | | + +------+ + Reason for Visit Auth/Cert +--------+--------+ + + + + | Status | Reason | Specialty | Diagnoses / | Referred By | Referred To | | | | | Procedures | Contact | Contact | +--------+--------+ + + + + | | | | Diagnoses | | Spendlove, | | | | | Right | | Hebert Olivia, | | | | | nephrolithia | | MD Michelle EVANS | | | | | sis | | [place] | | | | | Procedures | | [place] | | | | | [place] | | [address] Phone: | | | | | CYSTO/URETER | | [phone] | | | | | O | | Fax: | | | | | W/LITHOTRIPS | | [phone] | | | | | Y &DAMARIS | | | | | | | STENT INSRT | | | | | | | CYSTOSCOPY | | | | | | | Right | | | | | | | URETEROSCOPY | | | | | | | W/ LASER | | | | | | | lithotripsy | | | | | | | and stent | | | +--------+--------+ + + + + Encounter Details +--------+ + + + + | Date | Type | Department | Care Team | Description | +--------+ + + + + | 06/26/ | Anesthesia | [facility] | Jonatan Castaneda | | | 2019 | Event | [facility] | MD Renae [address] | | | | | [address] | [address] [place] | | | | | [place] | [address] | | | | | [address] | [phone] | | | | | [phone] | | | +--------+ + + + + Anesthesia Record + + + + + | Procedure Name | Responsible | Anesthesia Start | Anesthesia Stop Time | | | Anesthesiologist | Time | | + + + + + | CYSTOSCOPY Right | Jonatan Castaneda, | 06/26/19 1534 | 06/26/19 1646 | | URETEROSCOPY W/ | MD | | | | LASER lithotripsy | | | | | and stent placment | | | | | (Right Ureter) | | | | + + + + + +----+---+ + + | Da | T | Event | Comment | | te | i | | | | | m | | | | | e | | | +----+---+ + + | 11 | 1 | An Checkout | Pre-use anesthesia machine/equipment checkout. | | /0 | 5 | | | | 6/ | 3 | | | | 20 | 0 | | | | 19 | | | | +----+---+ + + | | 1 | An Start | | | | 5 | Data | | | | 3 | | | | | 0 | | | +----+---+ + + | | 1 | An Start | Room ready, anesthesia equipment checked, essential drugs & | | | 5 | | equipment available. Patient Identity checked, anesthesia plan | | | 3 | | explained and consent obtained. Patient transported to OR, | | | 4 | | Monitors applied. Reassessment prior to anesthesia | | | | | induction/procedure. | +----+---+ + + | | 1 | | | | | 5 | | | | | 3 | | | | | 5 | | | +----+---+ + + | | 1 | an regina now | | | | 5 | | | | | 3 | | | | | 7 | | | +----+---+ + + | | 1 | AN | Per surgeon request | | | 5 | Antibiotic | | | | 3 | declined | | | | 8 | | | +----+---+ + + | | 1 | Preoxygenat | Oxygen administered, patient sedated, ventilating spontaneously. | | | 5 | ed | | | | 3 | | | | | 9 | | | +----+---+ + + | | 1 | An | | | | 5 | Induction | | | | 4 | | | | | 0 | | | +----+---+ + + | | 1 | An | Smooth IV induction, easy mask airway. LMA placed and well | | | 5 | Intubation | seated. Breathing Circuit attached to LMA. BSEB/ETCO2 | | | 4 | | (auscultation and capnography) and placement confirmed. | | | 1 | | | +----+---+ + + | | 1 | AN Bite | | | | 5 | Block | | | | 4 | | | | | 2 | | | +----+---+ + + | | 1 | Tok | | | | 5 | 43-degrees | | | | 4 | | | | | 3 | | | +----+---+ + + | | 1 | Pre-Procedu | | | | 5 | ral Timeout | | | | 5 | Completed | | | | 6 | | | +----+---+ + + | | 1 | First | | | | 5 | Inc/Proc St | | | | 5 | | | | | 8 | | | +----+---+ + + | | 1 | Tok off | | | | 6 | | | | | 3 | | | | | 8 | | | +----+---+ + + | | 1 | an regina now | PACU | | | 6 | | | | | 4 | | | | | 1 | | | +----+---+ + + | | 1 | an stop | | | | 6 | data | | | | 4 | | | | | 1 | | | +----+---+ + + | | 1 | An Stop | Patient handed off to recovery nurse. | | | 4 | | | | | 6 | | | +----+---+ + + +------+ | Meds | +------+ + + + | Name | Total | + + + | propofol | 180 mg | + + + | propofol | 222.5 mg | + + + | dexamethasone | 4 mg | + + + | ondansetron | 4 mg | + + + | LR (Infusion) | 1,200 mL | + + + + + | Name | + + | N2O Flow Rate (L/Min) | + + | O2 Flow Rate (L/Min) | + + | Insp O2 | + + | Exp SEV | + + | Air Flow Rate (L/Min) | + + + + | No blood administrations on file. | + + +--------+ + + + | Type | Details | Placement | Removal | +--------+ + + + | Periph | 06/26/19; 1436; Right; Hand; | 06/26/19 1436 by | 06/26/19 180 by | | eral | [id number] catheter system; | Alicia Landry RN | Garry Greene RN | | IV | 20 gauge, 1 1/2 in length; | | | | | Hematology; distraction, | | | | | tolerated well; performed by | | | | | Kacey CORNELL; 06/26/19; 1807 | | | +--------+ + + + | Airway | Placement Date: 06/26/19; | 06/26/19 154 by | 06/26/19 164 by | | | Placement Time: 154 (created via | Jonatan Castaneda, | Garry Greene RN | | | procedure documentation); Mask | MD | | | | Ventilation: EZ; Attempts: 1; | | | | | Airway Type: laryngeal mask; | | | | | Size: 5; Trauma: none; Placement | | | | | Check: exhaled CO2 detection | | | | | device, bilateral chest rise, | | | | | breath sounds equal bilaterally; | | | | | Removal: per protocol, removed by | | | | | ANETA; Removal Date: 06/26/19; | | | | | Removal Time: 1646; Additional | | | | | Comments: Smooth IV induction. | | | | | LMA placed and well seated. | | | | | Secured in place. Breathing | | | | | Circuit attached to LMA. | | | | | BSEB/ETCO2 (auscultation and | | | | | capnography) and placement | | | | | confirmed. | | | +--------+ + + + | Wound | 06/26/19; 1616; Incision; | 06/26/19 161 by | 06/26/191807 by | | | Bilateral; perineum; Healing; | Joseph Del Rosario RN | Garry Greene RN | | | 06/26/19; 1807 | | | +--------+ + + + documented in this encounter Social History + +-------+ +--------+------+ | Tobacco [...] Comments | + + +---------+ + | Yes | | | Maybe 1 beer every | | | | | 2-3 months | + + +---------+ + + + + + | Alcohol Habits | Answer | Date Recorded | + + + + | How often do you have a drink containing | Monthly or less | 06/25/2019 | | alcohol? | | | + + + + | How many drinks containing alcohol do you | Not asked | | | have on a typical day when you are | | | | drinking? | | | + + + + | How often do you have six or more drinks on | Not asked | | | one occasion? | | | + + + + + + + | Sex Assigned at | Date Recorded | | | | + + + | Not on file | | + + + documented as of this encounter [place] Notes Anesthesia Postprocedure Evaluation - Jonatan Castaneda MD - 06/26/2019 5:02 PM PSTForm atting of this note might be different from the original. ANESTHESIA POSTANESTHESIA EVALUATION Andrea Kumar 68 y.o. male 1950 [id number] Procedure(s) CYSTOSCOPY Right URETEROSCOPY W/ LASER lithotripsy and stent placment (Right Ureter) Cooperates? Yes Mental Status Performs simple tasks. Respiratory Satisfactory - Airway patent (self maintained). Cardiovascular Satisfactory - Blood pressure and heart rate acceptable Temperature Satisfactory Pain Satisfactory N/V Control Satisfactory Hydration Satisfactory - No signs of dehydration Vitals Value Taken Time Temp 36.8 C (98.2 F) 06/26/2019 16:45 Pulse 87 06/26/2019 17:01 Resp 16 06/26/2019 17:01 BP 133/74 06/26/2019 17:01 Arterial Line BP Arterial Line BP 2 SpO2 100 % 06/26/2019 17:01 Vitals shown include unvalidated device data. Electronically signed by Jonatan Castaneda MD 06/26/2019 17:02 [facility] nesthesia Procedure Notes - Jonatan Castaneda MD - 06/26/2019 3: 44 PM PSTAssociated Order(s): AirwayAnesthesia Airway Placement 06/26/2019 15:41 Preprocedure check: patient identified, oxygen, airway assessed, patient reassessment prior to induction, airway equipment checked and suction Rapid Sequence Induction: no Mask ventilation: easy Attempts: 1 Airway type: laryngeal mask Size: 5 Cuffed: cuffed Route, reference point: center of mouth Tube secured with: adhesive tape Trauma: none Tube placement verification: carbon dioxide detection, equal bilateral breath sounds and bi lateral chest rise Performing provider: Jonatan Castaneda MD Comments: Smooth IV induction. LMA placed and well seated. Secured in place. Breathing Circuit attached to LMA. BSEB/ETCO2 (auscultation and capnography) and placement confirmed. Please see intraoperative grid for any additional medication documentation. nesthesia Prepro cedure Evaluation - Jonatan Castaneda MD - 06/26/2019 3:03 PM PST ANESTHESIA PREANESTHESIA EVALUATION Andrea Kumar 68 y.o. male 1950 [id number] Procedure(s): CYSTOSCOPY Right URETEROSCOPY W/ LASER lithotripsy and stent (Right Ureter) Review of Systems / Med History Cardiovascular Exercise tolerance >4 METS (+) hypertension . Gastrointestinal/Hepatic (+) hypercholesterolemia. Endocrine (+) Diabetes: type 2. Physical Exam Airway MP II, TM >3 FB, Mouth opening >2 FB. Neck: full ROM, extends >30 degrees. Jaw protrus ion normal. CV Rhythm regular. Anesthesia Plan ASA: 2 Type: General. Induction: Intravenous. Potential problems: None anticipated, none anticipated. Monitors: Standard ASA monitors. Postop Pain Management: Consent statement: Anesthetic plan, alternatives, risks and benefits discussed with patient. Consenting person understands and agrees to proceed. Patient Active Problem List: Hyperlipidemia Diabetes mellitus type II, ORAL Control Myoadenylate deaminase deficiency myopathy Right nephrolithiasis Hypertension Diabetic peripheral neuropathy Foot drop, bilateral . Electronically Signed by: Jonatan Castaneda MD ESig date/time: 06/26/2019 15:03 documented in thi s encounter Miscellaneous Notes Anesthesia Post-op Handoff - Jonatan Castaneda MD - 06/26/2019 5:03 PM PST ANESTHESIA HANDOFF NOTE Andrea Kumar 68 y.o. male 1950 [id number] CYSTOSCOPY Right URETEROSCOPY W/ LASER lithotripsy and stent placment (Right Ureter) HANDOFF NOTE Handoff Protocol Used: post-procedure handoff checklist completed The following were completed during the transfer of care: 1. Identification of patient 2. Identification of responsible practitioner (primary service) 3. Discussion of pertinent medical history 4. Discussion of the surgical/procedure course (procedure, reason for surgery, procedure pe rformed) 5. Intraoperative anesthetic management and issues/concerns 6. Expectations/plans for the early post-procedure period 7. Opportunity for questions and acknowledgement of understanding of report from receiving team Patient Location: Phase I Condition: sedated Airway/O2: other (see comments) Multimodal analgesia: multimodal analgesia used between 6 hours prior to anesthesia start t o PACU discharge Comments: Supplemental Oxygen used as necessary to maintain Oxygen Saturation at or above 9 2% The significant anesthesia concerns and VS in Epic were reviewed with the receiving team. Jonatan Castaneda MD 06/26/2019 17:03 [facility] documented in this encounter Plan of Treatment Not on filedocumented as of this encounter Procedures + +--------+ + + + | Procedure Name | Priori | Date/Time | Associated Diagnosis | Comments | | | ty | | | | + +--------+ + + + | ANE AIRWAY NOTE | Routin | 06/26/2019 | | Results for this | | | e | 3:44 PM | | procedure are in the | | | | PST | | results section. | + +--------+ + + + documented in this encounter Results Airway (06/26/2019 3:44 PM PST) + + + | Narrative | Performed At | + + + | Jonatan Castaneda MD 06/26/2019 15:44 Anesthesia Airway | | | Placement 06/26/2019 15:41 Preprocedure check: patient identified, | | | oxygen, airway assessed, patient reassessment prior to induction, | | | airway equipment checked and suction Rapid Sequence Induction: no | | | Mask ventilation: easy Attempts: 1 Airway type: laryngeal mask | | | Size: 5 Cuffed: cuffed Route, reference point: center of mouth Tube | | | secured with: adhesive tape Trauma: none Tube placement | | | verification: carbon dioxide detection, equal bilateral breath | | | sounds and bilateral chest rise Performing provider: Jonatan Macdonald | | | MD Tonya Comments: Smooth IV induction. LMA placed and well | | | seated. Secured in place. Breathing Circuit attached to LMA. | | | BSEB/ETCO2 (auscultation and capnography) and placement confirmed. | | | Please see intraoperative grid for any additional medication | | | documentation. | | + + + + + | Procedure Note | + + | Jonatan Castaneda MD - 06/26/2019 3:44 PM PST Anesthesia Airway | | Tczszggyb38/6/2019 15:41Preprocedure check: patient identified, oxygen, airway assessed, | | patient reassessment prior to induction, airway equipment checked and suctionRapid | | Sequence Induction: noMask ventilation: easyAttempts: 1Airway type: laryngeal maskSize: | | 5Cuffed: cuffedRoute, reference point: center of mouthTube secured with: adhesive | | tapeTrauma: noneTube placement verification: carbon dioxide detection, equal bilateral | | breath sounds and bilateral chest risePerforming provider: Jonatan Castaneda, | | MDComments: Smooth IV induction.LMA placed and well seated. Secured in place.Breathing | | Circuit attached to LMA. BSEB/ETCO2 (auscultation and capnography) and placement | | confirmed.Please see intraoperative grid for any additional medication documentation. | |Route, reference point: center of mouth | |Tube secured with: adhesive tape | |Trauma: none | |Tube placement verification: carbon dioxide detection, equal bilateral breath sounds and bi lateral chest rise | |Performing provider: Jonatan Castaneda MD | | | |Comments: Smooth IV induction. | |LMA placed and well seated. Secured in place. | |Breathing Circuit attached to LMA. | |BSEB/ETCO2 (auscultation and capnography) and placement confirmed. | | | | | |Please see intraoperative grid for any additional medication documentation. | + + documented in this encounter Visit Diagnoses Not on filedocumented in this encounter Administered Medications + +--------+ +------+------+------+ | Medication Order | MAR | Action | Dose | Rate | Site | | | Action | Date | | | | + +--------+ +------+------+------+ | dexamethasone (PF) 10 mg/mL | Given | 06/26/20 | 4 mg | | | | injection Intravenous, PRN, | | 19 3:38 | | | | | Starting 06/26/19 at 1538, | | PM PST | | | | | Anesthesia Intra-op | | | | | | + +--------+ +------+------+------+ +---+---+ | | | +---+---+ + +---------+ +---+---+---+ | lactated ringers (LR) infusion | New Bag | 06/26/20 | | | | | Intravenous, CONTINUOUS PRN, | | 19 3:01 | | | | | Starting Mon06/26/19 at 1501, | | PM PST | | | | | Anesthesia Intra-op | | | | | | + +---------+ +---+---+---+ +---+---+ | | | +---+---+ + +-------+ +------+---+---+ | ondansetron (ZOFRAN) injection | Given | 06/26/20 | 4 mg | | | | PRN, Starting Mon06/26/19 at | | 19 3:38 | | | | | 1538, Anesthesia Intra-op | | PM PST | | | | + +-------+ +------+---+---+ +---+---+ | | | +---+---+ + +-------+ +--------+---+---+ | propofol (DIPRIVAN) injection | Given | 06/26/20 | 180 mg | | | | Intravenous, PRN, Starting Wed | | 19 3:40 | | | | | 06/26/19 at 1540, Anesthesia | | PM PST | | | | | Intra-op | | | | | | + +-------+ +--------+---+---+ +---+---+ | | | +---+---+ + + + + +-------+---+ | propofol (DIPRIVAN) injection | Rate/Dos | 06/26/20 | 100 | 53.4 | | | Intravenous, CONTINUOUS PRN, | e Change | 19 3:57 | mcg/kg/m | mL/hr | | | Starting 06/26/19 at 1545, | | PM PST | in | | | | Anesthesia Intra-op | | | | | | + + + + +-------+---+ +---------+ + +-------+---+ | New Bag | 06/26/20 | 50 | 26.7 | | | | 19 3:45 | mcg/kg/m | mL/hr | | | | PM PST | in | | | +---------+ + +-------+---+ +---+---+ | | | +---+---+ documented in this encounter"
--- OUTSIDE RECORDS SUMMARY | ~2020-03-15 | XMS | Encounter Summary ---
Demographics + + + | Address | [address] | | | [place] [address] | + + + | Home Phone [...] + + + | Author | [facility] | + + + | Organization | [facility] | + + + | Address | Unknown | + + + | Phone | Unavailable | + + + Support + + + + + | Name | Relationship | Address | Phone | + + + + + | Esthela Kumar | ECON | [address] | | | | | [place] | | | | | [address] | | + + + + + Care Team Providers + +------+ + | Care Switch Cleaner Name | Role | Phone | + +------+ + | Alan Sainz MD | PCP | | + +------+ + Encounter Details +--------+ + + + + | Date | Type | Department | Care Team | Description | +--------+ + + + + | 11/23/ | Hospital | Dermatopathology | | | | 2017 | Encounter | [address] | | | | | | Mailcode: [id number] | | | | | | [facility] | | | | | | and Healing, | | | | | | Building | | | | | | Floor [place], [place] | | | | | | [address] | | | | | | [phone] | | | +--------+ + + + [...] papular | | | | | | edlik-lzwt-nnk-brown | | | | | | skin, [id number]. The | | | | | | [...] skin, | | | | | | [id number]. The surgical | | | | | [...] | | | | | | patchy fykmn-lev-bqynz | | | | | | skin, [id number]. The | | | | | | [...] [facility] | [address] | [place] [address] | | | DERMATOPATHOLOGY | [address] [...]
--- OUTSIDE RECORDS SUMMARY | ~2020-03-15 | XMS | Encounter Summary ---
Demographics + + + | Address | [address] | | | [place] [address] | + + + | Home Phone | | + + + | Preferred Language | Unknown | + + + | Marital Status | | + + + | Advent Affiliation | Unknown | + + + | Race | White | + + + | Ethnic Group | Other Race | + + + Author + + + | Author | [facility] | + + + | Organization | [facility] | + + + | Address | Unknown | + + + | Phone | Unavailable | + + + Support + + + + + | Name | Relationship | Address | Phone | + + + + + | Esthela Kumar | ECON | [address] | | | | | [place] | | | | | [address] | | + + + + + Care Team Providers + +------+ + | Care Barrel Rifler Hook Name | Role | Phone | + +------+ + | Jovanny Sainz MD | PCP | | + +------+ + Reason for Visit + + + | Reason | Comments | + + + | Follow-up visit | muscle weakness, elevated CK | + + + Encounter Details +--------+---------+ + + + | Date | Type | Department | Care Team | Description | +--------+---------+ + + + | 05/24/ | Office | Neurology | Maximilian De La Garza, | Myoadenylate | | 2005 | Visit | [facility] | MD | Deaminase Deficiency | | | | [address] | | Myopathy (HCC); | | | | Loop Mailcode: | | Discoordination | | | | [facility] Outpatient | | | | | | Clinic Building | | | | | | [place], [place] | | | | | | [address] | | | | | | [phone] | | | +--------+---------+ + + + [...] + + + | Blood Pressure | 106/70 | 05/24/2006 12:23 PM | | | | | PDT | | + + + + + | Pulse | 84 | 05/24/2006 12:23 PM | | | | | PDT | | + + + + + | Temperature | - | - | | + + + + + | Respiratory Rate | - | - | | + + + + + | Oxygen Saturation | - | - | | + + + + + | Inhaled Oxygen | - | - | | | Concentration | | | | + + + + + | Weight | 122.2 kg (269 lb 8 | 05/24/2006 12:23 PM | | | | oz) | PDT | | + + + + + | Height | 185.4 cm (6' 1") | 05/24/2006 12:23 PM | | | | | PDT | | + + + + + | Body Mass Index | 35.56 | 05/24/2006 12:23 PM | | | | | PDT | | + + + + + documented in this encounter Patient Instructions Patient Instructions 05/24/2006 1:00 PM PDT 1. EKG/ECHO 2. MRI of the brain to assess discoordination 3. D-Ribose 2 grams 4 times daily for about 2 weeks and then increase to 5 grams 4 times d aily if tolerated. 4. Howell with [facility]. 5. Follow up in about 4-6 months documented in this encounter Progress Notes Maximilian De La Garza - 05/24/2006 1:18 PM PDTFormatting of this note might be different from t oscar powell. [facility] [address] [place] [id number] or [email or web address] REFERRED FROM AND FAXED TO: JOVANNY SAINZ MD [facility] [address] [place] [address] PRIMARY CARE PHYSICIAN: JOVANNY SAINZ MD, MD [facility] [address] [place] [address] / [place]* [phone] REFERRED TO: [facility] Myopathy Clinic PATIENT:Andrea Kumar INFORMANT: The patient is accompanied by his . DATE OF VISIT:05/24/2006 REASON FOR VISIT: Follow-up visit HISTORY OF PRESENT ILLNESS: Andrea Kumar is a 55 y.o. Right handed male here for follow-up of moderate weakness th at began gradual, and is same. he was seen in this clinic 3 months ago. Mr. Kumar seems to be weaker distally. He has no element of exertional fatigue. He has no trouble with chewing, swallowing or speaking. He has muscle cramps. He has weakness in the upper extremities. He has weakness in the lower extremities. He has noticed changes in muscle mass. He has trouble walking. He has not fallen Mr. Kumar has pa in in the feet. Additionally since the last visit He went deer hunting this last weekend and he had some st umbling. He started the Coenzyme Q and creatine and has less burning in the muscles in the l egs. He stumbles around more than he used to. If he gets up too quickly he stumbles. I have read the patient's medical record and updated it in the [facility] system. PAST MEDICAL HISTORY: CONDITIONS: Past Medical History: FEMUR FRACTURE BACK PAIN HYPERCHOLESTEROLEMIA SURGERIES/ HOSPITALIZATIONS: Past Surgical History: HX LUMBAR LAMINECTOMY 1985, 2000 carpal tunnel left 2005 orif femur 1972 left knee surgery [place] DEEP MUSCLE BIOPSY MEDICATIONS: Current outpatient prescriptions: COQ10 SG 100 100 MG-100 UNIT CAP, 300mg daily, Disp: , R fl: CREATINE MONOHYDRATE ORAL POWDER, 5g daily, Disp: [...] ALEVE OR, prn, Disp: , Rfl: ALLERGIES: Allergies: Demerol (meperidine* Nausea/Vomiting FAMILY HISTORY: Past Medical History: FEMUR FRACTURE BACK PAIN HYPERCHOLESTEROLEMIA SOCIAL HISTORY: Social History Marital Status: Spouse Name: Esthela Years of Education: 14 Number of Children: 3 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 [employer] Social History Main Topics Tobacco Use: Never Alcohol Use: No Drug Use: No Sexually Active: Yes Partners: Female Other Topics Concern No BLOOD TRANSFUSIONS No CAFFEINE No OCCUPATIONAL EXPOSURE No 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 SLEEP CONCERN Yes Comment: occasional STRESS CONCERN Yes Comment: work related WEIGHT CONCERN Yes Comment: Cant lose weight DIET No BACK CARE Yes EXERCISE Yes BIKE HELMET Yes SEAT BELT Yes SELF EXAMS No Social History Narrative None on file Review of Systems: A complete review of systems was performed, including the following: Constitutional Eyes Ears, nose mouth, throat Cardiovascular Respiratory Gastrointestinal Genitourinary Musculoskeletal Skin Neurologic Psychiatric Hematologic or Lymphatic Allergic or immunologic The results were normal with the following exception: difficulty running, muscle cramps and fatigue EXAM: VITAL SIGNS: BP 106/70 | Pulse 84 | Ht 6' 1" (1.85m) | Wt 269 lbs 8.0 oz (122.2kg) GENERAL: The patient is pleasant, in no [...] intact, bilaterally IX,X - Uvula is midline, gag reflex is present and symmetric, palette elevates symmetricall y XI - Sternocleidomastoid and trapezius is normal [...] Left 5 5 5 5 4 5 5 5 Right 5 5 5 5 4 5 5 5 Neck extensor Neck flexor 5 5 Reflexes: Right side Left side Brachioradialis 1 1 Biceps tendon 1 1 Triceps 1 1 Patellar 1 1 Achilles 0 0 Babinski: absent absent Jaw Jerk Normal Serrano's Absent SENSORY EXAMINATION: Upper extremities Light touch: Intact and symmetric Pin prick: Intact and symmetric Temperature: Intact and symmetric Lower extremities Light touch: moderate distal loss Pin prick: moderate distal loss Temperature: moderate distal loss TONE: normal CEREBELLAR FUNCTION: Scanning Speech: Absent [id number]: Intact Tremor: Absent GAIT: Casual: Intact Heel: difficult Toe: difficult Tandem: off BALANCE: Romberg: positive Investigations Preformed over the last 6 months include: Labs: Appointment on 02/03/2006 SURGICAL PATHOLOGY Value: Date: 05/09/2006 Value: * THIS IS AN AMENDED REPORT * SOURCE OF SPECIMEN:A Muscle Biopsy, Myopathy SOURCE OF SPECIMEN:B Additional test requested on Final case Final Pathologic Diagnosis: This case is amended a third time in order to report the results of additional histochemical stains. The diagnosis is changed. Myophosph orylase and myoadenylate deaminase stains were performed. The myophosphoryl ase content is unremarkable. However, there is a marked depletion of myoadenylate deaminase. The final pathologic diagnosis is amended as shown below. This case is re-amended to report the results of a Dystrophin immunohistochemical panel performed at the request of the clinician. The diagnosis remains unchanged. This amendment is to report the results of additional histochemical studies. The diagnosis remains unchanged. 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 Clinical History: The patient is a 55-year-old man with a history of significant lumba r disease requiring surgery, neuropathy, and chronic creatinine kinase elevation who presents with a roughly five-year history of weakness. Gross Description: Received fresh and labeled "left biceps muscle" are multiple pieces of dark red, soft tissue, on dry gauze, on ice, measuring 2.0 x 0.7 x 0.5 cm . A portion of the tissue is snap frozen for biochemical studies, anothe r portion is frozen for histochemistry, and the rest is fixed in forma ldehyde and glutaraldehyde for permanent sections. Microscopic Description: Frozen and paraffin hematoxylin and eosin, trichrome, SDH, NADH, cyt ochrome oxidase, ATPase at 9.4 and 4.5 combined JORGE/SDH, congo red, acid phosphatase, alkaline phosphatase, NSE, MHC-1 were performed. Sections reveal no significant variation in myofiber size. No evide nce of inflammation, vasculitis, necrosis, myophagocytosis, vacuolation, granulomas are identified. Trichrome stain reveals no evidence of r agged red fibers, nemaline rods or rimmed vacuoles. SDH stain reveals unremarkable mitochondrial pattern with no ragged blue fibers. NADH stain reveals unremarkable intermyofibrillary network. No targets or targ etoids are identified. Cytochrome oxidase reveals no deficient fibers. AT Pase reveals a slight predominance of type 2 myofibers but no selective a trophy or type grouping. Combined JORGE/SDH stain reveals no pathological ch anges. Congo red is unremarkable for amyloid deposits. Lysosomal activity is unremarkable with acid phosphatase. Alkaline phosphatase reveals no evidence of regenerating fibers or diffuse connective tissue stainin g. Nonspecific esterase reveals no dark staining atrophic angular fiber s. Paraffin hematoxylin and eosin is also unremarkable for inflammation or vasculitis. Oil red O and PAS with diastase reveal no abnormal accumulations. Immunohistochemical staining with MHC-1 is negative on individual mu scle fibers. The frozen sections are stained with the currently available immunohistochemical panel for the dystrophy associated proteins. Immunoperoxidase stains for the following epitopes were performed: Spectrin control, Dystrophin (N terminal, C terminal, and chilango domain ), alpha-, beta-, delta-, and gamma- Sarcoglycans, beta-Dystroglycan, Utrophin, Merosin, Emerin, Caveolin-3, and Dysferlin. The Spectrin positive control shows membranous staining of both the control tissue and the patient's sample. The Utrophin reveals normal vascul ar staining. The stains for Dystrophin I, II, III, alpha-, beta-, gamm a-, and delta-Sarcoglycan, Caveolin-3, Merosin, and Dysferlin revealed blade l membranous staining. Emerin reveals normal nuclear staining. (Analyte specific reagents are used in many laboratory tests necessa ry for standard medical care and generally do not require FDA approval. Thi s test was developed and its performance characteristics determined by [employer]. It has not been cleared or approved by the U.S. Food a nd Drug Administration.) Electron Microscopy: Examination of the plastic-embedded sections wi light microscopy reveals no inflammation, subsarcolemmal deposits, inclusions, vacuoles or myofibrillary changes. Thin sectioning is no t pursued. Pre-amended Pathology Diagnosis: This case is re-amended to report the results of a Dystrophin immunohistochemical panel performed at the request of the clinician. The diagnosis remains unchanged. This amendment is to report the results of additional histochemical studies. The diagnosis remains unchanged. Muscle, left biceps, biopsy: -Skeletal muscle with no pathologic changes Case reviewed by: Cindi Avina M.D./Neuropathologist :sadaf / Revised 03/27/06 Original date signed out 02/09/06 by Cindi Avina M.D., Ph.D./Pathologist Rendering Diagnostician: Cindi Avina M.D. Pathologist PYRUVIC ACID, EXTRACT Value: See cmnt(mmol/L) Date: 12/09/2005 CRYOGLOBULIN SCREEN Date: 12/19/2005 Value: Not Detected at 7 days CRYOGLOBULIN PRELIM Date: 12/19/2005 Value: Not Detected at 72 hours HOMOCYSTEINE,PLASMA,TOTAL Value: 8.7(umol/L) Date: 12/13/2005 RESEARCH PHARMACIST AB Value: Negative Date: 12/09/2005 SM AB Value: Negative Date: 12/09/2005 SSA AB Value: Negative Date: 12/09/2005 SSB AB Value: Negative Date: 12/09/2005 SCL-70 Value: Negative Date: 12/09/2005 CENTROMERE AB, SATISH Value: Negative Date: 12/09/2005 CONSUELO-1 AB Value: Negative Date: 12/09/2005 LYME AB DETECTION-EIA Value: 0.34(GEO) Date: 12/11/2005 ROCÍO SCREEN ON HEP2 Value: Positive Date: 12/12/2005 RHEUMATOID FACTOR Value: < 20(IU/mL) Date: 12/08/2005 METHYLMALONIC ACID Value: < 0.1(umol/L) Date: 12/11/2005 HIV-1/HIV-2 AB SCRN Date: 12/16/2005 Value: Non-Reactive FORM SIGNED BY: Value: Cupler Date: 12/16/2005 ALBUMIN,SERUM Value: 4.47(g/dL) Date: 12/09/2005 ALPHA-1, SERUM Value: 0.13(g/dL) Date: 12/09/2005 ALPHA-2, SERUM Value: 0.64(g/dL) Date: 12/09/2005 BETA, SERUM Value: 0.88(g/dL) Date: 12/09/2005 GAMMA, SERUM Value: 0.88(g/dL) Date: 12/09/2005 ALBUMIN % Value: 63.8(%) Date: 12/09/2005 ALPHA-1 % Value: 1.8(%) Date: 12/09/2005 ALPHA-2 % Value: 9.2(%) Date: 12/09/2005 BETA % Value: 12.6(%) Date: 12/09/2005 GAMMA % Value: 12.6(%) Date: 12/09/2005 SPEP COMMENTS Value: Date: 12/09/2005 Value: Within usual limits. SPE REVIEWED BY: Value: Zhane Garcia Date: 12/09/2005 TSH Value: 1.40(uIU/ml) Date: 12/08/2005 RPR SRM QUAL Date: 12/09/2005 Value: Non-Reactive HEPATITIS C AB Value: Negative Date: 12/09/2005 WHITE CELL COUNT Value: 6.7(K/cu mm) Date: 12/08/2005 RED CELL COUNT Value: 4.56(M/cu mm) Date: 12/08/2005 HEMOGLOBIN Value: 13.7(g/dL) Date: 12/08/2005 HEMATOCRIT Value: 38.8(%)* Date: 12/08/2005 MCV Value: 85.2(fL) Date: 12/08/2005 MCHC Value: 35.2(g/dL) Date: 12/08/2005 RDW Value: 12.7(%) Date: 12/08/2005 PLATELET COUNT Value: 224(K/cu mm) Date: 12/08/2005 APTT Value: 31.7(seconds) Date: 12/08/2005 PROTHROMBIN TIME (INR) Value: 1.00(INR) Date: 12/08/2005 ORGANIC ACIDS,UR - GCUF5 Date: 12/13/2005 Value: The organic acid profile shows no abnormalities. INTERPRETATION - GCUF0 O* Value: Date: 12/13/2005 Value: No diagnostic findings. However, it should be noted that normal resultsdo not necessarily rule out a disorder of fatty acid or organ ic acid metabolism, especially if symptoms are intermittent and patient was notsymptomatic when the sample was collected. ACYLCARNITINE PROFILE,PL* Date: 12/27/2005 Value: See scanned report in [facility]. INTERPRETATION - REFERRA* Date: 12/27/2005 Value: Plasma acylcarnitine profile normal PHOSPHOSERINE PL - AAP Value: 9(umol/L) Date: 12/14/2005 TAURINE PLASMA Value: 59(umol/L) Date: 12/14/2005 THREONINE PLASMA Value: 82(umol/L) Date: 12/14/2005 SERINE PLASMA Value: 111(umol/L) Date: 12/14/2005 ASPARAGINE PLASMA Value: 56(umol/L) Date: 12/14/2005 GLUTAMIC ACID PLASMA - A* Value: 91(umol/L) Date: 12/14/2005 GLUTAMINE PLASMA Value: 627(umol/L)* Date: 12/14/2005 PROLINE PLASMA Value: 157(umol/L) Date: 12/14/2005 GLYCINE PLASMA Value: 301(umol/L) Date: 12/14/2005 ALANINE PLASMA Value: 506(umol/L) Date: 12/14/2005 CITRULLINE PLASMA - AAP Value: 31(umol/L) Date: 12/14/2005 A-AMINOBUTYRIC ACID P - * Value: 31(umol/L) Date: 12/14/2005 VALINE PLASMA Value: 301(umol/L) Date: 12/14/2005 CYSTINE PLASMA Value: 62(umol/L) Date: 12/14/2005 METHIONINE PLASMA Value: 24(umol/L) Date: 12/14/2005 ISOLEUCINE,PLASMA Value: 80(umol/L) Date: 12/14/[address] AAP Value: 152(umol/L) Date: 12/14/2005 TYROSINE PLASMA Value: 71(umol/L) Date: 12/14/2005 PHENYLALANINE PLASMA Value: 87(umol/L)* Date: 12/14/2005 ORNITHINE PLASMA Value: 99(umol/L) Date: 12/14/2005 LYSINE PLASMA Value: 205(umol/L) Date: 12/14/2005 1-METHYLHISTIDINE PLASMA Value: 13(umol/L) Date: 12/14/2005 HISTIDINE PLASMA Value: 76(umol/L) Date: 12/14/2005 3-METHYLHISTIDINE PLASMA Value: 4(umol/L)* Date: 12/14/2005 ARGININE PLASMA Value: 43(umol/L) Date: 12/14/2005 CYS-HCYS DISULFIDE PLASMA Value: < 2(umol/L) Date: 12/14/2005 INTERPRETATION PLASMA AM* Date: 12/14/2005 Value: No diagnostic findings. COPPER SERUM Value: 70(ug/dL) Date: 12/10/2005 VITAMIN E (ALPHA KELSEY), S* Value: 32.4(mg/L)* Date: 12/12/2005 VITAMIN E (ANTHONY KELSEY) SERUM Value: 2.2(mg/L) Date: 12/12/2005 VITAMIN B6 (LAB) Value: 20.5(ng/mL) Date: 12/12/2005 LEAD, BLOOD Value: 2.1(ug/dL) Date: 12/10/2005 VITAMIN B1, WHOLE BLOOD Value: 7.1(ug/dL)* Date: 12/12/2005 TOTAL PROTEIN, SERUM Value: 7.0(g/dL) Date: 12/08/2005 ROCÍO PATTERN Value: Date: 12/14/2005 Value: Pattern: homogeneous Titer: 1:80 Ancillary Registration on 12/08/2005 CK Value: 1067(U/L)* Date: 12/08/2005 LACTIC ACID PLASMA Value: 7.2(mmol/L) Date: 12/08/2005 AMMONIA (LAB) Value: 31(umol/L) Date: 12/08/2005 CK Value: 1025(U/L)* Date: 12/08/2005 AMMONIA (LAB) Value: 32(umol/L) Date: 12/08/2005 LACTIC ACID PLASMA Value: 4.1(mmol/L) Date: 12/08/2005 IMPRESSION: Andrea Kumar is a 55 y.o. 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 I reviewed the new results of the enzyme deficiency wi th Mr Kumar and suggest that he try d-ribose therapy. Also he has more discoordination that I could explain and I suggest that he further evaluate this with an MRI Of the brain. As jane adenylate deaminase deficiency is a diagnosis covered by [facility] I suggested that he register. I spent 40 minutes with Mr. Kumar, half of which were in counseling. RECOMMENDATIONS: 1. EKG/ECHO 2. MRI of the brain to assess discoordination 3. D-Ribose 2 grams 4 times daily for about 2 weeks and then increase to 5 grams 4 times da anusha if tolerated. 4. Howell with [facility]. 5. 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
--- OUTSIDE RECORDS SUMMARY | ~2020-03-15 | XMS | Encounter Summary ---
Demographics + + + | Address | [address] | | | [place] [address] | + + + | Home Phone | | + + + | Preferred Language | Unknown | + + + | Marital Status | | + + + | Judaism Affiliation | 1073 | + + + | Race | Unknown | + + + | Ethnic Group | Unknown | + + + Author + + + | Author | [facility] | | | and Faheemana | + + + | Organization | [facility] | | | and [...] Team Providers + +------+ + | Care Wet Machine Operator Name | Role | Phone | + +------+ + | Lázaro Oviedo MD | PCP | | + +------+ + Encounter Details +--------+ + + + + | Date | Type | Department | Care Team | Description | +--------+ + + + + | 05/19/ | Orders Only | [facility] | Conversion | | | 2016 | | CONVERSION DEP [address] | Transaction, | | | | | [address] | Provider Unknown | | | | | [place] | [phone] | | | | | [address] | | | | | | [phone] | | | +--------+ + + + [...]
--- OUTSIDE RECORDS SUMMARY | ~2020-03-15 | XMS | Encounter Summary ---
Demographics + + + | Address | [address] | | | [place] [address] | + + + | Home Phone | | + + + | Preferred Language | Unknown | + + + | Marital Status | | + + + | Latter Day Affiliation | Unknown | + + + [...] + | Esthela Kumar | ECON | [address] | | | | | [place] | | | | | [address] | | + + + + + Care Team Providers + +------+ + | Care Paint Roller Covermaker Name | Role | Phone | + +------+ + PCP | Unavailable | + +------+ + Encounter Details +--------+ + + + + | Date | Type | Department | Care Team | Description | +--------+ + + + + | 02/20/ | Results | | Other, Faculty | | | 2001 | Only | | [phone] | | +--------+ + + + + [...] | | | | | analysis (EM# [id number]): | | | | | | - [...] necessary | | | | | | [facility] | | | | | | and [...] | | | | | | # [phone]):Evaluation of | | | | | | [...] | Ordered by Blaire Mendenhall MD | [facility] | | | DEPARTMENT OF | | | PATHOLOGY | + + + + + + + + | Performing | Address | City/State/Zipcode | Phone Number | | Organization | | | | + + + + + | [facility] DEPARTMENT OF | [address] | [place] [address] | | | PATHOLOGY | [address] | | | + + + + + | [facility] | [address] | [place] [address] | | | PATHOLOGY | [address] | | | + + + + + documented in this encounter Visit Diagnoses Not on filedocumented in this encounter"
--- OUTSIDE RECORDS SUMMARY | ~2020-03-15 | XMS | Clinical Summary ---
Demographics + + + | Address | [address] | | | [place] [address] | + + + | Home Phone | | + + + | Preferred Language | Unknown | + + + | Marital Status | | + + + | Mu-Ism Affiliation | Unknown | + + + [...] + | Esthela Kumar | ECON | [address] | | | | | [place] | | | | | [address] | | + + + + + Care Team Providers + +------+ + | Care Product Development Actuary Name | Role | Phone | + +------+ + | Lázaro Oviedo MD | PCP | | + +------+ + Source Comments FABRICIO is fully live on both [facility] and [facility] Allergies + + + + + [...] | | | | | | | [employer] | | | | | | | [...] [address] | | [address] | 0 | [address] | re | | | [place]ICA | | sent | | [place], [place] | | | | RE | | | | [address] | | + +--------+ +--------+ + +--------+ | [employer] | TRANSA | xxxxxxxxx | Effect | [phone] | [address] | POS | | MEDICARE SUPPLEMENT | [employer] | | jaye | 2 | [address] | | | | | | for | | [place], [place] | | | | [place]ICA | | all | | [id number] | | | | RE | | [...] | | | all | | [place] [address] | | | | | | dates | | | | + +--------+ +--------+ + +--------+ + +--------+ +--------+ + + | Guarantor Name | Accoun | Relation to | Date | Phone | Billing Address | | | t Type | Patient | of | | | | | | | | | | + +--------+ +--------+ + + | Anrdea Kumar | Person | Self [birth year] | [address] | | | al/Fam | | 1950 | [phone] | [place] | | | anusha | | | 5 (Home) | [address] | + +--------+ +--------+ + + | Andrea Kumar | Specia | Self | [birth year] | [address] | | | l | | 1950 | [phone] | [place] | | | Billin | | | 5 (Portal) | [phone] | | | g | | | | | + +--------+ +--------+ + +"
--- OUTSIDE RECORDS SUMMARY | ~2020-03-15 | XMS | Encounter Summary ---
Demographics + + + | Address | [address] | | | [place] [address] | + + + | Home Phone [...] + | Esthela Kumar | ECON | [address] | | | | | [place] | | | | | [address] | | + + + + + Care Team Providers + +------+ + | Care Nanoscience Technician Name | Role | Phone | + +------+ + | Alan Sainz MD | PCP | | + +------+ + Encounter Details +--------+ + + + + | Date | Type | Department | Care Team | Description | +--------+ + + + + | 03/24/ | Results | Neurology | Maximilian De La Garza, | | | 2002 | Only | Neuromuscular Clinic | | | | | | at [facility] | | | | | | Health & Healing | | | | | | [address] | | | | | | [facility] | | | | | | and Healing, | | | | | | Building | | | | | | Floor [place], [place] | | | | | | [address] | | | | | | [phone] | | | +--------+ + + + [...]
--- OUTSIDE RECORDS SUMMARY | ~2020-03-15 | XMS | Encounter Summary ---
Demographics + + + | Address | [address] | | | [place] [address] | + + + | Home Phone | | + + + | Preferred Language | Unknown | + + + | Marital Status | | + + + | Restorationist Affiliation | Unknown | + + + | Race | White | + + + | Ethnic Group | Other Race | + + + Author + + + | Author | [facility] | + + + | Organization | [facility] | + + + | Address | Unknown | + + + | Phone | Unavailable | + + + Support + + + + + | Name | Relationship | Address | Phone | + + + + + | Esthela Kumar | ECON | [address] | | | | | [place] | | | | | [address] | | + + + + + Care Team Providers + +------+ + | Care Cable Television Program Director Name | Role | Phone | + +------+ + | Alan Sainz MD | PCP | | + +------+ + Encounter Details +--------+ + + + + | Date | Type | Department | Care Team | Description | +--------+ + + + + | 06/22/ | Results | Neurology | [facility] De La Garza, | | | 2005 | Only | [facility] | | | | | | at [facility] | | | | | | [facility] & Healing | | | | | | [address] | | | | | | [facility] | | | | | | and Healing, | | | | | | Building | | | | | | Floor [place], [place] | | | | | | [address] | | | | | | [phone] | | | +--------+ + + + [...]
--- OUTSIDE RECORDS SUMMARY | ~2020-03-15 | XMS | Encounter Summary ---
Demographics + + + | Address | [address] | | | [place] [address] | + + + | Home Phone | | + + + | Preferred Language | Unknown | + + + | Marital Status | | + + + | Baptism Affiliation | Unknown | + + + [...] + | Esthela Kumar | ECON | [address] | | | | | [place] | | | | | [address] | | + + + + + Care Team Providers + +------+ + | Care Information Services Assistant Name | Role | Phone | [...] | | | | | | at [facility] | | | | | | Health & Healing | | | | | | [address] | | | | | | [facility] | | | | | | and Healing, | | | | | | Building | | | | | | Floor [place], [place] | | | | | | [address] | | | | | | [phone] | | | +--------+ + + + [...]
--- OUTSIDE RECORDS SUMMARY | ~2020-03-15 | XMS | Encounter Summary ---
Demographics + + + | Address | [address] | | | [place] [address] | + + + | Home Phone | | + + + | Preferred Language | Unknown | + + + | Marital Status | | + + + | Episcopal Affiliation | [id number] | + + + | Race | Unknown | + + + | Ethnic Group | Unknown | + + + Author + + + | Author | [facility] | | | and Faheemana | + + + | Organization | [facility] | | | and [place]heemana | [...] Team Providers + +------+ + | Care Protective Services Social Worker Name | Role | Phone | [...] | | | sis | | [place]ER [place] | | | | | Procedures | | [place] | | | | | [place] | | [address] Phone: | | | | | CYSTO/URETER | | [phone] | | | | | O | | Fax: | | | | | W/LITHOTRIPS | | [phone] | | | | | Y &NAHOMYWELL | | | | | | | [...] + + + + | 06/26/ | Hospital | [facility] | Hebert Felipe | Hypertension, | | 2019 | Encounter | [facility] | MD [place] [address] | unspecified type | | | | [address] | [address] [place] | (Primary Dx); Right | | | | [place] | [address] | nephrolithiasis; | | | | [address] | | Ureteral stone; | | | | [phone] | | Kidney stone | +--------+ + + + + Social [...] + + + | Blood Pressure | 121/86 | 06/26/2019 5:45 PM | | | | | PST | | + + + + + | Pulse | 80 | 06/26/2019 6:00 PM | | | | | PST | | + + + + + | Temperature | 36.8 C (98.2 F) | 06/26/2019 4:45 PM | | | | | PST | | + + + + + | Respiratory Rate | 16 | 06/26/2019 5:15 PM | | | | | PST | | + + + + + | Oxygen Saturation | 99% | 06/26/2019 6:00 PM | | | | | PST | | + + + + + | Inhaled Oxygen | - | - | | | Concentration | | | | + + + + + | Weight | 89 kg (196 lb 3.4 | 06/26/2019 2:03 PM | | | | oz) | PST | | + + + + + | Height | 182.9 cm (6') | 06/26/2019 2:03 PM | | | | | PST | | + + + + + | Body Mass Index | 26.61 | 06/26/2019 2:03 PM | | | | | PST | | + + + + + documented in this encounter Discharge Instructions Instructions Garry Greene RN - 06/26/2019Formatting of this note might be different fr om the original. Patient to follow-up in 10 days for cystoscopy and stent removal. Cystoscopy Cystoscopy is a procedure that lets your doctor look directly inside your urethra and bladd er. It can be used to: Help diagnose a problem with your urethra, bladder, or kidneys. Take a sample (biopsy) of bladder or urethral tissue. Treat certain problems (such as removing kidney stones). Place a stent to bypass an obstruction. Take special X-rays of the kidneys. Based on the findings, your doctor may recommend other tests or treatments. What is a cystoscope? A cystoscope is a telescope-like instrument that contains lenses and fiberoptics (small gla ss wires that make bright light). The cystoscope may be straight and rigid, or flexible to b end around curves in the urethra. The doctor may look directly into the cystoscope, or proje ct the image onto a monitor. Getting ready Ask your doctor if you should stop taking any medicines before the procedure. Ask whether you should avoid eating or drinking anything after midnight before the proce dure. Follow any other instructions your doctor gives you. Tell yourdoctor before the exam if you: Take any medicines, such as aspirin or blood thinners Have allergies to any medicines Are The procedure Cystoscopy is done in the doctor s office, surgery center, or hospital. The doctor and a nurse are present during the procedure. It takes only a few minutes, longer if a biopsy, X-r ay, or treatment needs to be done. During the procedure: You lie on an exam table on your back, knees bent and legs apart. You are covered with a drape. Your urethra and the area around it are washed. Anesthetic jelly may be applied to numb the urethra. Other pain medicine is usually not needed. In some cases, you may be offered a mild sedative to help you relax. If a more extensive procedure is to be done, such as a biop sy or kidney stone removal, general anesthesia may be needed. The cystoscope is inserted. A sterile fluid is put into the bladder to expand it. You ma y feel pressure from this fluid. When the procedure is done, the cystoscope is removed. After the procedure If you had a sedative, general anesthesia, or spinal anesthesia, you must have someone driv e you home. Once you re home: Drink plenty of fluids. You may have burning or light bleeding when you urinate this is normal. Medicines may be prescribed to ease any discomfort or prevent infection. Take these as d irected. Call your doctor if you have heavy bleeding or blood clots, burning that lasts more than a day, a fever [id number] (38 C), or trouble urinating. Date Last Reviewed: 08/21/201619993558-1324 [employer]. [address] [place] [id number]. All righ ts reserved. This information is not intended as a substitute for professional medical care. Always follow your healthcare professional's instructions. Discharge Instructions: After Your Surgery You ve just had surgery. During surgery, you were given medicine called anesthesia to patrick p you relaxed and free of pain. After surgery, you may have some pain or nausea. This is com mon. Here are some tips for feeling better and getting well after surgery. Stay on schedule with your medicine. Going home Your healthcare provider will show you how to take care of yourself when you go home. He or she will also answer your questions. Have an adult family member or friend drive you home. For the first 24 hours after your surgery: Do not drive or use heavy equipment. Do not make important decisions or sign legal papers. Do not drink alcohol. Have someone stay with you, if needed. He or she can watch for problems and help keep yo u safe. Be sure to go to all follow-up visits with your healthcare provider. And rest after your valdes rgery for as long as your healthcare provider tells you to. Coping with pain If you have pain after surgery, pain medicine will help you feel better. Take it as told, heidy efore pain becomes severe. Also, ask your healthcare provider or pharmacist about other ways to control pain. This might be with heat, ice, or relaxation. And follow any other instruct ions your surgeon or nurse gives you. Tips for taking pain medicine To get the best relief possible, remember these points: Pain medicines can upset your stomach. Taking them with a little food may help. Most pain relievers taken by mouth need at least 20 to 30 minutes to start to work. Taking medicine on a schedule can help you remember to take it. Try to time your medicin e so that you can take it before starting an activity. This might be before you get dressed, go for a walk, or sit down for dinner. Constipation is a common side effect of pain medicines. Call your healthcare provider be fore taking any medicines such as laxatives or stool softeners to help ease constipation. Al so ask if you should skip any foods. Drinkinglots of fluids andeating foodssuch as fru its and vegetables that are high in fiber can also help. Remember, do not take laxatives unl ess your surgeon has prescribed them. Drinking alcohol and taking pain medicine can cause dizziness and slow your breathing. I t can even be deadly. Do not drink alcohol while taking pain medicine. Pain medicine can make you react more slowly to things. Do not drive or run machinery wh ile taking pain medicine. Your healthcare providermay tell you to take acetaminophen to help ease your pain. Ask hi m or her how much you are supposed to take each day. Acetaminophen or other pain relievers m ay interact with your prescription medicines or other aplr-pvj-lzxduki (OTC) medicines. Some prescription medicines have acetaminophen and other ingredients.Using both prescription a nd OTC acetaminophenfor paincan cause you to overdose. Readthe labels on your OTC medi cineswith care. This will help youto clearly know the list of ingredients, how much to t renetta, and anywarnings. It may also help you not take too muchacetaminophen.If you have questions or do not understand the information, ask your pharmacist or healthcare provider t o explain it to you before you take the OTC medicine. Managing nausea Some people have an upset stomach after surgery. This is often because of anesthesia, pain, or pain medicine, or the stress of surgery. These tips will help you handle nausea and eat healthy foods as you get better. If you were on a special food plan before surgery, ask your healthcare provider if you should follow it while you get better. These tips may help: Do not push yourself to eat. Your body will tell you when to eat and how much. Start off with clear liquids and soup. They are easier to digest. Next try semi-solid foods, such as mashed potatoes, applesauce, and gelatin, as you feel ready. Slowly move to solid foods. Don t eat fatty, rich, or spicy foods at first. Do not force yourself to have 3 large meals a day. Instead eat smaller amounts more ofte n. Take pain medicines with a small amount of solid food, such as crackers or toast, to carolyn id nausea. Call your surgeon if You still have pain an hour after taking medicine. The medicine may not be strong enough . You feel too sleepy, dizzy, or groggy. The medicine may be too strong. You have side effects like nausea, vomiting, or skin changes, such as rash, itching, or hives. If you have obstructive sleep apnea You were given anesthesia medicine during surgery to keep you comfortable and free of pain. After surgery, you may have more apnea spells because of this medicine and other medicines you were given. The spells may last longer than usual. At home: Keep using the continuous positive airway pressure (CPAP) device when you sleep. Unless your healthcare provider tells you not to, use it when you sleep, day or night. CPAP is a co mmon device used to treat obstructive sleep apnea. Talk with your provider before taking any pain medicine, muscle relaxants, or sedatives. Your provider will tell you about the possible dangers of taking these medicines. Date Last Reviewed: 07/21/201619993800-0894 [employer]. [address] [place] [address], [place] [address]. All righ ts reserved. This information is not intended as a substitute for professional medical care. Always follow your healthcare professional's instructions. documented in this encounter Medications at Time of Discharge [...] + + + +---------+ + + | empagliflozin | Take 25 mg by mouth | | 0 | | | | (JARDIANCE) 25 mg | Daily. | | | | | | tablet | | | | | | + + + +---------+ + + | ergocalciferol | Take 2,000 Units by | | 0 | | | | (VITAMIN D2) 50 mcg | mouth Daily. | | | | | | (2,000 units) tablet | | | | | | + + + +---------+ + + | ezetimibe (ZETIA) | Take 10 mg by mouth | | 0 | | | | 10 mg tablet | Daily. | | | | | + + [...] + + + +---------+ + + | | Take 1-2 tablets by | 30 | 0 | 06/26/20 | | | HYDROcodone-acetamin | mouth every 4 hours | tablet | | 19 | 9 | | ophen (NORCO) 5-325 | as needed. | | | | | | mg per tablet | | | | | | + + + +---------+ + + documented as of this encounter H&P Notes Hebert Felipe MD - 06/26/2019 3:30 PM PSTSURGICAL INTERIM HISTORY & PHYSICAL UPD ATE Pt. Name/Age/: Andrea Kumar 68 y.o. 1950 Date of admission: 06/26/2019 The current H&P was reviewed. The patient was reexamined. Re-evaluation of the patient co nfirms the necessity for the scheduled procedure. No change has occurred in the patient s condition since the H&P was completed less than 30 days ago. VERIFICATION OF CONSENT (PARQ) The patient was counseled regarding the procedure, its indications, risks, potential compli cations and alternatives. Any questions were answered. Consent was obtained. Electronically signed by: Hebert Felipe MD, 06/26/2019 15:30 [facility] pendlove, Renny Olivia MD - 06/25/2019 11:30 AM PSTFormatting of this note might be different from the or iginal. Chief Complaint Patient presents with New Patient Nephrolithiasis HPI Andrea Kumar is a 68 y.o. male patient of Lázaro Oviedo MD here today for a evaluation fo r nephrolithiasis. Last week started having right sided flank pain,this was intermittent and not too debilitat ing Then however the pain became much worse and was associated with nausea and vomiting. Eventually presented to [facility] where a CT was performed which showed a 8mm proximal stone on the right and smaller non obstructing stone. Pain was later controled and then sen t home. Today complains of mild flank pain, fatigue and decreased appetite Assessment Andrea was seen today for new patient and nephrolithiasis. Diagnoses and all orders for this visit: Right nephrolithiasis - Case Request - OR/ENDO/ASC/OB: CYSTOSCOPY Right URETEROSCOPY W/ LASER lithotripsy and stent Microhematuria - POCT Urinalysis - Urinalysis, Microscopic Only, with Culture if Indicated Plan We will schedule patient for right-sided ureteroscopy laser lithotripsy and stent. We disc ussed risks including pain, bleeding, infection, urethral stricture, bladder injury, uretera l perforation, ureteral stricture, renal hematoma and need for further procedures. 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) Peripheral neuropathy Skin cancer 12/2016 basal cell facial Past Surgical History Past Surgical History: Procedure Laterality Date ANGIOGRAM 2002 CHOLECYSTECTOMY COLONOSCOPY FEMUR FRACTURE SURGERY Right 1971 HARDWARE PRESENT - right femur-screws, plate insertion KNEE ARTHROSCOPY Right KNEE SURGERY Left Three tendon surgeries SHOULDER ARTHROSCOPY Left SKIN CANCER EXCISION 12/2016 BASAL CELL CARCINOMA EXCISION - facial SPINE SURGERY L-3, L-4 x 2 TONSILLECTOMY AND ADENOIDECTOMY Family History: Family History Problem Relation Age of Onset Diabetes, NIDDM Mother Heart disease Father High cholesterol Father Social History: Social History Socioeconomic History Marital status: Spouse name: Not on file Number of children: Not on file Years of education: Not on file Highest education level: Not on file Tobacco Use Smoking status: Never Smoker Smokeless tobacco: Never Used Substance and Sexual Activity Alcohol use: Yes Frequency: Monthly or less Comment: Maybe 1 beer every 2-3 months Drug use: Never Comment: Drug use: No Allergies Allergen Reactions Statins Other (See Comments) Cramping throughout body Meperidine Nausea And Vomiting Medications: No current facility-administered medications for this visit. No current outpatient medications on file. ROS Objective BP 108/52 | Pulse 80 | Ht 1.854 m (6' 1") | Wt 89.2 kg (196 lb 10.4 oz) | BMI 25.94 kg/ m General Appearance: Alert, cooperative, no distress, appears stated age Head: Normocephalic, without obvious abnormality, atraumatic Eyes: conjunctiva/corneas clear, EOM's intact Throat: Lips, mucosa, and tongue normal; no gross deformities, mmm Neck: Supple, symmetrical, no adenopathy Lungs: Regular, unlabored breathing MS Right sided CVA tenderness, no spinal tenderness, no scoliosis present Abdomen: Soft, non-tender, no masses Extremities: Extremities normal, atraumatic, no cyanosis, clubbing, or edema Pulses: Radial pulses 2+ and symmetric Skin: Warm and dry Lymph nodes: Cervical and supraclavicular nodes normal Neurologic: Unstable gait, CN 2-12 grossly intact; bilateral foot drop, 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 Significant for approximately 8 mm pro ximal stone in the right kidney. There is causing mild hydronephrosis. There is also a sma ll proximately 4 mm starting stone in the renal pelvis. The left kidney demonstrates no josh dence of stones. REVIEW OF SYSTEMS: [] Marked All Negative Constitutional Symptoms: [] Fever [] Chills [] Headache [] Change in appetite [x] Change in weight [] Change in energy [] Other: Neurological: [] Tremors [] Dizzy Spells [] Numbness/Tingling [] Seizures [] Other: Endocrine: [] Excessive thirst [] Too hot [] Too cold [x] Tired/Sluggish Gastrointestinal: [x] Abdominal pain [] Nausea/Vomiting [] Indigestion/heartburn [] Change in sto ol size [] Change in stool shape [] Change in stool color [] Pain with swallowin g [] Other: Cardiovascular: [] Chest Pain [] Rapid heart rate [] High blood pressure [] Other: Integumentary: [] Skin rash [] Boils [] Persistent itch [] Other: Musculoskeletal: [] Neck Pain [x] Joint swelling/pain [x] Back pain [] Bone pain [] Other: Respiratory: [] Wheezing [] Frequent cough [] Shortness of breath [] Other: Hematologic/Lymphatic: [] Swollen glands [] Blood clotting issues [] Prior blood transfusions []Other: Psychologic: Are you generally satisfied with your life? yes Do you feel severely depressed? no Have you considered suicide? no Habits: Do you smoke? no IPSS (International Prostate Symptom Score) 0=0 - Not at All 1=1 - Less than 1 in 5 times 2=2 - Less than half the time 3=3 - About half the time 4=4 - More than half the time 5=5 - Almost alwyas IPSS (INTERNATIONAL PROSTATE SYMPTOM SCORE) 06/25/2019 1. Incomplete Emptying - How often have you had the sensation of not emptying your bladder? 0 2. Frequency - How often have you had to urinate less than every two hours? 1 3. Intermittency - How often have you found you stopped and started again several times whe n you urinated? 0 4. Urgency - How often have you found it difficult to postpone urination? 0 5. Weak Stream - How often have you had a weak urinary stream? 1 6. Straining - How often have you had to strain to start urination? 0 7. Nocturia - How many times did you typically get up at night to urinate? 1 Total: 3 Quality of Life Due to Urinary Symptoms QUALITY OF LIFE (URINARY) 06/25/2019 If you were to spend the rest of your life with your urinary condition just the way it is n ow, how would you feel about that? 0 Results for orders placed or performed in visit on 06/25/19 Urinalysis, Microscopic Only, with Culture if Indicated Result Value Ref Range WBC UA 0-2 0 - 2 /HPF RBC UA 2-5 (A) 0 - 2 /HPF SQUAMOUS EPITHELIAL UA 0-2 0 - 2 /LPF BACTERIA UA Negative Negative /HPF URINE COMMENT Urine Culture Not Indicated POCT Urinalysis Result Value Ref Range Color, UA, POC Yellow Yellow, Light Yellow Clarity, UA, POC Clear Glucose, UA, POC >=1000 mg/dL (A) Negative Bilirubin, UA, POC Negative Negative Ketones, UA, POC Trace (A) Negative, 100 mg/dL Specific Mason, UA, POC 1.015 1.001 - 1.030 Blood, UA, POC Small (A) Negative pH, UA, POC 5.5 5.0, 6.0, 7.0, 8.0, 5.5, 6.5, 7.5 Protein, UA, POC Negative Negative Urobilinogen, UA, POC 0.2 0.2, Negative, Normal, < 0.2 mg/dL, 1 mg/dL, < 0.2 E.U./dl, 1.0 E.U./dL, 0.2 mg/dL Nitrite, UA, POC Negative Negative Leukocyte Esterase, UA, POC Negative Negative Reducing Substances, Urine Ictotest Remark No results found for: RODRIGO Oviedo MD's notes were reviewed in clinic today. No follow-ups on file.. This document was generated in part using voice recognition software. Frequent wrong word or sound-alike substitutions may have occurred due to the inherent limitations of the voice recognition software. Although I have attempted to edit the content, I have not thoroughly proofread this note, and hide tanner errors are very likely to occur. CC: Lázaro Oivedo MD documented in this encounter Miscellaneous Notes Op Note - Hebert Felipe MD - 06/26/2019 4:38 PM PSTOperative Note Pt. Name/Age/: Andrea Kumar 68 y.o. 1950 Med. Record Number: [id number] Date of admission: 06/26/2019 Date of Operation/Procedure: 06/26/2019 Preoperative Diagnosis: Kidney stone, ureteral stone Postoperative Diagnosis: same Surgeon: Hebert Felipe MD Date Pitter(s): none Anesthesia Provider(s): Anesthesiologist: Jonatan Castaneda MD Anesthesia Type: General Procedure: Right URS LL and stent Operative Indications: Andrea Kumar is a 68 y.o. male who presents with signs and sympto ms consistent with kidney stones. This was confirmed with an imaging study. The patient an d/or guardian was counseled and consented to proceed. The risks, benefits, complications, treatment options, and expected outcomes were discussed with the patient and/or family. The patient was counseled and consented to proceed to the o perating room for right URS LL and stent. Discussed risks, including infection, bleeding, n eed to convert to an open operation, inadvertent injury to intra-abdominal organs, recognize d or unrecognized, need for further surgery, incisional site herniation. Also discussed risk s of failure to treat, failure to diagnose. The patient and/or guardian understands and cons ents to proceed. Operative Findings: 8mm impacted proximal ureteral stone, 4mm kidney stone Operation: After consent was obtained the patient was brought back to the operating room and gertrude manuel in the supine position. A preoperative timeout was performed. Bilateral SCDs were appl ied lower extremities and the patient received 500 mg of Cipro orally in the preoperative ar ea. After successful induction of general anesthesia the patient was placed in the dorsal l ithotomy position and the genitals were prepped and draped in the usual fashion. A 23 Frenc h cystoscope was advanced into the bladder via the urethra. There were no gross anomalies s een. The right ureteral orifice was visualized and cannulated using a guidewire. This is a dvanced up per the kidney under fluoroscopic guidance. We then used a 10 Persian dual-lumen catheter to place a second guidewire over which we placed our 08/03 ureteral access sheath. We then used the flexible ureteroscope to explore the proximal ureter. The ureter at this location was extremely tight and we ended up dilating it with passage of the scope. We then encountered an impacted 8 mm stone. Using a 200 m laser fiber the stone was then dusted. Once the fragments were cleared we then entered the UPJ in the renal pelvis. We explored each of the calyces and did identify a 4 mm stone. We then used the laser fiber to dust the stone as well. Again we then explored each of the calyces and found no stone fragments gre ater than 1 mm in size. We then removed the ureteral access sheath under visual guidance. The patient was noted to have extremely tight proximal ureter and there was no laceration seen at this location vargas janelle much of the mucosa was injured. Distally of the to this we also encountered a small gra de 1 ureteral laceration approximately 4 to 5 mm in length. A 6 Persian variable length stent was then placed over guidewire advanced up toward the kidn ey under fluoroscopic guidance. A good curl was seen in the kidney as well as the bladder. The bladder was then drained and this terminates the procedure. Estimated Blood Loss: 3mL Transfused: No Drains: 6fr multilength stent Total IV Fluids: Specimen (s): none Complications: None; patient tolerated the procedure well. Disposition: PACU - hemodynamically stable. Patient Condition: stable Plan: The prescription monitoring service was used to monitor prior narcotic use. Patient will follow-up in 10 days for stent removal. Electronically Signed by: Hebert Felipe MD, 06/26/2019 16:38 [facility] documented in this encounter Plan of Treatment Not on filedocumented as of this encounter Procedures + +--------+ + + + | Procedure Name | Priori | Date/Time | Associated Diagnosis | Comments | | | ty | | | | + +--------+ + + + | FL RED STATS NO | Routin | 06/26/2019 | | Results for this | | CHARGE | e | 4:40 PM | | procedure are in the | | | | PST | | results section. | + +--------+ + + + | CYSTOSCOPY | | 06/26/2019 | Right | | | URETEROSCOPY W/ | | 3:39 PM | nephrolithiasis | | | LASER | | PST | | | + +--------+ + + + | POC GLUCOSE | Routin | 06/26/2019 | | Results for this | | | e | 2:34 PM | | procedure are in the | | | | PST | | results section. | + +--------+ + + + | HEMOGLOBIN | Routin | 06/26/2019 | Hypertension, | Results for this | | | e | 2:34 PM | unspecified type | procedure are in the | | | | PST | | results section. | + +--------+ + + + | ECG 12 LEAD | STAT | 06/26/2019 | Hypertension, | Results for this | | | | 2:15 PM | unspecified type | procedure are in the | | | | PST | | results section. | + +--------+ + + + documented in this encounter Results FL C-Arm Stats No Charge (06/26/2019 4:40 PM PST) + + | Specimen | + + | | + + + + + | Narrative | Performed At | + + + | This exam has been auto-finalized. It was entered for statistical | [facility] | | purposes only. | | + + + + +---------+ + + | Performing | Address | City/State/Zipcode | Phone Number | | Organization | | | | + +---------+ + + | [facility] | | | | + +---------+ + + POC Glucose (06/26/2019 2:34 PM PST) + +---------+ + + + | Component | Value | Ref Range | Performed | Pathologist | | | | | At | Signature | + +---------+ + + + | Glucose, | 157 (H) | 70 - 109 mg/dL | [facility] | | [facility] | | | | | | [facility] | | | | | | [facility] - | | | | | | LABORATORY | | + +---------+ + + + + + | Specimen | + + | Blood | + + + + + + + | Performing | Address | City/State/Zipcode | Phone Number | | Organization | | | | + + + + + | [facility] | [address] | [place] | [phone] | | [facility] | | [address] | | | - LABORATORY | | | | + + + + + Hemoglobin (06/26/2019 2:34 PM PST) + + + + + + | Component | Value | Ref Range | Performed | Pathologist | | | | | At | Signature | + + + + + + | Hemoglobin | 13.3 (L) | 13.5 - 18.0 | [facility] | | | | | g/dL | [facility] | | | | | | MEDICAL | | | | | | CENTER - | | | | | | LABORATORY | | + + + + + + + + | Specimen | + + | Blood | + + + + + + + | Performing | Address | City/State/Zipcode | Phone Number | | Organization | | | | + + + + + | [facility] | [address] | [place] | [phone] | | [facility] | | [address] | | | - LABORATORY | | | | + + + + + ECG 12 lead (06/26/2019 2:15 PM PST) + + + + + + | Component | Value | Ref Range | Performed | Pathologist | | | | | At | Signature | + + + + + + | VENTRICULAR | 78 | BPM | [facility] | | | RATE EKG | | | | | + + + + + + | ATRIAL RATE | 78 | BPM | [facility] | | + + + + + + | P-R | 170 | ms | [facility] | | | INTERVAL | | | | | + + + + + + | QRS | 98 | ms | [facility] | | | DURATION | | | | | + + + + + + | Q-T | 364 | ms | [facility] | | | INTERVAL | | | | | + + + + + + | Q-T | 414 | ms | [facility] | | | INTERVAL | | | | | | (CORRECTED) | | | | | + + + + + + | P WAVE AXIS | 42 | degrees | [facility] | | + + + + + + | QRS AXIS | 53 | degrees | [facility] | | + + + + + + | T AXIS | 39 | degrees | [facility] | | + + + + + + | INTERPRETAT | Normal sinus | | [facility] | | | ION TEXT | rhythmNormal ECGNo | | | | | | previous ECGs | | | | | | availableConfirmed by | | | | | | KATIA PADILLA MD ([id number]) | | | | | | on 06/27/2019 8:01:34 AM | | | | + + + + + + + + | Specimen | + + | | + + + + + | Narrative | Performed At | + + + | | | + + + + +---------+ + + | Performing | Address | City/State/Zipcode | Phone Number | | Organization | | | | + +---------+ + + | [facility] | | | | + +---------+ + + documented in this encounter Visit Diagnoses + + | Diagnosis | + + | Right nephrolithiasis - Primary | + + | Hypertension, unspecified type | + + | Ureteral stone Calculus of ureter | + + | Kidney stone Calculus of kidney | + + | Diabetes mellitus type II, ORAL Control Type II or unspecified type diabetes mellitus | | without mention of complication, not stated as uncontrolled | + + | Hyperlipidemia Other and unspecified hyperlipidemia | + + | Diabetic peripheral neuropathy (HCC) Type II or unspecified type diabetes mellitus | | with neurological manifestations, not stated as uncontrolled | + + documented in this encounter Admitting Diagnoses + + | Diagnosis | + + | Right nephrolithiasis | + + documented in this encounter Administered Medications + +--------+---------+------+------+------+ | Medication Order | MAR | Action | Dose | Rate | Site | | | Action | Date | | | | + +--------+---------+------+------+------+ + +---+ | acetaminophen (TYLENOL) tablet | | | 1,000 mg 1,000 mg, Oral, EVERY 8 | | | HOURS (3 times per day), First | | | dose on Mon06/26/19 at 1730, | | | Start 8 hours after pre-op dose., | | | Post-op/Phase II | | + +---+ | | | + +---+ | albuterol-ipratropium 2.5-0.5 | | | mg/3 mL nebulizer solution 3 mL | | | 3 mL, Nebulization, ONCE PRN, | | | Wheezing, Shortness of Breath, | | | Starting Mon06/26/19 at 1641, For | | | 1 dose, Recovery/Phase I | | + +---+ | | | + +---+ + +-------+ +--------+---+---+ | ciprofloxacin (CIPRO) tablet | Given | 06/26/20 | 500 mg | | | | 500 mg 500 mg, Oral, ONCE, Mon | | 2:32 | | | | | 06/26/19 at 1500, For 1 dose, Give | | PM PST | | | | | 2 hours before or 6 hours after | | | | | | | antacids, dairy, calcium, iron, | | | | | | | or zinc., Pre-op, Indications: | | | | | | | Surgical Prophylaxis | | | | | | + +-------+ +--------+---+---+ + +---+ | | | + +---+ | dexamethasone (DECADRON) 4 | | | mg/mL injection 4 mg 4 mg, | | | Intravenous, ONCE PRN, Nausea, | | | Starting Mon06/26/19 at 1641, For | | | 1 dose, Only administer to | | | patients without a diagnosis of | | | diabetes., Recovery/Phase I | | + +---+ | | | + +---+ | ePHEDrine (AKOVAZ) 50 mg/mL | | | injection 5-10 mg 5-10 mg, | | | Intravenous, EVERY 5 MIN PRN, if | | | SBP <90 or HR under 40, Starting | | | 06/26/19 at 1641, Hold if HR | | | > 100. Hold for SBP >140. | | | Maximum total dose 20mg., | | | Recovery/Phase I | | + +---+ | | | + +---+ | fentaNYL (PF) injection 25-50 | | | mcg 25-50 mcg, Intravenous, | | | EVERY 5 MIN PRN, Pain, Initial | | | postop urgent pain or escalating | | | pain, Starting Mon06/26/19 at | | | 1641, For 4 doses, (2 doses | | | maximum for opioid naive, 4 doses | | | maximum for opioid tolerant) | | | First dose must be lowest dose. | | | Use Pasero Sedation Scale. | | | [Opioid tolerant = One week or | | | longer, ktwots-jly-[id number] use of | | | at least the following DAILY | | | dose: 60mg oral morphine, 60mg | | | oral hydrocodone, 30mg oral | | | oxycodone, 8mg oral | | | hydromorphone, fentanyl patch | | | 25mcg/hr, or equivalent dose of | | | another opioid], Recovery/Phase I | | + +---+ | | | + +---+ | HYDROmorphone (DILAUDID) | | | injection 0.2-0.4 mg 0.2-0.4 mg, | | | Intravenous, EVERY 1 HOUR PRN, | | | Pain, Starting Mon06/26/19 at | | | 1703, If oral route not an | | | option. Slow IV push, not faster | | | than 0.3mg/minute. First dose | | | must be lowest dose, titrate to | | | effective dose by repeat of | | | lowest dose every 30 minutes prn | | | pain, may not exceed maximum dose | | | ordered per interval. Use | | | Pasero Sedation Scale., | | | Post-op/Phase II | | + +---+ | | | + +---+ + +-------+ +--------+---+---+ | HYDROmorphone (DILAUDID) | Given | 06/26/20 | 0.2 mg | | | | injection 0.2-0.6 mg 0.2-0.6 mg, | | 19 4:59 | | | | | Intravenous, EVERY 5 MIN PRN, | | PM PST | | | | | Pain, Starting 06/26/19 at | | | | | | | 1641, First dose must be lowest | | | | | | | dose, can increase subsequent | | | | | | | doses by 0.2mg within dosing | | | | | | | range. If patient meets opioid | | | | | | | tolerant definition, can start | | | | | | | with 0.4mg dose. [Maximum total | | | | | | | PACU dose 4mg] Use Pasero | | | | | | | Sedation Scale. [Opioid tolerant | | | | | | | = One week or longer, | | | | | | | [id number]-iyv-[id number] use of at least | | | | | | | the following DAILY dose: 60mg | | | | | | | oral morphine, 60mg oral | | | | | | | hydrocodone, 30mg oral oxycodone, | | | | | | | 8mg oral hydromorphone, fentanyl | | | | | | | patch 25mcg/hr, or equivalent | | | | | | | dose of another opioid], | | | | | | | Recovery/Phase I | | | | | | + +-------+ +--------+---+---+ + +---+ | | | + +---+ | ibuprofen (ADVIL, MOTRIN) | | | tablet 400 mg 400 mg, Oral, | | | EVERY 8 HOURS (3 times per day), | | | First dose on Mon06/27/19 at | | | 1800, If urine output is less | | | than 240ml/8 hours (30ml/hr) or | | | if signs of bleeding, contact MD | | | and hold. Administer with food | | | or snack, Post-op/Phase II | | + +---+ | | | + +---+ | ketorolac (TORADOL) injection | | | 15 mg 15 mg, Intravenous, EVERY | | | 6 HOURS (4 times per day), First | | | dose on Mon06/26/19 at 1800, For | | | 4 doses, If urine output is less | | | than 240ml/8 hours (30ml/hr) or | | | if signs of bleeding, contact MD | | | and hold., Post-op/Phase II | | + +---+ | | | + +---+ | labetalol (TRANDATE) 5 mg/mL | | | injection 5 mg 5 mg, | | | Intravenous, EVERY 5 MIN PRN, For | | | SBP > 180, DBP > 100, Starting | | | Mon06/26/19 at 1641, Maximum | | | total dose 100mg. Notify | | | anesthesia if patient requires | | | more than 50mg. PARAMETERS KEEP: | | | SBP< 180, SBP >110 HR<110, HR>55, | | | Recovery/Phase I | | + +---+ | | | + +---+ + +-------+ +------+---+---+ | ondansetron (ZOFRAN) injection | Given | 06/26/20 | 4 mg | | | | 4 mg 4 mg, Intravenous, ONCE | | 19 4:59 | | | | | PRN, Nausea, Starting 06/26/19 | | PM PST | | | | | at 1641, For 1 dose, | | | | | | | Recovery/Phase I | | | | | | + +-------+ +------+---+---+ + +---+ | | | + +---+ | opium-belladonna (B&O) 60-16.2 | | | mg suppository 1 suppository 1 | | | suppository, Rectal, EVERY 4 | | | HOURS PRN, Bladder Spasms, | | | Starting 06/26/19 at 1703, | | | Insert gently. Hold all | | | antispasmodics after 0200 hours., | | | Post-op/Phase II | | + +---+ | | | + +---+ | oxybutynin (DITROPAN) tablet 5 | | | mg 5 mg, Oral, EVERY 8 HOURS | | | PRN, Bladder Spasms, Starting Wed | | | 06/26/19 at 1703, Hold all | | | antispasmodics after 0200 hours., | | | Post-op/Phase II | | + +---+ | | | + +---+ | oxyCODONE (ROXICODONE) tablet | | | 2.5-10 mg 2.5-10 mg, Oral, EVERY | | | 3 HOURS PRN, Pain, Starting Wed | | | 06/26/19 at 1703, First dose must | | | be the lowest dose, can titrate | | | to effective dose by repeat of | | | lowest dose every 60 minutes prn | | | pain, may not exceed maximum dose | | | ordered per interval. Use Pasero | | | Sedation Scale., Post-op/Phase | | | II | | + +---+ | | | + +---+ + +-------+ +--------+---+---+ | phenazopyridine (PYRIDIUM) | Given | 06/26/20 | 200 mg | | | | tablet 200 mg 200 mg, Oral, 3 | | 19 5:51 | | | | | TIMES DAILY PRN, Urinary | | PM PST | | | | | Symptoms, urinary burning., | | | | | | | Starting 06/26/19 at 1703, | | | | | | | Administer with meals., | | | | | | | Post-op/Phase II | | | | | | + +-------+ +--------+---+---+ +---+---+ | | | +---+---+ documented in this encounter
--- OUTSIDE RECORDS SUMMARY | ~2020-03-15 | XMS | Encounter Summary ---
Demographics + + + | Address | [address] | | | [place] [address] | + + + | Home Phone [...] + | Esthela Kumar | ECON | [address] | | | | | [place] | | | | | [address] | | + + + + + Care Team Providers + +------+ + | Care Exceptional Children'[employer] Teacher Name | Role | Phone | [...] | | | | | EMG/N[facility]E | [place], [place] | Health and | | | | | CONDUCTION | [address] | Healing, | | | | | STUDIES,ADUL | Phone: | [address], | | | | | T - | [phone] | [address]th Floor | | | | | NEUROLOGY | Fax: | [place], [place] | | | | | | [phone] | [address] | | | | | | | Phone: | | | | | | | [phone] | | | | | | | Fax: | | | | | | | [phone] | +--------+--------+ + + + + Encounter Details +--------+ + + + + | Date | Type | Department | Care Team | Description | +--------+ + + + + | 08/08/ | Hospital | Neurophysiology | Sherlyn Lazcano MD | | | 2011 | Encounter | EM[facility] at [facility] [address] | [address] | | | | | [facility] for | [place] [address] | | | | | Health and Healing, | [phone] | | | | | Building | | | | | | Floor [place], [place] | [address] | | | | | [address] | [address] | | | | | [phone] | [address] [place], | | | | | | [place] [address] | | | | | | [address]in [address] | | | | | | [place], [place] | | | | | | [address] | | | | | | [phone] | | +--------+ + + + + [...]
--- OUTSIDE RECORDS SUMMARY | ~2020-03-15 | XMS | Encounter Summary ---
Demographics + + + | Address | [address] | | | [place] [address] | + + + | Home Phone | | + + + | Preferred Language | Unknown | + + + | Marital Status | | + + + | Sabianism Affiliation | Unknown | + + + | Race | White | + + + | Ethnic Group | Other Race | + + + Author + + + | Author | [facility] | + + + | Organization | [facility] | + + + | Address | Unknown | + + + | Phone | Unavailable | + + + Support + + + + + | Name | Relationship | Address | Phone | + + + + + | Esthela Kumar | ECON | [address] | | | | | [place] | | | | | [address] | | + + + + + Care Team Providers + +------+ + | Care Gas Engine Operator Generators Name | Role | Phone | + +------+ + | Alan Sainz MD | PCP | | + +------+ + Encounter Details +--------+ + + + + | Date | Type | Department | Care Team | Description | +--------+ + + + + | 01/03/ | Transcribed | Allergy Clinic at | Dictation, Other | Transcribed | | 1994 | | [facility] [address] | | | | | | [address] | | | | | | [address] | | | | | | [facility], [address] [place] [address] | | | | | | [place], [place] | | | | | | [address] | | | | | | [phone] | | | +--------+ + + + [...] as of this encounter Progress Notes Interface, Marketing Copywriter In - 12/07/2006 5:01 AM PDT [address] [address] [facility] January 03, 1995 MR OPHELIA [employer] [place] [address] RE:Andrea Kumar MR#:[id number] Dear Mister Campos: Your employee, Mr. Andrea Kumar, was seen for a follow-up visit on January 02, 1995 at the [facility] at the [facility]. 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 Mr. Kumar changed his work place to avoid these specific allergens and reported improvement of his hand dermatitis. However, he reports that his hand dermatitis has persisted for the past year since his last follow-up visit on December 30, 1993. He continues to have pruritic blisters and fissuring on the dorsum of his fingers and hands. This spread approximately 3 weeks ago to involve the forearms. He uses the vaseline and triamcinolone ointment twice a day as prescribed. He continues to avoid the allergens and has not used waterless hand cleansers or been exposed to coolants. On physical examination today there was several vesicles and red papules with excoriation over the volar wrists. The dorsolateral distal phalanges had scaling and fissuring with a few vesicles present. His palms and fingertips were clear without lesions. There was mild nail grooving. Of note, there was LISHA-positive scaling between his toes. Mr. Kumar also had mild erythema and scaling around the eyebrows and left nasolabial folds as well as his scalp, which was consistent with seborrheic dermatitis. In summary, Mr. Kumar's allergic contact hand dermatitis has not continued to improve and has become intolerable to him. He, at this time, has not stated his intentions regarding his employment. In order to document whether or not his hand dermatitis is work related, we have removed Mr. Kumar from his work entirely for the next month. Photographs were taken today, as his last day working was December 30, 1994. On his follow-up visit, photographs will again be taken and his hands will be assessed for improvement. He was advised to continue triamcinolone ointment b.i.d. and vaseline as an emollient. Mr. Kumar also has tinea pedis and seborrheic dermatitis. Treatments initiated include Lotrimin cream to feet b.i.d. and anti-seborrheic shampoos to the scalp and eyebrow areas. He is to alternate tar, zinc and selenium shampoo approximately every 2 weeks. Thank you again for the referral of Mr. Andrea Kumar to our [facility]. It was a pleasure to participate in his care. If you have any further questions or concerns, please do not hesitate to call. Sincerely, Audelia Rod M.D. Resident, Dermatology Sondra Barton M.D. Professor, Dermatology /[facility] January 05, 1995 E: 01/17/95 [facility] documented in this encounter Plan of Treatment Not on filedocumented as of this encounter Visit Diagnoses Not on filedocumented in this encounter"
--- OUTSIDE RECORDS SUMMARY | ~2020-03-15 | XMS | Encounter Summary ---
Demographics + + + | Address | [address] | | | [place] [address] | + + + | Home Phone | | + + + | Preferred Language | Unknown | + + + | Marital Status | | + + + | Protestant Affiliation | Unknown | + + + [...] + | Esthela Kumar | ECON | [address] | | | | | [place] | | | | | [address] | | + + + + + Care Team Providers + +------+ + | Care Precision Grinder Name | Role | Phone | + +------+ + | Alan Sainz MD | PCP | | + +------+ + Encounter Details +--------+ + + + + | Date | Type | Department | Care Team | Description | +--------+ + + + + | 07/10/ | Telephone | Neurology at | [place], | | | 2017 | | [facility] & | Sussy Manuel MD [address] | | | | | Healing [address] | [address] | | | | | [facility] for | [place], [place] | | | | | Health and Healing, | [address] | | | | | | [phone] | | | | | Floor [place], [place] | | | | | | [address] | | | | | | [phone] | | | +--------+ + + + [...]
--- OUTSIDE RECORDS SUMMARY | ~2020-03-15 | XMS | Encounter Summary ---
Demographics + + + | Address | [address] | | | [place] [address] | + + + | Home Phone | | + + + | Preferred Language | Unknown | + + + | Marital Status | | + + + | Uatsdin Affiliation | 1073 | + + + | Race | Unknown | + + + | Ethnic Group | Unknown | + + + Author + + + | Author | [facility] | | | and Faheemana | + + + | Organization | [facility] | | | and Faheemana [...] Team Providers + +------+ + | Care Supplemental Manager Name | Role | Phone | + +------+ + | Lázaro Oviedo MD | PCP | | + +------+ + Reason for Visit + + + | Reason | Comments | + + + | New Patient | | + + + | Nephrolithiasis | | + + + Evaluate & Treat (Routine) + +--------+ + + + + | Status | Reason | Specialty | Diagnoses / | Referred By | Referred To | | | | | Procedures | Contact | Contact | + +--------+ + + + + | Authorized | | Urology | Diagnoses | Shermanler, | Matteo, | | | | | Kidney | Jayme | Hebert Olivia, | | | | | stones NEW/ | MD Samy | [address] | | | | | KIDNEY | [address] [place] | | | | | STONES/ ER | [address] | [place], [place] | | | | | *IMAGES | [place], | [address] Phone: | | | | | [place] | [place] [address] | [phone] | | | | | ISITE | Phone: | Fax: | | | | | Procedures | [phone] | [phone] | | | | | NEW PATIENT | Fax: | | | | | | | [phone] | | + +--------+ + + + + Encounter Details +--------+---------+ + + + | Date | Type | Department | Care Team | Description | +--------+---------+ + + + | 06/25/ | Office | [facility] | MatteoHebert | Right | | 2019 | Visit | [address] | MD Corwin [address] | nephrolithiasis | | | | [place], [place] | [place], [place] | (Primary Dx); | | | | [address] | [address] | Microhematuria | | | | [phone] | | | +--------+---------+ + + + [...] + + + | Blood Pressure | 108/52 | 06/25/2019 10:50 AM | | | | | PST | | + + + + + | Pulse | 80 | 06/25/2019 10:50 AM | | | | | PST | [...] + + + + | Weight | 89.2 kg (196 lb 10.4 | 06/25/2019 10:50 AM | | | | oz) | PST | | + + + + + | Height | 185.4 cm (6' 1") | 06/25/2019 10:50 AM | | | | | PST | | + + + + + | Body Mass Index | 25.94 | 06/25/2019 10:50 AM | | | | | PST | | + + + + + documented in this encounter Patient Instructions Patient Instructions Brianna Jimenez RN - 06/25/2019 11:30 AM PSTPreoperative Instructi ons Your surgery with Dr. Felipe has been scheduled for June 26, 2019 at 4:30 PM at [facility]. Please report to the [facility] no later than 2:30 PM. REMEMBER: NOTHING TO EAT OR DRINK AFTER MIDNIGHT TONIGHT June 25, 2019. Take all of your usual med ications with a sip of water except METFORMIN. NO ASPIRIN OR ASPIRIN PRODUCTS, NO FISH OIL OR VITAMIN E FOR ONE WEEK PRIOR TO SURGERY. Ty lenol (acetaminophen) and ibuprofen is OK. You will need someone to drive you home after surgery. Call us at [phone] with any questions. [x] Pain management booklet provided to patient. documented in this encounter Progress Notes Hebert Felipe MD - 06/25/2019 11:30 AM PSTFormatting of this note might be differ ent from the original. Chief Complaint Patient presents with New Patient Nephrolithiasis HPI Andrea Kumar is a 68 y.o. male patient of Lázaro Oviedo MD here today for a evaluation fo r nephrolithiasis. Last week started having right sided flank pain,this was intermittent and not too debilitat ing Then however the pain became much worse and was associated with nausea and vomiting. Eventually presented to [facility] where a CT was performed which [...] 2002 CHOLECYSTECTOMY COLONOSCOPY FEMUR FRACTURE SURGERY Right 1972 HARDWARE PRESENT - right femur-screws, plate insertion [...] CN 2-12 grossly intact; bilateral foot drop, pin puller strength is no rmal bilaterally Data: CT [...] POC Trace (A) Negative, 100 mg/dL Specific Rossiter, UA, POC 1.015 1.001 - 1.030 Blood, [...] have not thoroughly proofread this note, and basic acoustic analyst errors are very likely to occur. CC: Lázaro Oviedo MD documented in this encounter Plan of Treatment Not on filedocumented as of this encounter Procedures + +--------+ + + + | Procedure Name | Priori | Date/Time | Associated Diagnosis | Comments | | | ty | | | | + +--------+ + + + | POCT URINALYSIS, | Routin | 06/25/2019 | Microhematuria | Results for this | | AUTO WITH CONF | e | 11:02 AM | | procedure are in the | | | | PST | | results section. | + +--------+ + + + | URINALYSIS, | Routin | 06/25/2019 | Microhematuria | Results for this | | MICROSCOPIC ONLY, | e | 11:01 AM | | procedure are in the | | WITH CULTURE IF | | PST | | results section. | | INDICATED | | | | | + +--------+ + + + | IMAGING REPORT - | | 06/25/2019 | | Results for this | | EXTERNAL SCAN | | 12:00 AM | | procedure are in the | | | | PST | | results section. | + +--------+ + + + documented in this encounter Results POCT Urinalysis (06/25/2019 11:02 AM PST) + + + + + + | Component | Value | Ref Range | Performed | Pathologist | | | | | At | Signature | + + + + + + | Color, UA, | Yellow | Yellow, Light | | | | POC | | Yellow | | | + + + + + + | Clarity, | Clear | | | | | UA, POC | | | | | + + + + + + | Glucose, | >=1000 mg/dL (A) | Negative | | | | UA, POC | | | | | + + + + + + | Bilirubin, | Negative | Negative | | | | UA, POC | | | | | + + + + + + | Ketones, | Trace (A) | Negative, 100 | | | | UA, POC | | mg/dL | | | + + + + + + | Specific | 1.015 | 1.001 - 1.030 | | | | Rossiter, | | | | | | UA, POC | | | | | + + + + + + | Blood, UA, | Small (A) | Negative | | | | POC | | | | | + + + + + + | pH, UA, POC | 5.5 | 5.0, 6.0, 7.0, | | | | | | 8.0, 5.5, 6.5, | | | | | | 7.5 | | | + + + + + + | Protein, | Negative | Negative | | | | UA, POC | | | | | + + + + + + | Urobilinoge | 0.2 | 0.2, Negative, | | | | n, UA, POC | | Normal, < 0.2 | | | | | | mg/dL, 1 mg/dL, | | | | | | < 0.2 E.U./dl, | | | | | | 1.0 E.U./dL, | | | | | | 0.2 mg/dL | | | + + + + + + | Nitrite, | Negative | Negative | | | | UA, POC | | | | | + + + + + + | Leukocyte | Negative | Negative | | | | Esterase, | | | | | | UA, POC | | | | | + + + + + + | Reducing | | | | | | Substances, | | | | | | Urine | | | | | + + + + + + | Bilirubin | | | | | | Confirmatio | | | | | | n by | | | | | | Ictotest, | | | | | | Urine | | | | | + + + + + + | Remark | | | | | + + + + + + + + | Specimen | + + | Urine | + + Urinalysis, Microscopic Only, with Culture if Indicated (06/25/2019 11:01 AM PST) + + + + + + | Component | Value | Ref Range | Performed | Pathologist | | | | | At | Signature | + + + + + + | White Blood | 0-2 | 0 - 2 /HPF | [facility] | | | Cells, | | | [facility] | | | Urine | | | MEDICAL | | | | | | CENTER - | | | | | | LABORATORY | | + + + + + + | Red Blood | 2-5 (A) | 0 - 2 /HPF | [facility] | | | Cells, | | | [facility] | | | Urine | | | MEDICAL | | | | | | CENTER - | | | | | | LABORATORY | | + + + + + + | Squamous | 0-2 | 0 - 2 /LPF | [facility] | | | Epithelial | | | [facility] | | | Cells, | | | MEDICAL | | | Urine | | | CENTER - | | | | | | LABORATORY | | + + + + + + | Bacteria, | Negative | Negative /HPF | [facility] | | | Urine | | | [facility] | | | | | | MEDICAL | | | | | | CENTER - | | | | | | LABORATORY | | + + + + + + | Urine | Urine Culture Not | | [facility] | | | Comment | Indicated | | [facility] | | | | | | MEDICAL | | | | | | CENTER - | | | | | | LABORATORY | | + + + + + + + + | Specimen | + + | Urine - Urine | | specimen obtained by | | clean catch | | procedure (specimen) | + + + + + + + | Performing | Address | City/State/Zipcode | Phone Number | | Organization | | | | + + + + + | [facility] | [address] | [place] | [phone] | | [facility] | | [address] | | | - LABORATORY | | | | + + + + + IMAGING REPORT - EXTERNAL SCAN (06/25/2019 12:00 AM PST) + + + | Narrative | Performed At | + + + | Ordered by an | | | unspecified provider. | | + + + documented in this encounter Visit Diagnoses + + | Diagnosis | + + | Right nephrolithiasis - Primary | + + | Microhematuria Microscopic hematuria | + + documented in this encounter
--- OUTSIDE RECORDS SUMMARY | ~2020-03-15 | XMS | Encounter Summary ---
Demographics + + + | Address | [address] | | | [place] [address] | + + + | Home Phone | | + + + | Preferred Language | Unknown | + + + | Marital Status | | + + + | Latter-Day Affiliation | Unknown | + + + [...] + | Esthela Kumar | ECON | [address] | | | | | [place] | | | | | [address] | | + + + + + Care Team Providers + +------+ + | Care Afternoon Babysitter Name | Role | Phone | + [...] [id number] | | | | | | [place], [place] | | | | | | [address] | | | | | | [phone] | | | +--------+ + + + [...]
--- OUTSIDE RECORDS SUMMARY | ~2020-03-15 | XMS | Encounter Summary ---
Demographics + + + | Address | [address] | | | [place] [address] | + + + | Home Phone | | + + + | Preferred Language | Unknown | + + + | Marital Status | | + + + | Uatsdin Affiliation | Unknown | + + + | Race | White | + + + | Ethnic Group | Other Race | + + + Author + + + | Author | [facility] | + + + | Organization | [facility] | + + + | Address | Unknown | + + + | Phone | Unavailable | + + + Support + + + + + | Name | Relationship | Address | Phone | + + + + + | Eshtela Kumar | ECON | [address] | | | | | [place] | | | | | [address] | | + + + + + Care Team Providers + +------+ + | Care Strap Setter Name | Role | Phone | + [...] [id number] | | | | | | [place], [place] | | | | | | [address] | | | | | | [phone] | | | +--------+ + + + [...] | + +--------+ + + + | LAB OTHER | Routin | 06/23/2006 | | Results for this | | | e | 11:13 AM | | procedure are in the | | | | PST | | results section. | + +--------+ + + + documented in this encounter Results LAB OTHER (06/23/2006 11:13 AM PST) + + + + + + | Component | Value | Ref Range | Performed | Pathologist | | | | | At | Signature | + + + + + + | MISC REF | Myoadenylate Deaminase, | | [facility] | | | TEST NAME | Muscle Biopsy Collected | | DEPARTMENT | | | | 02/03/06 | | OF | | | | | | PATHOLOGY | | + + + + + + | MISC REF | Myoadenylate deaminase | | [facility] | | | TEST RESULT | 0.3 EU/mg Protein | | DEPARTMENT | | | | LowInterpretation: A | | OF | | | | reproducible deficiency | | PATHOLOGY | | | | was found in | | | | | | myoadenylatedeaminase | | | | | | activity, confirming | | | | | | histochemical findings. | | | | + + + + + + | NORMAL | (0.11 - 0.87) | | [facility] | | | RANGE | | | DEPARTMENT | | | | | | OF | | | | | | PATHOLOGY | | + + + + + + | REFERRAL | Womens and Childrens | | [facility] | | | LAB NAME | ESMER Dash | | DEPARTMENT | | | | | | OF | | | | | | PATHOLOGY | | + + + + + + + + | Specimen | + + | | + + + + + + + | Performing | Address | City/State/Zipcode | Phone Number | | Organization | | | | + + + + + | [facility] | [address] | [place] [address] | | | PATHOLOGY | [address] | | | + + + + + | [facility] | [facility] [address] | [place] [address] | | | PATHOLOGY | [address] | | | + + + + + documented in this encounter Visit Diagnoses Not on filedocumented in this encounter"
--- OUTSIDE RECORDS SUMMARY | ~2020-03-15 | XMS | Encounter Summary ---
Demographics + + + | Address | [address] | | | [place] [address] | + + + | Home Phone | | + + + | Preferred Language | Unknown | + + + | Marital Status | | + + + | Rastafarian Affiliation | 1073 | + + + | Race | Unknown | + + + | Ethnic Group | Unknown | + + + Author + + + | Author | [facility] | | | and Faheemana | + + + | Organization | [facility] | | | and [...] Team Providers + +------+ + | Care Oracle Erp Architect Name | Role | Phone | + [...] [place] | | | | | [place] | | [address] Phone: | | | | | CYSTO/URETER | | [phone] | | | | | O | | Fax: | | | | | W/LITHOTRIPS | | [phone] | | | | | Y &DAMARIS [...] +--------+--------+ + + + + Encounter Details +--------+---------+ + + + | Date | Type | Department | Care Team | Description | +--------+---------+ + + + | 06/26/ | Surgery | [facility] | Hebert Felipe | CYSTOSCOPY Right | | 2019 | | MED CTR OR [facility]TRA OP | MD Corwin [address] | URETEROSCOPY W/ | | | | [address] | [address] [place] | LASER lithotripsy | | | | [place], [place] | [address] | and stent placment | | | | [address] | | | | | | [phone] | | | +--------+---------+ + + + [...] lasts more than a day, a fever [id number] (38 C), or trouble urinating. Date Last Reviewed: 08/21/201619993269-2596 [employer]. [address] [place] [address], [place] [address]. All righ ts reserved. This information is not intended as a substitute for professional medical care. Always follow your healthcare professional's instructions. Discharge Instructions: After Your Surgery You ve just had surgery. During surgery, you were given medicine called anesthesia to patrick kirby you relaxed and free of pain. After [...] interact with your prescription medicines or other odds-yao-ywjrflu (OTC) medicines. Some prescription medicines have acetaminophen [...] of taking these medicines. Date Last Reviewed: 07/21/201619992194-5281 [employer]. [address] [place] [address], [place] [address]. All righ ts reserved. This information is [...] by: Hebert Felipe MD, 06/26/2019 15:30 [facility] pendlojesus, Renny Olivia MD - 06/25/2019 11:30 AM [...] with nausea and vomiting. Eventually presented to [facility] where a CT was performed which [...] CN 2-12 grossly intact; bilateral foot drop, eyeglass lens cutter strength is no rmal bilaterally Data: CT [...] POC Trace (A) Negative, 100 mg/dL Specific Crawford, UA, POC 1.015 1.001 - 1.030 Blood, [...] have not thoroughly proofread this note, and patient navigator errors are very likely to occur. CC: Lázaro Oviedo MD documented in this encounter Miscellaneous Notes Op Note - Hebert Felipe MD - 06/26/2019 4:38 PM PSTOperative Note Pt. Name/Age/: Andrea Kumar 68 y.o. 1950 Med. Record Number: [id number] Date of admission: 06/26/2019 Date of Operation/Procedure: 06/26/2019 Preoperative Diagnosis: Kidney stone, ureteral stone Postoperative Diagnosis: same Surgeon: Hebert Felipe MD Automotive Fuel Injection Servicer(s): none Anesthesia Provider(s): Anesthesiologist: Jonatan Castaneda MD [...] fluoroscopic guidance. We then used a 10 Nauruan dual-lumen catheter to place a second guidewire [...] to 5 mm in length. A 6 Nauruan variable length stent was then placed over [...] by: Hebert Felipe MD, 06/26/2019 16:38 [facility] documented in this [...] | | POC | | | [facility] | | [...] ST. | [address] | [place] | [phone] | | [facility] | | [address] | | | - LABORATORY | | [...] | | | | | g/dL | [facility] | | | | | | MEDICAL [...] + + | [facility] | [address] | [place] | [phone] | | [facility] | | [address] | | | - LABORATORY | | [...] | | | | KATIA PADILLA MD ([id number]) | | | | | | on [...] ONCE PRN, Nausea, | | | Starting 06/26/19 at 1641, For | | | 1 [...] HR under 40, Starting | | | Mon06/26/19 at 1641, Hold if HR | | [...] One week or | | | longer, dqqvte-fbf-fngrx use of | | | at least [...] | | | | | Pain, Starting Mon06/26/19 at | | | | | | [...] | | | | | | | rplyfp-stc-qqsqi use of at least | | | [...] day), | | | First dose on [facility] 06/27/19 at | | | 1800, If urine [...]
--- OUTSIDE RECORDS SUMMARY | ~2020-03-15 | XMS | Encounter Summary ---
Demographics + + + | Address | [address] | | | [place] [address] | + + + | Home Phone | | + + + | Preferred Language | Unknown | + + + | Marital Status | | + + + | Faith Affiliation | Unknown | + + + [...] + | Esthela Kumar | ECON | [address] | | | | | [place] | | | | | [address] | | + + + + + Care Team Providers + +------+ + | Care Pantry Goods Worker Name | Role | Phone | [...] [id number] | | | | | | [place], [place] | | | | | | [address] | | | | | | [phone] | | | +--------+ + + + [...]
--- OUTSIDE RECORDS SUMMARY | ~2020-03-15 | XMS | Encounter Summary ---
Demographics + + + | Address | [address] | | | [place] [address] | + + + | Home Phone [...] + | Esthela Kumar | ECON | [address] | | | | | [place] | | | | | [address] | | + + + + + Care Team Providers + +------+ + | Care Drip Box Tender Name | Role | Phone | + +------+ + | Alan Sainz MD | PCP | | + +------+ + Encounter Details +--------+ + + + + | Date | Type | Department | Care Team | Description | +--------+ + + + + | 06/22/ | Results | Radiology X-Ray | Marco Harrison MD | | | 2005 | Only | [facility] [address] | | | [address] | | | | | | Mailcode: [id number] | | | | | | [facility] | | | | | | [place], [place] | | | | | | [address] | | | | | | [phone] | | | +--------+ + + + [...]
--- OUTSIDE RECORDS SUMMARY | ~2020-03-15 | XMS | Encounter Summary ---
Demographics + + + | Address | [address] | | | [place] [address] | + + + | Home Phone | | + + + | Preferred Language | Unknown | + + + | Marital Status | | + + + | Synagogue Affiliation | Unknown | + + + [...] + | Esthela Kumar | ECON | [address] | | | | | [place] | | | | | [address] | | + + + + + Care Team Providers + +------+ + | Care Cellophane Worker Name | Role | Phone | [...] [id number] | | | | | | [place], [place] | | | | | | [address] | | | | | | [phone] | | | +--------+ + + + [...]
--- OUTSIDE RECORDS SUMMARY | ~2020-03-15 | XMS | Encounter Summary ---
Demographics + + + | Address | [address] | | | [place] [address] | + + + | Home Phone | | + + + | Preferred Language | Unknown | + + + | Marital Status | | + + + | Confucianism Affiliation | Unknown | + + + | Race | White | + + + | Ethnic Group | Other Race | + + + Author + + + | Author | [facility] | + + + | Organization | [facility] | + + + | Address | Unknown | + + + | Phone | Unavailable | + + + Support + + + + + | Name | Relationship | Address | Phone | + + + + + | Esthela Kumar | ECON | [address] | | | | | [place] | | | | | [address] | | + + + + + Care Team Providers + +------+ + | Care Paper Sales Manager Name | Role | Phone | + +------+ + | Alan Sainz MD | PCP | | + +------+ + Reason for Visit + + + | Reason | Comments | + + + | Weakness - general | | + + + Encounter Details +--------+---------+ + + + | Date | Type | Department | Care Team | Description | +--------+---------+ + + + | 07/18/ | Office | [facility] | Camille Yancey, | Myoadenylate | | 2006 | Visit | Therapy Services at | [place] [address] | Deaminase Deficiency | | | | [facility] | [address] | Myopathy (HCC); | | | | [address] | [place] [address] | Abnormality of Gait | | | | [facility] | [phone] | | | | | and Healing, | | | | | | [address], [address]st | | | | | | Floor [place], [place] | | | | | | [address] | | | | | | [phone] | | | +--------+---------+ + + + [...] documented as of this encounter Progress Notes Camille Yancey - 07/18/2007 2:56 PM PSTPHYSICAL THERAPY EVAL: [facility] PHYSICAL THERAPY EVALUATION KIERSTEN KUMAR MR# [id number] Start of Care: 07/18/2007 Referring/Attending Practitioner: Maximilian De La Garza MD Primary Diagnosis/ICD-9: 277.2, 781.2 Referral Diagnosis/ICD-9: 277.2, 781.2 Date of onset: 06/21/07 Insurance: Commercial. Number visits used/authorized: eval and treat Precautions: n/a PMH: Fx femur, carple tunnel surgery, back pain, lumbar laminectomy x 2, spinal stenosis, hypercholestrolemia Medications: see [employer] SUBJECTIVE: This is a 56 year old M who presents with the following complaints: poor balance, falls, cramps in legs . Pain located: legs, . Pain, on a scale of 0-10 is: 0 now, 5 at times Pain limits: Pt doesn't let the cramps stop him Activities limited: hunting Other significant History: Pt started having problems with weakness in his legs about 5 years ago. He has problems with his balance and occasionally falls.He reports he turns his ankles easily. He noted this especially in Octob er while hunting on uneven ground, compensated by using a walking stick. 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 He did not pursue ankle b race after last visit. May be interested now and willing to talk with policy writer sales. Pt has torn ligaments in his right knee and he wears a brace sometimes - expecting TKR eventually.. 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 pt demonstrates mild foot drop on t he left during gait, pt will also tend to drift to the left Charges for today: Brief Eval, Reviewed stretching program: gastrocs, soleius, hamstrings. Corrected position of heel cord stretches to avoid overstretching foot and emphasize stretching calf muscles. Discussed L A FO. Patient willing to meet with policy writer sales to discuss. Plug Wirer contacted and will make arr angements to connect with patient. ASSESSMENT: Patient needs the following adaptive equipment: AFO, Patient would benefit from physical therapy for the following reasons: therapeutic exercises, Gait training with AFO for his left ankle as needed to provide stability and foot clearance during gait. Rehabilitation potential: good SHORT-TERM GOALS, 1 weeks to completion and discussed with patient: Instruct in home Ex program and safe walking. LONG-TERM GOALS, 1 weeks to completion and discussed with patient: same as short term goals PLAN: Pt to see policy writer sales in [place] or [place] Frequency/Duration: once Treatment began: 1:00 pm Treatment ended: 1:30 pm documented in this encount er Plan of Treatment + + +--------+ + + | Name | Type | Priori | Associated Diagnoses | Order Schedule | | | | ty | | | + + +--------+ + + | PHYSICAL THERAPY | Procedures | Routin | Myoadenylate | Ordered: 07/18/2007 | | [facility] | | e | Deaminase Deficiency | | | | | | Myopathy (HCC) | | | | | | Abnormality of Gait | | + + +--------+ + + documented as of this encounter Procedures + +--------+ + + + | Procedure Name | Priori | Date/Time | Associated Diagnosis | Comments | | | ty | | | | + +--------+ + + + | LAB REPORTS | | 04/18/2008 | | Results for this | | | | 12:00 AM | | procedure are in the | | | | PDT | | results section. 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
--- OUTSIDE RECORDS SUMMARY | ~2020-03-15 | XMS | Encounter Summary ---
Demographics + + + | Address | [address] | | | [place] [address] | + + + | Home Phone | | + + + | Preferred Language | Unknown | + + + | Marital Status | | + + + | Adventism Affiliation | Unknown | + + + | Race | White | + + + | Ethnic Group | Other Race | + + + Author + + + | Author | [facility] | + + + | Organization | [facility] | + + + | Address | Unknown | + + + | Phone | Unavailable | + + + Support + + + + + | Name | Relationship | Address | Phone | + + + + + | Esthela Kumar | ECON | [address] | | | | | [place] | | | | | [address] | | + + + + + Care Team Providers + +------+ + | Care Press Pipe Inspector Name | Role | Phone | + +------+ + | Alan Sainz MD | PCP | | + +------+ + Encounter Details +--------+ + + + + | Date | Type | Department | Care Team | Description | +--------+ + + + + | 03/01/ | Abstract | Neurology at | Clinic, Neurology | | | 2017 | | [place] [facility] | | | | | | Healing [address] | | | | | | Reina [facility] | | | | | | Health and Healing, | | | | | | Building | | | | | | Floor [place], [place] | | | | | | [address] | | | | | | [phone] | | | +--------+ + + + [...]
--- OUTSIDE RECORDS SUMMARY | ~2020-03-15 | XMS | Encounter Summary ---
Demographics + + + | Address | [address] | | | [place] [address] | + + + | Home Phone | | + + + | Preferred Language | Unknown | + + + | Marital Status | | + + + | Jainism Affiliation | Unknown | + + + | Race | White | + + + | Ethnic Group | Other Race | + + + Author + + + | Author | [facility] | + + + | Organization | [facility] | + + + | Address | Unknown | + + + | Phone | Unavailable | + + + Support + + + + + | Name | Relationship | Address | Phone | + + + + + | Esthela Kumar | ECON | [address] | | | | | [place] | | | | | [address] | | + + + + + Care Team Providers + +------+ + | Care Lap Polisher Name | Role | Phone | + +------+ + | Alan Sainz MD | PCP | | + +------+ + Encounter Details +--------+ + + + + | Date | Type | Department | Care Team | Description | +--------+ + + + + | 06/22/ | Abstract | Neurology at | [place], | | | 2017 | | [place] [facility] & | Sussy Manuel MD [address] | | | | | Healing [address] | [address] | | | | | Reina [place] for | [place], [place] | | | | | Health and Healing, | [address] | | | | | | [phone] | | | | | Floor [place], [place] | | | | | | [address] | | | | | | [phone] | | | +--------+ + + + [...]
--- OUTSIDE RECORDS SUMMARY | ~2020-03-15 | XMS | Encounter Summary ---
Demographics + + + | Address | [address] | | | [place] [address] | + + + | Home Phone | | + + + | Preferred Language | Unknown | + + + | Marital Status | | + + + | Orthodoxy Affiliation | Unknown | + + + | Race | White | + + + | Ethnic Group | Other Race | + + + Author + + + | Author | [facility] | + + + | Organization | [facility] | + + + | Address | Unknown | + + + | Phone | Unavailable | + + + Support + + + + + | Name | Relationship | Address | Phone | + + + + + | Esthela Kumar | ECON | [address] | | | | | [place] | | | | | [address] | | + + + + + Care Team Providers + +------+ + | Care Loom Fixer Supervisor Name | Role | Phone | + +------+ + | Alan Sainz MD | PCP | | + +------+ + Encounter Details +--------+ + + + + | Date | Type | Department | Care Team | Description | +--------+ + + + + | 06/07/ | Abstract | Neurology at | [place], | | | 2017 | | [facility] & | Sussy Manuel MD [address] | | | | | Healing [address] | [address] | | | | | Reina [place] for | [place], [place] | | | | | Health and Healing, | [address] | | | | | | [phone] | | | | | Floor [place], [place] | | | | | | [address] | | | | | | [phone] | | | +--------+ + + + [...] this encounter Progress Real Márquez MA - 06/07/2017 12:52 PM PDTFaxed signed Plan of Care to [facility] at [phone]. do cumented in this encounter Plan of Treatment Not on filedocumented as of this encounter Visit Diagnoses Not on filedocumented in this encounter"
--- OUTSIDE RECORDS SUMMARY | ~2020-03-15 | XMS | Encounter Summary ---
Demographics + + + | Address | [address] | | | [place] [address] | + + + | Home Phone | | + + + | Preferred Language | Unknown | + + + | Marital Status | | + + + | Rastafarian Affiliation | Unknown | + + + | Race | White | + + + | Ethnic Group | Other Race | + + + Author + + + | Author | [facility] | + + + | Organization | [facility] | + + + | Address | Unknown | + + + | Phone | Unavailable | + + + Support + + + + + | Name | Relationship | Address | Phone | + + + + + | Esthela Kumar | ECON | [address] | | | | | [place] | | | | | [address] | | + + + + + Care Team Providers + +------+ + | Care Life Enrichment Assistant Name | Role | Phone | [...] | | | | stenosis of | [address] | | | | | | lumbar | [address] | | | | | | region | [place], [place] | | | | | | without | [address] | | | | | | neurogenic | Phone: | | | | | | claudication | [phone] | | | | | | Procedures | Fax: | | | | | | CONSULT TO | [phone] | | | | | | | | | | | | | NEUROSURGERY | | | +--------+--------+ + + + + Reason for Visit + + + | Reason | Comments | + + + | Referral To | External to [facility] | | Neurosurgery | | + + + Encounter Details +--------+ + + + + | Date | Type | Department | Care Team | Description | +--------+ + + + + | 07/19/ | Telephone | Neurology at | [place], | Referral To | | 2016 | | [facility] & | Sussy Manuel MD [address] | Neurosurgery | | | | Healing [address] | [address] | (External to [facility]) | | | | [facility] for | [place], [place] | | | | | Health and Healing, | [address] | | | | | [facility] | [phone] | | | | | Floor [place], [place] | | | | | | [address] | | | | | | [phone] | | | +--------+ + + + [...]
--- OUTSIDE RECORDS SUMMARY | ~2020-03-15 | XMS | Encounter Summary ---
Demographics + + + | Address | [address] | | | [place] [address] | + + + | Home Phone | | + + + | Preferred Language | Unknown | + + + | Marital Status | | + + + | Samaritan Affiliation | Unknown | + + + | Race | White | + + + | Ethnic Group | Other Race | + + + Author + + + | Author | [facility] | + + + | Organization | [facility] | + + + | Address | Unknown | + + + | Phone | Unavailable | + + + Support + + + + + | Name | Relationship | Address | Phone | + + + + + | Esthela Kumar | ECON | [address] | | | | | [place] | | | | | [address] | | + + + + + Care Team Providers + +------+ + | Care Chartered Wealth Manager Name | Role | Phone | + +------+ + | Alan Sainz MD | PCP | | + +------+ + Encounter Details +--------+------+ + + + | Date | Type | Department | Care Team | Description | +--------+------+ + + + | 07/03/ | Lab | Laboratory at [facility] | | Peripheral | | 2011 | | [address] | | neuropathy | | | | [facility] | | | | | | and Healing, | | | | | | Building [address] | | | | | | [place], [place] | | | | | | [address] | | | | | | [phone] | | | +--------+------+ + + + [...] 0.0 | 0.0 - 0.1 K/cu | FAB[facility] | | | | | mm | [...] | + + + + + | [facility] | [address] | [place] [address] | | | SERVICES, CORE | PARK [...] | | | | immunofixation | | [place] | | | | electrophoresis. | | | | + + + + + + + + | Specimen | + + | Blood - Blood | + + + + + + + | Performing | Address | City/State/Zipcode | Phone Number | | Organization | | | | + + + + + | [facility] | [address] | [place] [address] | | | [place] | | | [...] + | [facility] | [address] | [place] [address] | | | [place] | | | [...] + + + + + | [facility] | [address] | [place] [address] | | | YASIR, FLETCHER | [address] | | | + + + + + COPPER, SERUM (07/03/2012 5:21 PM PST) + + + + + + | Component | Value | Ref Range | Performed | Pathologist | | | | | At | Signature | + + + + + + | COPPER | 92Comment: REFERENCE | 70 - 140 ug/dL | [facility] | | | SERUM | INTERVAL: Copper, Serum | | REG UNIV | | | | Access complete set of | | PTH - INTFC | | | | age- and/or | | | | | | gender-specificreference | | | | | | intervals for this test | | | | | | in the [facility] | | | | | | LaboratoryTest Directory | | | | | | ([employer]TMAT). Serum | | | | | | [...] | | | | | | by [employer],[address] | | | | | | [address], [facility],[place] | | | | | | [address] | | | | | | [phone].[employer]. | | | | | | [facility], Beverley Lyles, | | | | [...] [facility] REG | [address] | [place], [place] | | | UNIV PTH - INTFC | | [address] | | + + + + + [...] | | | IC ACID | by [employer],[address] | umol/L | REG UNIV | | | | [address], [facility],[place] | | PTH - INTFC | | | | [address] | | | | | | [phone].Gratcilab. | | | | | | Beverley bearden, | | | | | | Christine [...] [facility] REG | [address] | [place], [place] | | | UNIV PTH - INTFC | | [address] | | + + + + + [...] | | supplementation does not | | [facility] | | | | correct consider | [...] if | | | | | | [id number] >400: | | | | | | [...] + | [facility] | [address] | [place] [address] | | | [place] | | | | + + + [...] | | | LABORATORY | | | NIUEAN | | | SERVICES, | | | [...] [facility] | [address] | [place] [address] | | | SERVICES, CORE | [address] | | | + + + + + documented in this encounter Visit Diagnoses + + | Diagnosis | + + | Peripheral neuropathy Unspecified hereditary and idiopathic peripheral neuropathy | + + documented in this encounter"
--- OUTSIDE RECORDS SUMMARY | ~2020-03-15 | XMS | Encounter Summary ---
Demographics + + + | Address | [address] | | | [place] [address] | + + + | Home Phone [...] + | Esthela Kumar | ECON | [address] | | | | | [place] | | | | | [address] | | + + + + + Care Team Providers + +------+ + | Care Boarding Kennel Or Cattery Operator Name | Role | Phone | + +------+ + | Alan aSinz MD | PCP | | + +------+ + Encounter Details +--------+ + + + + | Date | Type | Department | Care Team | Description | +--------+ + + + + | 03/24/ | Results | Neurology | Maximilian De La Garza, | | | 2002 | Only | Neuromuscular Clinic | | | | | | at [facility] | | | | | | Health & Healing | | | | | | [address] | | | | | | [facility] | | | | | | and Healing, | | | | | | Building | | | | | | Floor [place], [place] | | | | | | [address] | | | | | | [phone] | | | +--------+ + + + [...]
--- OUTSIDE RECORDS SUMMARY | ~2020-03-15 | XMS | Encounter Summary ---
Demographics + + + | Address | [address] | | | [place] [address] | + + + | Home Phone | | + + + | Preferred Language | Unknown | + + + | Marital Status | | + + + | Confucianist Affiliation | Unknown | + + + [...] + | Esthela Kumar | ECON | [address] | | | | | [place] | | | | | [address] | | + + + + + Care Team Providers + +------+ + | Care Cigarette Machine Filler Name | Role | Phone | + [...] Rd | | | | | | [place], [place] | | | | | | [address] | | | +--------+ + + + [...]
--- OUTSIDE RECORDS SUMMARY | ~2020-03-15 | XMS | Encounter Summary ---
Demographics + + + | Address | [address] | | | [place] [address] | + + + | Home Phone | | + + + | Preferred Language | Unknown | + + + | Marital Status | | + + + | Scientology Affiliation | Unknown | + + + [...] + | Esthela Kumar | ECON | [address] | | | | | [place] | | | | | [address] | | + + + + + Care Team Providers + +------+ + | Care Motion Study Engineer Name | Role | Phone | + +------+ + | Alan Sainz MD | PCP | | + +------+ + Encounter Details +--------+ + + + + | Date | Type | Department | Care Team | Description | +--------+ + + + + | 08/29/ | Abstract | Neurology at | Brian, | | | 2018 | | [facility] & | Sussy Manuel MD [address] | | | | | Healing [address] | [address] | | | | | Reina [place] for | [place], [place] | | | | | Health and Healing, | [address] | | | | | | [phone] | | | | | Floor [place], [place] | | | | | | [address] | | | | | | [phone] | | | +--------+ + + + [...]
--- OUTSIDE RECORDS SUMMARY | ~2020-03-15 | XMS | Encounter Summary ---
Demographics + + + | Address | [address] | | | [place] [address] | + + + | Home Phone [...] + | Esthela Kumar | ECON | [address] | | | | | [place] | | | | | [address] | | + + + + + Care Team Providers + +------+ + | Care Hot Metal Mixer Operator Helper Name | Role | Phone | + +------+ + | Alan Sainz MD | PCP | | + +------+ + Encounter Details +--------+------+ + + + | Date | Type | Department | Care Team | Description | +--------+------+ + + + | 08/08/ | Lab | Laboratory at [facility] | | Peripheral | | 2011 | | [address] | | neuropathy | | | | [place] [facility] | | | | | | and Healing, | | | | | | Building [address] | | | | | | [place], [place] | | | | | | [address] | | | | | | [phone] | | | +--------+------+ + + + [...] [facility] | | | UR(REFERRAL | by [employer],[address] | | REG UNIV | | | ) | [address], [facility] | | PTH - INTFC | | | | [address] | | | | | | [phone].[employer]. | | | | | | Beverley bearden, | | | | | | Chrisitne JIMENEZ. Director | | | | + [...] ug/gCR | [facility] | | | UG/G [employer]ACT [employer] MERCHANDISER | | | REG UNIV | | | | | | PTH - INTFC | | + + + + + + | MERCURY, | 0.9 | <=35.0 ug/gCR | [facility] | | | URINE UG/G | | | REG UNIV | | | [employer] MERCHANDISER | | | PTH - INTFC | | + + + + + + | ARSENIC, | 19.3 | ug/gCR | [facility] | | | URINE UG/G | | | REG UNIV | | | IMPACT RET[employer] SERVICE MERCHANDISER | | | PTH - INTFC | [...] | | | | | | defined.The [facility]CGIH | | | | | | Biological [...] concentration | | | | | | [id number] ug/L, | | | | | | [...] the | | | | | | laboratorynyll perform | | | | | | [...] [facility] | [address] | [place], [place] | | | UNIV PTH - INTFC | | [address] | | + + + + + [...] + | [facility] | [address] | [place] [address] | | | [place] | | | | + + + + + documented in this encounter Visit Diagnoses + + | Diagnosis | + + | Peripheral neuropathy Unspecified hereditary and idiopathic peripheral neuropathy | + + documented in this encounter"
--- OUTSIDE RECORDS SUMMARY | ~2020-03-15 | XMS | Encounter Summary ---
Demographics + + + | Address | [address] | | | [place] [address] | + + + | Home Phone | | + + + | Preferred Language | Unknown | + + + | Marital Status | | + + + | Amish Affiliation | Unknown | + + + | Race | White | + + + | Ethnic Group | Other Race | + + + Author + + + | Author | [facility] | + + + | Organization | [facility] | + + + | Address | Unknown | + + + | Phone | Unavailable | + + + Support + + + + + | Name | Relationship | Address | Phone | + + + + + | Esthela Kumar | ECON | [address] | | | | | [place] | | | | | [address] | | + + + + + Care Team Providers + +------+ + | Care Radio Frequency Design Engineer Name | Role | Phone | [...] | | Peripheral | MD Nino | [address] | | | | | neuropathy | [address] | Alex Harvey | | | | | Procedures | Ave | [address] [place] | | | | | MRI SPINE | [place], [place] | Research | | | | | LUMBAR WO | [address] | Center | | | | | CONT [address] | Phone: | [place], [place] | | | | | | [phone] | [address] | | | | | | Fax: | Phone: | | | | | | [phone] | [phone] | | | | | | | Fax: | | | | | | | [phone] | +--------+--------+ + + + + Reason [...] | | Peripheral | MD Nino | [address] | | | | | neuropathy | [address] | Alex [place] | | | | | Procedures | Ave | [address] | | | | | MRI SPINE | [place], [place] | Research | | | | | LUMBAR WO | [address] | Center | | | | | CONT [address] | Phone: | [place], [place] | | | | | | [phone] | [address] | | | | | | Fax: | Phone: | | | | | | [phone] | [phone] | | | | | | | Fax: | | | | | | | [phone] | +--------+--------+ + + + + Encounter Details +--------+ + + + + | Date | Type | Department | Care Team | Description | +--------+ + + + + | 08/08/ | Hospital | Radiology/Imaging | | | | 2011 | Encounter | Lab at [facility] [address] | | | | | | [address] [facility] for | | | | | | Health and Healing, | | | | | | [address] | | | | | | [place], [place] | | | | | | [address] | | | | | | [phone] | | | +--------+ + + + [...] | | | | SPINE WO | [id number] Name: | | | | | CONT | KIERSTEN KUMAR | | | | | | Birthdate: 1950 | | | | | | Sex: M Alias: | | | | | | Patient Location: | | | | | | [id number]: Outpatient | | | | | | Active Ordering | | | | | | Physician: NENO | | | | | | MD NINOOrderjohnie | | | | | | Physician 2: MSPL- MRI | | | | | | L-SPINE WO CONTRAST | | | | | | completed on 08/08/2012 | | | | | | 13:55Accession # | | | | | | [id number] EXAM: MRI | | | | | [...] | | | | | L4-L5 and L5-[id number] | | | | | | fatty [...] | | | | | / Neris Valera | | | | | | Pending final approval | | | | | | / Neris Valera | | | | | | [...] U. | | | | | | Arnold 08/10/2012 | | | | | | 14:41PM | | | | | | Final/Electronically | | | | | | signed / Neris U. | | | | | | Arnold 08/09/2012 | | | | | | 11:21AM Result | | | | | | modified / Neirs | | | | | | U. Arnold 08/09/2012 | | | | | | 11:21 AM Pending final | | | | | | approval / NAEEM TAYLOR | | | | | | 08/09/2012 11:21 AM | | | | | | Result modified / | | | | | | NAEEMELISEO TAYLOR 08/09/2012 | | | | | | 11:21 AM Pending final | | | | | | approval / Neris | | | | | | U. Arnold 08/08/2012 | | | | | | 22:23 PM Result | | | | | | modified / Neris | | | | | | U. Arnold 08/08/2012 | | | | | | 22:23 PM Pending final | | | | | | approval / Neris | | | | | | U. Arnold 08/08/2012 | | | | | | 19:38 PM Result | | | | | | modified / Neris | | | | | | U. Arnold 08/08/2012 | | | | | | [...] | | + +---------+ + + | [facility] DEPARTMENT OF | | | | | RADIOLOGY | | | | + +---------+ + + documented in this encounter Visit Diagnoses + + | Diagnosis | + + | Peripheral neuropathy Unspecified hereditary and idiopathic peripheral neuropathy | + + documented in this encounter"
--- OUTSIDE RECORDS SUMMARY | ~2020-03-15 | XMS | Encounter Summary ---
Demographics + + + | Address | [address] | | | [place] [address] | + + + | Home Phone | | + + + | Preferred Language | Unknown | + + + | Marital Status | | + + + | Christianity Affiliation | Unknown | + + + [...] + | Esthela Kumar | ECON | [address] | | | | | [place] | | | | | [address] | | + + + + + Care Team Providers + +------+ + | Care Mold Maintenance Technician Name | Role | Phone | [...] [id number] | | | | | | [place], [place] | | | | | | [address] | | | | | | [phone] | | | +--------+ + + + [...] | + +--------+ + + + | [id number],SER | Routin | 12/08/2005 | | Results [...] [facility] | [address] | [place], [place] | | | UN[facility] P[facility] - INTFC | | [address] | | + + + + + [...] + + + + | [facility] | [employer] | [place] [address] | | | GENETICS LABS | [address] | | | | | AVE. [...] | + + + + + | [facility] | [facility] | [place] [address] | | | GENETICS LABS | [address] | | | | | AVE. [...] | | | | | performed by [facility] | | | | | | Laboratories. | | | | + + + + + + + + | Specimen | + + | | + + + + + + + | Performing | Address | City/State/[facility] | Phone Number | | Organization | | | | + + + + + | [facility] | [address] | [place], [place] | | | UNIV P[facility] - INT[facility] | | [address] | | + + + + + [...] | | | S - ACY | [facility] | | | | | | [facility] | | | | + + + [...] Puente | [address] | [place] | | | TEENA, PH.D | | [place] [address] | | + + + + + [...] + + + | SPECIALTY | [address] [facility] | [place] | | | LABORATORY | | [address] | | + + + + + [...] [facility] | [address] | [place], [place] | | | UNIV PTH - INTFC | | [address] | | + + + + + [...] | + + + + + | [facility] | [address] | [place] [address] | | | LABORATORY | | | | + + + + + [id number],SERUM (12/08/2005 12:30 PM PDT) + +-------+ + [...] | Protein Electrophoresis, Serum Test performed by Point | | | [facility]. | | + + + + + + + + | Performing | Address | City/State/Zipcode | Phone Number | | Organization | | | | + + + + + | [facility] | [address] | [place] [address] | | | LABORATORY | | | [...] [facility] | [address] | [place], [place] | | | UNIV P[facility] - INT[facility] | | [address] | | + + + + + [...] | | | (ALPHA | performed by TORO | | | | | KELSEY), SERUM [...] [facility] | [address] | [place], [place] | | | UN[facility] P[facility] - INT[facility] | | [address] | | + + + + + [...] [facility] | [address] | [place], [place] | | | UNIV P[facility] - INT[facility] | | [address] | | + + + + + [...] | + + + + + | [facility] DEPARTMENT OF | [address] | [place] [address] | | | PATHOLOGY | [address] | | | + + + + + | [facility] DEPARTMENT OF | [address] | [place] [address] | | | PATHOLOGY | [address] [...] | 31.7Comment: | 26.0 - 36.0 | [facility] | | | | APTT Therapeutic Range [...] | + + + + + | [facility] | [facility] | [place] [address] | | | PATHOLOGY | [address] | | | + + + + + | [facility] DEPARTMENT OF | [address] | [place] [address] | | | PATHOLOGY | [address] [...] | + + + + + | [facility] DEPARTMENT OF | [address] [facility] | [place] [address] | | | PATHOLOGY | [address] | | | + + + + + | [facility] DEPARTMENT OF | [address] [facility] | [place] [address] | | | PATHOLOGY | [address] [...] Espinal | | | | | | [facility] | | | | | | Laboratories. | | | | + + + + + + + + | Specimen | + + | | + + + + + + + | Performing | Address | City/State/Zipcode | Phone Number | | Organization | | | | + + + + + | [facility] | [address] | [place] [address] | | | LABORATORY | | | [...] by | | | | | | [facility] | | | | | | [facility]. | | | | + + + + + + + + | Specimen | + + | | + + + + + + + | Performing | Address | City/State/Zipcode | Phone Number | | Organization | | | | + + + + + | [facility] | [address] | [place] [address] | | | LABORATORY | | | [...] | | | performed by Teddy | Elysia/cory | | | | | [facility] | | | | | | Laboratories. | | | | + + + + + + + + | Specimen | + + | | + + + + + + + | Performing | Address | City/State/Zipcode | Phone Number | | Organization | | | | + + + + + | [facility] | [address] | [place] [address] | | | LABORATORY | | | [...] | Protein Electrophoresis, Serum Test performed by Point | | | [facility]. | | + + + + + + + + | Performing | Address | City/State/Zipcode | Phone Number | | Organization | | | | + + + + + | [facility] | [address] | [place] [address] | | | LABORATORY | | | [...] + + + | FORM SIGNED | Frederic | | FABRICIO | | | BY: | | | [...] DEPARTMENT OF | [address] | [place], [place] [address] | | | PATHOLOGY | [address] | | | + + + + + | [facility] | [address] | [place] [address] | | | PATHOLOGY | [address] [...] [facility] | [address] | [place], [place] | | | UN[facility] | | [address] | | + + + + + [...] [facility] | | | | | [facility] | | | | | | Laboratories. | | | | + + + + + + + + | Specimen | + + | | + + + + + + + | Performing | Address | City/State/Zipcode | Phone Number | | Organization | | | | + + + + + | [facility] | [address] | [place] [address] | | | LABORATORY | | | [...] | ON HEP | Test performed by Teddy | | | | | 2,SERUM | [facility] | | | | | | Laboratories. | | | | + + + + + + + + | Specimen | + + | | + + + + + + + | Performing | Address | City/State/Zipcode | Phone Number | | Organization | | | | + + + + + | [facility] | [address] | [place] [address] | | | LABORATORY | | | [...] | | | | Test performed by [facility] | | | | | | Laboratories. | | | | + + + + + + + + | Specimen | + + | | + + + + + + + | Performing | Address | City/State/Zipcode | Phone Number | | Organization | | | | + + + + + | [facility] | [address] | [place], [place] | | | UNIV P[facility] - INT[facility] | | [address] | | + + + + + SATISH-ANTIBODIES IDENTIFICATION (12/08/2005 12:30 PM PDT) + + + + + + | Component | Value | Ref Range | Performed | Pathologist | | | | | At | Signature | + + + + + + | GROUND EQUIPMENT MECHANIC AB | Negative | | [facility] | [...] | + + + + + | [facility] DEPARTMENT OF | [facility] | [place] [address] | | | PATHOLOGY | [address] | | | + + + + + | [facility] DEPARTMENT OF | [address] | [place] [address] | | | PATHOLOGY | [address] [...] | + + + + + | [facility] | [address] | [place] [address] | | | PATHOLOGY | [address] | | | + + + + + | [facility] | [address] | [place] [address] | | | PATHOLOGY | [address] | | | + + + + + documented in this encounter Visit Diagnoses Not on filedocumented in this encounter"
--- OUTSIDE RECORDS SUMMARY | ~2020-03-15 | XMS | Encounter Summary ---
Demographics + + + | Address | [address] | | | [place] [address] | + + + | Home Phone [...] + | Esthela Kumar | ECON | [address] | | | | | [place] | | | | | [address] | | + + + + + Care Team Providers + +------+ + | Care Collection Advisor Name | Role | Phone | + +------+ + | Alan Sainz MD | PCP | | + +------+ + Encounter Details +--------+ + + + + | Date | Type | Department | Care Team | Description | +--------+ + + + + | 09/19/ | Document-Sc | UNKNOWN DEPARTMENT | Unknown . | | | 2012 | anned | [address] | | | | | | [address] | | | | | | [place], [place] | | | | | | [address] | | | +--------+ + + + [...]
--- OUTSIDE RECORDS SUMMARY | ~2020-03-15 | XMS | Encounter Summary ---
Demographics + + + | Address | [address] | | | [place] [address] | + + + | Home Phone [...] + | Esthela Kumar | ECON | [address] | | | | | [place] | | | | | [address] | | + + + + + Care Team Providers + +------+ + | Care Community Music Therapist Name | Role | Phone | + +------+ + | Lázaro Oviedo MD | PCP | | + +------+ + Encounter Details +--------+ + + + + | Date | Type | Department | Care Team | Description | +--------+ + + + + | 03/20/ | Abstract | Neurology at | Natan Herrera | | | 2018 | | [facility] & | MD [place] [address] | | | | | Healing [address] | e [place], [place] | | | | | [facility] | [address] | | | | | Health and Healing, | [phone] | | | | | | | | | | | [place], [place] | | | | | | [address] | | | | | | [phone] | | | +--------+ + + + [...]
--- OUTSIDE RECORDS SUMMARY | ~2020-03-15 | XMS | Encounter Summary ---
Demographics + + + | Address | [address] | | | [place] [address] | + + + | Home Phone | | + + + | Preferred Language | Unknown | + + + | Marital Status | | + + + | Zoroastrianism Affiliation | Unknown | + + + [...] + | Esthela Kumar | ECON | [address] | | | | | [place] | | | | | [address] | | + + + + + Care Team Providers + +------+ + | Care Radio Journalist Name | Role | Phone | + +------+ + | Alan Sainz MD | PCP | | + +------+ + Encounter Details +--------+ + + + + | Date | Type | Department | Care Team | Description | +--------+ + + + + | 06/08/ | Abstract | Neurology at | Brian, | | | 2017 | | [facility] & | Sussy Manuel MD [address] | | | | | Healing [address] | [address] | | | | | [place] [place] for | [place], [place] | | | | | Health and Healing, | [address] | | | | | | [phone] | | | | | Floor [place], [place] | | | | | | [address] | | | | | | [phone] | | | +--------+ + + + [...]
--- OUTSIDE RECORDS SUMMARY | ~2020-03-15 | XMS | Encounter Summary ---
Demographics + + + | Address | [address] | | | [place] [address] | + + + | Home Phone [...] + | Esthela Kumar | ECON | [address] | | | | | [place] | | | | | [address] | | + + + + + Care Team Providers + +------+ + | Care Chemistry Professor Name | Role | Phone | + +------+ + | Alan Sainz MD | PCP | | + +------+ + Encounter Details +--------+ + + + + | Date | Type | Department | Care Team | Description | +--------+ + + + + | 08/29/ | Abstract | Neurology at | Brian, | | | 2018 | | [facility] & | Sussy Manuel MD [address] | | | | | Healing [address] | [address] | | | | | [place] for | [place], [place] | | | | | Health and Healing, | [address] | | | | | | [phone] | | | | | Floor [place], [place] | | | | | | [address] | | | | | | [phone] | | | +--------+ + + + [...]
--- OUTSIDE RECORDS SUMMARY | ~2020-03-15 | XMS | Encounter Summary ---
Demographics + + + | Address | [address] | | | [place] [address] | + + + | Home Phone [...] + + + | Author | [facility] | + + + | Organization | [facility] | + + + | Address | Unknown | + + + | Phone | Unavailable | + + + Support + + + + + | Name | Relationship | Address | Phone | + + + + + | Esthela Kumar | ECON | [address] | | | | | [place] | | | | | [address] | | + + + + + Care Team Providers + +------+ + | Care Street Supervisor Name | Role | Phone | + +------+ + | Lázaro Oviedo MD | PCP | | + +------+ + Encounter Details +--------+ + + + + | Date | Type | Department | Care Team | Description | +--------+ + + + + | 05/21/ | Ancillary | Registration [address] | Maximilian De La Garza, | | | 2005 | Registratio | [address] Costa MD | | | | n | Carlos Mailcode: [id number] | | | | | | [place], [place] | | | | | | [address] | | | | | | [phone] | | | +--------+ + + + [...]
--- OUTSIDE RECORDS SUMMARY | ~2020-03-15 | XMS | Encounter Summary ---
Demographics + + + | Address | [address] | | | [place] [address] | + + + | Home Phone [...] + | Esthela Kumar | ECON | [address] | | | | | [place] | | | | | [address] | | + + + + + Care Team Providers + +------+ + | Care Video Player Mechanic Name | Role | Phone | + +------+ + | Alan Sainz MD | PCP | | + +------+ + Encounter Details +--------+ + + + + | Date | Type | Department | Care Team | Description | +--------+ + + + + | 06/07/ | Abstract | Neurology at | Brian, | | | 2017 | | [facility] & | Sussy Manuel MD [address] | | | | | Healing [address] | [address] | | | | | [place] for | [place], [place] | | | | | Health and Healing, | [address] | | | | | | [phone] | | | | | Floor [place], [place] | | | | | | [address] | | | | | | [phone] | | | +--------+ + + + [...] PM PDTFaxed signed Plan of Care to [facility] at [phone]. do cumented in this encounter Plan of Treatment Not on filedocumented as of this encounter Visit Diagnoses Not on filedocumented in this encounter"
--- OUTSIDE RECORDS SUMMARY | ~2020-03-15 | XMS | Encounter Summary ---
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
--- OUTSIDE RECORDS SUMMARY | ~2020-03-15 | XMS | Encounter Summary ---
Demographics + + + | Address | [address] | | | [place] [address] | + + + | Home Phone | | + + + | Preferred Language | Unknown | + + + | Marital Status | | + + + | Buddhist Affiliation | Unknown | + + + | Race | White | + + + | Ethnic Group | Other Race | + + + Author + + + | Author | [facility] | + + + | Organization | [facility] | + + + | Address | Unknown | + + + | Phone | Unavailable | + + + Support + + + + + | Name | Relationship | Address | Phone | + + + + + | Esthela Kumar | ECON | [address] | | | | | [place] | | | | | [address] | | + + + + + Care Team Providers + +------+ + | Care Painting Contractor Name | Role | Phone | + +------+ + | Alan Sainz MD | PCP | | + +------+ + Encounter Details +--------+ + + + + | Date | Type | Department | Care Team | Description | +--------+ + + + + | 08/28/ | Documentati | Neurology | Sherlyn Lazcano MD | | | 2012 | on | [facility] | [address] | | | | | at [facility] | [place] [address] | | | | | Health & Healing | [phone] | | | | | [address] | | | | | | [place] for [facility] | | | | | | and Healing, | | | | | | Building | | | | | | Floor [place], [place] | | | | | | [address] | | | | | | [phone] | | | +--------+ + + + [...]
--- OUTSIDE RECORDS SUMMARY | ~2020-03-15 | XMS | Encounter Summary ---
Demographics + + + | Address | [address] | | | [place] [address] | + + + | Home Phone | | + + + | Preferred Language | Unknown | + + + | Marital Status | | + + + | Spiritism Affiliation | Unknown | + + + | Race | White | + + + | Ethnic Group | Other Race | + + + Author + + + | Author | [facility] | + + + | Organization | [facility] | + + + | Address | Unknown | + + + | Phone | Unavailable | + + + Support + + + + + | Name | Relationship | Address | Phone | + + + + + | Esthela Kumar | ECON | [address] | | | | | [place] | | | | | [address] | | + + + + + Care Team Providers + +------+ + | Care Hooker Off Name | Role | Phone | + +------+ + | Alan Sainz MD | PCP | | + +------+ + Encounter Details +--------+ + + + + | Date | Type | Department | Care Team | Description | +--------+ + + + + | 08/02/ | Abstract | Neurology at | Brian, | | | 2017 | | [facility] & | Sussy Manuel MD [address] | | | | | Healing [address] | [address] | | | | | [place] for | [place], [place] | | | | | Health and Healing, | [address] | | | | | | [phone] | | | | | Floor [place], [place] | | | | | | [address] | | | | | | [phone] | | | +--------+ + + + [...]
--- OUTSIDE RECORDS SUMMARY | ~2020-03-15 | XMS | Encounter Summary ---
Demographics + + + | Address | [address] | | | [place] [address] | + + + | Home Phone [...] + | Esthela Kumar | ECON | [address] | | | | | [place] | | | | | [address] | | + + + + + Care Team Providers + +------+ + | Care Wall Steamer Name | Role | Phone | + [...] as of this encounter Progress Notes Interface, It Help Desk Technician In - 12/23/2005 2:02 AM PDT [id number] 12/08/2005 [id number] JOSÉ Cabrera [id number] [facility] [address] [place] [address] or December 10, 2005 Clayton Diaz M.D. [address] [facility] [address] [place] [address] RE: KIERSTEN KUMAR MR #: [id number] Dear Dr. Diaz: I had the pleasure [...] well as the muscle pathology reports from [facility]. Per Mr. Kumar, he has had longstanding [...] neurogenic changes. A muscle biopsy performed at [facility] in January [address] Stone with [facility] Pathology showed mitochondrial changes. Specifically, on [...] consultations have included an evaluation by a overhead crane technician, Dr. 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 He is very active. He has a [...] were also decreased. Romberg was negative. Coordination: Xxuouu-wn-anxi testing did not reveal any dysmetria. Rapid [...] have him see our physical therapist and network control operators supervisor. Recommendations: 1. Obtain prior muscle biopsy slides. 2. Possible repeat muscle biopsy of the tibialis anterior or left biceps. 3. Myopathy and neuropathy laboratory studies as mentioned above. 4. Add physical therapy and network control operators supervisor evaluations to next visit. 5. Mr. Kumar [...] M.D. Maximilian De La Garza M.D. / [id number] / [id number] / [id number] / [id number] / [id number] / [id number] / A: 12/11/2005 [facility] C: 12/22/2005 cc: Alan Sainz M.D. [address] [place] [address] documented i n this encounter Plan of Treatment Not on filedocumented as of this encounter Visit Diagnoses Not on filedocumented in this encounter"
--- OUTSIDE RECORDS SUMMARY | ~2020-03-15 | XMS | Encounter Summary ---
Demographics + + + | Address | [address] | | | [place] [address] | + + + | Home Phone [...] + | Esthela Kumar | ECON | [address] | | | | | [place] | | | | | [address] | | + + + + + Care Team Providers + +------+ + | Care Science And Operations Officer Name | Role | Phone | + +------+ + PCP | Unavailable | + +------+ + Encounter Details +--------+ + + + + | Date | Type | Department | Care Team | Description | +--------+ + + + + | 02/20/ | Results | | Other, Faculty | | | 2001 | Only | | [phone] | | +--------+ + + + + [...] | | | | | analysis (EM# [id number]): | | | | | | - [...] necessary | | | | | | [facility] | | | | | [...] | | | | | | # [id number]):Evaluation of | | | | | | [...] DEPARTMENT OF | [address] | [place] [address] | | | PATHOLOGY | [address] | | | + + + + + | [facility] | [address] | [place] [address] | | | PATHOLOGY | [address] | | | + + + + + documented in this encounter Visit Diagnoses Not on filedocumented in this encounter"
--- OUTSIDE RECORDS SUMMARY | ~2020-03-15 | XMS | Encounter Summary ---
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
--- OUTSIDE RECORDS SUMMARY | ~2020-03-15 | XMS | Encounter Summary ---
Demographics + + + | Address | [address] | | | [place] [address] | + + + | Home Phone [...] Author | [facility] | + + + | Organization | [facility] | + + + | Address | Unknown | + + + | Phone | Unavailable | + + + Support + + + + + | Name | Relationship | Address | Phone | + + + + + | Esthela Kumar | ECON | [address] | | | | | [place] | | | | | [address] | | + + + + + Care Team Providers + +------+ + | Care Press Operator Printing Name | Role | Phone | + +------+ + | Lázaro Oviedo MD | PCP | | + +------+ + Encounter Details +--------+ + + + + | Date | Type | Department | Care Team | Description | +--------+ + + + + | 03/14/ | Ancillary | Registration [address] | Maximilian De La Garza, | | | 2005 | Registratio | [address] Costa MD | | | | n | Carlos Mailcode: [id number] | | | | | | [place], [place] | | | | | | [address] | | | | | | [phone] | | | +--------+ + + + [...]
--- OUTSIDE RECORDS SUMMARY | ~2020-03-15 | XMS | Encounter Summary ---
Demographics + + + | Address | [address] | | | [place] [address] | + + + | Home Phone | | + + + | Preferred Language | Unknown | + + + | Marital Status | | + + + | Religion Affiliation | Unknown | + + + [...] + | Esthela Kumar | ECON | [address] | | | | | [place] | | | | | [address] | | + + + + + Care Team Providers + +------+ + | Care Senior Gis Analyst Name | Role | Phone | + +------+ + | Lázaro Oviedo MD | PCP | | + +------+ + Encounter Details +--------+ + + + + | Date | Type | Department | Care Team | Description | +--------+ + + + + | 01/23/ | Documentati | UNKNOWN DEPARTMENT | Unknown . | | | 2018 | on | [address] | | | | | | [address] | | | | | | [place], [place] | | | | | | [address] | | | +--------+ + + + [...]
--- OUTSIDE RECORDS SUMMARY | ~2020-03-15 | XMS | Encounter Summary ---
Demographics + + + | Address | [address] | | | [place] [address] | + + + | Home Phone | | + + + | Preferred Language | Unknown | + + + | Marital Status | | + + + | Hinduism Affiliation | 1073 | + + + | Race | Unknown | + + + | Ethnic Group | Unknown | + + + Author + + + | Author | [facility] | | | and Faheemana | + + + | Organization | [facility] | | | and Faheemana [...] Team Providers + +------+ + | Care Polymerization Engineer Name | Role | Phone | [...] [place] | | | | | [place] | | [address] Phone: | | | | | CYSTO/URETER | | [phone] | | | | | O | | Fax: | | | | | W/LITHOTRIPS | | [phone] | | | | | Y &DAMARIS [...] + + | 06/26/ | Hospital | [facility] | Hebert Felipe | | | 2019 | Encounter | MED CTR XRAY [address] | MD [facility] CRISTINA | | | | | [place] | [place] | | | | | [place] [id number] | [id number] | | | | | [phone] | | | +--------+ + + + [...] mg by mouth | | 0 | 11/01/20 | | | (VIAGRA) 25 MG | [...] | + +--------+ + + + | LUCIANA MOON STATS NO | Routin | 06/26/2019 | | Results for this | | CHARGE | e | 4:40 PM | | procedure are in the | | | | PST | | results section. | + +--------+ + + + documented in this encounter Results LUCIANA Vegas Statamanda No Charge (06/26/2019 4:40 PM PST) + [...]
--- OUTSIDE RECORDS SUMMARY | ~2020-03-15 | XMS | Encounter Summary ---
Demographics + + + | Address | [address] | | | [place] [address] | + + + | Home Phone | | + + + | Preferred Language | Unknown | + + + | Marital Status | | + + + | Anabaptist Affiliation | [id number] | + + + | Race | Unknown | + + + | Ethnic Group | Unknown | + + + Author + + + | Author | [facility] | | | and Faheemana | + + + | Organization | [facility] | | | and Faheemana [...] Team Providers + +------+ + | Care Sheet Tailer Name | Role | Phone | + +------+ + | Lázaro Oviedo MD | PCP | | + +------+ + Encounter Details +--------+ + + + + | Date | Type | Department | Care Team | Description | +--------+ + + + + | 06/25/ | Imaging | [facility] | Provider, | | | 2019 | Exam | MED CTR EXTERNAL | MD [address] | | | | | IMAGING [address] | Kevin Huang. [address] | | | | | [address] | [place] [address] | | | | | [place] [address] | | | | | | [phone] | | | +--------+ + + + [...] | + +--------+ + + + | CT ABDOMEN PELVIS W | Routin | 06/24/2019 | | Results for this | | CONTRAST | e | 12:00 AM | | procedure are in the | | | | PST | | results section. | + +--------+ + + + documented in this encounter Results CT Abdomen Pelvis w Contrast (06/24/2019 12:00 AM PST) + + | Specimen | + + | | + + + + + | Narrative | Performed At | + + + | External films for comparison only | [facility] | | | | | No results will be in the chart. | | + + + + +---------+ + + | Performing | Address | City/State/Zipcode | Phone Number | | Organization | | | | + +---------+ + + | [facility] | | | | + +---------+ + + documented in this encounter Visit Diagnoses Not on filedocumented in this encounter"
--- OUTSIDE RECORDS SUMMARY | ~2020-03-15 | XMS | Encounter Summary ---
Demographics + + + | Address | [address] | | | [place] [address] | + + + | Home Phone | | + + + | Preferred Language | Unknown | + + + | Marital Status | | + + + | Pentecostalism Affiliation | Unknown | + + + [...] + | Esthela Kumar | ECON | [address] | | | | | [place] | | | | | [address] | | + + + + + Care Team Providers + +------+ + | Care Compensator Worker Name | Role | Phone | + +------+ + | Alan Sainz MD | PCP | | + +------+ + Reason for Visit + + + | Reason | Comments | + + + | Follow-up visit | | + + + Intake Referral [...] | | | Worsening | Alan | [facility] [address] | | | | | myopathy | MD Darrick | [address] | | | | | peripheral | [place] | [place] for | | | | | neuropathy | INTERNAL | Health and | | | | | | MEDICINE | Healing, | | | | | | [address] | [address], | | | | | | [address] | 8th Floor | | | | | | [address] | [place], [place] | | | | | | [place], | [address] | | | | | | [place] [address] | Phone: | | | | | | Phone: | [phone] | | | | | | [phone] | Fax: | | | | | | Fax: | [phone] | | | | | | [phone] | | +--------+--------+ + + + + Encounter Details +--------+---------+ + + + | Date | Type | Department | Care Team | Description | +--------+---------+ + + + | 03/16/ | Office | Neurology at | Natan Herrera | Polyneuropathy due | | 2018 | Visit | [facility] | MD Heber [address] | to secondary | | | | Healing [address] | [address] [place], [place] | diabetes (HCC) | | | | [facility] | [address] | (Primary Dx); Foot | | | | Health and Healing, | [phone] | drop, bilateral | | | | Building | | | | | | Floor [place], [place] | | | | | | [address] | | | | | | [phone] | | | +--------+---------+ + + + [...] + documented in this encounter Progress Notes Natan Herrera MD - 03/16/2018 2:00 PM PDT Chief Complaint: follow up myopathy and peripheral neuropathy Display Progress Note in MyChart: No Interval History: Last seen by Dr. Torres last year, was seen before that in the neuromuscular clinic. He was diagnosed with Since that visit, he had a repeat EMG in June of last year, which showed worsening of h is lumbar radiculopathies. Dr. Torres attempted to refer him to a surgeon to discuss pot ential options, and evidently he was told that surgery would not be an option for him. Since that time, he has continued with physical therapy and has recently gotten new ankle b races, which have been much better for him and have allowed him to walk better. He has had a few falls since using the new braces, but only when something interferes with their function. Legs do get tired a lot easier than before. He finds that sometimes after walking around h [place], he will start to feel tired. Arms are a little weaker as well. He is losing some muscle mass. has noticed a decre ase in bulk in his arms and shoulders. Once in every great while he will go to grab a tool and he will drop it. No numbness in hands or fingers. He does have some stiffness in his hands and joints. No difficulty lifting objects above his head. No weakness of neck. No trouble swallowing. He recently had an episode of BPPV, improved with PT and Adwoa maneuver. Current Outpatient Prescriptions: ASCORBIC ACID (VITAMIN C ORAL), Take 1,000 mg by mouth on ce daily. , Disp: , Rfl: ASPIRIN (ASPIR-81 ORAL), Take 81 mg by mouth once daily. , Disp: , Rfl: COQ10 SG 100 100 MG-100 UNIT CAP, 400mg daily, Disp: , Rfl: CREATINE MONOHYDRATE ORAL POWDER, 5g daily, Disp: , Rfl: FISH OIL 1,000 mg Oral Capsule, 1200 MG -- 2 CAPS DAILY, Disp: , Rfl: glimepiride 2 mg oral tablet, Take 2 mg by mouth once daily in the evening. , Disp: , Rfl: JARDIANCE 25 mg oral tablet, TK 1 T PO D UTD, Disp: , Rfl: 3 liraglutide (VICTOZA 2-VANESSA) 0.6 mg/0.1 mL (18 mg/3 mL) subcutaneous pen injector, Inject 1. 8 mg under the skin (SUBC) once daily in the evening. , Disp: , Rfl: losartan potassium (LOSARTAN ORAL), Take 12.5 mg by mouth once daily. , Disp: , Rfl: Magnesium 250 mg oral tablet, Take 250 mg by mouth once daily. , Disp: , Rfl: metFORMIN 1,000 mg Oral tablet, Take 1,000 mg by mouth two times daily. , Disp: , Rfl: PRASTERONE (DHEA) (DHEA ORAL), Take 50 mg by mouth once daily. , Disp: , Rfl: RIBOSE, BULK, MISC, 5 g four times daily as needed. , Disp: , Rfl: sildenafil 25 mg oral tablet, Take 20 mg by mouth. Sig: Take 25 mg by mouth as needed for E rectile Dysfunction., Disp: , Rfl: testosterone cypionate 200 mg/mL intramuscular oil, Inject into the muscle (IM). Received f rom: [employer]ive[employer] InfoAssure Received Sig: Inject 100 mg into the muscle every 28 days, Disp: , Rfl: VITAMIN B COMPLEX OR, 1 tab daily, Disp: , Rfl: Allergies Allergen Reactions Demerol [Meperidine (Pf)] Nausea/Vomiting ROS: negative 10 point review of systems unless noted in HPI Last Vitals: BP 110/68 | Pulse 79 | Wt 100.2 kg (221 lb) | BMI 29.97 kg/(m^2) Neurological Examination: MSE: Alert, oriented, naming/repetition/comprehension/fluency intact. No dysarthria. CN: PERRL. EOMi. No facial asymmetry. Tongue is midline without fasciculations. Motor: Normal bulk/tone. Full strength in bilateral upper extremities. Weak in bilateral distal lower extremities with less than antigravity strength bilateral ankle dorsiflexion. Sens: Decreased vibration sense in LE from knees down. Intact UE. Reflexes: 2+ biceps, triceps, brachioradialias. Zero at patella and achilles. Cerebellar: not tested. Gait: bilateral foot drop. Data: Impression: Bilateral lumbar radiculopathy L5/S1, worsened, but not a surgical candidate for unclear re asons to me. Will continue with conservative management and PT/OT/Assist devices. Myoadenylate myopathy. Stable, occasionally causing exercise intolerance. Continue supple ments. 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 Stable. Continue to have tight glucose control. No t currently painful so no role for neuropathic pain medication at this time. Plan: Continue PT Encourage weight loss Continue using PT braces Continue tight glucose control Continue supplements Follow up 1 year I spent 45 minutes with the patient. Greater than 50% of the time was spent counseling the patient regarding diagnosis, prognosis, treatment options. 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
--- OUTSIDE RECORDS SUMMARY | ~2020-03-15 | XMS | Encounter Summary ---
Demographics + + + | Address | [address] | | | [place] [address] | + + + | Home Phone [...] + | Esthela Kumar | ECON | [address] | | | | | [place] | | | | | [address] | | + + + + + Care Team Providers + +------+ + | Care Food Manager Name | Role | Phone | [...] + | 09/11/ | Documentati | Neurology | Sherlyn Lazcano MD | Letter Encounter | | 2012 | on | Neuromuscular Clinic | [address] | | | | | at [facility] | [place] [address] | | | | | Health & Healing | [phone] | | | | | [address] | | | | | | [facility] | | | | | | and Healing, | | | | | | Building | | | | | | Floor [place], [place] | | | | | | [address] | | | | | | [phone] | | | +--------+ + + + [...]
--- OUTSIDE RECORDS SUMMARY | ~2020-03-15 | XMS | Encounter Summary ---
Demographics + + + | Address | [address] | | | [place] [address] | + + + | Home Phone [...] + | Esthela Kumar | ECON | [address] | | | | | [place] | | | | | [address] | | + + + + + Care Team Providers + +------+ + | Care Yardage Estimator Name | Role | Phone | + +------+ + | Alan Sainz MD | PCP | | + +------+ + Reason for Visit + + + | Reason | Comments | + + + | MRI Results | External Results | + + + Encounter Details +--------+ + + + + | Date | Type | Department | Care Team | Description | +--------+ + + + + | 04/19/ | Telephone | Neurology at | Brian, | MRI Results | | 2017 | | [facility] & | Sussy Manuel MD [address] | (External Results) | | | | Healing [address] | [address] | | | | | Ave [facility] | [place], [place] | | | | | Health and Healing, | [address] | | | | | [facility] | [phone] | | | | | Floor [place], [place] | | | | | | [address] | | | | | | [phone] | | | +--------+ + + + [...]
--- OUTSIDE RECORDS SUMMARY | ~2020-03-15 | XMS | Encounter Summary ---
Demographics + + + | Address | [address] | | | [place] [address] | [...] + | Esthela Kumar | ECON | [address] | | | | | [place] | | | | | [address] | | + + + + + Care Team Providers + +------+ + | Care Money Market Dealer Name | Role | Phone | + +------+ + | Lázaro Oviedo MD | PCP | | + +------+ + Encounter Details +--------+ + + + + | Date | Type | Department | Care Team | Description | +--------+ + + + + | 05/21/ | Ancillary | Registration [address] | Maximilian De La Garza, | | | 2005 | Registratio | DUSTNI Costa MD | | | | n | Carlos Mailcode: [id number] | | | | | | [place], [place] | | | | | | [address] | | | | | | [phone] | | | +--------+ + + + [...]
--- OUTSIDE RECORDS SUMMARY | ~2020-03-15 | XMS | Encounter Summary ---
Demographics + + + | Address | [address] | | | [place] [address] | + + + | Home Phone [...] + | Esthela Kumar | ECON | [address] | | | | | [place] | | | | | [address] | | + + + + + Care Team Providers + +------+ + | Care Driving Teacher Name | Role | Phone | [...] + | 05/13/ | Telephone | Neurology | Zonia Plascencia LPN | Medication Education | | 2007 | | Neuromuscular Clinic | [address] | | | | | at [facility] | [facility] | | | | | Health & Healing | [place] [address] | | | | | [address] | [phone] | | | | | [facility] | | | | | | and Healing, | | | | | | Building | | | | | | Floor [place], [place] | | | | | | [address] | | | | | | [phone] | | | +--------+ + + + [...]
--- OUTSIDE RECORDS SUMMARY | ~2020-03-15 | XMS | Encounter Summary ---
Demographics + + + | Address | [address] | | | [place] [address] | + + + | Home Phone [...] + | Esthela Kumar | ECON | [address] | | | | | [place] | | | | | [address] | | + + + + + Care Team Providers + +------+ + | Care Freight Elevator Erector Name | Role | Phone | + [...] | Carlos Mailcode: [id number] | [address] [place], | | | | | [place], [place] | [place] [address] | | | | | [address] | [phone] | | | | | [phone] | | | +--------+ + + + [...] DEPARTMENT OF | [address] | [place] [address] | | | PATHOLOGY | [address] | | | + + + + + | [facility] | [address] | [place] [address] | | | PATHOLOGY | [address] [...] DEPARTMENT OF | [address] | [place] [address] | | | PATHOLOGY | [address] | | | + + + + + | [facility] DEPARTMENT OF | [address] | [place] [address] | | | PATHOLOGY | [address] [...] + + | [place] DEPARTMENT OF | [facility] | [place] [address] | | | PATHOLOGY | [address] | | | + + + + + | [facility] DEPARTMENT OF | [address] | [place] [address] | | | PATHOLOGY | [address] [...] | + + + + + | [facility] DEPARTMENT OF | [address] | [place] [address] | | | PATHOLOGY | [address] | | | + + + + + | [facility] DEPARTMENT OF | [facility] | [place] [address] | | | PATHOLOGY | [address] [...] | + + + + + | [facility] DEPARTMENT OF | [address] | [place] [address] | | | PATHOLOGY | [address] | | | + + + + + | [facility] DEPARTMENT OF | [address] | [place] [address] | | | PATHOLOGY | [address] [...] [facility] | [address] | [place] [address] | | | PATHOLOGY | [address] | | | + + + + + | [facility] DEPARTMENT OF | [address] | [place] [address] | | | PATHOLOGY | [address] | | | + + + + + documented in this encounter Visit Diagnoses Not on filedocumented in this encounter"
--- OUTSIDE RECORDS SUMMARY | ~2020-03-15 | XMS | Encounter Summary ---
Demographics + + + | Address | [address] | | | [place] [address] | + + + | Home Phone [...] + | Esthela Kumar | ECON | [address] | | | | | [place] | | | | | [address] | | + + + + + Care Team Providers + +------+ + | Care Signalman Name | Role | Phone | + [...] [id number] | | | | | | [place], [place] | | | | | | [address] | | | | | | [phone] | | | +--------+ + + + [...]
--- OUTSIDE RECORDS SUMMARY | ~2020-03-15 | XMS | Encounter Summary ---
Demographics + + + | Address | [address] | | | [place] [address] | + + + | Home Phone [...] + | Esthela Kumar | ECON | [address] | | | | | [place] | | | | | [address] | | + + + + + Care Team Providers + +------+ + | Care Lead Scientist Name | Role | Phone | + +------+ + | Alan Sainz MD | PCP | | + +------+ + Encounter Details +--------+ + + + + | Date | Type | Department | Care Team | Description | +--------+ + + + + | 07/20/ | Abstract | Neurology at | Brian, | | | 2017 | | [place] [facility] & | Sussy Manuel MD [address] | | | | | Healing [address] | [address] | | | | | Re[place] for | [place], [place] | | | | | Health and Healing, | [address] | | | | | | [phone] | | | | | Floor [place], [place] | | | | | | [address] | | | | | | [phone] | | | +--------+ + + + [...]
--- OUTSIDE RECORDS SUMMARY | ~2020-03-15 | XMS | Encounter Summary ---
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[address] | | | | | | secondary | [place], [place] | | | | | | diabetes | [address] | | | | | | ([facility]) | Phone: | | | | | | Imbalance | [phone] | | | | | | Foot drop, | Fax: | | | | | | bilateral | [phone] | | | | | | Procedures | | | | | | | MRI SPINE | | | | | | | LUMBAR WO | | | | | | | CONTRAST ME | | | | | | [...] | | | | Polyneuropat | MD [address] | | | | | | hy due to | [address] | | | | | | secondary | [place], [place] | | | | | | diabetes | [address] | | | | | | ([facility]) | Phone: | | | | | | Imbalance | [phone] | | | | | | Procedures | Fax: | | | | | | PHYSICAL | [phone] | | | | | | THERAPY [...] | | | Worsening | Alan | [facility] [address] | | | | | myopathy | MD Darrick | [address] | | | | | peripheral | [place] | Center for | | | | | neuropathy | INTERNAL | Health and | | | | | | MEDICINE | Healing, | | | | | | [address] | [address], | | | | | | [address] | [facility] | | | | | | [address] | [facility] [place] | | | | | | [place], | [address] | | | | | | [place] [address] | Phone: | | | | | | Phone: | [phone] | | | | | | [phone] | Fax: | | | | | | Fax: | [phone] | | | | | | [phone] | | +--------+--------+ + + + + Encounter Details +--------+---------+ + + + | Date | Type | Department | Care Team | Description | +--------+---------+ + + + | 03/16/ | Office | Neurology at | [place], | 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 Call [phone] to schedule a follow up appointment with [...] drop, left median neuropathy s/p surgical release w katiuska is referred to [facility] comprehensive neurology clinic for worsening balance. He [...] doctor. He has been previously seen at [facility] in the neuromuscular clinic. Most recent was [...] on statins, which lead to the lindy saeed diagnosis of his myopathy. He is on [...] 3 Years of education: 14 Occupational History [employer] Social History Main Topics Smoking status: Never [...] left foot drop who is referred to [facility] comprehensive neurology clinic for worsening balance. I ag ree with Dr. Lazcano, who last saw him in [facility], that his imbalance and distal weakness is [...] this order to [facility] [place] to be done locally. Unfortunately for the [...] without (order will be sent to [facility] in [place]) - referral to physical therapy - will prescribe bilateral AFO braces, pending PT eval - Tight glucose control, continue lifestyle modifications - Return to clinic in 2 years, or sooner if needed (I will call them with the results of e MRI) I spent >45 minutes [id number] with the patient, > 50% of the time was spent on counselin g/education related to the issues addressed in the assessment/plan. This note was dictated with Vidible voice recognition software and may contain inadvertent g rammatical and spelling errors. Every attempt is made to ensure the dictation is correct. If there are questions or major concerns, please contact our office. Sussy Torres MD Golf Teacher Department of Neurology Division of Neuroimmunology Pager [phone] documented in t his encounter Plan of [...]
--- OUTSIDE RECORDS SUMMARY | ~2020-03-15 | XMS | Encounter Summary ---
Demographics + + + | Address | [address] | | | [place] [address] | + + + | Home Phone | | + + + | Preferred Language | Unknown | + + + | Marital Status | | + + + | Roman Catholic Affiliation | Unknown | + + [...] + | Esthela Kumar | ECON | [address] | | | | | [place] | | | | | [address] | | + + + + + Care Team Providers + +------+ + | Care Corporate Security Officer Name | Role | Phone [...] [id number] | | | | | | [place], [place] | | | | | | [address] | | | | | | [phone] | | | +--------+ + + + [...] | + +--------+ + + + | [id number],SER | Routin | 12/08/2005 | | Results [...] [facility] | [address] | [place], [place] | | | UN[facility] P[facility] - INTFC | | [address] | | + + + + + [...] + + + + | [facility] | [address] | [place] [address] | | | GENETICS LABS | [address] | | | | | AVE. [...] + + + + | [facility] | [facility] | [place] [address] | | | GENETICS LABS | [address] | | | | | AVE. [...] | | | | | performed by [facility] | | | | | | Laboratories. | | | | + + + + + + + + | Specimen | + + | | + + + + + + + | Performing | Address | City/State/[facility] | Phone Number | | Organization | | | | + + + + + | [facility] | [address] | [place], [place] | | | UNIV P[facility] - INTFC | | [address] | | + + + + + [...] | | | S - ACY | [facility] | | | | | | [facility] | | | | + [...] | TEENA, PH.D | | [place] [address] | | + + + + + [...] + + + | SPECIALTY | [address] [facility] | [place] | | | LABORATORY | | [address] | | + + + + + [...] [facility] | [address] | [place], [place] | | | UNIV PTH - INTFC | | [address] | | + + + + + [...] | + + + + + | [facility] | [address] | [place] [address] | | | LABORATORY | | | | + + + + + [id number],SERUM (12/08/2005 12:30 PM PDT) + +-------+ + [...] | Protein Electrophoresis, Serum Test performed by [facility] | | | [facility]. | | + + + + + + + + | Performing | Address | City/State/Zipcode | Phone Number | | Organization | | | | + + + + + | [facility] | [address] | [place] [address] | | | LABORATORY | | | [...] [facility] | [address] | [place], [place] | | | UNIV P[facility] - INT[place] | | [address] | | + + + + + [...] [facility] | [address] | [place] | | | UN[facility] PTH - INTFC | | [address] | | + + + + + [...] [facility] | [address] | [place] | | | UNIV PTH - INTFC | | [address] | | + + + + + [...] + + + + + | [facility] DEPARTMENT OF | [address] | [place] [address] | | | PATHOLOGY | [address] | | | + + + + + | [place] DEPARTMENT OF | [address] | [place] [address] | | | PATHOLOGY | [address] [...] + | [facility] | [facility] | [place] [address] | | | PATHOLOGY | [address] | | | + + + + + | [facility] DEPARTMENT OF | [address] | [place] [address] | | | PATHOLOGY | [address] [...] + + + + + | [facility] DEPARTMENT OF | [address] [facility] | [place] [address] | | | PATHOLOGY | [address] | | | + + + + + | [facility] DEPARTMENT OF | [address] [facility] | [place] [address] | | | PATHOLOGY | [address] [...] [facility] | | | | | | [facility] | | | | | | Laboratories. | | | | + + + + + + + + | Specimen | + + | | + + + + + + + | Performing | Address | City/State/Zipcode | Phone Number | | Organization | | | | + + + + + | [facility] | [address] | [place] [address] | | | LABORATORY | | | [...] by | | | | | | [facility] | | | | | | [facility]. | | | | + + + + + + + + | Specimen | + + | | + + + + + + + | Performing | Address | City/State/Zipcode | Phone Number | | Organization | | | | + + + + + | [facility] | [address] | [place] [address] | | | LABORATORY | | | [...] + + + | [facility] | [address] | [place] [address] | | | LABORATORY | | | [...] | Protein Electrophoresis, Serum Test performed by [facility] | | | [facility]. | | + + + + + + + + | Performing | Address | City/State/Zipcode | Phone Number | | Organization | | | | + + + + + | [facility] | [address] | [place] [address] | | | LABORATORY | | | [...] DEPARTMENT OF | [address] | [place], [place] [address] | | | PATHOLOGY | [address] | | | + + + + + | [facility] | [address] | [place] [address] | | | PATHOLOGY | [address] [...] [facility] | [address] | [place], [place] | | | UNIV PTH - INTFC | | [address] | | + + + + + [...] | + + + + + | [facility] | [address] | [place] [address] | | | LABORATORY | | | [...] | + + + + + | [facility] | [address] | [place] [address] | | | LABORATORY | | | [...] | | | | Test performed by [facility] | | | | | [...] [facility] | [address] | [place], [place] | | | UNIV P[facility] INT[facility] | | [address] | | + + + + + SATISH-ANTIBODIES IDENTIFICATION (12/08/2005 12:30 PM PDT) + + + + + + | Component | Value | Ref Range | Performed | Pathologist | | | | | At | Signature | + + + + + + | OFFICE ADMINISTRATION INSTRUCTOR AB | Negative | | [facility] | [...] + + + + + | [facility] DEPARTMENT OF | [facility] | [place] [address] | | | PATHOLOGY | [address] | | | + + + + + | [facility] DEPARTMENT OF | [address] | [place] [address] | | | PATHOLOGY | [address] [...] + | [facility] | [address] | [place] [address] | | | PATHOLOGY | [address] | | | + + + + + | [facility] | [address] | [place] [address] | | | PATHOLOGY | [address] | | | + + + + + documented in this encounter Visit Diagnoses Not on filedocumented in this encounter"
--- OUTSIDE RECORDS SUMMARY | ~2020-03-15 | XMS | Encounter Summary ---
Demographics + + + | Address | [address] | | | [place] [address] | + + + | Home Phone | | + + + | Preferred Language | Unknown | + + + | Marital Status | | + + + | Hinduism Affiliation | Unknown | + + + | Race | White | + + + | Ethnic Group | Other Race | + + + Author + + + | Author | [facility] | + + + | Organization | [facility] | + + + | Address | Unknown | + + + | Phone | Unavailable | + + + Support + + + + + | Name | Relationship | Address | Phone | + + + + + | Esthela Kumar | ECON | [address] | | | | | [place] | | | | | [address] | | + + + + + Care Team Providers + +------+ + | Care Event Specialist Name | Role | Phone | [...] | | 2005 | Only | [facility] [address] | | | | [address] | | | | | | Mailcode: L340 | | | | | | [facility] | | | | | | [place], [place] | | | | | | [address] | | | | | | [phone] | | | +--------+ + + + [...]
--- OUTSIDE RECORDS SUMMARY | ~2020-03-15 | XMS | Encounter Summary ---
Demographics + + + | Address | [address] | | | [place] [address] | + + + | Home Phone [...] + | Esthela Kumar | ECON | [address] | | | | | [place] | | | | | [address] | | + + + + + Care Team Providers + +------+ + | Care Rn Circulating Name | Role | Phone | + [...] MRI Results | | 2017 | | [facility] & | Sussy Manuel MD [address] | (External Results) | | | | Healing [address] | [address] | | | | | Ave [facility] | [place], [place] | | | | | Health and Healing, | [address] | | | | | [facility] | [phone] | | | | | Floor [place], [place] | | | | | | [address] | | | | | | [phone] | | | +--------+ + + + [...]
--- OUTSIDE RECORDS SUMMARY | ~2020-03-15 | XMS | Encounter Summary ---
Demographics + + + | Address | [address] | | | [place] [address] | + + + | Home Phone [...] + | Esthela Kumar | ECON | [address] | | | | | [place] | | | | | [address] | | + + + + + Care Team Providers + +------+ + | Care Pharmacist Aide Name | Role | Phone | + +------+ + | Alan Sainz MD | PCP | | + +------+ + Encounter Details +--------+ + + + + | Date | Type | Department | Care Team | Description | +--------+ + + + + | 02/06/ | Transcribed | Allergy Clinic at | Dictation, Other | Transcribed | | 1994 | | [facility] [address] | | | | | | [address] | | | | | | [address] | | | | | | [facility], [address] [place] [address] | | | | | | [place], [place] | | | | | | [address] | | | | | | [phone] | | | +--------+ + + + [...] as of this encounter Progress Notes Interface, Freight Weigher In - 12/05/2006 5:06 AM PDT [address] [address] [facility] February 06, 1995 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 Campos: Your employee, Mr. Andrea Kumar, was seen for a follow-up visit on February 06, 1995, at the [facility] at the [facility]. He was seen by Dr. Sondra Barton and myself. 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 We believe Mr. Kumar suffers from an [...] necessitate exposure to the agents Colophony, Glutaraldehyde, MCI/HI, Gold and Neomycin/Bacitracin. He was given a list of possible exposure to these agents and shown how to read the material safety data sheets. Of note, coolants may contain as a preservative Glutaraldehyde or MCI/HI (Kathon 886). Colophony likewise, is found in [...] to the [facility] at the [facility]. Please feel free to contact us if there are any further questions or concerns. Sincerely yours, Audelia Rod M.D. Resident, Dermatology Sondra Barton M.D. Professor, Dermatology NETTA /ced 02/08/95 cc: C:02/10/95/ced documented in this encounter Plan of Treatment Not on filedocumented as of this encounter Visit Diagnoses Not on filedocumented in this encounter"
--- OUTSIDE RECORDS SUMMARY | ~2020-03-15 | XMS | Encounter Summary ---
Demographics + + + | Address | [address] | | | [place] [address] | + + + | Home Phone [...] + | Esthela Kumar | ECON | [address] | | | | | [place] | | | | | [address] | | + + + + + Care Team Providers + +------+ + | Care Camp Dishwasher Name | Role | Phone | + [...] [id number] | | | | | | [place], [place] | | | | | | [address] | | | | | | [phone] | | | +--------+ + + + [...]
--- OUTSIDE RECORDS SUMMARY | ~2020-03-15 | XMS | Encounter Summary ---
Demographics + + + | Address | [address] | | | [place] [address] | + + + | Home Phone | | + + + | Preferred Language | Unknown | + + + | Marital Status | | + + + | Sabianist Affiliation | Unknown | + + + [...] + | Esthela Kumar | ECON | [address] | | | | | [place] | | | | | [address] | | + + + + + Care Team Providers + +------+ + | Care Investigation Specialist Name | Role | Phone | [...] 2012 | on | Neuromuscular Clinic | [address] | | | | | at [facility] | [place] [address] | | | | | Health & Healing | [phone] | | | | | [address] | | | | | | [place] for [facility] | | | | | | and Healing, | | | | | | Building | | | | | | Floor [place], [place] | | | | | | [address] | | | | | | [phone] | | | +--------+ + + + [...]
--- OUTSIDE RECORDS SUMMARY | ~2020-03-15 | XMS | Clinical Summary ---
Demographics + + + | Address | [address] | | | [place] [address] | + + + | Home Phone | | + + + | Preferred Language | Unknown | + + + | Marital Status | | + + + | Baptist Affiliation | 1073 | + + + | Race | Unknown | + + + | Ethnic Group | Unknown | + + + Author + + + | Author | [facility] | | | and [facility]em[facility] | + + + | Organization | [facility] | | | and [facility]emana [...] Team Providers + +------+ + | Care Financial Business Analyst Name | Role | Phone | + +------+ + | Lázaro Oviedo MD | PCP | | + +------+ + Allergies + + + + + + | Active Allergy | Reactions | Severity | Noted | Comments | | | | | Date | | + + + + + + | Meperidine | Nausea And Vomiting | Low | 02/03/20 | | | | | [...] MG CAPS | daily. | | | 05/10 | | e | | | | | | 16 | | | + + + +---------+------+------+-------+ | magnesium, as | Take 250 mg by mouth | | 0 | 08/2 | | Activ | | oxide, 250 MG tablet | daily. | | | 05/10 | | e | | | | | | 16 | | | + + + +---------+------+------+-------+ | metFORMIN | Take 2,000 mg by | | 0 | 08/2 | | Activ | | (GLUCOPHAGE) 1000 MG | mouth daily. | | | 05/10 | | e | | tablet | | | | 16 | | | + + + +---------+------+------+-------+ | liraglutide | Inject 1.8 mg into | | 0 | 08/2 | | Activ | | (VICTOZA) 18 mg/3 mL | the skin daily. | | | 20 | | e | | injection | | | | 16 | | | + + + +---------+------+------+-------+ | testosterone | Inject 200 mg into | | 0 | 08/2 | | Activ | | cypionate | the muscle every 28 | | | 9/20 | | e | | (DEPO-TESTOSTERONE) | days. | | | 16 | | | | 200 mg/mL injection | | | | | | | + + + +---------+------+------+-------+ | ascorbic acid | Take 1,000 mg by | | 0 | 11/0 | | Activ | | (VITAMIN C) 1000 MG | mouth daily. | | | 1/20 | | e | | tablet | [...] TO | Monohydate daily | | | /20 | | e | | FIND | | | | 16 | | | + + + +---------+------+------+-------+ | MANUAL SELECTION | Ribose 100% powder | | 0 | 08/2 | | Activ | | NEEDED - UNABLE TO | QID | | | 20 | | e | | FIND | | | | 16 | | | + + + +---------+------+------+-------+ | ezetimibe (ZETIA) | Take 10 mg by mouth | | 0 | | | Activ | | 10 mg tablet | Daily. | | | | | e | + + + +---------+------+------+-------+ | ergocalciferol | Take 2,000 Units by | | 0 | | | Activ | | (VITAMIN D2) 50 mcg | mouth Daily. | | | | | e | | (2,000 units) tablet | | | | | | | + + + +---------+------+------+-------+ | empagliflozin | Take 25 mg by mouth | | 0 | | | Activ | | (JARDIANCE) 25 mg | Daily. | | | | | e | | tablet | | | | | | | + + + +---------+------+------+-------+ Active Problems + + + | Problem | Noted Date | + + + | Right nephrolithiasis | 06/25/2019 | + + + + + | Overview: Added automatically from request for surgery | | [id number] | + + + + + | Weakness of both lower extremities | 04/27/2017 | + + + | Foot drop, bilateral | 03/16/2017 | + + + | Diabetes mellitus, type 2 | 04/18/2016 | + + + + + | Overview: Last Assessment & Plan: | | DM2, with neuropathy, managed by CARMELLA Ibarra. 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 | + + + + + | Discoordination | 05/25/2006 | + + + | Abnormality of gait | 03/15/2006 | + + + | Hyperlipidemia | 02/02/2006 | + + + + + | Overview: Last Assessment & Plan: Hyperlipidemia. 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 He has long-standing diabetes, | | peripheral neuropathy and some form of primary muscle disorder, | | he wears leg braces, but remains fairly active. Because of his | | myopathy, he has elevated CPK, and apparently there is a | | potential interaction with cardiac muscle, and 2001 he underwent | | coronary angiography and was told he had clean coronaries. | | Recent nuclear perfusion study, negative for ischemia, ejection | | fraction well preserved. Recent lipid panel reviewed. | | Tolerating medications. No changes in therapy. Will follow | | clinically.Last Cath: 10/10/2001 ([facility]): apparently, NML | | coronaries.Last Echo: naLast Stress Test, 06/02/2016: 7:32min | | Joseph, no chest pain, no arrhythmias, ECG equivocal for ischemia, | | Rivas Treadmill Score 5, images suggest diaphragmatic | | attenuation, no ischemia, LVEF 72%.ECG, 04/18/2016: NSR, | | 84bpm.Labs, 03/09/2016: T Chol: 258, LDL-Chol: na, HDL-Chol: 32, | | Tri CPK: 272, Liver enzymes NML, | | K: 4.8, BUN/Cr: 23/1.2 (GFR 63), glu: 231 | | HgbA1c: 8.0, WBC: 7.1, H/H: 14.4/42.8, plt: 264Labs, | | 05/23/2016: T Chol: 226, LDL-Chol: 127, HDL-Chol: 32, Tri | + + + + + | Carpal tunnel syndrome | 02/02/2006 | + + + | Lumbar disc disease | 02/02/2006 | + + + | Hypertension | | + + + Family History + [...] + + | Father | | | [place],heart disease,hyperllipidemia, smoker | | | | (Age [...] + + + | Blood Pressure | 98/58 | 07/08/2019 1:20 PM | | | | | PST | | + + + + + | Pulse | 80 | 07/08/2019 1:20 PM | | | | | PST | | + + + + + | Temperature | 36.8 C (98.2 F) | 06/26/2019 4:45 PM | | | | | PST | | + + + + + | Respiratory Rate | 16 | 07/08/2019 1:20 PM | | | | | PST | | + + + + + | Oxygen Saturation | 99% | 06/26/2019 6:00 PM | | | | | PST | | + + + + + | Inhaled Oxygen | - | - | | | Concentration | | | | + + + + + | Weight | 89.7 kg (197 lb 12 | 07/08/2019 1:20 PM | | | | oz) | PST | | + + + + + | Height | 182.9 cm (6') | 07/08/2019 1:20 PM | | | | | PST | | + + + + + | Body Mass Index | 26.82 | 07/08/2019 1:20 PM | | | | | PST | | + + + + + Plan of Treatment + + + + + | Health Maintenance | Due Date | Last | Comments | | | | Done | | + + + + + | Hepatitis C | | | | | Screening | 1 | | | + + + + + | Med Mgmt: Cr | | | | | | 1 | | | + + + + + | Med Mgmt: HBA1C | | | | | | 1 | | | + + + + + | Med Mgmt: Vit D | | | | | | 1 | | | + + + + + | Med Mgmt: eGFR | | | | | | 1 | | | + + + + + | Medication | | | | | Management | 1 | | | + + [...] | | | | | Pneumococcal 65+ (1 | 6 | | | | of 1 - PPSV23) | | | | + + + + + | Adult Annual | | | | | Wellness Visit | 9 | | | + + + + + | Microalbumin | | | | | Screening | 9 | | | + + + + + | Vaccine: Influenza | | 05/24/20 | | | (#1) | 0 | 18, | | | | | 06/28/20 | | | | | 16 | | + + + + + | Vaccine: | | 01/26/20 | | | Dtap/Tdap/Td (3 - | 4 | 14, | | | Td) | | 06/28/20 | | | | | 13 | | + + + + + Implants + +-------+------+ +--------+--------+--------+ | Implanted | Type | Area | Manufacture | Device | Shelf | Model | | | | | r | | Expira | / | | | | | | Identi | tion | Serial | | | | | | fier | Date | / Lot | + +-------+------+ +--------+--------+--------+ | Stent Uret W/Pstnr Frm 6 | Stent | | REMEDIOS WHITTAKER | | 04/26/ | [id number] | | - [id number]: | | | INCORPORATE | | 2021 | / | | Qty: 1 on 06/26/2019 by | | | D | | | [id number] | | Hebert Felipe MD at | | | | | | 46 | | [facility] | | | | | | | | [facility] | | | | | | | + +-------+------+ +--------+--------+--------+ Results Not on filefrom Last 3 Months Insurance + +--------+ +--------+ +---------+--------+ | Payer | Benefi | Subscriber | Effect | Phone | Address | Type | | | t Plan | ID | jaye | | | | | | / | | Dates | | | | | | Group | | | | | | + +--------+ +--------+ +---------+--------+ | MEDICARE | RAILRO | [id number] | 08/21/19 | [phone] | | Medica | | | AD | | 16-Pre | 5 | | re | | | MEDICA | | sent | | | | | | RE | | | | | | + +--------+ +--------+ +---------+--------+ | [employer] | TRANSA | [id number] | | | | Indemn | | INSURANCE | MERICA | | 019-Pr | | | ity | | | LIFE | | esent | | | | | | [place] | | | | | | + +--------+ +--------+ +---------+--------+ + +--------+ +--------+ + + | Guarantor Name | Accoun | Relation to | Date | Phone | Billing Address | | | t Type | Patient | of | | | | | | | | | | + +--------+ +--------+ + + | Andrea Kumar | Person | Self | [birth year] | [address] | | | al/Fam | | 1950 | [id number] | [place] | | | anusha | | | 3 (Home) | [address] | | | | | | [phone] | | | | | | | 3 (Work) | | + +--------+ +--------+ + + Advance Directives + + + + + | Type | Date Recorded | Patient | Explanation | | | | Office Machine Embossograph Operator | | + + + + + | Power of | | | | | Skein Straightener | | | | + + + + + | Advance | 06/26/2019 2:46 | | | | Directive | PM | | | + + + + + + + + + + | Code Status | Date | Date | Comments | | | Activated | Inactivated | | + + + + + | Full Code | 06/26/2019 | 06/26/2019 | | | | 5:03 PM | 8:13 PM | | + + + + +"
--- OUTSIDE RECORDS SUMMARY | ~2020-03-15 | XMS | Encounter Summary ---
Demographics + + + | Address | [address] | | | [place] [address] | + + + | Home Phone | | + + + | Preferred Language | Unknown | + + + | Marital Status | | + + + | Baptist Affiliation | Unknown | + + + [...] + | Esthela Kumar | ECON | [address] | | | | | [place] | | | | | [address] | | + + + + + Care Team Providers + +------+ + | Care Television Maintenance Man Name | Role | Phone | + +------+ + | Alan Sainz MD | PCP | | + +------+ + Encounter Details +--------+ + + + + | Date | Type | Department | Care Team | Description | +--------+ + + + + | 06/08/ | Abstract | Neurology at | [place], | | | 2017 | | [facility] & | Sussy Manuel MD [address] | | | | | Healing [address] | [address] | | | | | [facility] [place] for | [place], [place] | | | | | Health and Healing, | [address] | | | | | | [phone] | | | | | Floor [place], [place] | | | | | | [address] | | | | | | [phone] | | | +--------+ + + + [...]
--- OUTSIDE RECORDS SUMMARY | ~2020-03-15 | XMS | Encounter Summary ---
Demographics + + + | Address | [address] | | | [place] [address] | + + + | Home Phone | | + + + | Preferred Language | Unknown | + + + | Marital Status | | + + + | Scientologist Affiliation | Unknown | + + + | Race | White | + + + | Ethnic Group | Other Race | + + + Author + + + | Author | [facility] | + + + | Organization | [facility] | + + + | Address | Unknown | + + + | Phone | Unavailable | + + + Support + + + + + | Name | Relationship | Address | Phone | + + + + + | Esthela Kumar | ECON | [address] | | | | | [place] | | | | | [address] | | + + + + + Care Team Providers + +------+ + | Care Sales And Service Officer Name | Role | Phone | [...] Building | | | | | | [place], [place] | | | | | | [address] | | | | | | [phone] | | | +--------+---------+ + + + [...] 4 times d aily if tolerated. 4. [place] with [facility]. 5. Follow up in about 4-6 months documented in this encounter Progress Notes Maximilian De La Garza - 05/24/2006 1:18 PM PDTFormatting of this note might be different from t oscar powell. [facility] [address] [place] [phone] or [email or web address] REFERRED FROM AND FAXED TO: JOVANNY SAINZ MD [facility] [address] [place] [id number] PRIMARY CARE PHYSICIAN: JOVANNY SAINZ MD, MD [facility] [address] [place] [address] / PENDLETO* [phone] REFERRED TO: [facility] Myopathy Clinic PATIENT:Andrea Kumar INFORMANT: [...] medical record and updated it in the [facility] system. 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 It has not been cleared or approved [...] 72 hours HOMOCYSTEINE,PLASMA,TOTAL Value: 8.7(umol/L) Date: 12/13/2005 INTEGRATED CIRCUIT FABRICATOR AB Value: Negative Date: 12/09/2005 SM AB [...] 4 times da anusha if tolerated. 4. [place] with [facility]. 5. Follow up in about [...]
--- OUTSIDE RECORDS SUMMARY | ~2020-03-15 | XMS | Encounter Summary ---
Demographics + + + | Address | [address] | | | [place] [address] | + + + | Home Phone [...] + | Esthela Kumar | ECON | [address] | | | | | [place] | | | | | [address] | | + + + + + Care Team Providers + +------+ + | Care Poker Machine Attendant Name | Role | Phone | + [...] | 2005 | [facility] | [facility] | | | | | | [address] | | | | | | Loop Mailcode: | | | | | | CR120 Outpatient | | | | | | Clinic Building | | | | | | [place], [place] | | | | | | [address] | | | | | | [phone] | | | +--------+ + + + [...]
--- OUTSIDE RECORDS SUMMARY | ~2020-03-15 | XMS | Encounter Summary ---
Demographics + + + | Address | [address] | | | [place] [address] | + + + | Home Phone | | + + + | Preferred Language | Unknown | + + + | Marital Status | | + + + | Methodist Affiliation | 1073 | + + + | Race | Unknown | + + + | Ethnic Group | Unknown | + + + Author + + + | Author | [facility] | | | and Faheem[place] | + + + | Organization | [facility] | | | and [...] Team Providers + +------+ + | Care Indoor Landscape Architect Name | Role | Phone | + +------+ + PCP | Unavailable | + +------+ + Encounter Details +--------+ + + + + | Date | Type | Department | Care Team | Description | +--------+ + + + + | 05/23/ | Orders Only | [facility] | Luis Vazquez | | | 2015 | | CARDIOLOGY [place] | MD [address] | | | | | [address] | [address] | | | | | [place], [place] | [place] [address] | | | | | [address] | [phone] | | | | | [phone] | | | +--------+ + + + [...] | + +--------+ + + + | LIPID PANEL | Routin | 05/23/2016 | | Results for this | | | e | 8:45 AM | | procedure are in the | | | | PDT | | results section. | + +--------+ + + + documented in this encounter Results Lipid Panel (05/23/2016 8:45 AM PDT) + + + + + + | Component | Value | Ref Range | Performed | Pathologist | | | | | At | Signature | + + + + + + | Cholesterol | 226 (A) | 200 mg/dL | EXTERNAL | | | | | | LAB | | + + + + + + | Triglycerid | 334 (A) | 30 - 150 mg/dL | EXTERNAL | | | es | | | LAB | | + + + + + + | HDL | 31.9 (A) | 40 mg/dl | EXTERNAL | | | | | | LAB | | + + + + + + | LDL, | 127 (A) | 100 mg/dL | EXTERNAL | | | Calculated | | | LAB | | + + + + + + | LDl/HDL | | | EXTERNAL | | | Ratio | | | LAB | | + + + + + + | Chol/HDL | 7.1 (A) | 4.97 | EXTERNAL | | | Ratio | | | LAB | | + + + + + + | VLDL | 67 (A) | 4 - 40 mg/dL | EXTERNAL | | | | | | LAB | | + + + + + + | Non HDL | 194 (A) | 130 | EXTERNAL | | | Chol. | | | LAB | | | (LDL+VLDL) | | | | | + + + + + + + + | Specimen | + + | Blood specimen | | (specimen) | + + + +---------+ + + | Performing | Address | City/State/Zipcode | Phone Number | | Organization | | | | + +---------+ + + | EXTERNAL LAB | | | | + +---------+ + + documented in this encounter Visit Diagnoses Not on filedocumented in this encounter"
--- OUTSIDE RECORDS SUMMARY | ~2020-03-15 | XMS | Encounter Summary ---
Demographics + + + | Address | [address] | | | [place] [address] | + + + | Home Phone | | + + + | Preferred Language | Unknown | + + + | Marital Status | | + + + | Temple Affiliation | Unknown | + + + | Race | White | + + + | Ethnic Group | Other Race | + + + Author + + + | Author | [facility] | + + + | Organization | [facility] | + + + | Address | Unknown | + + + | Phone | Unavailable | + + + Support + + + + + | Name | Relationship | Address | Phone | + + + + + | Esthela Kumar | ECON | [address] | | | | | [place] | | | | | [address] | | + + + + + Care Team Providers + +------+ + | Care Revenue Coordinator Name | Role | Phone | + +------+ + | Alan Sainz MD | PCP | | + +------+ + Encounter Details +--------+------+ + + + | Date | Type | Department | Care Team | Description | +--------+------+ + + + | 08/08/ | Lab | Laboratory at [facility] | | Peripheral | | 2011 | | [address] | | neuropathy | | | | [place] [facility] | | | | | | and Healing, | | | | | | Building [address] | | | | | | [place], [place] | | | | | | [address] | | | | | | [phone] | | | +--------+------+ + + + [...] [facility] | | | UR(REFERRAL | by [employer],[address] | | REG UNIV | | | ) | Ford Fernandez, [facility] | | PTH - INTFC | | | | [address] | | | | | | [phone]. | | | | | | Beverley [...] ug/gCR | [facility] | | | UG/G RN INTAKE | | | REG UNIV | | | | | | PTH - INTFC | | + + + + + + | MERCURY, | 0.9 | <=35.0 ug/gCR | [facility] | | | URINE UG/G | | | REG UNIV | | | RN INTAKE | | | PTH - INTFC | | + + + + + + | ARSENIC, | 19.3 | ug/gCR | [facility] | | | URINE UG/G | | | REG UNIV | | | RN INTAKE | | | PTH - INTFC | [...] concentration | | | | | | [id number] ug/L, | | | | | | [...] the | | | | | | laboratoryvtll perform | | | | | | [...] [facility] | [address] | [place], [place] | | | UNIV PTH - INTFC | | [address] | | + + + + + [...] + | [facility] - | [address] | [place] [address] | | | [place] | | | | + + + + + documented in this encounter Visit Diagnoses + + | Diagnosis | + + | Peripheral neuropathy Unspecified hereditary and idiopathic peripheral neuropathy | + + documented in this encounter"
--- OUTSIDE RECORDS SUMMARY | ~2020-03-15 | XMS | Encounter Summary ---
Demographics + + + | Address | [address] | | | [place] [address] | + + + | Home Phone [...] + | Esthela Kumar | ECON | [address] | | | | | [place] | | | | | [address] | | + + + + + Care Team Providers + +------+ + | Care Verification Lead Name | Role | Phone | + [...] | | | | | Procedures | [place], [place] | Health and | | | | | EMG/NERVE | [address] | Healing, | | | | | CONDUCTION | Phone: | Building 1, | | | | | STUDIES,ADUL | [phone] | 8th Floor | | | | | T - | Fax: | [place], [place] | | | | | NEUROLOGY | [phone] | [address] | | | | | [place] NEEDLE | | Phone: | | | | | ELECTROMYOGR | | [phone] | | | | | APHY, EA | | Fax: | | | | | EXTREM, LTD | | [phone] | | | | | [place] NEEDLE | | | | | | | ELECTROMYOGR | | | | | | | APHY, EA | | | | | | | EXTREM, | | | | | | | COMPLETE [place] | | | | | | | MOTOR&/SENS | | | | | | | 1-2 NRV | | | | | | | CNDJ TST [place] | | | | | | | MOTOR&/SENS | | | | | | | 3-4 NRV | | | | | | | CNDJ TST [place] | | | | | | | MOTOR&/SENS | | | | | | | 5-6 NRV | | | | | | | CNDJ TST [place] | | | | | | | [...] | 2017 | Encounter | EMG at [facility] [address] | | | | | [facility] [address] | | | | | Health and Healing, | [place] [address] | | | | | [facility] | [phone] | | | | | Floor [facility] [place] | | | | | | [address] | Yin Murphy | | | | | [phone] | [facility] [place] | | | | | | [address] | | | | | | [phone] Aubrey, | | | | | | [address] | | | | | | [address] | | | | | | [place], [place] | | | | | | [address] | | +--------+ + + + + [...] | | | | | | | [employer] | | | | | | | [...] Kumar Date of : 1950 Medical | [facility], | | Record Number: [id number] Date of Test: 06/27/2017 Place of | POINT OF CARE | | Service: [facility] (40) - [id number] Department: [id number] [facility] Nerve | TESTS | | Conduction Studies/Electromyography [...] | | Suggested Modifier: None Suggested CPT: 37435 9-10 Nerve Conduction | | | studies 07375 EMG -Each Extremity, Limited (<4 Muscles) w/NCS, qty 2, | | | modifier: XS 34517 EMG -Each Extremity, Completed (>5 Muscles) | [...] + + | [facility] | [address] [facility] | [place] [address] | | | OF CARE TESTS | [...]
--- OUTSIDE RECORDS SUMMARY | ~2020-03-15 | XMS | Encounter Summary ---
Demographics + + + | Address | [address] | | | [place] [address] | + + + | Home Phone [...] + | Esthela Kumar | ECON | [address] | | | | | [place] | | | | | [address] | | + + + + + Care Team Providers + +------+ + | Care Brake Rider Name | Role | Phone | + [...] as of this encounter Progress Notes Interface, Barn Operator In - 12/23/2005 2:02 AM PDT [id number] 12/08/2005 [id number] JOSÉ Cabrera [id number] [facility] [address] [place] [address] or December 10, 2005 Clayton Diaz M.D. [address] [facility] [address] [place] [address] RE: KIERSTEN KUMAR MR #: [id number] Dear Dr. Diaz: I had the pleasure [...] well as the muscle pathology reports from [facility]. Per Mr. Kumar, he has had [...] neurogenic changes. A muscle biopsy performed at [facility] in January [address] Stone with [facility] Pathology showed mitochondrial changes. Specifically, on [...] consultations have included an evaluation by a hemstitching machine operator, Dr. 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 He is very active. He has a [...] were also decreased. Romberg was negative. Coordination: Iutypj-vo-fsth testing did not reveal any dysmetria. Rapid [...] have him see our physical therapist and sustainability project coordinator. Recommendations: 1. Obtain prior muscle biopsy slides. 2. Possible repeat muscle biopsy of the tibialis anterior or left biceps. 3. Myopathy and neuropathy laboratory studies as mentioned above. 4. Add physical therapy and sustainability project coordinator evaluations to next visit. 5. Mr. Kumar [...] M.D. Maximilian De La Garza M.D. / [id number] / [id number] / [id number] / [id number] / [id number] / [id number] / A: 12/11/2005 [facility] C: 12/22/2005 cc: Alan Sainz M.D. [address] [place] [address] documented i n this encounter Plan of Treatment Not on filedocumented as of this encounter Visit Diagnoses Not on filedocumented in this encounter"
--- OUTSIDE RECORDS SUMMARY | ~2020-03-15 | XMS | Encounter Summary ---
Demographics + + + | Address | [address] | | | [place] [address] | + + + | Home Phone [...] + | Esthela Kumar | ECON | [address] | | | | | [place] | | | | | [address] | | + + + + + Care Team Providers + +------+ + | Care High Voltage Electrician Name | Role | Phone [...] | | 2017 | anned | Services [address] | [phone] | | | | | [address] | | | | | | Mailcode: OP17A | | | | | | [facility] | | | | | | [place], [place] | | | | | | [address] | | | | | | [phone] | | | +--------+ + + + [...]
--- OUTSIDE RECORDS SUMMARY | ~2020-03-15 | XMS | Encounter Summary ---
Demographics + + + | Address | [address] | | | [place] [address] | + + + | Home Phone | | + + + | Preferred Language | Unknown | + + + | Marital Status | | + + + | Baptism Affiliation | Unknown | + + + | Race | White | + + + | Ethnic Group | Other Race | + + + Author + + + | Author | [facility] | + + + | Organization | [facility] | + + + | Address | Unknown | + + + | Phone | Unavailable | + + + Support + + + + + | Name | Relationship | Address | Phone | + + + + + | Esthela Kumar | ECON | [address] | | | | | [place] | | | | | [address] | | + + + + + Care Team Providers + +------+ + | Care Blueprint Cutter Name | Role | Phone | [...] + | 07/14/ | Office | Neurology | Maximilian De La Garza, | Myoadenylate | | 2007 | Visit | Neuromuscular Clinic | MD | Deaminase Deficiency | | | | at [facility] | | ([facility]) (Primary Dx) | | | | Health & Healing | | | | | | [address] | | | | | | [facility] | | | | | | and Healing, | | | | | | Building | | | | | | Floor [place], [place] | | | | | | [address] | | | | | | [phone] | | | +--------+---------+ + + + [...] might be different from t oscar original. 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 Cerebellar examination: Awnxpa-osmn-spuywl is intact. Gait: There is a slight [...] of care. Maximilian De La Garza M.D. [facility] / [id number] / [id number] / [id number] / [id number] documented in this encou nter Plan of [...]
--- OUTSIDE RECORDS SUMMARY | ~2020-03-15 | XMS | Encounter Summary ---
Demographics + + + | Address | [address] | | | [place] [address] | + + + | Home Phone [...] + | Esthela Kumar | ECON | [address] | | | | | [place] | | | | | [address] | | + + + + + Care Team Providers + +------+ + | Care Skiing Teacher Name | Role | Phone | + +------+ + | Alan Saizn MD | PCP | | + +------+ [...] | | | | | Procedures | [place], [place] | Health and | | | | | EMG/NERVE | [address] | Healing, | | | | | CONDUCTION | Phone: | Building 1, | | | | | ,ADUL | [phone] | 8th Floor | | | | | T - | Fax: | [place], [place] | | | | | NEUROLOGY | [phone] | [address] | | | | | | | Phone: | | | | | | | [phone] | | | | | | | Fax: | | | | | | | [phone] | +--------+--------+ + + + + Encounter Details +--------+ + + + + | Date | Type | Department | Care Team | Description | +--------+ + + + + | 04/27/ | Telephone | Neurology at | Brian, | | | 2016 | | [facility] & | Sussy Manuel MD [address] | | | | | Healing [address] | | | | | [facility] | [facility] [place] | | | | | Health and Healing, | [address] | | | | | Building , | [phone] | | | | | Floor [place], [place] | | | | | | [address] | | | | | | [phone] | | | +--------+ + + + [...]
--- OUTSIDE RECORDS SUMMARY | ~2020-03-15 | XMS | Encounter Summary ---
Demographics + + + | Address | [address] | | | [place] [address] | + + + | Home Phone | | + + + | Preferred Language | Unknown | + + + | Marital Status | | + + + | Jainism Affiliation | 1073 | + + + | Race | Unknown | + + + | Ethnic Group | Unknown | + + + Author + + + | Author | [facility] | | | and Faheemana | + + + | Organization | [facility] | | [...] Team Providers + +------+ + | Care Aircraft General Repair Mechanic Name | Role | Phone | + +------+ + PCP | Unavailable | + +------+ + Encounter Details +--------+ + + + + | Date | Type | Department | Care Team | Description | +--------+ + + + + | 06/02/ | Orders Only | [facility] | Luis Vazquez | | | 2015 | | CARDIOLOGY [place] | MD [address] | | | | | NUC MED [address] | [address] | | | | | [address] | [place] [address] | | | | | [place], [place] | [phone] | | | | | [address] | | | | | | [phone] | | | +--------+ + + + [...] | + +--------+ + + + | NM MYOCARDIAL | Routin | 06/02/2016 | | Results for this | | PERFUSION MULT SPECT | e | 10:53 AM | | procedure are in the | | | | PDT | | results section. | + +--------+ + + + documented in this encounter Results NM Myocardial Perfusion Mult SPECT (06/02/2016 10:53 AM PDT) + + | Specimen | + + | | + + + + + | Impressions | Performed At | + + + | This is a low-risk stress test. Kenzie Meyers MD, [facility] | | | | | + + + + + + | Narrative | Performed At | + + + | [facility] [place] [address] [place], [place], [place] | | | [phone] NUCLEAR TREADMILL STRESS TEST TEST DATE: | | | 06/02/2016 NAME: Andrea Kumar : 1950 | | | ORDERING MD: Luis Vazquez DO INDICATION FOR TEST: 65 year old | | | male being evaluated for coronary artery disease RISK FACTORS: | | | hyperlipidemia, family history, diabetes mellitus PROCEDURE: Joseph | | | protocol. Rest dose- 11.6 mCi of 99m Tc Myoview given intravenously. | | | Stress dose- At 07:29 minutes 32.8 mCi of 99m Tc Myoview given | | | intravenously. Effective Dose Equivalent: 15.3 mSv. The predicted | | | exercise time was 08:00 minutes. Patient's Predicted Maximum HR: | | | 155. Patient's Predicted 85% Max HR: 132. REST DATA: HR: 81 bpm | | | BP: 108/71 Rest EKG shows sinus rhythm with nonspecific ST | | | abnormalities. STRESS DATA: Exercise Time: 07:32 minutes, HR | | | achieved: 133, Max BP: 148/62 bpm. RPP: 18805. METS: 10.10.Symptoms | | | none. The test was terminated due to pace of treadmill and fatigue. | | | Max heart rate 133 bpm at 85% of MPHR. Stress EKG shows sinus | | | tachycardia with upsloping half millimeter ST depression in the | | | inferior lateral leads. GATED IMAGES: Rest EDV: 82 mL Rest ESV: 22 | | | mL Stress EDV: 82 mL Stress ESV: 23 mL. EJECTION FRACTION: REST | | | EF: 73% STRESS EF: 72%. IMAGIN. The quality of the study is | | | adequate. 2. SPECT images showed small fixed defect in the | | | inferior wall toward the apex which looked worse at rest. (SSS: 0 | | | SRS: 1 SDS: 0 TID: 0.96). 3. Gated SPECT images showed normal wall | | | motions. 4. Gated SPECT images showed normal wall thickening. 5. | | | The RV function not well visualized. 6. The Rivas Treadmill Score | | | is 5. 7. There is no previous test to compare with. | | + + + + + | Procedure Note | + + | Alan, Rad Conversion - 04/11/2019 9:16 PM [facility] [id number] | | , [place], [phone] NUCLEAR TREADMILL STRESS TESTTEST DATE: | | 06/02/2016NAME: Isaiah KumarB: 1950MRN: [id number] MD: Luis Vazquez DO | | INDICATION FOR TEST: 65 year old male being evaluated for coronary artery disease RISK | | FACTORS: hyperlipidemia, family history, diabetes mellitus PROCEDURE: Joseph protocol. | | Rest dose- 11.6 mCi of 99m Tc Myoview given intravenously. Stress dose- At 07:29 minutes | | 32.8 mCi of 99m Tc Myoview given intravenously. Effective Dose Equivalent: 15.3 mSv. | | The predicted exercise time was 08:00 minutes. Patient's Predicted Maximum HR: 155. | | Patient's Predicted 85% Max HR: 132. REST DATA: HR: 81 bpm BP: 108/71 Rest EKG shows | | sinus rhythm with nonspecific ST abnormalities. STRESS DATA: Exercise Time: 07:32 | | minutes, HR achieved: 133, Max BP: 148/62 bpm. RPP: 89195. METS: 10.10.Symptoms none. | | The test was terminated due to pace of treadmill and fatigue. Max heart rate 133 bpm at | | 85% of MPHR. Stress EKG shows sinus tachycardia with upsloping half millimeter ST | | depression in the inferior lateral leads. GATED IMAGES: Rest EDV: 82 mL Rest ESV: 22 mL | | Stress EDV: 82 mL Stress ESV: 23 mL. EJECTION FRACTION: REST EF: 73% STRESS EF: 72%. | | IMAGIN. The quality of the study is adequate.2. SPECT images showed small fixed | | defect in the inferior wall toward the apex which looked worse at rest. (SSS: 0 SRS: 1 | | SDS: 0 TID: 0.96).3. Gated SPECT images showed normal wall motions.4. Gated SPECT | | images showed normal wall thickening.5. The RV function not well visualized.6. The | | Rivas Treadmill Score is 5.7. There is no previous test to compare with. IMPRESSION: | | This is a low-risk stress test. Kenzie Meyers MD, FACC | |tachycardia with upsloping half millimeter ST depression in the inferior lateral leads. | | | |GATED IMAGES: Rest EDV: 82 mL Rest ESV: 22 mL Stress EDV: 82 mL Stress ESV: 23 mL. | | | |EJECTION FRACTION: REST EF: 73% STRESS EF: 72%. | | | |IMAGING: | |1. The quality of the study is adequate. | |2. SPECT images showed small fixed defect in the inferior wall toward the apex which looke d worse at rest. (SSS: 0 SRS: 1 SDS: 0 TID: 0.96). | |3. Gated SPECT images showed normal wall motions. | |4. Gated SPECT images showed normal wall thickening. | |5. The RV function not well visualized. | |6. The Rivas Treadmill Score is 5. | |7. There is no previous test to compare with. | | | |IMPRESSION: | |This is a low-risk stress test. | | | |Kenzie Meyers MD, FACC | | | | | + + documented in this encounter Visit Diagnoses Not on filedocumented in this encounter"
--- OUTSIDE RECORDS SUMMARY | ~2020-03-15 | XMS | Encounter Summary ---
Demographics + + + | Address | [address] | | | [place] [address] | + + + | Home Phone [...] + | Esthela Kumar | ECON | [address] | | | | | [place] | | | | | [address] | | + + + + + Care Team Providers + +------+ + | Care Deal Architect Name | Role | Phone | [...] | | | | | Procedures | [place], [place] | Health and | | | | | EMG/NERVE | [address] | Healing, | | | | | CONDUCTION | Phone: | Building [address], | | | | | STUDIES,ADUL | [phone] | 8th Floor | | | | | T - | Fax: | [place], [place] | | | | | NEUROLOGY | [phone] | [address] | | | | | NM NEEDLE | | Phone: | | | | | ELECTROMYOGR | | [phone] | | | | | APHY, EA | | Fax: | | | | | EXTREM, LTD | | [phone] | | | | | NM NEEDLE | | | | | | | ELECTROMYOGR | | | | | | | APHY, EA | | | | | | | EXTREM, | | | | | | | COMPLETE NM | | | | | | | MOTOR&/SENS | | | | | | | 1-2 NRV | | | | | | | CNDJ TST NM | | | | | | | MOTOR&/SENS | | | | | | | 3-4 NRV | | | | | | | CNDJ TST NM | | | | | | | MOTOR&/SENS | | | | | | | 5-6 NRV | | | | | | | CNDJ TST NM | | | | | | | [...] 05/24/ | Telephone | Neurology at | [place], | | | 2017 | | [facility] & | Sussy Manuel MD [address] | | | | | Healing [address] | [address] | | | | | Ave [facility] | [place], [place] | | | | | Health and [facility], | [address] | | | | | [facility] | [phone] | | | | | Floor [place], [place] | | | | | | [address] | | | | | | [phone] | | | +--------+ + + + [...] Kumar Date of : 1950 Medical | [facility], | | Record Number: [id number] Date of Test: 06/27/2017 Place of | POINT OF CARE | | Service: [facility] (43) - [address] Department: [id number] EMG [facility] Nerve | TESTS | | Conduction Studies/Electromyography [...] | | Suggested Modifier: None Suggested CPT: 26032 9-10 Nerve Conduction | | | studies 62433 EMG -Each Extremity, Limited (<4 Muscles) w/NCS, qty 2, | | | modifier: XS 83368 EMG -Each Extremity, Completed (>5 Muscles) | [...] + + + + + | FABRICIO - ANKUSH ZAMARRIPA | [address] | [place] [address] | | | OF CARE TESTS | | | | + + + + + documented in this encounter Visit Diagnoses + + | Diagnosis | + + | Weakness of both lower extremities - Primary | + + documented in this encounter"
--- OUTSIDE RECORDS SUMMARY | ~2020-03-15 | XMS | Encounter Summary ---
Demographics + + + | Address | [address] | | | [place] [address] | + + + | Home Phone [...] + + + | Author | [facility] | + + + | Organization | [facility] | + + + | Address | Unknown | + + + | Phone | Unavailable | + + + Support + + + + + | Name | Relationship | Address | Phone | + + + + + | Esthela Kumar | ECON | [address] | | | | | [place] | | | | | [address] | | + + + + + Care Team Providers + +------+ + | Care Kiln Remover Name | Role | Phone | + [...] | | | | stenosis of | [address] | | | | | | lumbar | [address] | | | | | | region | [place], [place] | | | | | | without | [address] | | | | | | neurogenic | Phone: | | | | | | claudication | [phone] | | | | | | Procedures | Fax: | | | | | | CONSULT TO | [phone] | | | | | | | [...] 07/19/ | Telephone | Neurology at | [place], | Referral To | | 2016 | | [facility] & | Sussy Manuel MD [address] | Neurosurgery | | | | Healing [address] | DUSTIN Huang | (External to [facility]) | | | | [facility] for | [place], [place] | | | | | Health and Healing, | [address] | | | | | [facility] | [phone] | | | | | Floor [place], [place] | | | | | | [address] | | | | | | [phone] | | | +--------+ + + + [...]
--- OUTSIDE RECORDS SUMMARY | ~2020-03-15 | XMS | Encounter Summary ---
Demographics + + + | Address | [address] | | | [place] [address] | + + + | Home Phone [...] + | Esthela Kumar | ECON | [address] | | | | | [place] | | | | | [address] | | + + + + + Care Team Providers + +------+ + | Care Spike Machine Heater Name | Role | Phone | + +------+ + | Alan Sainz MD | PCP | | + +------+ + Encounter Details +--------+ + + + + | Date | Type | Department | Care Team | Description | +--------+ + + + + | 08/02/ | Abstract | Neurology at | [place], | | | 2017 | | [facility] & | Sussy Manuel MD [address] | | | | | Healing [address] | DUSTIN Huang | | | | | [place] [place] for | [place], [place] | | | | | Health and Healing, | [address] | | | | | | [phone] | | | | | Floor [place], [place] | | | | | | [address] | | | | | | [phone] | | | +--------+ + + + [...]
--- OUTSIDE RECORDS SUMMARY | ~2020-03-15 | XMS | Encounter Summary ---
Demographics + + + | Address | [address] | | | [place] [address] | + + + | Home Phone [...] + | Esthela Kumar | ECON | [address] | | | | | [place] | | | | | [address] | | + + + + + Care Team Providers + +------+ + | Care Promotions Coordinator Name | Role | Phone | + +------+ + | Alan Sainz MD | PCP | | + +------+ + Encounter Details +--------+ + + + + | Date | Type | Department | Care Team | Description | +--------+ + + + + | 07/20/ | Abstract | Neurology at | [place], | | | 2017 | | [place] [facility] & | Sussy Manuel MD [address] | | | | | Healing [address] | DUSTIN Huang | | | | | Reina [place] for | [place], [place] | | | | | Health and Healing, | [address] | | | | | | [phone] | | | | | Floor [place], [place] | | | | | | [address] | | | | | | [phone] | | | +--------+ + + + [...]
--- OUTSIDE RECORDS SUMMARY | ~2020-03-15 | XMS | Encounter Summary ---
Demographics + + + | Address | [address] | | | [place] [address] | + + + | Home Phone | | + + + | Preferred Language | Unknown | + + + | Marital Status | | + + + | Confucianism Affiliation | 1073 | + + + | Race | Unknown | + + + | Ethnic Group | Unknown | + + + Author + + + | Author | [facility] | | | and Faheemana | + + + | Organization | [facility] | | | and [...] Team Providers + +------+ + | Care Banbury Mixer Operator Name | Role | Phone | + +------+ + PCP | Unavailable | + +------+ + Encounter Details +--------+ + + + + | Date | Type | Department | Care Team | Description | +--------+ + + + + | 06/26/ | Hospital | [facility] | | | | 2000 - | Encounter | MED CTR OP REHAB | | | | | | [address] | | | | 07/02/ | | [place] [address] | | | | 2000 | | [phone] | | | +--------+ + + + [...]
--- OUTSIDE RECORDS SUMMARY | ~2020-03-15 | XMS | Encounter Summary ---
Demographics + + + | Address | [address] | | | [place] [address] | + + + | Home Phone | | + + + | Preferred Language | Unknown | + + + | Marital Status | | + + + | Mu-Ism Affiliation | 1073 | + + + | Race | Unknown | + + + | Ethnic Group | Unknown | + + + Author + + + | Author | [facility] | | | and Faheemana | + + + | Organization | [facility] | | | and Faheemana [...] Team Providers + +------+ + | Care Echo Vascular Tech Name | Role | Phone | + +------+ + | Lázaro Oviedo MD | PCP | | + +------+ + Encounter Details +--------+ + + + + | Date | Type | Department | Care Team | Description | +--------+ + + + + | 06/21/ | Orders Only | [facility] GENERIC OP | Conversion | | | 2017 | | CONVERSION DEP [address] | Transaction, | | | | | TAWNY CORONADOVD | Provider Unknown | | | | | [place] | [phone] | | | | | [address] | | | | | | [phone] | | | +--------+ + + + [...]
--- OUTSIDE RECORDS SUMMARY | ~2020-03-15 | XMS | Encounter Summary ---
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[address] | | | | | | secondary | [place], [place] | | | | | | diabetes | [address] | | | | | | ([facility]) | Phone: | | | | | | Imbalance | [phone] | | | | | | Foot drop, | Fax: | | | | | | bilateral | [phone] | | | | | | Procedures | | | | | | | MRI SPINE | | | | | | | LUMBAR WO | | | | | | | CONTRAST NM | | | | | | [...] | | | | Polyneuropat | MD [address] | | | | | | hy due to | [address] | | | | | | secondary | [place], [place] | | | | | | diabetes | [address] | | | | | | ([facility]) | Phone: | | | | | | Imbalance | [phone] | | | | | | Procedures | Fax: | | | | | | PHYSICAL | [phone] | | | | | | THERAPY [...] | | | Worsening | Alan | [facility] [address] | | | | | myopathy | MD Darrick | [address] | | | | | peripheral | [place] | Center for | | | | | neuropathy | INTERNAL | Health and | | | | | | MEDICINE | Healing, | | | | | | [address] | [address], | | | | | | [address] | [facility] Floor | | | | | | [address] | [facility] [place] | | | | | | [place], | [address] | | | | | | [place] [address] | Phone: | | | | | | Phone: | [phone] | | | | | | [phone] | Fax: | | | | | | Fax: | [phone] | | | | | | [phone] | | +--------+--------+ + + + + Encounter Details +--------+---------+ + + + | Date | Type | Department | Care Team | Description | +--------+---------+ + + + | 03/16/ | Office | Neurology at | [place], | 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 Call [phone] to schedule a follow up appointment with [...] surgical release w katiuska is referred to [facility] comprehensive neurology clinic for worsening balance. He [...] doctor. He has been previously seen at [facility] in the neuromuscular clinic. 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 comprehensive neurology clinic for worsening balance. I ag ree with Dr. Lazcano, who last saw him in [facility], that his imbalance and distal weakness is [...] this order to [facility] [place] to be done locally. Unfortunately for the [...] without (order will be sent to [facility] in [place]) - referral to physical therapy - will prescribe bilateral AFO braces, pending PT eval - Tight glucose control, continue lifestyle modifications - Return to clinic in 2 years, or sooner if needed (I will call them with the results of e MRI) I spent >45 minutes novi-rx-ahlh with the patient, > 50% of the time was spent on counselin g/education related to the issues addressed in the assessment/plan. This note was dictated with [employer] voice recognition software and may contain inadvertent g rammatical and spelling errors. Every attempt is made to ensure the dictation is correct. If there are questions or major concerns, please contact our office. Sussy Torres MD Cargo Worker Department of Neurology Division of Neuroimmunology Pager [phone] documented in t his encounter Plan of [...]
--- OUTSIDE RECORDS SUMMARY | ~2020-03-15 | XMS | Encounter Summary ---
Demographics + + + | Address | [address] | | | [place] [address] | + + + | Home Phone [...] + | Esthela Kumar | ECON | [address] | | | | | [place] | | | | | [address] | | + + + + + Care Team Providers + +------+ + | Care Psychologist Industrial Organizational Name | Role | Phone | + +------+ + | Lázaro Oviedo MD | PCP | | + +------+ + Encounter Details +--------+ + + + + | Date | Type | Department | Care Team | Description | +--------+ + + + + | 04/18/ | Document-Sc | Health Information | Other, Faculty | | | 2017 | anned | Services [address] | [phone] | | | | | [address] | | | | | | Mailcode: OP17A | | | | | | [facility] | | | | | | [place], [place] | | | | | | [address] | | | | | | [phone] | | | +--------+ + + + [...]
--- OUTSIDE RECORDS SUMMARY | ~2020-03-15 | XMS | Encounter Summary ---
Demographics + + + | Address | [address] | | | [place] [address] | + + + | Home Phone | | + + + | Preferred Language | Unknown | + + + | Marital Status | | + + + | Denominational Affiliation | 1073 | + + + | Race | Unknown | + + + | Ethnic Group | Unknown | + + + Author + + + | Author | [facility] | | | and Faheemana | + + + | Organization | [facility] | | | and Faheemana [...] + +------+ + | Care Entry Level Staff Accountant Name | Role | Phone | + +------+ + PCP | Unavailable | + +------+ + Encounter Details +--------+ + + + + | Date | Type | Department | Care Team | Description | +--------+ + + + + | 05/30/ | Hospital | [facility] | | | | 2000 - | Encounter | MED CTR GENERIC IP | | | | | | CONV DEPT [address] | | | | 05/31/ | | [address], | | | | 2000 | | [place] [address] | | | | | | [phone] | | | +--------+ + + + [...]
--- OUTSIDE RECORDS SUMMARY | ~2020-03-15 | XMS | Encounter Summary ---
Demographics + + + | Address | [address] | | | [place] [address] | + + + | Home Phone | | + + + | Preferred Language | Unknown | + + + | Marital Status | | + + + | Scientologist Affiliation | Unknown | + + + | Race | White | + + + | Ethnic Group | Other Race | + + + Author + + + | Author | [facility] | + + + | Organization | [facility] | + + + | Address | Unknown | + + + | Phone | Unavailable | + + + Support + + + + + | Name | Relationship | Address | Phone | + + + + + | Esthela Kumar | ECON | [address] | | | | | [place] | | | | | [address] | | + + + + + Care Team Providers + +------+ + | Care Bricklayer Apprentice Name | Role | Phone | + [...] | | Peripheral | MD Nino | [address] | | | | | neuropathy | [address] | [address] | | | | | Procedures | Ave | [facility] | | | | | MRI SPINE | [place], [place] | Research | | | | | LUMBAR WO | [address] | Center | | | | | CONT [address] | Phone: | [place], [place] | | | | | | [phone] | [address] | | | | | | Fax: | Phone: | | | | | | [phone] | [phone] | | | | | | | Fax: | | | | | | | [phone] | +--------+--------+ + + + + Reason [...] | | Procedures | Ave | [address] | | | | | MRI SPINE | [place], [place] | Research | | | | | LUMBAR WO | [address] | Center | | | | | CONT [address] | Phone: | [place], [place] | | | | | | [phone] | [address] | | | | | | Fax: | Phone: | | | | | | [phone] | [phone] | | | | | | | Fax: | | | | | | | [phone] | +--------+--------+ + + + + Encounter Details +--------+ + + + + | Date | Type | Department | Care Team | Description | +--------+ + + + + | 08/08/ | Hospital | Radiology/Imaging | | | | 2011 | Encounter | Lab at [facility] [address] | | | | | | [address] [facility] | | | | | | Health and Healing, | | | | | | [address] | | | | | | [place], [place] | | | | | | [address] | | | | | | [phone] | | | +--------+ + + + [...] | | | | SPINE WO | [id number] Name: | | | | | CONT | KIERSTEN KUMAR | | | | | | Birthdate: 1950 | | | | | | Sex: M Alias: | | | | | | Patient Location: | | | | | | [id number]: Outpatient | | | | | | [...] # | | | | | | [id number] EXAM: MRI | | | | | [...] | | | | | L4-L5 and L5-A0tdohjqip | | | | | | fatty [...] U. | | | | | | [place] 08/10/2012 | | | | | | 14:41PM | | | | | | Final/Electronically | | | | | | signed / Neris U. | | | | | | [place] 08/09/2012 | | | | | | 11:21AM Result | | | | | | modified / Neris | | | | | | U. [place] 08/09/2012 | | | | | | [...] | | | | | | U. [place] 08/08/2012 | | | | | | 22:23 PM Result | | | | | | modified / Neris | | | | | | U. [place] 08/08/2012 | | | | | | 22:23 PM Pending final | | | | | | approval / Neris | | | | | | U. [place] 08/08/2012 | | | | | | 19:38 PM Result | | | | | | modified / Neris | | | | | | [facility]. [place] 08/08/2012 | | | | | | [...]
--- OUTSIDE RECORDS SUMMARY | ~2020-03-15 | XMS | Encounter Summary ---
Demographics + + + | Address | [address] | | | [place] [address] | + + + | Home Phone | | + + + | Preferred Language | Unknown | + + + | Marital Status | | + + + | Jain Affiliation | 1073 | + + + | Race | Unknown | + + + | Ethnic Group | Unknown | + + + Author + + + | Author | [facility] | | | and Faheemana | + + + | Organization | [facility] | | | and [...] Team Providers + +------+ + | Care Java Integration Developer Name | Role | Phone | + +------+ + PCP | Unavailable | + +------+ + Encounter Details +--------+ + + + + | Date | Type | Department | Care Team | Description | +--------+ + + + + | 04/26/ | Orders Only | [facility] | Luis Vazquez | | | 2015 | | CARDIOLOGY CHANELLE | MD [address] | | | | | NUC MED [address] | [address] | | | | | [address] | [place] [address] | | | | | [place], [place] | [phone] | | | | | [address] | | | | | | [phone] | | | +--------+ + + + [...] | + +--------+ + + + | STRESS ECG | Routin | 04/26/2016 | | Results for this | | | e | 3:45 PM | | procedure are in the | | | | PDT | | results section. | + +--------+ + + + documented in this encounter Results Stress ECG (04/26/2016 3:45 PM PDT) + + | Specimen | + + | | + + + + + | Impressions | Performed At | + + + | Abnormal, intermediate risk study. Good exercise tolerance. | | | Appropriate hemodynamic response to exercise. No exercise-induced | | | chest pain. Evidence of mild ischemic ECG changes. No significant | | | exercise-induced arrhythmias. Rivas Treadmill Score is 2 ( | | | intermediate risk) | | + + + + + + | Narrative | Performed At | + + + | [facility] CARDIOLOGY [address], [address] [place], [place] | | | [phone] TREADMILL STRESS TEST ? Test Date: 04/26/2016 | | | Name: Andrea Kumar : 1950 Ordering | | | :Luis Vazquez DO History: 65 year old male being evaluated for | | | hypertension Rest Data: HR: 85 bmp BP: 113/87 Patient's | | | predicted maximum HR: 155 bmp Patient's predicted 85% maximum HR: 132 | | | bmp Baseline ECG: Normal sinus rhythm. Normal ECG. Stress Data: | | | Exercise time: 07:03 METS: 10.10 Peak HR: 142 bpm Peak BP: 165/77 | | | RPP: 22693 Patient stopped due to: fatigue Chest pain: none Stress | | | ECG: Evidence of mild ischemic ECG changes. [address] | | | depressions inferior and lateral leads. Arrhythmias: none | | | Procedure: Joseph protocol. | | + + + + + | Procedure Note | + + | Alan, Rad Conversion - 04/12/2019 9:59 AM [facility] [id number] | | [address], [place], [phone] TREADMILL STRESS TEST?Test Date: 04/26/2016Name: | | Isaiah KumarB: 1950MRN: [id number] MD:Luis Vazquez, History:65 | | year old male being evaluated for hypertension Rest Data:HR: 85 bmp BP: 113/87Patient's | | predicted maximum HR: 155 bmpPatient's predicted 85% maximum HR: 132 bmpBaseline ECG: | | Normal sinus rhythm. Normal ECG. Stress Data:Exercise time: 07:03 METS: 10.10Peak HR: | | 142 bpm Peak BP: 165/77 RPP: 23985Vahlfyk stopped due to: fatigueChest pain: noneStress | | ECG: Evidence of mild ischemic ECG changes. [address] depressions inferior and | | lateral leads.Arrhythmias: none Procedure:Joseph protocol. IMPRESSION: Abnormal, | | intermediate risk study.Good exercise tolerance.Appropriate hemodynamic response to | | exercise.No exercise-induced chest pain.Evidence of mild ischemic ECG changes.No | | significant exercise-induced arrhythmias.Rivas Treadmill Score is 2 ( intermediate risk) | | | |65 year old male being evaluated for hypertension | | | |Rest Data: | |HR: 85 bmp BP: 113/87 | |Patient's predicted maximum HR: 155 bmp | |Patient's predicted 85% maximum HR: 132 bmp | |Baseline ECG: Normal sinus rhythm. Normal ECG. | | | |Stress Data: | |Exercise time: 07:03 METS: 10.10 | |Peak HR: 142 bpm Peak BP: 165/77 RPP: 46137 | |Patient stopped due to: fatigue | |Chest pain: none | |Stress ECG: Evidence of mild ischemic ECG changes. [address] depressions inferior and lateral leads. | |Arrhythmias: none | | | |Procedure: | |Joseph protocol. | | | |IMPRESSION: | |Abnormal, intermediate risk study. | |Good exercise tolerance. | |Appropriate hemodynamic response to exercise. | |No exercise-induced chest pain. | |Evidence of mild ischemic ECG changes. | |No significant exercise-induced arrhythmias. | |Rivas Treadmill Score is 2 ( intermediate risk) | | | | | + + documented in this encounter Visit Diagnoses Not on filedocumented in this encounter"
--- OUTSIDE RECORDS SUMMARY | ~2020-03-15 | XMS | Encounter Summary ---
Demographics + + + | Address | [address] | | | [place] [address] | + + + | Home Phone [...] + | Esthela Kumar | ECON | [address] | | | | | [place] | | | | | [address] | | + + + + + Care Team Providers + +------+ + | Care Music Publisher Name | Role | Phone | + [...] Visit | [facility] | MD | Abnormality of Gait | | | | [address] | | | | | | Loop Mailcode: | | | | | | CR120 Outpatient | | | | | | Clinic Building | | | | | | [place], [place] | | | | | | [address] | | | | | | [phone] | | | +--------+---------+ + + + [...] might be different from t oscar powell. [facility] [address] [place] [address] or [email or web address] REFERRED FROM AND FAXED TO: JOVANNY SAINZ MD [facility] [address] [address] PRIMARY CARE PHYSICIAN: JOVANNY SAINZ MD, MD [facility] [address] [place] [address] / [place]* [phone] REFERRED TO: [facility] My[facility] Clinic PATIENT:Andrea Kumar INFORMANT: The patient [...] medical record and updated it in the Sendmail system. 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 It has not been cleared or approved [...] 72 hours HOMOCYSTEINE,PLASMA,TOTAL Value: 8.7(umol/L) Date: 12/13/2005 PRICING MANAGER AB Value: Negative Date: 12/09/2005 SM AB [...]
--- OUTSIDE RECORDS SUMMARY | ~2020-03-15 | XMS | Encounter Summary ---
Demographics + + + | Address | [address] | | | [place] [address] | + + + | Home Phone [...] + | Esthela Kumar | ECON | [address] | | | | | [place] | | | | | [address] | | + + + + + Care Team Providers + +------+ + | Care Sweatband Shaper Name | Role | Phone | + [...] [id number] | | | | | | [place], [place] | | | | | | [address] | | | | | | [phone] | | | +--------+ + + + [...]
--- OUTSIDE RECORDS SUMMARY | ~2020-03-15 | XMS | Encounter Summary ---
Demographics + + + | Address | [address] | | | [place] [address] | + + + | Home Phone [...] + | Esthela Kumar | ECON | [address] | | | | | [place] | | | | | [address] | | + + + + + Care Team Providers + +------+ + | Care Band Maker Name | Role | Phone | + +------+ + | Alan Sainz MD | PCP | | + +------+ + Encounter Details +--------+ + + + + | Date | Type | Department | Care Team | Description | +--------+ + + + + | 12/27/ | Hospital | Dermatopathology | | | | 2017 | Encounter | [address] | | | | | | Mailcode: CH16D | | | | | | [facility] | | | | | | and Healing, | | | | | | Building | | | | | | Floor [place], [place] | | | | | | [address] | | | | | | [phone] | | | +--------+ + + + [...] tip; | | | | | | [id number]. GROSS | | | | | | DESCRIPTION:Received in | | | | | | formalin is a specimen | | | | | | labeled Andrea Kumar:A: | | | | | | Specimen consists of an | | | | | | ellipse of barraza-castano | | | | | | skin, [id number]. The | | | | | | [...] [facility] | Mailcode CH5D [address] | [place] [address] | | | DERMATOPATHOLOGY | [address] [...]
--- OUTSIDE RECORDS SUMMARY | ~2020-03-15 | XMS | Encounter Summary ---
Demographics + + + | Address | [address] | | | [place] [address] | + + + | Home Phone [...] + | Esthela Kumar | ECON | [address] | | | | | [place] | | | | | [address] | | + + + + + Care Team Providers + +------+ + | Care Heater Operator Helper Name | Role | Phone [...] | | | | | [place], | | | | | | [place] [address] | | | +--------+ + + + [...]
--- OUTSIDE RECORDS SUMMARY | ~2020-03-15 | XMS | Encounter Summary ---
Demographics + + + | Address | [address] | | | [place] [address] | + + + | Home Phone [...] + | Esthela Kumar | ECON | [address] | | | | | [place] | | | | | [address] | | + + + + + Care Team Providers + +------+ + | Care Head Banquet Waiter/Waitress Name | Role | Phone | + [...] | | | | | | | [address] | | | | | | | [address] | | | | | | | [place], [place] | | | | | | | [address] | | | | | | | Phone: | | | | | | | [phone] | | | | | | | Fax: | | | | | | | [phone] | | +--------+--------+ + + + + Diagnostic Testing (Routine) +--------+--------+ + + + + | Status | Reason | Specialty | Diagnoses / | Referred By | Referred To | | | | | Procedures | Contact | Contact | +--------+--------+ + + + + | Closed | | Clinical | Diagnoses | Neno | Kailash Emg | | | | Neurophysiolo | Peripheral | MD Nino | Chh1 [address] | | | | gy | neuropathy | [address] | [address] | | | | | Procedures | Ave | Center for | | | | | EMG/NERVE | [place], [place] | [facility] and | | | | | CONDUCTION | [address] | Healing, | | | | | STUDIES,ADUL | Phone: | Building 1, | | | | | T - | [phone] | 8th Floor | | | | | NEUROLOGY | Fax: | [place], [place] | | | | | | [phone] | [address] | | | | | | | Phone: | | | | | | | [phone] | | | | | | | Fax: | | | | | | | [phone] | +--------+--------+ + + + + Diagnostic [...] | | | neuropathy | [address] | Alex Harvey | | | | | Procedures | Ave | Carlos Garland | | | | | MRI SPINE | [place], [place] | Research | | | | | LUMBAR WO | [address] | Center | | | | | CONT [address] | Phone: | [place], [place] | | | | | | [phone] | [address] | | | | | | Fax: | Phone: | | | | | | [phone] | [phone] | | | | | | | Fax: | | | | | | | [phone] | +--------+--------+ + + + + Reason [...] Neurology | Diagnoses | Sitz, | Reynaldo | | | | | Myopathy | Alan | Neuromusc | | | | | | MD Darrick | Chh1 [address] | | | | | | SUSHMA | [address] | | | | | | INTERNAL | Center for | | | | | | MEDICINE | Health and | | | | | | [address] | Healing, | | | | | | [place] | Building 1, | | | | | | [address] | 8th Floor | | | | | | S[place], | [place], [place] | | | | | | [place] [address] | [address] | | | | | | Phone: | Phone: | | | | | | [phone] | [phone] | | | | | | Fax: | Fax: | | | | | | [phone] | [phone] | +--------+--------+ + + + + Encounter Details +--------+---------+ + + + | Date | Type | Department | Care Team | Description | +--------+---------+ + + + | 07/03/ | Office | Neurology | Nino Lazcano MD | Peripheral | | 2011 | Visit | Neuromuscular Clinic | [address] | neuropathy (Primary | | | | at 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 Family History Problem Relation Diabetes Paternal [...] metal screen as he lives in [place] [facility] as uses well water at home. In addition, he would benefit from an AFO given his foot drop and the fact that he is on his feet for most of his day at work, a referral was placed for this but he would prefer to do that closer to his home in [place]. I will discuss his test results with him at the time of his EMG and any further recommendat ions at that time. Nino Lazcano MD Educational Institution President Department of Neurology documented in this enco [...] | | | | SPINE WO | [id number] Name: | | | | | CONT | KIERSTEN KUMAR | | | | | | Birthdate: 1950 | | | | | | Sex: M Alias: | | | | | | Patient Location: | | | | | | [id number]: Outpatient | | | | | | Active Ordering | | | | | | Physician: NENO | | | | | | MD INNOOrdering | | | | | | Physician 2: MSPL- MRI | | | | | | L-SPINE WO CONTRAST | | | | | | completed on 08/08/2012 | | | | | | 13:55Accession # | | | | | | [id number] EXAM: MRI | | | | | [...] | | | | | L4-L5 and L5-D7fcmvzadv | | | | | | fatty [...] | | | | | | Neris U. Moraima, | | | | | | M.D.Author: [...] | | | | | / Neris U. Wilton | | | | | | Pending final approval | | | | | | / Neris U. Wilton | | | | | | Pending final | | | | | | approval / NAEEM TAYLOR | | | | | | 08/08/2012 18:01 PM | | | | | | Attending Radiologists: | | | | | | Neris UBrielle Valera, | | | | | | [...] U. | | | | | | Wilton 08/10/2012 | | | | | | 14:41PM | | | | | | Final/Electronically | | | | | | signed / Neris U. | | | | | | Wilton 08/09/2012 | | | | | | 11:21AM Result | | | | | | modified / Neris | | | | | | U. Wilton 08/09/2012 | | | | | | [...] | | | | | | U. Wilton 08/08/2012 | | | | | | 22:23 PM Result | | | | | | modified / Neris | | | | | | U. Wilton 08/08/2012 | | | | | | 22:23 PM Pending final | | | | | | approval / Neris | | | | | | U. Wilton 08/08/2012 | | | | | | 19:38 PM Result | | | | | | modified / Neris | | | | | | U. Wilton 08/08/2012 | | | | | | [...] | | + +---------+ + + | [facility] DEPARTMENT OF | | | | | [...] [facility] | | | UR(REFERRAL | by [employer],[address] | | REG UNIV | | | ) | [address], [facility],[place] | | PTH - INTFC | | | | [address] | | | | | | [phone].[employer]. | | | | | | Beverley [...] ug/gCR | [facility] | | | UG/G FLAKER OPERATOR | | | REG UNIV | | | | | | PTH - INTFC | | + + + + + + | MERCURY, | 0.9 | <=35.0 ug/gCR | [facility] | | | URINE UG/G | | | REG UNIV | | | FLAKER OPERATOR | | | PTH - INTFC | | + + + + + + | ARSENIC, | 19.3 | ug/gCR | [facility] | | | URINE UG/G | | | REG UNIV | | | FLAKER OPERATOR | | | PTH - INTFC [...] concentration | | | | | | [id number] ug/L, | | | | | | [...] [facility] | [address] | [place], [place] | | | UNIV PTH - INTFC | | [address] | | + + + + + [...] + | [facility] | [address] | [place] [address] | | | [place] | | | [...] | | | | immunofixation | | [place] | | | | electrophoresis. | | | | + + + + + + + + | Specimen | + + | Blood - Blood | + + + + + + + | Performing | Address | City/State/Zipcode | Phone Number | | Organization | | | | + + + + + | [facility] | [address] | [place] [address] | | | [place] | | | [...] | | Interpretation By: Dajuan | | [place] | | | | Brandi AGUILAR MS | | | | + + + + + + + + | Specimen | + + | Blood - Blood | + + + + + + + | Performing | Address | City/State/Zipcode | Phone Number | | Organization | | | | + + + + + | [facility] | [address] | [place] [address] | | | [place] | | | | + + + [...] [facility] | [address] | [place] [address] | | | SERVICES, FLETCHER | [address] | | | [...] Directory | | | | | | ([employer] Serum | | | | | | [...] | | | | | | [address] [employer],[address] | | | | | | [address], [facility],[place] | | | | | | [address] | | | | | | [phone].[facility]. | | | | | | Beverley [...] + + | [facility] | [address] | [place], [place] | | | UNIV PTH - INTFC | | [address] | | + + + + + [...] | | | IC ACID | [address] [employer],[address] | umol/L | REG UNIV | | | | [place] [facility] | | PTH - INTFC | | | | [address] | | | | | | [phone].[employer]. | | | | | | Beverley [...] [facility] | [address] | [place], [place] | | | UNIV PTH - INTFC | | [address] | | + + + + + [...] if | | | | | | [id number] >400: | | | | | | [...] + | [facility] | [address] | [place] [address] | | | [facility] | | | | + + + [...] | | | LABORATORY | | | CHINESE | | | SERVICES, | | | [...] | + + + + + | [facility] | [address] | [place] [address] | | | SERVICES, CORE | PARK [...]
--- OUTSIDE RECORDS SUMMARY | ~2020-03-15 | XMS | Encounter Summary ---
Demographics + + + | Address | [address] | | | [place] [address] | + + + | Home Phone [...] + | Esthela Kumar | ECON | [address] | | | | | [place] | | | | | [address] | | + + + + + Care Team Providers + +------+ + | Care Shipping Specialist Name | Role | Phone | [...] | Deaminase Deficiency | | | | [facility] | [address] | Myopathy (HCC); | | | | [address] | [place] [address] | Abnormality of Gait | | | | [facility] | [phone] | | | | | and Healing, | | | | | | Building 1, 1st | | | | | | Floor [place], [place] | | | | | | [address] | | | | | | [phone] | | | +--------+---------+ + + + [...] - 07/18/2007 2:56 PM PSTPHYSICAL THERAPY EVAL: 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 He did not pursue ankle b race after last visit. May be interested now and willing to talk with police liaison. Pt has torn ligaments in his right knee and he wears a brace sometimes - expecting TKR eventually.. 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 Patient willing to meet with police liaison to discuss. Rv Body Mechanic contacted and will make arr angements to [...] short term goals PLAN: Pt to see police liaison in [place] or [place] Frequency/Duration: once Treatment began: 1:00 pm Treatment [...]
--- OUTSIDE RECORDS SUMMARY | ~2020-03-15 | XMS | Encounter Summary ---
Demographics + + + | Address | [address] | | | [place] [address] | + + + | Home Phone [...] + | Esthela Kumar | ECON | [address] | | | | | [place] | | | | | [address] | | + + + + + Care Team Providers + +------+ + | Care Printed Circuit Boards Stripper Etcher Name | Role | Phone | + [...] [place] | | | | | at [facility] | [facility] | | | | | Health & Healing | [place] [address] | | | | | [address] | [phone] | | | | | [facility] | | | | | | and Healing, | | | | | | Building | | | | | | Floor [place], [place] | | | | | | [address] | | | | | | [phone] | | | +--------+ + + + [...]
--- OUTSIDE RECORDS SUMMARY | ~2020-03-15 | XMS | Encounter Summary ---
Demographics + + + | Address | [address] | | | [place] [address] | + + + | Home Phone [...] + | Esthela Kumar | ECON | [address] | | | | | [place] | | | | | [address] | | + + + + + Care Team Providers + +------+ + | Care Transit Specialist Name | Role | Phone | [...] [address] | | | | | | [place], [place] | | | | | | [address] | | | +--------+ + + + [...]
--- OUTSIDE RECORDS SUMMARY | ~2020-03-15 | XMS | Encounter Summary ---
Demographics + + + | Address | [address] | | | [place] [address] | + + + | Home Phone [...] + | Esthela Kumar | ECON | [address] | | | | | [place] | | | | | [address] | | + + + + + Care Team Providers + +------+ + | Care Maintenance Fitter Name | Role | Phone | + [...] | Carlos Mailcode: RPB07 | [address] [place], | | | | | [place], [place] | [place] [address] | | | | | [address] | [phone] | | | | | [phone] | | | +--------+ + + + [...] DEPARTMENT OF | [address] | [place] [address] | | | PATHOLOGY | [address] | | | + + + + + | [facility] | [address] | [place] [address] | | | PATHOLOGY | [address] [...] DEPARTMENT OF | [address] | [place] [address] | | | PATHOLOGY | [address] | | | + + + + + | [facility] DEPARTMENT OF | [address] | [place] [address] | | | PATHOLOGY | [address] [...] + + | [place] DEPARTMENT OF | [facility] | [place] [address] | | | PATHOLOGY | [address] | | | + + + + + | [facility] DEPARTMENT OF | [address] | [place] [address] | | | PATHOLOGY | [address] [...] + + + + + | [facility] DEPARTMENT OF | [address] | [place] [address] | | | PATHOLOGY | [address] | | | + + + + + | [facility] DEPARTMENT OF | [facility] | [place] [address] | | | PATHOLOGY | [address] [...] + + + + + | [facility] DEPARTMENT OF | [address] | [place] [address] | | | PATHOLOGY | [address] | | | + + + + + | [facility] DEPARTMENT OF | [address] | [place] [address] | | | PATHOLOGY | [address] [...] + | [facility] | [address] | [place] [address] | | | PATHOLOGY | [address] | | | + + + + + | [facility] DEPARTMENT OF | [address] | [place] [address] | | | PATHOLOGY | [address] | | | + + + + + documented in this encounter Visit Diagnoses Not on filedocumented in this encounter"
--- OUTSIDE RECORDS SUMMARY | ~2020-03-15 | XMS | Encounter Summary ---
Demographics + + + | Address | [address] | | | [place] [address] | + + + | Home Phone [...] + | Esthela Kumar | ECON | [address] | | | | | [place] | | | | | [address] | | + + + + + Care Team Providers + +------+ + | Care Dean Name | Role | Phone | + [...] as of this encounter Progress Notes Interface, Systems Integration Manager In - 03/02/2006 2:03 AM PDT [id number] JOSÉ Cabrera [id number] Clinic Date: 02/03/2006 Clinic: Procedure Note Procedure: Left biceps brachii muscle biopsy. Preoperative Diagnosis: Myopathy. Postoperative Diagnosis: Myopathy. Surgeon: Dr. Maximilian De La Garza. Glass Lined Tank Repairer : None. Anesthesia: Lidocaine 1% without epinephrine [...] appointment scheduled. Maximilian De La Garza M.D. [facility] / [id number] / [id number] / [id number] / [id number] Electronically signed by Maximilian De La Garza 03-01-2006 10:28:09 AM documented i n this encounter Plan of Treatment Not on filedocumented as of this encounter Visit Diagnoses Not on filedocumented in this encounter"
--- OUTSIDE RECORDS SUMMARY | ~2020-03-15 | XMS | Encounter Summary ---
Demographics + + + | Address | [address] | | | [place] [address] | + + + | Home Phone [...] + | Esthela Kumar | ECON | [address] | | | | | [place] | | | | | [address] | | + + + + + Care Team Providers + +------+ + | Care Storeroom Supervisor Name | Role | Phone | [...] | | neuropathy | | | | [facility] | | | | | | and Healing, | | | | | | Building [address] | | | | | | [place], [place] | | | | | | [address] | | | | | | [phone] | | | +--------+------+ + + + [...] | + + + + + | [facility] | [address] | [place] [address] | | | SERVICES, CORE | [address]ARK [...] | | | | immunofixation | | [place] | | | | electrophoresis. | | | | + + + + + + + + | Specimen | + + | Blood - Blood | + + + + + + + | Performing | Address | City/State/Zipcode | Phone Number | | Organization | | | | + + + + + | [facility] | [address] | [place] [address] | | | [place] | | | [...] + | [facility] | [address] | [place] [address] | | | [place] | | | [...] FABRICIO [facility] | [address] | [place] [address] | | | YASIR, FLETCHER | PARK [...] REFERENCE | 70 - 140 ug/dL | [facility] | | | SERUM | INTERVAL: Copper, Serum | | REG UNIV | | | | Access complete set of | | PTH - INTFC | | | | age- and/or | | | | | | gender-specificreference | | | | | | intervals for this test | | | | | | in the [employer] | | | | | | LaboratoryTest Directory | | | | | | ([employer]). Serum | | | | | | [...] | | | | | | [address] | | | | | | [address], [facility],[place] | | | | | | [address] | | | | | | [phone].[employer]er. | | | | | | the [facility], [place]ley [place], | | | | [...] [facility] | [address] | [place], [place] | | | UNIV PTH - INTFC | | [address] | | + + + + + [...] | | | IC ACID | [address] | umol/L | REG UNIV | | | | [address], [facility],[place] | | PTH - INTFC | | | | [address] | | | | | | [phone].[employer]. | | | | | | Beverley [...] [facility] | [address] | [place], [place] | | | UNIV PTH - INTFC | | [address] | | + + + + + [...] | | supplementation does not | | [facility] | | | | correct consider | [...] if | | | | | | [id number] >400: | | | | | | [...] + | [facility] | [address] | [place] [address] | | | [place] | | | | + + + [...] | | | LABORATORY | | | BAHRAINI | | | SERVICES, | | | [...] [facility] | [address] | [place] [address] | | | SERVICES, CORE | [address] | | | + + + + + documented in this encounter Visit Diagnoses + + | Diagnosis | + + | Peripheral neuropathy Unspecified hereditary and idiopathic peripheral neuropathy | + + documented in this encounter"
--- OUTSIDE RECORDS SUMMARY | ~2020-03-15 | XMS | Encounter Summary ---
Demographics + + + | Address | [address] | | | [place] [address] | + + + | Home Phone [...] + | Esthela Kumar | ECON | [address] | | | | | [place] | | | | | [address] | | + + + + + Care Team Providers + +------+ + | Care Outpatient Coordinator Name | Role | Phone | [...] Building | | | | | | [place], [place] | | | | | | [address] | | | | | | [phone] | | | +--------+---------+ + + + [...] might be different from t oscar powell. [facility] Neuromuscular [facility] Center [address] [place] [address] or [email or web address] REFERRED FROM AND FAXED TO: JOVANNY SAINZ MD [facility] [address] [address] PRIMARY CARE PHYSICIAN: JOVANNY SAINZ MD, MD [facility] [address] [place] [address] / [place]* [phone] REFERRED TO: [facility] Myopathy [facility] PATIENT:Andrea Kumar INFORMANT: The patient [...] medical record and updated it in the [employer] system. 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 It has not been cleared or approved [...] 72 hours HOMOCYSTEINE,PLASMA,TOTAL Value: 8.7(umol/L) Date: 12/13/2005 BRIM SETTER AB Value: Negative Date: 12/09/2005 SM AB [...]
--- OUTSIDE RECORDS SUMMARY | ~2020-03-15 | XMS | Encounter Summary ---
Demographics + + + | Address | [address] | | | [place] [address] | + + + | Home Phone | | + + + | Preferred Language | Unknown | + + + | Marital Status | | + + + | Buddhism Affiliation | 1073 | + + + | Race | Unknown | + + + | Ethnic Group | Unknown | + + + Author + + + | Author | [facility] | | | and Faheemana | + + + | Organization | [facility] | | | and [...] Team Providers + +------+ + | Care Tool And Die Manager Name | Role | Phone | + +------+ + | Lázaro Oviedo MD | PCP | | + +------+ + Reason for Visit +---------+ + | Reason | Comments | +---------+ + | Post-Op | Cystoscopy with stent removal for nephrolithiasis | +---------+ + Encounter Details +--------+---------+ + + + | Date | Type | Department | Care Team | Description | +--------+---------+ + + + | 07/08/ | Office | [facility] | Hebert Felipe | Right | | 2019 | Visit | [address] | MD Corwin [address] | nephrolithiasis | | | | [place] | [place] | (Primary Dx) | | | | [address] | [address] | | | | | [phone] | | | +--------+---------+ + + + [...] + documented in this encounter Progress Notes Hebert Felipe MD - 07/08/2019 1:30 PM PSTFormatting of this note might be differ ent from the original. Chief Complaint Patient presents with Post-Op Cystoscopy with stent removal for nephrolithiasis HPI Andrea Kumar is a 68 y.o. male patient of Lázaro Oviedo MD here today for a Post-Op Cysto scopy with stent removal for nephrolithiasis. A Right URS LL and stent done on 06/26/19. Consent form signed & time out form completed Status post ureteroscopy laser lithotripsy and stent Cystoscopy Preprocedure timeout was performed. The patient's genitals were then prepped and draped us ual fashion. 10 mL's of viscous lidocaine was instilled per urethra. The scope was then in troduced into the urethra. The anterior urethra was grossly normal. The posterior urethra w as noted for moderate lateral lobe hypertrophy. Upon entering the bladder blanco cystoscopy wa s performed. The ureteral stent was visualized and using a pair of graspers was removed. T he stent was then inspected and found to be intact. Assessment Andrea was seen today for post-op. Diagnoses and all orders for this visit: Right nephrolithiasis Plan Stent successfully removed. Patient to follow-up PRN. Past Medical History Past Medical History: Diagnosis [...] L-3, L-4 x 2 TONSILLECTOMY AND ADENOIDECTOMY URETEROSCOPY Right 06/26/2019 Procedure: CYSTOSCOPY Right URETEROSCOPY W/ LASER lithotripsy and stent placment; Surgeon : Hebert Felipe MD; Location: [facility] MAIN OR Family History: Family History Problem Relation Age [...] throughout body Meperidine Nausea And Vomiting Medications: Current Outpatient Medications: ascorbic acid (VITAMIN C) 1000 MG tablet, Take 1,000 mg by mouth daily., Disp: , Rfl: B COMPLEX-C PO, Take by mouth daily., Disp: , Rfl: Coenzyme Q10 (COQ10) 200 MG CAPS, Take 200 mg by mouth daily., Disp: , Rfl: DHEA 50 MG TABS, Take 50 mg by mouth daily., Disp: , Rfl: empagliflozin (JARDIANCE) 25 mg tablet, Take 25 mg by mouth Daily., Disp: , Rfl: ergocalciferol (VITAMIN D2) 50 mcg (2,000 units) tablet, Take 2,000 Units by mouth Franny ly., Disp: , Rfl: ezetimibe (ZETIA) 10 mg tablet, Take 10 mg by mouth Daily., Disp: , Rfl: liraglutide (VICTOZA) 18 mg/3 mL injection, Inject 1.8 mg into the skin daily., Disp: , Rfl: magnesium, as oxide, 250 MG tablet, Take 250 mg by mouth daily., Disp: , Rfl: MANUAL SELECTION NEEDED - UNABLE TO FIND, Creatinine Monohydate daily, Disp: , Rfl: MANUAL SELECTION NEEDED - UNABLE TO FIND, Ribose 100% powder QID, Disp: , Rfl: metFORMIN (GLUCOPHAGE) 1000 MG tablet, Take 2,000 mg by mouth daily., Disp: , Rfl: sildenafil (VIAGRA) 25 MG tablet, Take 25 mg by mouth as needed for Erectile Dysfuncti on., Disp: , Rfl: testosterone cypionate (DEPO-TESTOSTERONE) 200 mg/mL injection, Inject 200 mg into the muscle every 28 days. (Patient taking differently: Inject 100 mg into the muscle Every 28 d ays.), Disp: , Rfl: ROS Objective BP 98/58 | Pulse 80 | Resp 16 | Ht 1.829 m (6') | Wt 89.7 kg (197 lb 12 oz) | BMI 26.8 2 kg/m General Appearance: Alert, cooperative, no distress, appears [...] CN 2-12 grossly intact; bilateral foot drop, a/c technician strength is no rmal bilaterally Data: CT [...] 0 Results for orders placed or performed during the hospital encounter of 06/26/19 Hemoglobin Result Value Ref Range Hemoglobin 13.3 (L) 13.5 - 18.0 g/dL POC Glucose Result Value Ref Range Glucose, POC 157 (H) 70 - 109 mg/dL ECG 12 lead Result Value Ref Range VENTRICULAR RATE EKG 78 BPM ATRIAL RATE 78 BPM P-R INTERVAL 170 ms QRS DURATION 98 ms Q-T INTERVAL 364 ms Q-T INTERVAL (CORRECTED) 414 ms P WAVE AXIS 42 degrees QRS AXIS 53 degrees T AXIS 39 degrees INTERPRETATION TEXT Normal sinus rhythm Normal ECG No previous ECGs available Confirmed by VALERIE JIMENEZ, KATIA ([id number]) on 06/27/2019 8:01:34 AM No results found for: RODRIGO Oviedo MD's notes were reviewed in clinic today. No follow-ups on file.. This document was generated in part using voice recognition software. Frequent wrong word or sound-alike substitutions may have occurred due to the inherent limitations of the voice recognition software. Although I have attempted to edit the content, I have not thoroughly proofread this note, and auto parts counter person errors are very likely to occur. CC: Lázaro Oviedo MD documented in this encounter Plan of Treatment Not on filedocumented as of this encounter Visit Diagnoses + + | Diagnosis | + + | Right nephrolithiasis - Primary | + + documented in this encounter"
--- OUTSIDE RECORDS SUMMARY | ~2020-03-15 | XMS | Encounter Summary ---
Demographics + + + | Address | [address] | | | [place] [address] | + + + | Home Phone [...] + | Esthela Kumar | ECON | [address] | | | | | [place] | | | | | [address] | | + + + + + Care Team Providers + +------+ + | Care Communications Administrator Name | Role | Phone | [...] | | | | | | | [address] | | | | | | | [place] | | | | | | | [place], [place] | | | | | | | [address] | | | | | | | Phone: | | | | | | | [phone] | | | | | | | Fax: | | | | | | | [phone] | | +--------+--------+ + + + + [...] | | | | | EMG/NERVE | [place], [place] | [facility] and | | | | | CONDUCTION | [address] | Healing, | | | | | STUDIES,ADUL | Phone: | Building [address], | | | | | T - | [phone] | 8th Floor | | | | | NEUROLOGY | Fax: | [place], [place] | | | | | | [phone] | [address] | | | | | | | Phone: | | | | | | | [phone] | | | | | | | Fax: | | | | | | | [phone] | +--------+--------+ + + + + Diagnostic [...] | | | | MRI SPINE | [place], [place] | Research | | | | | LUMBAR WO | [address] | Center | | | | | CONT [address] | Phone: | [place], [place] | | | | | | [phone] | [address] | | | | | | Fax: | Phone: | | | | | | [phone] | [phone] | | | | | | | Fax: | | | | | | | [phone] | +--------+--------+ + + + + Reason [...] Healing, | | | | | | EXETER | Building 1, | | | | | | [address] | 8th Floor | | | | | | [place], | [place], [place] | | | | | | [place] [address] | [address] | | | | | | Phone: | Phone: | | | | | | [phone] | [phone] | | | | | | Fax: | Fax: | | | | | | [phone] | [phone] | +--------+--------+ + + + + Encounter Details +--------+---------+ + + + | Date | Type | Department | Care Team | Description | +--------+---------+ + + + | 07/03/ | Office | Neurology | Nino Lazcano MD | Peripheral | | 2011 | Visit | Neuromuscular Clinic | [address] | neuropathy (Primary | | | | at [facility] | [place] [address] | Dx); 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 Family History Problem Relation Diabetes Paternal Aunt [...] he lives in the [facility] as uses well water at home. In addition, he would benefit from an AFO given his foot drop and the fact that he is on his feet for most of his day at work, a referral was placed for this but he would prefer to do that closer to his home in [place]. I will discuss his test results with him at the time of his EMG and any further recommendat ions at that time. Nino Lazcano MD Net Software Architect Department of Neurology documented in this enco [...] | | | | SPINE WO | [id number] Name: | | | | | CONT | KIERSTEN KUMAR | | | | | | Birthdate: 1950 | | | | | | Sex: M Alias: | | | | | | Patient Location: | | | | | | [id number]: Outpatient | | | | | | [...] # | | | | | | [id number] EXAM: MRI | | | | | [...] | | | | | L4-L5 and L5-L1vabyfmjc | | | | | | fatty [...] | | | | / [facility] [place] | | | | | | Pending final approval | | | | | | / [facility] [place] | | | | | | Pending [...] U. | | | | | | [place] 08/10/2012 | | | | | | 14:41PM | | | | | | Final/Electronically | | | | | | signed / [facility] | | | | | | [place] 08/09/2012 | | | | | | 11:21AM Result | | | | | | modified / [facility] | | | | | | [facility] [place] 08/09/2012 | | | | | | [...] | | | | | | [facility] [place] 08/08/2012 | | | | | | 22:23 PM Result | | | | | | modified / [facility] | | | | | | [facility] [place] 08/08/2012 | | | | | | 22:23 PM Pending final | | | | | | approval / [facility] | | | | | | [facility] [place] 08/08/2012 | | | | | | 19:38 PM Result | | | | | | modified / [facility] | | | | | | [facility] [place] 08/08/2012 | | | | | | [...] | | + +---------+ + + | [facility] DEPARTMENT OF | | | | | [...] [facility] | | | UR(REFERRAL | [address] | | REG UNIV | | | ) | [address], [facility] | | PTH - INTFC | | | | [address] | | | | | | [phone].[facility]. | | | | | | Beverley [...] ug/gCR | [facility] | | | UG/G ATTACHE | | | REG UNIV | | | | | | PTH - INTFC | | + + + + + + | MERCURY, | 0.9 | <=35.0 ug/gCR | [facility] | | | URINE UG/G | | | REG UNIV | | | ATTACHE | | | PTH - INTFC | | + + + + + + | ARSENIC, | 19.3 | ug/gCR | [facility] | | | URINE UG/G | | | REG UNIV | | | ATTACHE | | | PTH - INTFC | [...] concentration | | | | | | [id number] ug/L, | | | | | | [...] [facility] REG | [address] | [place], [place] | | | UNIV PTH - INTFC | | [address] | | + + + + + [...] + | [facility] | [address] | [place] [address] | | | [place] | | | [...] | | | | immunofixation | | GANS | | | | electrophoresis. | | | | + + + + + + + + | Specimen | + + | Blood - Blood | + + + + + + + | Performing | Address | City/State/Zipcode | Phone Number | | Organization | | | | + + + + + | [facility] | [address] | [place] [address] | | | [place] | | | [...] + | [facility] | [address] | [place] [address] | | | GANS | | | | + + + [...] [facility] | [address] | [place] [address] | | | SERVICES, FLETCHER | DUONG [...] Directory | | | | | | (Triond). Serum | | | | | | [...] | | | | | | [address] | | | | | | Shaquille Chaves, [facility] | | | | | | [address] | | | | | | [phone].[facility]. | | | | | | [...] [facility] REG | [address] | [place], [place] | | | UNIV PTH - INTFC | | [address] | | + + + + + [...] | | | IC ACID | [address] | umol/L | REG UNIV | | | | [facility] | | PTH - INTFC | | | | [address] | | | | | | [phone].[facility]. | | | | | | Beverley [...] [facility] | [address] | [place], [place] | | | UNIV PTH - INTFC | | [address] | | + + + + + [...] if | | | | | | [id number] >400: | | | | | | [...] + | [facility] | [address] | [place] [address] | | | [facility] | | | | + + + [...] | | | LABORATORY | | | [facility] | | | SERVICES, | | | [...] | + + + + + | [facility] | [address] | [place] [address] | | | SERVICES, CORE | PARK [...]
--- OUTSIDE RECORDS SUMMARY | ~2020-03-15 | XMS | Encounter Summary ---
Demographics + + + | Address | [address] | | | [place] [address] | + + + | Home Phone [...] + | Esthela Kumar | ECON | [address] | | | | | [place] | | | | | [address] | | + + + + + Care Team Providers + +------+ + | Care Dumper Name | Role | Phone | + [...] | | | | | | | [address] | | | | | | | [place] | | | | | | | [place], [place] | | | | | | | [address] | | | | | | | Phone: | | | | | | | [phone] | | | | | | | Fax: | | | | | | | [phone] | | +--------+--------+ + + + + Encounter Details +--------+ + + + + | Date | Type | Department | Care Team | Description | +--------+ + + + + | 08/27/ | Orders Only | Neurology | Sherlyn Lazcano MD | Peripheral | | 2012 | | Neuromuscular Clinic | [address] | neuropathy (Primary | | | | at [place] for | [place] [address] | Dx) | | | | Health & Healing | [phone] | | | | | [address] | | | | | | [facility] | | | | | | and Healing, | | | | | | | | | | | | Floor [place], [place] | | | | | | [address] | | | | | | [phone] | | | +--------+ + + + [...]
--- OUTSIDE RECORDS SUMMARY | ~2020-03-15 | XMS | Encounter Summary ---
Demographics + + + | Address | [address] | | | [place] [address] | + + + | Home Phone [...] + | Esthela Kumar | ECON | [address] | | | | | [place] | | | | | [address] | | + + + + + Care Team Providers + +------+ + | Care Outdoor Studies Director Name | Role | Phone | [...] [id number] | | | | | | [place], [place] | | | | | | [address] | | | | | | [phone] | | | +--------+ + + + [...] + + + + + | [facility] | [address] | [place] [address] | | | PATHOLOGY | [address] | | | + + + + + | [facility] | [facility] [address] | [place] [address] | | | PATHOLOGY | [address] | | | + + + + + documented in this encounter Visit Diagnoses Not on filedocumented in this encounter"
--- OUTSIDE RECORDS SUMMARY | ~2020-03-15 | XMS | Encounter Summary ---
Demographics + + + | Address | [address] | | | [place] [address] | + + + | Home Phone | | + + + | Preferred Language | Unknown | + + + | Marital Status | | + + + | Faith Affiliation | Unknown | + + + | Race | White | + + + | Ethnic Group | Other Race | + + + Author + + + | Author | [facility] | + + + | Organization | [facility] | + + + | Address | Unknown | + + + | Phone | Unavailable | + + + Support + + + + + | Name | Relationship | Address | Phone | + + + + + | Esthela Kumar | ECON | [address] | | | | | [place] | | | | | [address] | | + + + + + Care Team Providers + +------+ + | Care Managing Partner [employer] Name | Role | Phone | + [...] 2012 | on | Neuromuscular Clinic | [address] | | | | | at [facility] | [place] [address] | | | | | Health & Healing | [phone] | | | | | [address] | | | | | | [facility] | | | | | | and Healing, | | | | | | Building | | | | | | Floor [place], [place] | | | | | | [address] | | | | | | [phone] | | | +--------+ + + + [...]
--- OUTSIDE RECORDS SUMMARY | ~2020-03-15 | XMS | Encounter Summary ---
Demographics + + + | Address | [address] | | | [place] [address] | + + + | Home Phone [...] + | Esthela Kumar | ECON | [address] | | | | | [place] | | | | | [address] | | + + + + + [...] [id number] | | | | | | [place], [place] | | | | | | [address] | | | | | | [phone] | | | +--------+ + + + [...]
--- OUTSIDE RECORDS SUMMARY | ~2020-03-15 | XMS | Encounter Summary ---
Demographics + + + | Address | [address] | | | [place] [address] | + + + | Home Phone [...] + | Esthela Kumar | ECON | [address] | | | | | [place] | | | | | [address] | | + + + + + [...] | | | 2017 | on | [facility] & | Sussy Manuel MD [address] | | | | | Healing [address] | [address] | | | | | [place] for | [place], [place] | | | | | Health and Healing, | [address] | | | | | | [phone] | | | | | Floor [place], [place] | | | | | | [address] | | | | | | [phone] | | | +--------+ + + + [...]
--- OUTSIDE RECORDS SUMMARY | ~2020-03-15 | XMS | Encounter Summary ---
Demographics + + + | Address | [address] | | | [place] [address] | + + + | Home Phone [...] + | Esthela Kumar | ECON | [address] | | | | | [place] | | | | | [address] | | + + + + + Care Team Providers + +------+ + | Care Soaking Tank Worker Name | Role | Phone | + +------+ + | Alan Sainz MD | PCP | | + +------+ + Encounter Details +--------+ + + + + | Date | Type | Department | Care Team | Description | +--------+ + + + + | 06/22/ | Abstract | Neurology at | [place], | | | 2017 | | [place] [facility] & | Sussy Manuel MD [address] | | | | | Healing [address] | [address] | | | | | [place] for | [place], [place] | | | | | Health and Healing, | [address] | | | | | | [phone] | | | | | Floor [place], [place] | | | | | | [address] | | | | | | [phone] | | | +--------+ + + + [...]
--- OUTSIDE RECORDS SUMMARY | ~2020-03-15 | XMS | Encounter Summary ---
Demographics + + + | Address | [address] | | | [place] [address] | + + + | Home Phone [...] + + + | Author | [facility] | + + + | Organization | [facility] | + + + | Address | Unknown | + + + | Phone | Unavailable | + + + Support + + + + + | Name | Relationship | Address | Phone | + + + + + | Esthela Kumar | ECON | [address] | | | | | [place] | | | | | [address] | | + + + + + Care Team Providers + +------+ + | Care Physiologist Name | Role | Phone | + [...] | | | peripheral | [place] | [place] for | | | | | neuropathy | INTERNAL | Health and | | | | | | MEDICINE | Healing, | | | | | | [address] | [address], | | | | | | [address] | 8th Floor | | | | | | [address] | [place], [place] | | | | | | [place], | [address] | | | | | | [place] [address] | Phone: | | | | | | Phone: | [phone] | | | | | | [phone] | Fax: | | | | | | Fax: | [phone] | | | | | | [phone] | | +--------+--------+ + + + + [...] | Healing [address] | [address] [place], [place] | diabetes (HCC) | | | | [facility] | [address] | (Primary Dx); Foot | | | | Health and Healing, | [phone] | drop, bilateral | | | | Building | | | | | | Floor [place], [place] | | | | | | [address] | | | | | | [phone] | | | +--------+---------+ + + + [...] into the muscle (IM). Received f rom: [employer] Received Sig: Inject 100 mg into the [...]
--- OUTSIDE RECORDS SUMMARY | ~2020-03-15 | XMS | Encounter Summary ---
Demographics + + + | Address | [address] | | | [place] [address] | + + + | Home Phone | | + + + | Preferred Language | Unknown | + + + | Marital Status | | + + + | Islam Affiliation | [id number] | + + + | Race | Unknown | + + + | Ethnic Group | Unknown | + + + Author + + + | Author | [facility] | | | and [place] | + + + | Organization | [facility] | | | and [place] | [...] Team Providers + +------+ + | Care Reed Man Name | Role | Phone | + +------+ + PCP | Unavailable | + +------+ + Encounter Details +--------+ + + + + | Date | Type | Department | Care Team | Description | +--------+ + + + + | 07/04/ | Orders Only | [facility] | Miya Guerrero | | | 2017 | | CONVERSION [address] | [address] | | | | | TAWNY LO | ANA LAURA BEJARANO | | | | | [facility] | [place] [address] | | | | | [address] | [phone] | | | | | [phone] | | | +--------+ + + + [...] | + +--------+ + + + | ECHO INTERPRETATION | Routin | 07/04/2017 | | Results for this | | OF OUTSIDE FILMS | e | 12:52 PM | | procedure are in the | | | | PST | | results section. | + +--------+ + + + documented in this encounter Results ECHO Interpretation of Outside Films (07/04/2017 12:52 PM PST) + + | Specimen | + + | | + + + + + | Impressions | Performed At | + + + | 1. Overall left ventricular systolic function is normal with, an EF | | | between 60 - 65 %. 2. The right ventricle is normal in size and | | | function. 3. No significant valvular abnormality. | | + + + + + + | Narrative | Performed At | + + + | Patient Name: Andrea Kumar Date of : 1950 | | | Performing Physician: Cuco Arenas | | | | | | INDICATIONS HTN CONCLUSIONS 1. Overall | | | left ventricular systolic function is normal with, an EF between 60 - | | | 65 %. 2. The right ventricle is normal in size and function. 3. No | | | significant valvular abnormality. FINDINGS -------- ECG rhythm: | | | Sinus rhythm. Study: A 2-dimensional transthoracic echocardiogram | | | with m-mode, spectral and color flow Doppler was perfomed. Study: | | | This was a technically adequate study. Left Ventricle: Overall left | | | ventricular systolic function is normal with, an EF between 60 - 65 %. | | | Left Ventricle: The left ventricle cavity size is normal. Left | | | Ventricle: Left ventricular wall thickness is normal. Left Ventricle: | | | No regional wall motion abnormalities. Left Ventricle: The diastolic | | | filling pattern indicates impaired relaxation consistent with mild | | | dysfunction (Grade I), which is normal for the patient's age. Right | | | Ventricle: The right ventricle is normal in size and function. Left | | | Atrium: The left atrium is normal in size. Right Atrium: The right | | | atrium is normal in size. Aortic Valve: The aortic valve is | | | trileaflet and appears structurally normal. Aortic Valve: There is no | | | evidence of aortic regurgitation. Aortic Valve: There is no evidence | | | of aortic stenosis. Mitral Valve: The mitral valve is normal. | | | Mitral Valve: There is trace mitral regurgitation. Tricuspid Valve: | | | The tricuspid valve appears structurally normal. Tricuspid Valve: | | | Trace tricuspid regurgitation present. Tricuspid Valve: Pulmonary | | | artery systolic pressure could not be assessed due to the absence of | | | adequate TR jet. Pulmonic Valve: The pulmonic valve was not well | | | visualized. Pericardium: There is no pericardial effusion. | | | IVC/Hepatic Veins: The IVC was not well visualized. Aorta: The aortic | | | root, ascending aorta and aortic arch are normal. Mass: No mass | | | visualized Thrombus: No clot visualized Thrombus: No vegetation | | | visualized. Septum: No ASD observed. Septum: No VSD observed. | | | MEASUREMENTS Ao asc: 3.77 cm Ao Diam: 3.79 cm | | | Ao sinus: 3.[address] junct: 3.39 cm LA Diam: 3.82 cm LA | | | Major: 4.95 cm EDV(Teich): 108.75 ml IVSd: 0.94 cm LVIDd: | | | 4.82 cm LVPWd: 0.94 cm LVOT Area: 4.03 cm2 LVOT Diam: | | | 2.26 cm %FS: 34.21 % EF(Teich): 63.09 % ESV(Teich): 40.13 | | | ml LVIDs: 3.17 cm SV(Teich): 68.61 ml RA Major: 5.07 cm | | | RV Major: 7.82 cm RVIDd: 2.87 cm LVEF MOD A2C: 64.13 % SV | | | MOD A2C: 51.69 ml LVEF MOD A4C: 63.66 % SV MOD A4C: 63.21 | | | ml EF Biplane: 63.96 % LVEDV MOD BP: 90.60 ml LVESV MOD BP: | | | 32.64 ml LVEDV MOD A2C: 80.60 ml LVLd A2C: 8.83 cm LVEDV | | | MOD A4C: 99.29 ml LVLd A4C: 8.54 cm LVESV MOD A2C: 28.90 ml | | | LVLs A2C: 7.26 cm LVESV MOD A4C: 36.08 ml LVLs A4C: 7.02 | | | cm LAESV(A-L): 58.89 ml LAESV Index (A-L): 26.17 ml/m2 LAAs | | | A2C: 17.07 cm2 LAESV A-L A2C: 54.56 ml LALs A2C: 4.53 cm | | | LAAs A4C: 18.43 cm2 LAESV A-L A4C: 51.27 ml LALs A4C: 5.62 | | | cm RAAs: 13.56 cm2 RAESV A-L: 30.92 ml RAESV MOD: 31.55 ml | | | RALs: 5.04 cm TAPSE: 2.58 cm AV maxP.14 mmHg AV | | | meanP.24 mmHg AV Vmax: 1.13 m/s AV Vmean: 0.69 m/s AV | | | VTI: 18.76 cm CHRIS Vmax: 3.41 cm2 CHRIS (VTI): 3.91 cm2 AVAI | | | Vmax: 0.00 cm2/m2 AVAI (VTI): 0.00 cm2/m2 LVOT maxP.67 | | | mmHg LVOT meanP.81 mmHg LVSI Dopp: 32.67 ml/m2 LVSV Dopp: | | | 73.52 ml LVOT Vmax: 0.95 m/s LVOT Vmean: 0.61 m/s LVOT | | | VTI: 18.20 cm MV A Shimon: 0.80 m/s MV DecT: 218.80 ms MV E | | | Shimon: 0.67 m/s MV E/A Ratio: 0.84 MV PHT: 63.45 ms MVA By | | | PHT: 3.46 cm2 Septal e': 0.05 m/s Septal E/e': 11.97 | | | Inkjet Operator: KODY Authenticated by: Cuco Arenas Report Date/Time: | | | 07-05-2017 19:10:53 | | + + + + ----+ | Procedure Note | + ----+ | Sonny Phillips - 04/11/2019 7:36 PM PDT Patient Name: Grace Kumar of | | : 1950 Performing Physician: Cuco Hanley | | [place] INDICATIONS | | -HTN CONCLUSIONS 1. Overall left ventricular systolic function is normal with, | | an EF between 60 - 65 %.2. The right ventricle is normal in size and function. 3. No | | significant valvular abnormality. FINDINGS--------ECG rhythm: Sinus rhythm.Study: A | | 2-dimensional transthoracic echocardiogram with m-mode, spectral and color flow Doppler | | was perfomed.Study: This was a technically adequate study.Left Ventricle: Overall left | | ventricular systolic function is normal with, an EF between 60 - 65 %.Left Ventricle: | | The left ventricle cavity size is normal.Left Ventricle: Left ventricular wall thickness | | is normal.Left Ventricle: No regional wall motion abnormalities.Left Ventricle: The | | diastolic filling pattern indicates impaired relaxation consistent with mild dysfunction | | (Grade I), which is normal for the patient's age.Right Ventricle: The right ventricle | | is normal in size and function.Left Atrium: The left atrium is normal in size.Right | | Atrium: The right atrium is normal in size.Aortic Valve: The aortic valve is trileaflet | | and appears structurally normal.Aortic Valve: There is no evidence of aortic | | regurgitation.Aortic Valve: There is no evidence of aortic stenosis.Mitral Valve: The | | mitral valve is normal.Mitral Valve: There is trace mitral regurgitation.Tricuspid | | Valve: The tricuspid valve appears structurally normal.Tricuspid Valve: Trace tricuspid | | regurgitation present.Tricuspid Valve: Pulmonary artery systolic pressure could not be | | assessed due to the absence of adequate TR jet.Pulmonic Valve: The pulmonic valve was | | not well visualized.Pericardium: There is no pericardial effusion.IVC/Hepatic Veins: The | | IVC was not well visualized.Aorta: The aortic root, ascending aorta and aortic arch are | | normal.Mass: No mass visualizedThrombus: No clot visualizedThrombus: No vegetation | | visualized.Septum: No ASD observed.Septum: No VSD observed. MEASUREMENTS Ao | | asc: 3.77 cmAo Diam: 3.79 cmAo sinus: 3.[address] junct: 3.39 cmLA Diam: 3.82 | | cmLA Major: 4.95 cmEDV(Teich): 108.75 mlIVSd: 0.94 cmLVIDd: 4.82 cmLVPWd: | | 0.94 cmLVOT Area: 4.03 tm5TYTL Diam: 2.26 cm%FS: 34.21 %EF(Teich): 63.09 | | %ESV(Teich): 40.13 mlLVIDs: 3.17 cmSV(Teich): 68.61 mlRA Major: 5.07 cmRV Major: | | 7.82 cmRVIDd: 2.87 cmLVEF MOD A2C: 64.13 %SV MOD A2C: 51.69 mlLVEF MOD A4C: | | 63.66 %SV MOD A4C: 63.21 mlEF Biplane: 63.96 %LVEDV MOD BP: 90.60 mlLVESV MOD BP: | | 32.64 mlLVEDV MOD A2C: 80.60 mlLVLd A2C: 8.83 cmLVEDV MOD A4C: 99.29 mlLVLd A4C: | | 8.54 cmLVESV MOD A2C: 28.90 mlLVLs A2C: 7.26 cmLVESV MOD A4C: 36.08 mlLVLs A4C: | | 7.02 cmLAESV(A-L): 58.89 mlLAESV Index (A-L): 26.17 ml/m2LAAs A2C: 17.07 | | as3VSSIE A-L A2C: 54.56 mlLALs A2C: 4.53 cmLAAs A4C: 18.43 sv1KBKLW A-L A4C: | | 51.27 mlLALs A4C: 5.62 cmRAAs: 13.56 nw6SFSTD A-L: 30.92 mlRAESV MOD: 31.55 | | mlRALs: 5.04 cmTAPSE: 2.58 cmAV maxP.14 mmHgAV meanP.24 mmHgAV Vmax: | | 1.13 m/Helena Vmean: 0.69 m/Helena VTI: 18.76 cmAVA Vmax: 3.41 cm2AVA (VTI): 3.91 | | [id number] Vmax: 0.00 cm2/m2AVAI (VTI): 0.00 cm2/m2LVOT maxP.67 mmHgLVOT meanPG: | | 1.81 mmHgLVSI Dopp: 32.67 ml/m2LVSV Dopp: 73.52 mlLVOT Vmax: 0.95 m/sLVOT Vmean: | | 0.61 m/sLVOT VTI: 18.20 cmMV A Shimon: 0.80 m/sMV DecT: 218.80 msMV E Shimon: 0.67 | | m/sMV E/A Ratio: 0.84MV PHT: 63.45 msMVA By PHT: 3.46 sq7Fnvlat e': 0.05 | | m/sSeptal E/e': 11.97 Inkjet Operator: DHAuthenticated by: Cuco Coleman | | Date/Time: 07-05-2017 19:10:53 IMPRESSION: 1. Overall left ventricular systolic function | | is normal with, an EF between 60 - 65 %.2. The right ventricle is normal in size and | | function. 3. No significant valvular abnormality. | |Septum: No VSD observed. | | | |MEASUREMENTS | | | |Ao asc: 3.77 cm | |Ao Diam: 3.79 cm | |Ao sinus: 3.87 cm | |Ao st junct: 3.39 cm | |LA Diam: 3.82 cm | |LA Major: 4.95 cm | |EDV(Teich): 108.75 ml | |IVSd: 0.94 cm | |LVIDd: 4.82 cm | |LVPWd: 0.94 cm | |LVOT Area: 4.03 cm2 | |LVOT Diam: 2.26 cm | |%FS: 34.21 % | |EF(Teich): 63.09 % | |ESV(Teich): 40.13 ml | |LVIDs: 3.17 cm | |SV(Teich): 68.61 ml | |RA Major: 5.07 cm | |RV Major: 7.82 cm | |RVIDd: 2.87 cm | |LVEF MOD A2C: 64.13 % | |SV MOD A2C: 51.69 ml | |LVEF MOD A4C: 63.66 % | |SV MOD A4C: 63.21 ml | |EF Biplane: 63.96 % | |LVEDV MOD BP: 90.60 ml | |LVESV MOD BP: 32.64 ml | |LVEDV MOD A2C: 80.60 ml | |LVLd A2C: 8.83 cm | |LVEDV MOD A4C: 99.29 ml | |LVLd A4C: 8.54 cm | |LVESV MOD A2C: 28.90 ml | |LVLs A2C: 7.26 cm | |LVESV MOD A4C: 36.08 ml | |LVLs A4C: 7.02 cm | |LAESV(A-L): 58.89 ml | |LAESV Index (A-L): 26.17 ml/m2 | |LAAs A2C: 17.07 cm2 | |LAESV A-L A2C: 54.56 ml | |LALs A2C: 4.53 cm | |LAAs A4C: 18.43 cm2 | |LAESV A-L A4C: 51.27 ml | |LALs A4C: 5.62 cm | |RAAs: 13.56 cm2 | |RAESV A-L: 30.92 ml | |RAESV MOD: 31.55 ml | |RALs: 5.04 cm | |TAPSE: 2.58 cm | |AV maxP.14 mmHg | |AV meanP.24 mmHg | |AV Vmax: 1.13 m/s | |AV Vmean: 0.69 m/s | |AV VTI: 18.76 cm | |CHRIS Vmax: 3.41 cm2 | |CHRIS (VTI): 3.91 cm2 | |AVAI Vmax: 0.00 cm2/m2 | |AVAI (VTI): 0.00 cm2/m2 | |LVOT maxP.67 mmHg | |LVOT meanP.81 mmHg | |LVSI Dopp: 32.67 ml/m2 | |LVSV Dopp: 73.52 ml | |LVOT Vmax: 0.95 m/s | |LVOT Vmean: 0.61 m/s | |LVOT VTI: 18.20 cm | |MV A Shimon: 0.80 m/s | |MV DecT: 218.80 ms | |MV E Shimon: 0.67 m/s | |MV E/A Ratio: 0.84 | |MV PHT: 63.45 ms | |MVA By PHT: 3.46 cm2 | |Septal e': 0.05 m/s | |Septal E/e': 11.97 | | | |Inkjet Operator: KODY | |Authenticated by: Cuco Arenas | |Report Date/Time: 07-05-2017 19:10:53 | | | |IMPRESSION: | |1. Overall left ventricular systolic function is normal with, an EF between 60 - 65 %. | |2. The right ventricle is normal in size and function. 3. No significant valvular abnormali ty. | + ----+ documented in this encounter Visit Diagnoses Not on filedocumented in this encounter"
--- OUTSIDE RECORDS SUMMARY | ~2020-03-15 | XMS | Encounter Summary ---
Demographics + + + | Address | [address] | | | [place] [address] | + + + | Home Phone [...] + | Esthela Kumar | ECON | [address] | | | | | [place] | | | | | [address] | | + + + + + Care Team Providers + +------+ + | Care Motion Picture Camera Operator Name | Role | Phone | + +------+ + | Alan Sainz MD | PCP | | + +------+ + Encounter Details +--------+---------+ + + + | Date | Type | Department | Care Team | Description | +--------+---------+ + + + | 07/18/ | Office | Neurology | Maximilian De La Garza, | Myoadenylate | | 2006 | Visit | Neuromuscular Clinic | | Deaminase Deficiency | | | | at [place] [facility] | | Myopathy (HCC) | | | | Health & Healing | | (Primary Dx) | | | | [address] | | | | | | [facility] | | | | | | and Healing, | | | | | | Building | | | | | | Floor [place], [place] | | | | | | [address] | | | | | | [phone] | | | +--------+---------+ + + + [...] + documented in this encounter Progress Notes Cupler, Edward J - 07/18/2007 2:51 PM PSTFormatting of this note might be different from t he original. [facility] Neuromuscular Diseases Center [facility] [place], [place] [address] or [email or web address] REFERRED FROM AND FAXED TO: No referring provider defined for this encounter. PRIMARY CARE PHYSICIAN: Alan Sainz MD [facility] [address] [place] [address] 2 / [place]* [phone] REFERRED TO: [facility] Neuropathy Clinic PATIENT:Andrea Kumar INFORMANT: The [...] medical record and updated it in the [place] system. 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
--- OUTSIDE RECORDS SUMMARY | ~2020-03-15 | XMS | Encounter Summary ---
Demographics + + + | Address | [address] | | | [place] [address] | + + + | Home Phone [...] + | Esthela Kumar | ECON | [address] | | | | | [place] | | | | | [address] | | + + + + + Care Team Providers + +------+ + | Care Wind Turbine Controls Engineer Name | Role | Phone | [...] [address] | | | | | | [place], [place] | | | | | | [address] | | | +--------+ + + + [...]
--- OUTSIDE RECORDS SUMMARY | ~2020-03-15 | XMS | Encounter Summary ---
Demographics + + + | Address | [address] | | | [place] [address] | + + + | Home Phone [...] + | Esthela Kumar | ECON | [address] | | | | | [place] | | | | | [address] | | + + + + + Care Team Providers + +------+ + | Care Family Law Attorney Name | Role | Phone | + [...] Deaminase Deficiency | | | | at [facility] | | Myopathy (HCC) | | | | Health & Healing | | (Primary Dx) | | | | [address] | | | | | | [facility] | | | | | | and Healing, | | | | | | Building | | | | | | Floor [place], [place] | | | | | | [address] | | | | | | [phone] | | | +--------+---------+ + + + [...] might be different from t he original. [facility] Neuromuscular Diseases Center [facility] [place], [place] [address] or [email or web address] REFERRED FROM AND FAXED TO: No referring provider defined for this encounter. PRIMARY CARE PHYSICIAN: Alan Sainz MD [facility] [address] [place] [address] 2 / [place]* [phone] REFERRED TO: [facility] Neuropathy Clinic PATIENT:Andrea Kumar INFORMANT: The [...] medical record and updated it in the [facility] system. 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
--- OUTSIDE RECORDS SUMMARY | ~2020-03-15 | XMS | Encounter Summary ---
Demographics + + + | Address | [address] | | | [place] [address] | + + + | Home Phone [...] + | Esthela Kumar | ECON | [address] | | | | | [place] | | | | | [address] | | + + + + + Care Team Providers + +------+ + | Care Oxidation Operator Name | Role | Phone | [...] | | | | | Procedures | [place], [place] | Health and | | | | | EMG/NERVE | [address] | Healing, | | | | | CONDUCTION | Phone: | Building [address], | | | | | STUDIES,ADUL | [phone] | 8th Floor | | | | | T - | Fax: | [place], [place] | | | | | NEUROLOGY | [phone] | [address] | | | | | [place] NEEDLE | | Phone: | | | | | ELECTROMYOGR | | [phone] | | | | | APHY, EA | | Fax: | | | | | EXTREM, LTD | | [phone] | | | | | [place] NEEDLE | | | | | | | ELECTROMYOGR | | | | | | | APHY, EA | | | | | | | EXTREM, | | | | | | | COMPLETE [place] | | | | | | | MOTOR&/SENS | | | | | | | 1-2 NRV | | | | | | | CNDJ TST [place] | | | | | | | MOTOR&/SENS | | | | | | | 3-4 NRV | | | | | | | CNDJ TST [place] | | | | | | | MOTOR&/SENS | | | | | | | 5-6 NRV | | | | | | | CNDJ TST [place] | | | | | | | [...] 05/24/ | Telephone | Neurology at | [place], | | | 2017 | | [place] [facility] | Sussy Manuel MD [address] | | | | | [address] | [address] | | | | | Ave [facility] | [place], [place] | | | | | Health and [facility], | [address] | | | | | [facility] | [phone] | | | | | Floor [place], [place] | | | | | | [address] | | | | | | [phone] | | | +--------+ + + + [...] Kumar Date of : 1950 Medical | [facility], | | Record Number: [id number] Date of Test: 06/27/2017 Place of | POINT OF CARE | | Service: [facility] (20) - [id number] Department: [id number] EMG [facility] Nerve | TESTS | | Conduction Studies/Electromyography [...] | | Suggested Modifier: None Suggested CPT: 13468 9-10 Nerve Conduction | | | studies 46513 EMG -Each Extremity, Limited (<4 Muscles) w/NCS, qty 2, | | | modifier: XS 29765 EMG -Each Extremity, Completed (>5 Muscles) | [...] | [facility] | [address] | [place] [address] | | | OF CARE TESTS | | | | + + + + + documented in this encounter Visit Diagnoses + + | Diagnosis | + + | Weakness of both lower extremities - Primary | + + documented in this encounter"
--- OUTSIDE RECORDS SUMMARY | ~2020-03-15 | XMS | Encounter Summary ---
Demographics + + + | Address | [address] | | | [place] [address] | + + + | Home Phone [...] + | Esthela Kumar | ECON | [address] | | | | | [place] | | | | | [address] | | + + + + + Care Team Providers + +------+ + | Care Tile Mechanic Helper Name | Role | Phone | [...] | | | | | | | [address] | | | | | | | [place] | | | | | | | [place], [place] | | | | | | | [address] | | | | | | | Phone: | | | | | | | [phone] | | | | | | | Fax: | | | | | | | [phone] | | +--------+--------+ + + + + Encounter Details +--------+ + + + + | Date | Type | Department | Care Team | Description | +--------+ + + + + | 08/27/ | Orders Only | Neurology | Sherlyn Lazcano MD | Peripheral | | 2012 | | Neuromuscular Clinic | [address] | neuropathy (Primary | | | | at [place] [facility] | [place] [address] | Dx) | | | | Health & Healing | [phone] | | | | | [address] | | | | | | [facility] | | | | | | and Healing, | | | | | | | | | | | | Floor [place], [place] | | | | | | [address] | | | | | | [phone] | | | +--------+ + + + [...]
--- OUTSIDE RECORDS SUMMARY | ~2020-03-15 | XMS | Encounter Summary ---
Demographics + + + | Address | [address] | | | [place] [address] | + + + | Home Phone | | + + + | Preferred Language | Unknown | + + + | Marital Status | | + + + | Scientology Affiliation | [id number] | + + + | Race | Unknown | + + + | Ethnic Group | Unknown | + + + Author + + + | Author | [facility] | | | and [place] | + + + | Organization | [facility] | | | and [...] Team Providers + +------+ + | Care Grinding Machine Tender Name | Role | Phone | + +------+ + | Lázaro Oviedo MD | PCP | | + +------+ + Encounter Details +--------+ + + + + | Date | Type | Department | Care Team | Description | +--------+ + + + + | 04/18/ | Orders Only | [facility] | Conversion | | | 2016 | | CONVERSION [address]P [address] | Transaction, | | | | | [address] | Provider Unknown | | | | | [place] | [phone] | | | | | [address] | | | | | | [phone] | | | +--------+ + + + [...]
--- OUTSIDE RECORDS SUMMARY | ~2020-03-15 | XMS | Encounter Summary ---
Demographics + + + | Address | [address] | | | [place] [address] | + + + | Home Phone | | + + + | Preferred Language | Unknown | + + + | Marital Status | | + + + | Muslim Affiliation | Unknown | + + + [...] + | Esthela Kumar | ECON | [address] | | | | | [place] | | | | | [address] | | + + + + + Care Team Providers + +------+ + | Care Production Staff Worker Name | Role | Phone | + +------+ + | Alan Sainz MD | PCP | | + +------+ + Encounter Details +--------+ + + + + | Date | Type | Department | Care Team | Description | +--------+ + + + + | 06/08/ | Results | Neurology | Maximilian De La Garza, | | | 2000 | Only | Neuromuscular Clinic | | | | | | at [facility] | | | | | | Health & Healing | | | | | | [address] | | | | | | [facility] | | | | | | and Healing, | | | | | | Building | | | | | | Floor [place], [place] | | | | | | [address] | | | | | | [phone] | | | +--------+ + + + [...]
--- OUTSIDE RECORDS SUMMARY | ~2020-03-15 | XMS | Encounter Summary ---
Demographics + + + | Address | [address] | | | [place] [address] | + + + | Home Phone [...] + | Esthela Kumar | ECON | [address] | | | | | [place] | | | | | [address] | | + + + + + Care Team Providers + +------+ + | Care Durability Technician Name | Role | Phone | [...] Building | | | | | | [place], [place] | | | | | | [address] | | | | | | [phone] | | | +--------+ + + + [...]
--- OUTSIDE RECORDS SUMMARY | ~2020-03-15 | XMS | Encounter Summary ---
Demographics + + + | Address | [address] | | | [place] [address] | + + + | Home Phone [...] + | Esthela Kumar | ECON | [address] | | | | | [place] | | | | | [address] | | + + + + + Care Team Providers + +------+ + | Care Optical Advisor Name | Role | Phone | [...] Deaminase Deficiency | | | | at [facility] | | ([facility]) (Primary Dx) | | | | Health & Healing | | | | | | [address] | | | | | | [facility] | | | | | | and Healing, | | | | | | Building | | | | | | Floor [place], [place] | | | | | | [address] | | | | | | [phone] | | | +--------+---------+ + + + [...] might be different from t oscar original. [id number] JOSÉ Cabrera [id number] Clinic Date: 07/14/2008 Clinic: [facility] Myopathy Clinic History of Present Illness: Mr. [...] 3 Years of Education: 14 Occupational History [employer] Social History Main Topics Tobacco Use: [...] sense in the left toes. Cerebellar examination: [id number] is intact. Gait: There is a slight [...] of care. Maximilian De La Garza M.D. [facility] / [id number] / [id number] / [id number] / [id number] documented in this encou nter Plan of [...]
--- OUTSIDE RECORDS SUMMARY | ~2020-03-15 | XMS | Encounter Summary ---
Demographics + + + | Address | [address] | | | [place] [address] | + + + | Home Phone | | + + + | Preferred Language | Unknown | + + + | Marital Status | | + + + | Druze Affiliation | Unknown | + + + | Race | White | + + + | Ethnic Group | Other Race | + + + Author + + + | Author | [facility] | + + + | Organization | [facility] | + + + | Address | Unknown | + + + | Phone | Unavailable | + + + Support + + + + + | Name | Relationship | Address | Phone | + + + + + | Esthela Kumar | ECON | [address] | | | | | [place] | | | | | [address] | | + + + + + Care Team Providers + +------+ + | Care Proofer Name | Role | Phone | + +------+ + | Alan Sainz MD | PCP | | + +------+ + Encounter Details +--------+ + + + + | Date | Type | Department | Care Team | Description | +--------+ + + + + | 04/19/ | Abstract | Neurology at | Brian, | | | 2017 | | [place] [facility] & | Sussy Manuel MD [address] | | | | | Healing [address] | [address] | | | | | [facility] [place] for | [place], [place] | | | | | Health and Healing, | [address] | | | | | | [phone] | | | | | Floor [place], [place] | | | | | | [address] | | | | | | [phone] | | | +--------+ + + + [...] called for results of MRI done at [facility]. Called to request records which have been uploaded to media tab and images have been pushed to [employer]. Please advise. Electronically signed by Real Reza MA at 017 5:30 AM PDTdocumented in this encounter Plan of Treatment Not on filedocumented as of this encounter Visit Diagnoses Not on filedocumented in this encounter"
--- OUTSIDE RECORDS SUMMARY | ~2020-03-15 | XMS | Encounter Summary ---
Demographics + + + | Address | [address] | | | [place] [address] | + + + | Home Phone [...] + | Esthela Kumar | ECON | [address] | | | | | [place] | | | | | [address] | | + + + + + Care Team Providers + +------+ + | Care Bending Frame Operator Name | Role | Phone | + +------+ + | Alan Sainz MD | PCP | | + +------+ + Encounter Details +--------+ + + + + | Date | Type | Department | Care Team | Description | +--------+ + + + + | 03/01/ | Abstract | Neurology at | Clinic, Neurology | | | 2017 | | [place] [facility] | | | | | | Healing [address] | | | | | | [facility] | | | | | | Health and Healing, | | | | | | Building | | | | | | Floor [place], [place] | | | | | | [address] | | | | | | [phone] | | | +--------+ + + + [...]
--- OUTSIDE RECORDS SUMMARY | ~2020-03-15 | XMS | Encounter Summary ---
Demographics + + + | Address | [address] | | | [place] [address] | + + + | Home Phone | | + + + | Preferred Language | Unknown | + + + | Marital Status | | + + + | Caodaism Affiliation | Unknown | + + + [...] + | Esthela Kumar | ECON | [address] | | | | | [place] | | | | | [address] | | + + + + + Care Team Providers + +------+ + | Care Tire Regrooving Machine Operator Name | Role | Phone [...] | | | | | | at [facility] | | | | | | Health & Healing | | | | | | [address] | | | | | | [facility] | | | | | | and Healing, | | | | | | Building | | | | | | Floor [place], [place] | | | | | | [address] | | | | | | [phone] | | | +--------+ + + + [...]
--- OUTSIDE RECORDS SUMMARY | ~2020-03-15 | XMS | Encounter Summary ---
Demographics + + + | Address | [address] | | | [place] [address] | + + + | Home Phone [...] + | Esthela Kumar | ECON | [address] | | | | | [place] | | | | | [address] | | + + + + + Care Team Providers + +------+ + | Care Electronic Equipment Repairmen Name | Role | Phone | + +------+ + | Alan Sainz MD | PCP | | + +------+ + Encounter Details +--------+ + + + + | Date | Type | Department | Care Team | Description | +--------+ + + + + | 01/03/ | Transcribed | Allergy Clinic at | Dictation, Other | Transcribed | | 1994 | | [facility] [address] | | | | | | [address] | | | | | | [address] | | | | | | [facility], [address] [place] [address] | | | | | | [place], [place] | | | | | | [address] | | | | | | [phone] | | | +--------+ + + + [...] as of this encounter Progress Notes Interface, Analog Device Designer In - 12/07/2006 5:01 AM PDT [address] [address] [facility] January 03, 1995 MR [facility] [place] [address] RE:Andrea Kumar MR#:[id number] Dear Mister Campos: Your employee, Mr. Andrea Kumar, was seen for a follow-up visit on January 02, 1995 at the [facility] at the [facility]. 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 Mr. Kumar changed his [...] Resident, Dermatology Sondra Barton M.D. Professor, Dermatology /[facility] January 05, 1995 E: 01/17/95 [facility] documented in this encounter Plan of Treatment Not on filedocumented as of this encounter Visit Diagnoses Not on filedocumented in this encounter"
--- OUTSIDE RECORDS SUMMARY | ~2020-03-15 | XMS | Encounter Summary ---
Demographics + + + | Address | [address] | | | [place] [address] | + + + | Home Phone | | + + + | Preferred Language | Unknown | + + + | Marital Status | | + + + | Caodaism Affiliation | [id number] | + + + | Race | Unknown | + + + | Ethnic Group | Unknown | + + + Author + + + | Author | [facility] | | | and [place] | + + + | Organization | [facility] | | | and [place] [...] Team Providers + +------+ + | Care Bacteriologist Food Name | Role | Phone | + +------+ + | Lázaro Oviedo MD | PCP | | + +------+ + Reason for Visit + +--------+ + | Reason | Onset | Comments | | | Date | | + +--------+ + | Medication Question | 06/27/ | | | | 2019 | | + +--------+ + Encounter Details +--------+ + + + + | Date | Type | Department | Care Team | Description | +--------+ + + + + | 06/27/ | Telephone | [facility] | Hebert Felipe | Medication Question | | 2019 | | [address] | MD [place] [address] | | | | | [place] | [address] [place] | | | | | [address] | [address] | | | | | [phone] | | | +--------+ + + + [...] + + documented as of this encounter Miscellaneous Notes Telephone Encounter - Tony, Brianna Araya RN - 06/27/2019 4:[address] Felipe and order for tamsulosin received. Esthela notified that it was sent to [facility]. The Cipro was just one dose prior to surgery yesterday, no additional antibioti c needed at this time. Lopez will follow up 07/08/19 for stent removal as scheduled. Ej rascon signed by Brianna Jimenez, RN at 06/27/2019 4:25 PM PSTTelephone Encounter - Cecy Gonzalez - 06/27/2019 10:58 AM PSTPatient's called in to schedule post op apt wi th . Patient had surgery on 06/26/2019 with . Patient's was wond ering about prescriptions sent to pharmacy. She was told that was sending a pre scription for Tamsulosin but the pharmacy doesn't have it. Did let her know that a prescript ion for Cipro was sent but she was unaware he was going to get Cipro, please advise at when possible. documented in this encounter Plan of Treatment Not on filedocumented as of this encounter Visit Diagnoses Not on filedocumented in this encounter"
[~2020-03-15 14:58] MED LIST changes: +FLOMAX0.4 MG PO; +PERCOCET 5-3251 EACH PO
[2020-03-15] MEDS ORDERED: TRESIBA FL100 UNIT/1 SUB-Q (15:12)
[2020-03-15] MEDS ORDERED: EZETIMIBE10 MG PO (15:14)
[2020-03-15] MEDS ORDERED: CEPHALEXIN500 MG PO (16:45)
== END 2020-03-15 17:20 | disposition home or self-care (01) ==
LOC: ED 14:58
PROC: 0HQEXZZ Repair Left Lower Arm Skin, External Approach (ICD-10-PCS; principal; 2020-03-15)
DX: S51.812A Laceration without foreign body of left forearm, initial encounter (principal); E11.42 Type 2 diabetes mellitus with diabetic polyneuropathy; E78.5 Hyperlipidemia, unspecified; Z91.030 Bee allergy status; Z88.8 Allergy status to other drugs, medicaments and biological substances; Z79.899 Other long term (current) drug therapy; Z79.4 Long term (current) use of insulin; Z79.82 Long term (current) use of aspirin; W45.0XXA Nail entering through skin, initial encounter
CPT/HCPCS: 12035; 99283-25; A9270